=== PATIENT | female | born 1945 | race Caucasian/White ===

== ENCOUNTER 2019-11-08 13:54 | Outpatient (CLI) | payer MEDICARE, MEDICAID, SELFPAY ==
--- NOTE | ~2019-11-08 | XR_ITS ---
EXAMINATION: XR ankle LT min 3V, XR foot LT min 3V DATE: 11/08/2019 14:46 INDICATION: Nontraumatic lateral left foot pain TECHNIQUE: 1. Anteroposterior, mortise, additional oblique and lateral view of the left ankle were obtained. 2. Dorsoplantar, two oblique and lateral views of the left foot were obtained. COMPARISON: None. FINDINGS: Alignment of the foot and ankle is normal. Diffuse osteopenia. Irregular cortical contour at the neck s of the fourth and fifth proximal phalanges without evident linear lucency or discontinuous/sharply angulated cortex to suggest acute fracture and this could represent either old healed fracture deform ities or hypertrophic osteophytes related to osteoarthritis. Osteoarthritis with nonuniform joint spa ce narrowing at the tibiotalar, first metatarsophalangeal and several of the interphalangeal joints. Small heterotopic ossicle near the tip of the lateral malleolus likely sequela of chronic lateral ank le sprain. Small plantar calcaneal spur. Small enthesopathic ossicle at the distal Achilles tendon. N o ankle joint effusion. The soft tissues are unremarkable. IMPRESSION: 1. Irregular cortical contour at the necks of the fourth and fifth proximal phalanges without evident linear lucency or discontinuous/sharply angulated cortex to suggest acute fracture and this could re present either old healed fracture deformities or hypertrophic osteophytes related to osteoarthritis. Correlate with clinical history and for point tenderness. No other lesions suspicious for fracture. 2. Mild polyarticular osteoarthritis and mild enthesopathy at the posterior calcaneus. Reviewed, dictated and finalized at location A. CTOR PHONE IMPRESSION: 1. Irregular cortical contour at the necks of the fourth and fifth proximal pha langes without evident linear lucency or discontinuous/sharply angulated cortex to suggest acute fracture and this could represent either old healed fracture deformities or hypertrophic osteophytes related to osteoarthritis. Correlate wi th clinical history and for point tenderness. No other lesions suspicious for f racture. 2. Mild polyarticular osteoarthritis and mild enthesopathy at the posterior glenny caneus.
== END 2019-11-08 13:55 | disposition home or self-care (01) ==
LOC: ANHIMG 14:10
DX: M25.572 Pain in left ankle and joints of left foot (principal); M19.072 Primary osteoarthritis, left ankle and foot
CPT/HCPCS: 73610; 73630

== ENCOUNTER 2020-05-07 12:56 | Outpatient (CLI) | payer MEDICARE, MEDICAID, SELFPAY ==
--- NOTE | ~2020-05-07 | US_ITS ---
EXAMINATION: US venous doppler [facility] DATE: 05/07/2020 13:38 INDICATION: Lower limb pain and swelling. TECHNIQUE: Grayscale ultrasound images without and with compression and Doppler ultrasound images of the bilateral lower extremity veins were obtained. COMPARISON: Ultrasound 01/06/2019 FINDINGS: The visualized portions of right common femoral vein, profunda (deep) femoral vein, femoral vein, pop liteal vein, peroneal veins, posterior tibial veins, and greater saphenous vein outflow are patent. The visualized portions of left common femoral vein, profunda femoral vein, femoral vein, popliteal v ein, peroneal veins, posterior tibial veins, and greater saphenous vein outflow are patent. There is a small left-sided Beasley's cyst. IMPRESSION: 1. No deep venous thrombosis. 2. Small left-sided Beasley's cyst. Reviewed, dictated and finalized at location A.
== END 2020-05-07 12:57 | disposition home or self-care (01) ==
PROVIDERS: PCP Internal Medicine; Visit Provider Internal Medicine Cardiovascular Disease
DX: I87.2 Venous insufficiency (chronic) (peripheral) (principal); M79.89 Other specified soft tissue disorders; M71.22 Synovial cyst of popliteal space [Baker], left knee
CPT/HCPCS: 93970

== ENCOUNTER 2020-07-04 13:42 | Emergency (ER) | payer MEDICARE, MEDICAID, SELFPAY ==
[2020-07-04] VITALS (7 sets, daily range): BP systolic 113–163; BP diastolic 51–62; PULSE 52–76; RESP 16–26; O2SAT 94–98
--- NOTE | ~2020-07-04 | CT_ITS ---
EXAMINATION: CT brain wo con DATE: 07/04/2020 15:11 INDICATION: Head injury. TECHNIQUE: Computed tomography (CT) of the head was performed without intravenous contrast. The mA wa s adjusted according to patient size. Iterative reconstruction technique was employed. The dose-lengt h product was 605.33 mGy-cm. COMPARISON: Head CT 01/05/2019 FINDINGS: There is an old lacunar infarct in right involving right basal ganglia and anterior limb ri ght internal capsule. There is acute subarachnoid hemorrhage in a right parietal lobe sulcus and a le ft parietal lobe sulcus. There is no acute ischemic infarct or abnormal mass lesion. There are scatte red areas of low attenuation in the cerebral white matter. The ventricles are normal in size. There i s mild mucosal thickening in the ethmoid sinuses. There are likely changes of ocular lens replacement surgeries. The mastoid air cells are normal. There is a laceration of the right posterior scalp with soft tissue gas. IMPRESSION: 1. Small volume of acute subarachnoid hemorrhage in the parietal lobes. I called this result to Rodolfo ghotra. 2. Old lacunar infarct involving right basal ganglia and anterior limb right internal capsule. 3. Stable mild nonspecific cerebral white matter disease, which likely represents chronic small vesse l ischemic disease. Reviewed, dictated and finalized at location A. IMPRESSION: 1. Small volume of acute subarachnoid hemorrhage in the parietal lobes. I barnes d this result to Rodolfo Arredondo. 2. Old lacunar infarct involving right basal ganglia and anterior limb right in ternal capsule. 3. Stable mild nonspecific cerebral white matter disease, which likely represen ts chronic small vessel ischemic disease.
--- NOTE | ~2020-07-04 | XR_ITS ---
XR chest 1V portable 07/04/2020 15:38 Indication: Status post fall. Transient alteration of awareness. Generalized chest pain. Procedure: AP portable chest Comparison: Comparison to multiple prior studies sequentially, with oldest reviewed study dated 07/06. Findings: Status post median sternotomy for CABG. Cardiomegaly. Interval development of bilateral per ihilar interstitial infiltrates. No pleural effusion or pneumothorax. Generalized osteopenia. No acut e osseous abnormality. Impression: 1: Bilateral perihilar interstitial infiltrates, most likely edema. Pneumonia less favored. 2: Cardiomegaly. Reviewed, dictated and finalized at location A. Impression: 1: Bilateral perihilar interstitial infiltrates, most likely edema. Pneumonia l ess favored. 2: Cardiomegaly.
--- NOTE | ~2020-07-04 | CT_ITS ---
EXAMINATION: CT lumbar spine wo con DATE: 07/04/2020 15:11 INDICATION: Low back pain post fall TECHNIQUE: Computed tomography (CT) of the lumbar spine was performed without intravenous contrast. A utomated exposure control and iterative reconstruction technique were employed. The dose-length produ ct was 1154.48 mGy-cm. COMPARISON: Lumbar spine MR dated 04/15/[address] abdomen and pelvis dated 01/06/2019 FINDINGS: Alignment is normal. Chronic minimal anterior wedging at T12 and L1. Remaining lumbar vertebral body heights are normal. No acute fracture. Mild disc height loss at T11-T12, L1-L2, L2-L3 and minimal at L3-L4 and L4-L5. There is calcified atherosclerosis of the aorta and many of the other arteries. Low- attenuation adrenal adenomas measuring 12 mm in the left adrenal gland and 2.0 and 2.6 cm in the righ t adrenal gland. The following disc levels are specifically discussed: T11-T12: Disc is mildly bulging. There is mild to moderate left and moderate right facet joint osteoa rthritis. There is no neural foraminal stenosis. There is no central canal stenosis. T12-L1: Disc is mildly bulging. There is mild to moderate left and moderate right facet joint osteoar thritis. There is no neural foraminal stenosis. There is mild central canal stenosis. L1-L2: Disc is bulging. There is mild bilateral facet joint osteoarthritis. There is mild bilateral n eural foraminal stenosis. There is mild central canal stenosis. L2-L3: Disc is bulging. There is hypertrophy of the ligamentum flavum. There is moderate left and mil d to moderate right facet joint osteoarthritis. There is mild bilateral neural foraminal stenosis. Th ere is mild central canal stenosis. L3-L4: Disc is bulging. There is hypertrophy of the ligamentum flavum. There is mild left and mild to moderate right facet joint osteoarthritis. There is mild bilateral neural foraminal stenosis. There is mild to moderate central canal stenosis. L4-L5: Disc is mildly bulging. There is hypertrophy of the ligamentum flavum. There is mild right and minimal left facet joint osteoarthritis. There is mild bilateral neural foraminal stenosis. There is mild central canal stenosis. L5-S1: Disc is mildly bulging. There is mild right and mild to moderate left facet joint osteoarthrit is. There is mild bilateral neural foraminal stenosis. There is no central canal stenosis. IMPRESSION: 1. Mild lumbar spondylosis. No acute osseous abnormality. Reviewed, dictated and finalized at location B.
--- NOTE | ~2020-07-04 | CT_ITS ---
EXAMINATION: CT cervical spine wo con DATE: 07/04/2020 15:10 INDICATION: Head injury. TECHNIQUE: Computed tomography (CT) of the cervical spine was performed without intravenous contrast. Automated exposure control and iterative reconstruction technique were employed. The dose-length pro duct was 502.51 mGy-cm. COMPARISON: Cervical spine CT 07/04/2017 FINDINGS: There is 6 degrees levocurvature of cervical spine. Vertebral body heights are normal. Ther e are changes of anterior fusion procedure from C5 to C7 with healed interbody bone graft and anterio r plate and screws. There is moderately decreased disc height at C3-C4 and C4-C5. The following disc levels are specifically discussed: C2-C3: There is no uncovertebral joint osteoarthritis. There is mild bilateral facet joint osteoarthr itis. There is no neural foraminal stenosis. There is no central canal stenosis. C3-C4: There is severe bilateral uncovertebral joint osteoarthritis. There is mild bilateral facet angel int osteoarthritis. There is mild bilateral neural foraminal stenosis. There is mild central canal st enosis. C4-C5: There is mild bilateral uncovertebral joint osteoarthritis. There is no facet joint osteoarthr itis. There is mild bilateral neural foraminal stenosis. There is mild central canal stenosis. C5-C6: There is mild left uncovertebral joint hypertrophy. There is no facet joint osteoarthritis. Th ere is mild left neural foraminal stenosis. There is mild central canal stenosis. C6-C7: There is no uncovertebral joint hypertrophy. There is no facet joint osteoarthritis. There is no neural foraminal stenosis. There is no central canal stenosis. C7-T1: There is no uncovertebral joint osteoarthritis. There is severe right and moderate left facet joint osteoarthritis. There is no neural foraminal stenosis. There is no central canal stenosis. IMPRESSION: 1. No fracture. 2. Moderate cervical spondylosis. 3. Anterior fusion procedure from C5 to C7. Reviewed, dictated and finalized at location A.
--- NOTE | 2020-07-04 13:55 | ECG_ITS ---
Measurements Intervals [place] Rate: 47 P: 89 UT: 135 QRS: 73 QRSD: 109 T: 110 QT: 478 QTc: 423 Interpretive Statements SINUS BRADYCARDIA BORDERLINE R WAVE PROGRESSION, ANTERIOR LEADS BORDERLINE ST-T WAVE ABNORMALITY- ANTEROLAT/HIGH LAT LEADS BASELINE ARTIFACT- I, II, III, AVR, AVL, AVF, V1-V3, V5-V6 ABNORMAL ECG Electronically Signed On 07-05-2020 8:08:16 CDT by Stephan Talbot D.O.
--- NOTE | 2020-07-04 14:01 | ED.GENADULT ---
HPI - General Adult General Chief complaint: Fall <KARLENE Solano Last Filed: 07/04/20 15:45> Stated complaint: Fall <KARLENE Solano Last Filed: 07/04/20 15:45> Time Seen by Provider: 07/04/20 13:54 <KARLENE Solano Last Filed: 07/04/20 15:45> Source: patient, family and EMS <KARLENE Solano Last Filed: 07/04/20 15:45> Mode of arrival: EMS <KARLENE Solano Last Filed: 07/04/20 15:45> Limitations: no limitations <KARLENE Solano Last Filed: 07/04/20 15:45> History of Present Illness HPI narrative: Patient is a 74-year-old female who presents to emergency department after reportedly falling backwards on the stairs struck the posterior head patient on arrival per EMS notes posterior headache neck pain right wrist pain and low back pain all the way to the ER patient notes some chest discomfort anteriorly patient notes she had felt fine yesterday patient otherwise on arrival presents uncomfortable but in no distress does note that she is currently sleepy denies anticoagulant use <KARLENE Solano Last Filed: 07/04/20 15:45> Related Data Allergies/adverse reactions: Allergies Allergy/AdvReac Type Severity Reaction Status Date / Time levofloxacin Allergy Severe Swelling Verified 07/04/20 14:08 cefaclor Allergy Unknown Anaphylaxis Verified 07/04/20 14:08 ciprofloxacin Allergy Unknown Anaphylaxis Verified 07/04/20 14:08 codeine Allergy Unknown Other Verified 07/04/20 14:08 erythromycin base Allergy Unknown Hives Verified 07/04/20 14:08 Iodinated Contrast Media Allergy Unknown Hives Verified 07/04/20 14:08 iodine Allergy Unknown Itching Verified 07/04/20 14:08 latex Allergy Unknown Anaphylaxis Verified 07/04/20 14:08 Sulfa (Sulfonamide Allergy Unknown Anaphylaxis Verified 07/04/20 14:08 Antibiotics) sulfanilamide Allergy Unknown Anaphylaxis Verified 07/04/20 14:08 Macrolide Antibiotics AdvReac Unknown Gastrointestinal Verified 07/04/20 14:08 Upset morphine AdvReac Unknown VOMITING Verified 07/04/20 14:08 Quinolones AdvReac Unknown Other Verified 07/04/20 14:08 vancomycin AdvReac Unknown side Verified 07/04/20 14:08 effect-rising creatnine Contrast Media Allergy Unknown SWELLS,RED, Uncoded 07/04/20 14:09 SOB <Rodolfo Arredondo PA-C - Last Filed: 07/04/20 15:45> Review of Systems Review of Systems: All systems reviewed & are unremarkable except as noted in HPI and below <Rodolfo Arredondo PA-C - Last Filed: 07/04/20 15:45> [facility] Past Medical History Medical History: Medical History (Updated 07/04/20 @ 15:44 by Rodolfo Arredondo PA-C) COPD (chronic obstructive pulmonary disease) Coronary artery disease Hyperlipidemia Hypertension Tobacco abuse <Rodolfo Arredondo PA-C - Last Filed: 07/04/20 15:45> Surgical History Surgical History: Surgical History (Updated 07/04/20 @ 14:03 by Rodolfo Arredondo PA-C) Hx of CABG <Rodolfo Arredondo PA-C - Last Filed: 07/04/20 15:45> Family History Family History: Family History (Updated 11/21/17 @ 06:57 by DOCTOR UNKNOWN) Mother Family history of chronic obstructive pulmonary disease Sibling Family history of chronic obstructive pulmonary disease Family history of diabetes mellitus in first degree relative Acute myocardial infarction Diabetes mellitus Family history of coronary artery disease Father Family history of lung cancer Other Hypertension <Rodolfo Arredondo PA-C - Last Filed: 07/04/20 15:45> Social History Social History: Social History (Updated 07/04/20 @ 14:03 by Rodolfo Arredondo PA-C) Smoking status: Current every day smoker Second hand tobacco smoke exposure: Yes Smoking end date: 09/05/14 Alcohol intake: never Gender identity (if verbalized by the patient): Female <Rodolfo Arredondo PA-C - Last Filed: 07/04/20 15:45> Exam Narrative: Exam Narrative: GENERAL: Ill-appearing, obese, u
[2020-07-04 14:21] LABS: Glucose Point of Care 140 (65-105)
[2020-07-04 14:22] LABS: Alveolar/Arterial O2 Gradient 86.3 mmHg; Base Excess ABG 1.5 mEq/l (+/-2.0); Device NASAL CANNULA; Fractional Inspired Oxygen 28 %; HCO3 ABG 26.2 mEq/l (22.0-26.0); Oxygen Content ABG 15.8 %vol (16.0-22.0); Oxygen Saturation ABG 92.8 % (95.0-100.0); Oxyhemoglobin 85.7 % THb (90.0-100.0); PCO2 ABG 41.7 mmHg (35.0-45.0); PO2 ABG 64.1 mmHg (80.0-100.0); PO2 FiO2 Ratio Arterial Blood 2.29 %; Site Drawn RIGHT BRACHIAL; Total Hemoglobin 13.1 g/dL (12.0-18.0); pH ABG 7.416 (7.350-7.450)
--- NOTE | 2020-07-04 15:15 | PC.NURSE ---
correction to d/c note & time: phone report to nurse villarreal at [id number]
[2020-07-04 15:25] LABS: Basophils Absolute Auto 0.1 K/mm3 (0.0-0.1); Basophils Percent Auto 0.6 % (0.2-1.2); Eosinophils Absolute Auto 0.1 K/mm3 (0-0.3); Eosinophils Percent Auto 0.9 % (0-4.4); Hematocrit 38.7 % (37.0-47.0); Hemoglobin 12.8 g/dL (12.0-15.0); Immature Granulocyte Absolute 0.11 K/mm3 (0.00-0.031); Immature Granulocyte Percent A 0.8 % (0-0.5); Lymphocytes Absolute Auto 1.76 K/mm3 (0.9-3.2); Mean Corpuscular HGB Conc 33.1 g/dl (32-36); Mean Corpuscular Hemoglobin 33.8 pg (26-34); Mean Corpuscular Volume 102.1 fl (80-100); Mean Platelet Volume 9.7 fl (7.4-10.4); Monocytes Absolute Auto 0.8 K/mm3 (0.1-0.6); Monocytes Percent Auto 5.7 % (2.6-8.5); Neutrophils Absolute Auto 11.7 K/mm3 (1.3-6.7); Platelet Count Result 172 k/mm3 (150-375); Red Blood Count 3.79 M/mm3 (4.2-5.4); Red Cell Distribution Width 12.7 % (11.5-14.5); White Blood Count 14.6 K/mm3 (4.5-10.0)
[2020-07-04] MEDS: SODIUM CHLORIDE 0.9% IV 500 ML 999 ML IV CONT (15:26)
--- NOTE | 2020-07-04 15:33 | PC.NURSE ---
[facility] declined transfer to [facility] accepted transfer ETA 15-min Trip #[id number]
[2020-07-04 15:38] LABS: Alanine Aminotransferase 23 U/L (4-35); Albumin Level 3.9 g/dL (3.5-5.1); Alkaline Phosphatase 52 U/L (38-126); Anion Gap 5 mmol/L (8-16); Aspartate Amino Transferase 44 U/L (14-36); Bilirubin,Total 0.3 mg/dL (0.2-1.3); Blood Urea Nitrogen 15 mg/dL (7-17); Calcium 8.9 mg/dL (8.4-10.2); Carbon Dioxide 30 mmol/L (22-30); Chloride 106 mmol/L (98-107); Estimated CRCL calculation 47 ml/min; Estimated Glomerular Filt Rate > 60; Glucose 125 mg/dL (65-105); Magnesium 1.7 mg/dL (1.6-2.3); Partial Thromboplastin Time 26.8 SECONDS (22.3-36.8); Potassium 3.7 mmol/L (3.4-5.0); Sodium 141 mmol/L (137-145)
--- NOTE | 2020-07-04 15:45 | PC.NURSE ---
[facility] arrived for transfer to [facility] @ [phone]
[2020-07-04 15:50] LABS: NT Pro B Type Natriuretic Pept 1030 PG/ML (5-100); Troponin I < 0.012 ng/mL (0.000-0.034)
== END 2020-07-04 15:45 | disposition short-term general hospital (02) ==
PROVIDERS: Emergency Medicine Emergency Medical Services; Emergency Provider Emergency Medicine
DX: S06.6X0A Traumatic subarachnoid hemorrhage without loss of consciousness, initial encounter (principal); J44.9 Chronic obstructive pulmonary disease, unspecified; I25.10 Atherosclerotic heart disease of native coronary artery without angina pectoris; E78.5 Hyperlipidemia, unspecified; I10 Essential (primary) hypertension; Z95.1 Presence of aortocoronary bypass graft; Z87.891 Personal history of nicotine dependence; M47.816 Spondylosis without myelopathy or radiculopathy, lumbar region; R00.1 Bradycardia, unspecified; R94.31 Abnormal electrocardiogram [ECG] [EKG]; R90.82 White matter disease, unspecified; M47.812 Spondylosis without myelopathy or radiculopathy, cervical region; Z98.1 Arthrodesis status; I51.7 Cardiomegaly; R91.8 Other nonspecific abnormal finding of lung field; W10.9XXA Fall (on) (from) unspecified stairs and steps, initial encounter
CPT/HCPCS: 36415; 36600; 70450; 71045; 72125; 72131; 80053; 82375; 82805; 82948; 83050; 83735; 83880; 84484; 85025; 85610; 85730; 93005; 96365; 96366; 99291; J0131; J7040

== ENCOUNTER 2020-08-05 17:05 | IRF | payer MEDICARE, MEDICAID, SELFPAY ==
--- NOTE | ~2020-08-05 | CT_ITS ---
EXAMINATION: CT brain wo con DATE: 08/18/2020 13:33 INDICATION: Headache. History of subarachnoid hemorrhage. TECHNIQUE: Computed tomography (CT) of the head was performed without intravenous contrast. The dose- length product was 605.33 mGy-cm. Automated exposure control and iterative reconstruction technique w ere employed. COMPARISON: CT dated 07/04/2020 FINDINGS: Mild generalized atrophy. There are scattered moderate periventricular and subcortical whit e matter changes, most likely related to small vessel ischemic disease (microangiopathy). Chronic rig ht lacunar infarctions. No ventriculomegaly or midline shift. There is intracranial atherosclerosis. Interval resolution of small subarachnoid hemorrhages of the parietal lobes. No acute hemorrhage, mas s or mass effect. Paranasal sinuses are pneumatized. There are bilateral mastoid effusions. No depres sed skull fractures. IMPRESSION: 1. No acute intracranial abnormality. 2: Chronic right lacunar infarctions. 3: Chronic age-related findings. Reviewed, dictated and finalized at location A. NUE CYCLE MANAGER
--- NOTE | ~2020-08-05 | XR_ITS ---
EXAMINATION: XR chest 1V portable DATE: 08/08/2020 20:40 INDICATION: Midsternal chest pain and shortness of breath TECHNIQUE: frontal view of the chest was obtained. COMPARISON: Chest radiograph dated 08/08/2020 at 2:06 PM FINDINGS: Again seen are predominantly linear and bandlike opacities in the bilateral lower lung zones which fa vors discoid atelectasis over pneumonia. Small left pleural effusion. No pneumothorax or right-sided pleural effusion. The cardiomediastinal silhouette is normal. Median sternotomy wires and mediastinal surgical clips are seen, likely from prior coronary artery bypass grafting. Retained epicardial pace maker leads in the epigastric region. Again seen are a mildly displaced relatively recent-appearing p osterolateral right fourth-seventh rib fractures. Lower cervical anterior spinal fusion with plate an d screw fixation. IMPRESSION: 1. No significant change in opacities in the bilateral lower lung zones with appearance favoring atel ectasis over pneumonia. 2. Small left pleural effusion. 3. Relatively recent-appearing right fourth-seventh rib fractures. Reviewed, dictated and finalized at location A. UTER SYSTEMS AUDITOR IMPRESSION: 1. No significant change in opacities in the bilateral lower lung zones with ap pearance favoring atelectasis over pneumonia. 2. Small left pleural effusion. 3. Relatively recent-appearing right fourth-seventh rib fractures.
--- NOTE | ~2020-08-05 | XR_ITS ---
EXAMINATION: XR finger 1st RT min 2V DATE: 08/13/2020 13:17 INDICATION: Right thumb pain. TECHNIQUE: 3 views of right thumb were obtained. COMPARISON: None. FINDINGS: Bone alignment is normal. No fracture. There is diffuse osteopenia. There is mild osteoarth ritis of first metatarsophalangeal joint and severe osteoarthritis of first carpometacarpal joint. IMPRESSION: 1. Polyarticular osteoarthritis. Reviewed, dictated and finalized at location B. INE ICER
--- NOTE | ~2020-08-05 | XR_ITS ---
EXAMINATION: XR chest 1V portable EXAM DATE: 08/08/2020 14:12 INDICATION: SOB, cough, congestion . TECHNIQUE: Portable AP frontal chest x-ray was obtained. Comparison is made to prior examination from 07/04/2020. FINDINGS: Some scattered predominantly linear bibasilar opacities likely atelectasis. Infection not e ntirely excludable. There are right 4th-7th rib fractures which appear new compared to prior study. M ild cardiomegaly. Sternotomy wires was some fractures. There is aortic arteriosclerosis. There is no pneumothorax suspected. There are no pleural effusions. Cervical fusion hardware. IMPRESSION: 1. Development of scattered bibasilar opacities most likely atelectasis. Infection not excludable. 2. Right 4th-7th rib fractures posteriorly. Reviewed, dictated and finalized at location A. GER SUBWAY IMPRESSION: 1. Development of scattered bibasilar opacities most likely atelectasis. Infec tion not excludable. 2. Right 4th-7th rib fractures posteriorly.
--- NOTE | ~2020-08-05 | CT_ITS ---
EXAMINATION: CT cervical spine wo con DATE: 08/18/2020 13:33 INDICATION: Headache. TECHNIQUE: Computed tomography (CT) of the cervical spine was performed without intravenous contrast. Automated exposure control and iterative reconstruction technique were employed. The dose-length pro duct was 315.79 mGy-cm. COMPARISON: Cervical spine CT 07/04/2020 FINDINGS: There is mild emphysema. There is mild scarring at the lung apices. The thyroid is heteroge neous. There are bilateral mastoid effusions. There is 6 degrees levocurvature of cervical spine. Donal tebral body heights are normal. There are changes of anterior fusion procedure from C5 to C7 with hea led interbody bone graft and anterior plate and screws. There are healing compression fractures of th e superior endplates of T2 and T3 with less than 1/5 loss of height. There is moderately decreased di sc height at C3-C4 and C4-C5. The following disc levels are specifically discussed: C2-C3: There is no uncovertebral joint osteoarthritis. There is mild bilateral facet joint osteoarthritis. There is no neural foraminal stenosis. There is no central canal stenosis. C3-C4: There is severe bilateral uncovertebral joint osteoarthritis. There is mild bilateral facet joint osteoarthritis. There is mild bilateral neural foraminal stenosis. There is mild central canal stenosis. C4-C5: There is mild bilateral uncovertebral joint osteoarthritis. There is no facet joint osteoarthritis. There is mild bilateral neural foraminal stenosis. There is mild central canal stenosis. C5-C6: There is mild left uncovertebral joint hypertrophy. There is no facet joint osteoarthritis. There is mild left neural foraminal stenosis. There is mild central canal stenosis. C6-C7: There is no uncovertebral joint hypertrophy. There is no facet joint osteoarthritis. There is no neural foraminal stenosis. There is no central canal stenosis. C7-T1: There is no uncovertebral joint osteoarthritis. There is severe right and moderate left facet joint osteoarthritis. There is no neural foraminal stenosis. There is no central canal stenosis. IMPRESSION: 1. Healing subacute compression fractures of T2 and T3. 2. Moderate cervical spondylosis. 3. Anterior fusion procedure from C5 to C7. Reviewed, dictated and finalized at location A. S BROKER
--- NOTE | 2020-08-05 17:30 | ADMGEN ---
This patient, Alondra Bill, was admitted to [facility] Room 226-01. Patient/family oriented to hospital policies and general routines including ID bracelet, bed and alarms, visiting hours, pain management, procedures, bathroom and other care routines, personal items, smoking policy, room service/diet, and visiting hours. Information on how to activate the Rapid Response Team has been discussed. Patient/Family are encouraged to report perceived risks to care and to ask questions if they do not understand what they are told or what they should do. Patient arrived via [facility], they reported alert and oriented x 4 and V/S stable during ride. Stated also that O2 sats were in the low 90's and patient showed no related discomfort
[2020-08-05 17:57] VITALS: BP 138/58; PULSE 80; RESP 16; TEMP 36.2; O2SAT 94; BMI 29.7
[2020-08-05 19:15] VITALS: BMI 29.7
[2020-08-05] MEDS: BACLOFEN 10 MG TABLET PO (20:41)
[2020-08-05] MEDS: ALPRAZolam (*CRX) 0.5 MG TABLET PO (20:41)
[2020-08-05] MEDS: CHLORHEXIDINE GLUCONATE 0.12% ORAL RINSE 473 ML BTL (*BKC) 15 ML SWISH/SPIT (20:42)
[2020-08-05] MEDS: FERROUS SULFATE 324 MG TABLET PO (20:42)
[2020-08-05] MEDS: ENOXAPARIN 30 MG/0.3 ML SYRINGE SUB-Q (20:42)
[2020-08-05] MEDS: BACITRACIN OINTMENT 15 GM TUBE 1 APPLIC TOPICAL (20:42)
[2020-08-05] MEDS: FLUTICASONE PROPIONATE 0.05% NA SPR 16 GM BTL (*BKC) 2 SPRAY NASAL (20:43)
[2020-08-05] MEDS: NYSTATIN 100,000 UNITS/ML SUSP 5 ML ORAL.SUSP PO (20:43)
[2020-08-05] MEDS: NITROFURANTOIN MONOHYD MACROCR 100 MG CAP PO (20:44)
[2020-08-05] MEDS: ROSUVASTATIN 10 MG TABLET 20 MG PO (20:45)
[2020-08-05] MEDS: PANTOPRAZOLE 40 MG TABLET PO (20:45)
[2020-08-05 21:12] LABS: Glucose Point of Care 128 (65-105)
[2020-08-05 22:00] VITALS: BP 136/64; PULSE 77; RESP 16; TEMP 36.3; O2SAT 93
[2020-08-05] MEDS: ACETAMINOPHEN 500 MG TABLET 1000 MG PO (22:53)
[2020-08-06] VITALS (7 sets, daily range): BP systolic 122–152; BP diastolic 51–61; PULSE 70–87; RESP 18–20; TEMP 36.4–36.6; O2SAT 92–97; BMI 29.7
[2020-08-06 05:49] LABS: Basophils Absolute Auto 0.1 K/mm3 (0.0-0.1); Basophils Percent Auto 0.6 % (0.2-1.2); Eosinophils Absolute Auto 0.5 K/mm3 (0-0.3); Eosinophils Percent Auto 5.2 % (0-4.4); Hematocrit 30.9 % (37.0-47.0); Hemoglobin 10.1 g/dL (12.0-15.0); Immature Granulocyte Absolute 0.02 K/mm3 (0.00-0.031); Immature Granulocyte Percent A 0.2 % (0-0.5); Lymphocytes Absolute Auto 2.13 K/mm3 (0.9-3.2); Lymphocytes Percent Auto 24.7 % (18.3-44.2); Mean Corpuscular HGB Conc 32.7 g/dl (32-36); Mean Corpuscular Hemoglobin 33.7 pg (26-34); Mean Platelet Volume 9.5 fl (7.4-10.4); Monocytes Absolute Auto 0.6 K/mm3 (0.1-0.6); Monocytes Percent Auto 7.4 % (2.6-8.5); Neutrophils Absolute Auto 5.4 K/mm3 (1.3-6.7); Neutrophils Percent Auto 61.9 % (45.5-73.1); Platelet Count Result 210 k/mm3 (150-375); Red Cell Distribution Width 13.1 % (11.5-14.5); White Blood Count 8.6 K/mm3 (4.5-10.0)
[2020-08-06 06:04] LABS: Anion Gap 4 mmol/L (8-16); Blood Urea Nitrogen 13 mg/dL (7-17); Calcium 9.2 mg/dL (8.4-10.2); Carbon Dioxide 31 mmol/L (22-30); Chloride 101 mmol/L (98-107); Cholesterol 117 mg/dL (0-200); Estimated CRCL calculation 58 ml/min; Estimated Glomerular Filt Rate > 60; Glucose 124 mg/dL (65-105); HDL Direct 38 mg/dL; Sodium 136 mmol/L (137-145); Triglycerides 132 mg/dL (<150)
[2020-08-06 06:14] LABS: LDL Cholesterol Direct 43 mg/dL
[2020-08-06 06:45] LABS: Glucose Point of Care 129 (65-105)
[2020-08-06] MEDS: ENOXAPARIN 30 MG/0.3 ML SYRINGE SUB-Q ×2 (09:28→21:46)
[2020-08-06] MEDS: FERROUS SULFATE 324 MG TABLET PO ×2 (09:28→17:22)
[2020-08-06] MEDS: metFORMIN HCL 500 MG TABLET PO (09:28)
[2020-08-06] MEDS: METOPROLOL SUCCINATE EXT REL 12.5 MG TABCR PO (09:28)
[2020-08-06] MEDS: BACLOFEN 10 MG TABLET PO ×3 (09:29→17:22)
[2020-08-06] MEDS: amLODIPine BESYLATE 5 MG TABLET PO (09:29)
[2020-08-06] MEDS: FLUTICASONE PROPIONATE 0.05% NA SPR 16 GM BTL (*BKC) 2 SPRAY NASAL ×2 (09:29→21:37)
[2020-08-06] MEDS: CITALOPRAM HYDROBROMIDE 20 MG TABLET 40 MG PO (09:29)
[2020-08-06] MEDS: LIDOCAINE 5% PATCH 3 PATCH TOPICAL (09:30)
[2020-08-06] MEDS: NITROFURANTOIN MONOHYD MACROCR 100 MG CAP PO ×2 (09:30→21:35)
[2020-08-06] MEDS: NYSTATIN 100,000 UNITS/ML SUSP 5 ML ORAL.SUSP PO ×4 (09:31→21:35)
[2020-08-06] MEDS: PANTOPRAZOLE 40 MG TABLET PO ×2 (09:31→21:35)
[2020-08-06] MEDS: SPIRONOLACTONE 25 MG TABLET PO (09:31)
[2020-08-06] MEDS: BACITRACIN OINTMENT 15 GM TUBE 1 APPLIC TOPICAL ×2 (09:33→21:36)
[2020-08-06] MEDS: CHLORHEXIDINE GLUCONATE 0.12% ORAL RINSE 473 ML BTL (*BKC) 15 ML SWISH/SPIT ×2 (09:33→21:40)
[2020-08-06] MEDS: ALBUTEROL SULFATE (*SP) AEROSOL 1 PUFF 2 PUFF INHALATION ×2 (14:29→20:47)
--- NOTE | 2020-08-06 17:31 | WPDREHABHP ---
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 The patient was seen [id number] at 1:00 p.m. on August 06, 2020: history of present illness: 75 years old lady with past medical history of hypertension, coronary artery disease status post 4 vessel CABG in 2015, congestive heart failure, COPD, no oxygen requirement at this particular stage, anterior cervical diskectomy and fusion in 2004, chronic kidney disease, MDD, anxiety, chronic pain chronic anemia, and IDDM 2, and osteoarthritis presented to [facility] on July 04, 2020 with complaints of headache and dizziness with right chest wall pain after a fall. Per patient's report, she was walking to the [place], when she felt lightheaded and fell down 3 steps to the ground and struck her occipital area,. She experienced loss of consciousness for 1 to 2 minutes. Imaging was obtained. CT of the head, cervical spine, thoracic spine only with positive findings of subarachnoid hemorrhage. The patient was transferred to [facility] Emergency room for further evaluation of her injuries. Upon arrival, the patient continued to complain of headache and chest wall pain. Her posterior scalp laceration was sutured closed. Further trauma imaging was obtained. A CT off chest demonstrated right pneumothorax with acute non displaced right-sided fold 5 Dennis 6 rib fractures. UA was negative for infection. The Neurosurgery Service was consulted for further evaluation of her injuries. The patient was admitted to the SICU for further close neurological monitoring, pain control, pulmonary hygiene, continued management of her injuries and comorbidities. Repeat head CT demonstrated a stable subarachnoid hemorrhage. Chest imaging was stable with a tiny right-sided pneumothorax. Pain Management was consulted and epidural was placed for better pain control. On 07/05 the patient experience are respiratory decompression and was intubated and sedated to obtain optimal respiratory status. Further workup demonstrated pneumonia.S He required pressors for blood pressure management. Syncope workup included carotid duplex imaging on 07/07. Demonstrated an acute R IJ DVT. Repeated head imaging remains stable and Neurosurgery okayed on 07/14 after prolonged course the patient fails and extubation trial. She was eventually trached on 07/12 and successful least transition to uncover track with JAMISON neil He was decannulated on July 30, 2020 And is currently on room air. Further workup on 07/15 right upper extremity venous duplex was negative for RIJDVT heparin drip was finally started on 07/19 for management of her atrial fibrillation and acute DVT finding. The patient's status remained stable and she was eventually transferred [facility] on 07/26 for further care management of her injuries. She developed a urinary tract infection and is being treated with oral Macrobid Flores's catheter was discontinued on July 31, 2020 she is urinating spontaneously. She has bridgeed from Lovenox to Coumadin. sHe had head CT on August 02, 2020 shows completely resolved subarachnoid hemorrhage. Follow-up in 4 to 6 weeks with a noncontrast head CT scan, appointment scheduling at [phone] Edmond Toledo at [phone]. Hold aspirin until follow-up COVID: the patient has not traveled outside the [place] or had contact with someone who is ill that his travel outside the [place] in the past 21 days. The patient has not traveled to an area of the [place] that is experiencing known transmission of the Coronavirus and has not had close personal contact with anyone that has. The patient does not have a fever. The patient is n
--- NOTE | 2020-08-06 18:39 | PC.NURSE ---
Addendum entered by Mia Pérez RN 08/06/20 18:40: charted on wrong patient. Original Note: Patient sat at the desk for observation while eating all of his meals.
[2020-08-06] MEDS: ROSUVASTATIN 10 MG TABLET 20 MG PO (21:34)
[2020-08-06] MEDS: ALPRAZolam (*CRX) 0.5 MG TABLET PO (21:34)
[2020-08-06 22:29] LABS: Glucose Point of Care 151 (65-105)
[2020-08-07] VITALS (8 sets, daily range): BP systolic 122–162; BP diastolic 44–74; PULSE 63–76; RESP 16–20; TEMP 36.6–36.8; O2SAT 92–95
[2020-08-07] MEDS: ALBUTEROL SULFATE (*SP) AEROSOL 1 PUFF 2 PUFF INHALATION ×3 (02:32→20:39)
[2020-08-07 06:46] LABS: Glucose Point of Care 126 (65-105)
[2020-08-07] MEDS: metFORMIN HCL 500 MG TABLET PO (09:04)
[2020-08-07] MEDS: BACLOFEN 10 MG TABLET PO ×3 (09:04→17:39)
[2020-08-07] MEDS: BACITRACIN OINTMENT 15 GM TUBE 1 APPLIC TOPICAL ×2 (09:05→21:17)
[2020-08-07] MEDS: CHLORHEXIDINE GLUCONATE 0.12% ORAL RINSE 473 ML BTL (*BKC) 15 ML SWISH/SPIT ×2 (09:05→21:19)
[2020-08-07] MEDS: amLODIPine BESYLATE 5 MG TABLET PO (09:05)
[2020-08-07] MEDS: FERROUS SULFATE 324 MG TABLET PO ×2 (09:07→17:39)
[2020-08-07] MEDS: CITALOPRAM HYDROBROMIDE 20 MG TABLET 40 MG PO (09:07)
[2020-08-07] MEDS: FLUTICASONE PROPIONATE 0.05% NA SPR 16 GM BTL (*BKC) 2 SPRAY NASAL ×2 (09:08→21:18)
[2020-08-07] MEDS: LIDOCAINE 5% PATCH 3 PATCH TOPICAL (09:10)
[2020-08-07] MEDS: METOPROLOL SUCCINATE EXT REL 12.5 MG TABCR PO (09:11)
[2020-08-07] MEDS: NITROFURANTOIN MONOHYD MACROCR 100 MG CAP PO ×2 (09:11→21:18)
[2020-08-07] MEDS: NYSTATIN 100,000 UNITS/ML SUSP 5 ML ORAL.SUSP PO ×4 (09:12→21:18)
[2020-08-07] MEDS: SPIRONOLACTONE 25 MG TABLET PO (09:12)
[2020-08-07] MEDS: PANTOPRAZOLE 40 MG TABLET PO ×2 (09:12→21:28)
[2020-08-07] MEDS: ENOXAPARIN 30 MG/0.3 ML SYRINGE SUB-Q ×2 (09:15→21:12)
[2020-08-07] MEDS: ONDANSETRON HCL ODT 4 MG TABLET PO (12:18)
[2020-08-07] MEDS: ACETAMINOPHEN 500 MG TABLET 1000 MG PO ×2 (14:13→17:39)
--- NOTE | 2020-08-07 15:30 | WPDNEURORHBP ---
Subjective Date/time seen: 08/07/20 15:30 75 years old admitted to the rehab with bilateral parietal subarachnoid hemorrhage in addition to 1. Hypertension 2. Coronary artery disease 3. Congestive heart failure 4. COPD 5. Anterior cervical diskectomy and fusion 6. Chronic kidney disease 7. Major depressive disorder 8. Anxiety 9. Chronic pain 10. Insulin dependent diabetes mellitus 11. Osteoarthritis 12. Dizziness Review of Systems Review of Systems: All systems reviewed & are unremarkable except as noted in HPI and below Functional Status Ambulation Ability Ability to Ambulate 10 Feet: Moderate Assistance X 1 Ambulation Assistive Devices: Walker, Wheeled Transfers Ability Ability to Transfer In/Out of Chair: Moderate Assistance X 1 Exam Narrative: Exam Narrative: on examination today awake alert ear nose throat examination normal neck is supple heart rate lungs abdomen is soft neuro examination unchanged Objective Data Vital Signs Vital Signs: Vital Signs - 24 hr 08/06/20 20:20 08/06/20 20:48 08/06/20 22:00 Temperature 36.6 C Pulse Rate 80 80 70 Respiratory Rate 20 20 18 Blood Pressure 152/51 H Pulse Oximetry 93 97 08/07/20 02:33 08/07/20 06:00 08/07/20 09:11 Temperature 36.7 C Pulse Rate 76 75 75 Respiratory Rate 20 18 Blood Pressure 162/74 H Pulse Oximetry 94 08/07/20 09:55 08/07/20 14:00 Temperature 36.8 C Pulse Rate 69 Respiratory Rate 18 Blood Pressure 148/68 H Pulse Oximetry 93 94 Intake/Output Intake/Output: Intake & Output 08/04/20 08/05/20 08/06/20 08/07/20 23:59 23:59 23:59 23:59 Intake Total 720 480 Balance 720 480 Meds/Results Medications: Active Medications Generic Name Dose Route Start Last Admin Trade Name Freq PRN Reason Stop Dose Admin Acetaminophen 1,000 mg 08/07/20 18:00 Acetaminophen 500 Mg Tablet PO Q6HR JUSTA Albuterol 2 puff 08/06/20 14:00 08/07/20 09:54 Albuterol Sulfate (*Sp) Aerosol 1 Puff INHALATION 2 puff Q6HRT JUSTA Administration Alprazolam 0.5 mg 08/05/20 21:00 08/06/20 21:34 Alprazolam (*Crx) 0.5 Mg Tablet PO 0.5 mg HS JUSTA Administration Amlodipine Besylate 5 mg 08/06/20 09:00 08/07/20 09:05 Amlodipine Besylate 5 Mg Tablet PO 5 mg DAILY JUSTA Administration Bacitracin 1 applic 08/05/20 21:00 08/07/20 09:05 Bacitracin Ointment 15 Gm Tube TOPICAL 1 applic Q12HR JUSTA Administration Baclofen 10 mg 08/05/20 17:00 08/07/20 12:21 Baclofen 10 Mg Tablet PO 10 mg TIDWM JUSTA Administration Bisacodyl 10 mg 08/05/20 18:21 Bisacodyl 10 Mg Suppository RECTAL DAILY PRN Constipation Bumetanide 0.5 mg 08/05/20 18:21 Bumetanide 0.5 Mg Tablet PO DAILY PRN Edema Chlorhexidine Gluconate 15 ml 08/05/20 21:00 08/07/20 09:05 Chlorhexidine Gluconate 0.12% Oral Rinse 473 Ml Btl (*Bkc) SWISH/SPIT 15 ml Q12HR JUSTA Administration Citalopram Hydrobromide 40 mg 08/06/20 09:00 08/07/20 09:07 Citalopram Hydrobromide 20 Mg Tablet PO 40 mg DAILY JUSTA Administration Dextrose 12.5 gm 08/05/20 18:27 Dextrose 50% 25 Gm/50 Ml Syringe IV PUSH PRN PRN Hypoglycemia Protocol Enoxaparin Sodium 30 mg 08/05/20 21:00 08/07/20 09:15 Enoxaparin 30 Mg/0.3 Ml Syringe SUB-Q 30 mg Q12HR JUSTA Administration Ferrous Sulfate 324 mg 08/05/20 17:00 08/07/20 09:07 Ferrous Sulfate 324 Mg Tablet PO 324 mg BID JUSTA Administration Fluticasone Propionate 2 spray 08/05/20 21:00 08/07/20 09:08 Fluticasone Propionate 0.05% Na Spr 16 Gm Btl (*Bkc) NASAL 2 spray Q12HR JUSTA Administration Glucagon 1 mg 08/05/20 18:27 Glucagon For Inj 1 Mg Vial IM PRN PRN Hypoglycemia Protocol Glucose 15 gm 08/05/20 18:27 Glucose Oral Gel 15 Gm Of Glucse In 37.5 Gm Tube PO PRN PRN Hypoglycemia Protocol Dextrose 1,000 mls @ 100 mls/hr 08/05/20 18:27 Dextrose 5% 1,000 Ml IVPB PRN PRN Hypogl
--- NOTE | 2020-08-07 16:27 | RPD ---
INDIVIDUALIZED PLAN OF CARE FOR Alondra Bill Brief Synthesis of Pre-Admission Screen, Post-Admission Evaluation and Therapy Evaluations: The patient presents to rehab with bilateral parietal subarachnoid hemorrhage. Comorbidities include right rib fractures 4-6, right occipital scalp laceration, right IJ thrombus, acute respiratory failure, tracheostomy placement, decannulation, syncope, aspiration, pneumonoia, leukocytosis, thrush, acute kidney injury, urinary retention, urinary tract infection, dysphagia, hypertension, hypercholesterolemia, chronic obstructive pulmonary disease, type 2 diabetes mellitus, coronary artery disease, congestive heart failure, chronic kidney disease, anemia, anxiety, depression, osteoarthritis, and atrial fibrillation. The complexity of the patient's medical management, nursing, and therapy needs require an inpatient rehab hospital stay with a physician-led interdisciplinary team approach. The patient?s needs will be best met in an intensive program vs. at a lower level of care. The patient requires physician services for medical oversight, management of post-op complications in setting of present comorbidities, and pain management. The patient requires nursing services for anticoagulation therapy, diabetes training, DVT prophylactics, infection protection, medication management and education, pressure relief, and wound care. Deficits include:ADLs, Balance, Endurance, Family Training/Education, Mobility, Pain Management, ROM, Safety, Strength, Swallowing, Transfers Boatswain Mate/Case Management for: Discharge Planning and Patient/Family Counseling Physical Therapy: 5 days per week for 90 minutes. Treatments may include: Therapeutic Exercise, Gait Training, Neuromuscular Re-education, Transfer Training, Community Reintegration, Bed Mobility, Patient/Family Education, Wheelchair Mobility Group Therapy/Concurrent Therapy Rationales: -Improve attention span during functional activities in a distracted environment. -Enhance problem solving and/or adequate judgment skills during functional activities in a distracted environment. -Promote increased safety awareness in a distracted environment to reduce fall risk with functional tasks, transfers, and ambulation to allow a more safe, self-sufficient return to the home environment. -Improve dynamic balance skills to promote safety and independence with functional activities in a distracted environment for maximum gain. Occupational Therapy: 5 days per week for 90 minutes. Treatments may include: Therapeutic Exercise, Therapeutic Activity, Cognitive Training, Self-Care Transfer Training, Community Reintegration, Home Management, Patient/Family Education, Wheelchair Mobility Training, Energy Conservation Training Group Therapy/Concurrent Therapy Rationales: -Allow therapist to observe and teach generalization and carry-over of skills learned in individual therapy. -Enhance problem solving and sequencing skills during therapeutic activities in a distracted environment. -Promote increased safety awareness in a realistic setting to reduce fall risk with functional tasks due to visual and verbal distractions. -Increase functional level with ADLs, ADL transfers and use of adaptive equipment through therapeutic activities with others while promoting safety to allow a more safe, self-sufficient return home. Medical Prognosis: Good Anticipated Length of Stay: 10 days Rehab Goals: Eating Goal: 06-Independent Oral Hygiene Goal: 06-Independent Toileting Hygiene Goal: 04-Supervision or Touching Assistance Shower/Bathe Self Goal: 04-Supervision or Touching Assistance Upper Body Dressing Goal: 05-Setup or Clean Up Assistance Lower Body Dressing Goal: 04-Supervision or Touching Assistance Putting On/Taking Off Footwear Goal: 05-Setup or Clean Up Assistance Rolling Left and Right Goal: 06-Independent Sit to Lying Goal: 06-Independent Lying to Sitting on Side of Bed Goal: 06-Independent Sit to Stand Go
[2020-08-07 16:56] LABS: Glucose Point of Care 130 (65-105)
[2020-08-07] MEDS: polyethylene glycoL 3350 17 GM POWD.PACK PO (21:00)
[2020-08-07] MEDS: ALPRAZolam (*CRX) 0.5 MG TABLET PO (21:17)
[2020-08-07] MEDS: DOCUSATE SODIUM 100 MG CAPSULE PO (21:25)
[2020-08-07] MEDS: ROSUVASTATIN 10 MG TABLET 20 MG PO (21:27)
[2020-08-08] VITALS (10 sets, daily range): BP systolic 118–173; BP diastolic 43–66; PULSE 59–112; RESP 18–20; TEMP 35.9–36.6; O2SAT 92–100
[2020-08-08] MEDS: ALBUTEROL SULFATE (*SP) AEROSOL 1 PUFF 2 PUFF INHALATION ×2 (02:32→09:10)
[2020-08-08] MEDS: ACETAMINOPHEN 500 MG TABLET 1000 MG PO ×4 (03:15→17:12)
[2020-08-08 06:56] LABS: Glucose Point of Care 123 (65-105)
[2020-08-08] MEDS: LIDOCAINE 5% PATCH 3 PATCH TOPICAL (09:19)
[2020-08-08] MEDS: ENOXAPARIN 30 MG/0.3 ML SYRINGE SUB-Q (09:20)
[2020-08-08] MEDS: NYSTATIN 100,000 UNITS/ML SUSP 5 ML ORAL.SUSP PO ×3 (09:20→17:12)
[2020-08-08] MEDS: METOPROLOL SUCCINATE EXT REL 12.5 MG TABCR PO (09:20)
[2020-08-08] MEDS: SPIRONOLACTONE 25 MG TABLET PO (09:20)
[2020-08-08] MEDS: BACITRACIN OINTMENT 15 GM TUBE 1 APPLIC TOPICAL (09:20)
[2020-08-08] MEDS: DOCUSATE SODIUM 100 MG CAPSULE PO (09:20)
[2020-08-08] MEDS: CITALOPRAM HYDROBROMIDE 20 MG TABLET 40 MG PO (09:20)
[2020-08-08] MEDS: NITROFURANTOIN MONOHYD MACROCR 100 MG CAP PO (09:21)
[2020-08-08] MEDS: amLODIPine BESYLATE 5 MG TABLET PO (09:21)
[2020-08-08] MEDS: PANTOPRAZOLE 40 MG TABLET PO (09:21)
[2020-08-08] MEDS: FLUTICASONE PROPIONATE 0.05% NA SPR 16 GM BTL (*BKC) 2 SPRAY NASAL (09:21)
[2020-08-08] MEDS: FERROUS SULFATE 324 MG TABLET PO ×2 (09:21→17:12)
[2020-08-08] MEDS: metFORMIN HCL 500 MG TABLET PO (09:21)
[2020-08-08] MEDS: CHLORHEXIDINE GLUCONATE 0.12% ORAL RINSE 473 ML BTL (*BKC) 15 ML SWISH/SPIT (09:26)
[2020-08-08] MEDS: BACLOFEN 10 MG TABLET PO ×3 (09:38→17:12)
[2020-08-08] MEDS: ONDANSETRON HCL ODT 4 MG TABLET PO (14:02)
[2020-08-08] MEDS: LOPERAMIDE HCL 2 MG CAPSULE PO (14:02)
[2020-08-08 16:29] LABS: Glucose Point of Care 128 (65-105)
--- NOTE | 2020-08-08 20:13 | ECG_ITS ---
Measurements Intervals Noble Rate: 63 P: 69 CA: 132 QRS: 59 QRSD: 116 T: 57 QT: 476 QTc: 491 Interpretive Statements SINUS RHYTHM INTRAVENTRICULAR CONDUCTION DELAY DELAYED PRECORDIAL R/S TRANSITION MINIMAL Q WAVES- INFERIOR LEADS BORDERLINE ST-T WAVE ABNORMALITY- ANT/HIGH LAT LEADS BASELINE ARTIFACT- V3 BORDERLINE ECG Electronically Signed On 08-09-2020 7:36:30 MANAGEMENT TRAINEE by Stephan Talbot D.O.
--- NOTE | 2020-08-08 20:37 | PC.NURSE ---
Patient was experiencing chest pain and Dr. Noriega was called. Dr. Noriega wanted the Hospitalist contacted but he also ordered at STAT EKG. Page Wynn NP came and saw the patient and ordered labs and chest x-ray.
[2020-08-08 21:03] LABS: Anion Gap 5 mmol/L (8-16); Blood Urea Nitrogen 16 mg/dL (7-17); Calcium 9.3 mg/dL (8.4-10.2); Carbon Dioxide 30 mmol/L (22-30); Chloride 102 mmol/L (98-107); Estimated CRCL calculation 46 ml/min; Estimated Glomerular Filt Rate > 60; Glucose 134 mg/dL (65-105); Potassium 3.7 mmol/L (3.4-5.0); Sodium 137 mmol/L (137-145)
[2020-08-08 21:14] LABS: Troponin I < 0.012 ng/mL (0.000-0.034)
[2020-08-08 21:30] LABS: Lipase 53 U/L (23-300)
--- NOTE | 2020-08-09 00:09 | PC.NURSE ---
08/08/20202129 Patient was transferred to IMU room 204 with her belongings and oxygen. Family was updated shortly thereafter.
[2020-08-09 15:40] VITALS: BP 110/52; PULSE 68; RESP 16; TEMP 37.1; O2SAT 94
--- NOTE | 2020-08-09 16:43 | PC.NURSE ---
Arrived back from IMU at 1540 with only one new order of protonix. Alert and orientated with no immediate complaints voiced.
[2020-08-09] MEDS: NYSTATIN 100,000 UNITS/ML SUSP 5 ML ORAL.SUSP PO ×2 (18:57→23:07)
[2020-08-09] MEDS: FERROUS SULFATE 324 MG TABLET PO (18:57)
[2020-08-09 19:45] VITALS: BP 124/49; PULSE 65; RESP 20; TEMP 36.6; O2SAT 93
[2020-08-09] MEDS: ALPRAZolam (*CRX) 0.5 MG TABLET PO (21:39)
[2020-08-09] MEDS: PANTOPRAZOLE 40 MG TABLET PO (21:39)
[2020-08-09] MEDS: ROSUVASTATIN 10 MG TABLET 20 MG PO (21:40)
[2020-08-09] MEDS: FLUTICASONE PROPIONATE 0.05% NA SPR 16 GM BTL (*BKC) 2 SPRAY NASAL (21:43)
[2020-08-09] MEDS: ENOXAPARIN 30 MG/0.3 ML SYRINGE SUB-Q (21:45)
[2020-08-09] MEDS: BACITRACIN OINTMENT 15 GM TUBE 1 APPLIC TOPICAL (21:50)
[2020-08-09 22:26] LABS: Glucose Point of Care 144 (65-105)
[2020-08-10 05:03] LABS: Basophils Absolute Auto 0.1 K/mm3 (0.0-0.1); Basophils Percent Auto 0.7 % (0.2-1.2); Eosinophils Absolute Auto 0.3 K/mm3 (0-0.3); Eosinophils Percent Auto 3.7 % (0-4.4); Hematocrit 30.7 % (37.0-47.0); Immature Granulocyte Absolute 0.03 K/mm3 (0.00-0.031); Immature Granulocyte Percent A 0.4 % (0-0.5); Lymphocytes Absolute Auto 2.48 K/mm3 (0.9-3.2); Lymphocytes Percent Auto 32.6 % (18.3-44.2); Mean Corpuscular HGB Conc 32.6 g/dl (32-36); Mean Corpuscular Hemoglobin 33.2 pg (26-34); Mean Platelet Volume 8.9 fl (7.4-10.4); Monocytes Absolute Auto 0.7 K/mm3 (0.1-0.6); Monocytes Percent Auto 9.1 % (2.6-8.5); Neutrophils Absolute Auto 4.1 K/mm3 (1.3-6.7); Neutrophils Percent Auto 53.5 % (45.5-73.1); Platelet Count Result 275 k/mm3 (150-375); Red Blood Count 3.01 M/mm3 (4.2-5.4); Red Cell Distribution Width 12.8 % (11.5-14.5); White Blood Count 7.6 K/mm3 (4.5-10.0)
[2020-08-10 05:16] LABS: Anion Gap 3 mmol/L (8-16); Blood Urea Nitrogen 14 mg/dL (7-17); Calcium 9.1 mg/dL (8.4-10.2); Carbon Dioxide 33 mmol/L (22-30); Chloride 101 mmol/L (98-107); Estimated CRCL calculation 58 ml/min; Estimated Glomerular Filt Rate > 60; Glucose 115 mg/dL (65-105); Potassium 3.5 mmol/L (3.4-5.0); Sodium 137 mmol/L (137-145)
[2020-08-10 06:00] VITALS: BP 149/58; PULSE 73; RESP 20; TEMP 36.3; O2SAT 93
[2020-08-10 06:38] LABS: Glucose Point of Care 136 (65-105)
[2020-08-10] MEDS: LIDOCAINE 5% PATCH 3 PATCH TRANSDERM (09:29)
[2020-08-10] MEDS: NYSTATIN 100,000 UNITS/ML SUSP 5 ML ORAL.SUSP PO ×4 (09:33→21:29)
[2020-08-10] MEDS: metFORMIN HCL 500 MG TABLET PO (09:34)
[2020-08-10] MEDS: BACLOFEN 10 MG TABLET PO ×3 (09:34→17:36)
[2020-08-10] MEDS: FERROUS SULFATE 324 MG TABLET PO ×2 (09:34→17:36)
[2020-08-10] MEDS: ENOXAPARIN 30 MG/0.3 ML SYRINGE SUB-Q ×2 (09:35→21:28)
[2020-08-10] MEDS: amLODIPine BESYLATE 5 MG TABLET PO (09:35)
[2020-08-10] MEDS: CITALOPRAM HYDROBROMIDE 20 MG TABLET 40 MG PO (09:35)
[2020-08-10] MEDS: BACITRACIN OINTMENT 15 GM TUBE 1 APPLIC TOPICAL ×2 (09:35→21:28)
[2020-08-10] MEDS: FLUTICASONE PROPIONATE 0.05% NA SPR 16 GM BTL (*BKC) 2 SPRAY NASAL ×2 (09:35→21:28)
[2020-08-10 09:36] VITALS: PULSE 73
[2020-08-10] MEDS: SPIRONOLACTONE 25 MG TABLET PO (09:36)
[2020-08-10] MEDS: METOPROLOL SUCCINATE EXT REL 12.5 MG TABCR PO (09:36)
[2020-08-10] MEDS: PANTOPRAZOLE 40 MG TABLET PO ×2 (09:36→21:29)
[2020-08-10] MEDS: ACETAMINOPHEN 500 MG TABLET 1000 MG PO ×2 (12:31→21:26)
[2020-08-10 14:00] VITALS: BP 126/56; PULSE 73; RESP 18; TEMP 35.9; O2SAT 95
[2020-08-10 16:42] LABS: Glucose Point of Care 128 (65-105)
[2020-08-10 20:00] VITALS: PULSE 64; RESP 16; O2SAT 95
[2020-08-10] MEDS: ALPRAZolam (*CRX) 0.5 MG TABLET PO (21:27)
[2020-08-10] MEDS: ROSUVASTATIN 10 MG TABLET 20 MG PO (21:29)
[2020-08-10 22:00] VITALS: BP 125/50; PULSE 64; RESP 16; TEMP 35.9; O2SAT 95
[2020-08-10] MEDS: NITROFURANTOIN MACROCRYSTALS 50 MG CAP 100 MG PO (23:07)
[2020-08-11 05:56] VITALS: BP 128/58; PULSE 75; RESP 16; TEMP 36.7; O2SAT 93
[2020-08-11 07:06] LABS: Glucose Point of Care 146 (65-105)
[2020-08-11] MEDS: ONDANSETRON HCL ODT 4 MG TABLET PO (09:14)
[2020-08-11] MEDS: FLUTICASONE PROPIONATE 0.05% NA SPR 16 GM BTL (*BKC) 2 SPRAY NASAL ×2 (09:31→22:14)
[2020-08-11] MEDS: LIDOCAINE 5% PATCH 3 PATCH TRANSDERM (09:31)
[2020-08-11] MEDS: PANTOPRAZOLE 40 MG TABLET PO ×2 (09:32→22:18)
[2020-08-11] MEDS: NYSTATIN 100,000 UNITS/ML SUSP 5 ML ORAL.SUSP PO ×4 (09:32→22:13)
[2020-08-11] MEDS: ENOXAPARIN 30 MG/0.3 ML SYRINGE SUB-Q ×2 (09:32→22:13)
[2020-08-11] MEDS: SPIRONOLACTONE 25 MG TABLET PO (09:32)
[2020-08-11] MEDS: metFORMIN HCL 500 MG TABLET PO (09:33)
[2020-08-11] MEDS: BACLOFEN 10 MG TABLET PO ×3 (09:33→18:35)
[2020-08-11] MEDS: FERROUS SULFATE 324 MG TABLET PO ×2 (09:33→18:35)
[2020-08-11] MEDS: CITALOPRAM HYDROBROMIDE 20 MG TABLET 40 MG PO (09:33)
[2020-08-11 09:34] VITALS: PULSE 75
[2020-08-11] MEDS: amLODIPine BESYLATE 5 MG TABLET PO (09:34)
[2020-08-11] MEDS: METOPROLOL SUCCINATE EXT REL 12.5 MG TABCR PO (09:34)
[2020-08-11] MEDS: BACITRACIN OINTMENT 15 GM TUBE 1 APPLIC TOPICAL ×2 (09:34→22:17)
[2020-08-11] MEDS: NITROFURANTOIN MACROCRYSTALS 50 MG CAP 100 MG PO ×2 (09:35→18:35)
--- NOTE | 2020-08-11 10:54 | WPDNEUROPN ---
Progress Note: A&P Assessment and Plan (1) Chest pain: Code(s): R07.9 - Chest pain, unspecified Status: Acute (2) Hyperlipidemia: Code(s): E78.5 - Hyperlipidemia, unspecified Status: Chronic (3) Hypertension: Code(s): I10 - Essential (primary) hypertension Status: Chronic (4) Insulin dependent diabetes mellitus: Status: Chronic (5) Chronic kidney disease: Code(s): N18.9 - Chronic kidney disease, unspecified Status: Chronic (6) MDD (major depressive disorder): Code(s): F32.9 - Major depressive disorder, single episode, unspecified Status: Chronic (7) COPD (chronic obstructive pulmonary disease): Code(s): J44.9 - Chronic obstructive pulmonary disease, unspecified Status: Chronic (8) Congestive heart failure: Code(s): I50.9 - Heart failure, unspecified Status: Chronic (9) Hypertension: Code(s): I10 - Essential (primary) hypertension Status: Acute (10) Subarachnoid hemorrhage: Code(s): I60.9 - Nontraumatic subarachnoid hemorrhage, unspecified Status: Acute (11) Brain dysfunction: Code(s): G93.89 - Other specified disorders of brain Status: Acute Additional Plan remains stable and treatment is being continued as such Review of Systems Review of Systems: All systems reviewed & are unremarkable except as noted in HPI and below Exam Narrative: Exam Narrative: on examination she is awake alert cooperative speech nor dysphasic not dysarthric heart regular lungs clear abdomen is soft neurologically she has normal mental status normal speech ear nose throat examination normal neck supple with no cervical bruits no thyromegaly non lymphadenopathy heart regular lungs with occasional rhonchi abdomen is soft neuro examination unchanged Objective Data Vital Signs Vital Signs: Vital Signs - 24 hr 08/10/20 14:00 08/10/20 20:00 08/10/20 22:00 Temperature 35.9 C L 35.9 C L Pulse Rate 73 64 64 Respiratory Rate 18 16 16 Blood Pressure 126/56 L 125/50 L Pulse Oximetry 95 95 95 08/11/20 05:56 08/11/20 09:34 Temperature 36.7 C Pulse Rate 75 75 Respiratory Rate 16 Blood Pressure 128/58 L Pulse Oximetry 93 Intake/Output Intake/Output: Intake & Output 12/04/20 08/09/20 08/10/20 08/11/20 23:59 23:59 23:59 23:59 Intake Total 720 240 480 Balance 720 240 480 Meds/Results Medications: Active Medications Generic Name Dose Route Start Last Admin Trade Name Freq PRN Reason Stop Dose Admin Acetaminophen 1,000 mg 08/09/20 17:09 08/10/20 21:26 Acetaminophen 500 Mg Tablet PO 1,000 mg Q6H PRN Administration Mild Pain (1-3) or Fever Albuterol 2 puff 08/09/20 17:10 Albuterol Sulfate (*Sp) Aerosol 1 Puff INHALATION Q6HRT PRN Shortness Of Breath Alprazolam 0.5 mg 08/09/20 21:00 08/10/20 21:27 Alprazolam (*Crx) 0.5 Mg Tablet PO 0.5 mg HS JUSTA Administration Amlodipine Besylate 5 mg 08/10/20 09:00 08/11/20 09:34 Amlodipine Besylate 5 Mg Tablet PO 5 mg QAM JUSTA Administration Bacitracin 1 applic 08/09/20 21:00 08/11/20 09:34 Bacitracin Ointment 15 Gm Tube TOPICAL 1 applic Q12HR JUSTA Administration Baclofen 10 mg 08/10/20 08:00 08/11/20 09:33 Baclofen 10 Mg Tablet PO 10 mg TIDWM JUSTA Administration Bisacodyl 10 mg 08/09/20 17:23 Bisacodyl 10 Mg Suppository RECTAL QAM PRN Constipation Bumetanide 0.5 mg 08/09/20 17:24 Bumetanide 0.5 Mg Tablet PO DAILY PRN Edema Citalopram Hydrobromide 40 mg 08/10/20 09:00 08/11/20 09:33 Citalopram Hydrobromide 20 Mg Tablet PO 40 mg QAM JUSTA Administration Enoxaparin Sodium 30 mg 08/09/20 21:00 08/11/20 09:32 Enoxaparin 30 Mg/0.3 Ml Syringe SUB-Q 30 mg Q12HR JUSTA Administration Ferrous Sulfate 324 mg 08/09/20 17:00 08/11/20 09:33 Ferrous Sulfate 324 Mg Tablet PO 324 mg BIDWM JUSTA Administration Fluticasone Pro
[2020-08-11 14:00] VITALS: BP 132/48; PULSE 65; RESP 18; TEMP 36.3; O2SAT 95
--- NOTE | 2020-08-11 14:03 | PCDIET ---
Nutrition Follow-Up Complete: Predicted suboptimal oral intake related to multiple medical issues as evidenced by intake of 50%. Patient to consume 75% of meals or greater. Goal in progress. Patient with improved appetite and intakes have been meeting goal much of the time. Recommend continuing regular diet at this time. Glucerna discontinued due to patient refusal. Patient refusing alternate supplement at this time. Last recorded weight is 76.2 kg. Recommend obtaining new weight. Bowel Motility: Last BM on 08/08/20 per nursing flowsheet. Labs Reviewed: Hgb (10.0), Hct (30.7), Glu (115) Meds Noted: Albuterol, Norvasc, Bumex, Ferrous Sulfate, Glucophage, Toprol XL, Protonix, Crestor, Aldactone Additional Notes: Integumentary notes reviewed. No documented pressure ulcers. Will continue to monitor with same goal. Nutrition Monitoring and Evaluation: Follow up every 5 days.
[2020-08-11 17:32] LABS: Glucose Point of Care 129 (65-105)
[2020-08-11 22:00] VITALS: BP 145/50; PULSE 66; RESP 18; TEMP 36.6; O2SAT 94
[2020-08-11] MEDS: ALPRAZolam (*CRX) 0.5 MG TABLET PO (22:13)
[2020-08-11] MEDS: ROSUVASTATIN 10 MG TABLET 20 MG PO (22:15)
[2020-08-12 05:37] VITALS: BP 143/57; PULSE 70; RESP 18; TEMP 36.3; O2SAT 96
[2020-08-12 06:59] LABS: Glucose Point of Care 140 (65-105)
[2020-08-12 08:30] VITALS: PULSE 71; O2SAT 93
[2020-08-12] MEDS: FERROUS SULFATE 324 MG TABLET PO ×2 (08:31→17:23)
[2020-08-12] MEDS: BACLOFEN 10 MG TABLET PO ×3 (08:31→17:23)
[2020-08-12] MEDS: amLODIPine BESYLATE 5 MG TABLET PO (08:32)
[2020-08-12] MEDS: NITROFURANTOIN MACROCRYSTALS 50 MG CAP 100 MG PO ×2 (08:32→17:23)
[2020-08-12] MEDS: metFORMIN HCL 500 MG TABLET PO (08:32)
[2020-08-12] MEDS: CITALOPRAM HYDROBROMIDE 20 MG TABLET 40 MG PO (08:33)
[2020-08-12] MEDS: BACITRACIN OINTMENT 15 GM TUBE 1 APPLIC TOPICAL ×2 (08:33→22:38)
[2020-08-12] MEDS: METOPROLOL SUCCINATE EXT REL 12.5 MG TABCR PO (08:34)
[2020-08-12] MEDS: ENOXAPARIN 30 MG/0.3 ML SYRINGE SUB-Q ×2 (08:34→21:55)
[2020-08-12] MEDS: NYSTATIN 100,000 UNITS/ML SUSP 5 ML ORAL.SUSP PO ×4 (08:35→21:55)
[2020-08-12] MEDS: PANTOPRAZOLE 40 MG TABLET PO ×2 (08:35→21:51)
[2020-08-12] MEDS: SPIRONOLACTONE 25 MG TABLET PO (08:35)
[2020-08-12] MEDS: FLUTICASONE PROPIONATE 0.05% NA SPR 16 GM BTL (*BKC) 2 SPRAY NASAL ×2 (08:47→21:57)
[2020-08-12] MEDS: LIDOCAINE 5% PATCH 3 PATCH TRANSDERM (08:48)
[2020-08-12] MEDS: ACETAMINOPHEN 500 MG TABLET 1000 MG PO (09:29)
--- NOTE | 2020-08-12 10:06 | WPDNEURORHBP ---
Subjective Date/time seen: 08/12/20 10:06 75 years old lady admitted to the rehab with history of fall backwards on the stairs and striking her head posteriorly with documentation of contusion of the brain on CT scan, without any mass effect, additionally documentation of bilateral parietal subarachnoid hemorrhage and right-sided pneumothorax with nondisplaced right-sided rib fractures and development of pneumonia while she was on this floor she complained of chest discomfort and was transferred to ICU for 12 hours for observation and return back to the rehab floor with no change in the neurological status, her case was discussed in the family meeting she will require the help on discharge, she has also been complaining of pain in her right hand as per the family, I reviewed her hand she does have small muscles atrophy but there is no swelling of the proximal or interphalangeal joints will give her the pain medication and I will try to schedule the EMG nerve conduction study as an outpatient to rule out the possibility of the carpal tunnel syndrome Review of Systems Review of Systems: All systems reviewed & are unremarkable except as noted in HPI and below Functional Status Ambulation Ability Ability to Ambulate 10 Feet: Minimum Assistance X 1 Ability to Ambulate 50 Feet With 2 Turns: Minimum Assistance X 1 Ambulation Assistive Devices: Walker, Wheeled Transfers Ability Ability to Transfer In/Out of Chair: Minimum Assistance X 1 Exam Narrative: Exam Narrative: exam revealed her to be awake alert cooperative, his speech not dysphasic not dysarthric, heart regular with no murmur, was clear with no crepitations or rhonchi, and neuro examination unchanged with specific examination of her right hand and noticing the small muscle atrophy but no swelling of the interphalangeal or proximal metacarpophalangeal joint Objective Data Vital Signs Vital Signs: Vital Signs - 24 hr 08/11/20 14:00 08/11/20 22:00 08/12/20 05:37 Temperature 36.3 C L 36.6 C 36.3 C L Pulse Rate 65 66 70 Respiratory Rate 18 18 18 Blood Pressure 132/48 L 145/50 H 143/57 H Pulse Oximetry 95 94 96 08/12/20 08:30 Temperature Pulse Rate 71 Respiratory Rate Blood Pressure Pulse Oximetry 93 Intake/Output Intake/Output: Intake & Output 08/09/20 08/10/20 08/11/20 08/12/20 23:59 23:59 23:59 23:59 Intake Total 240 960 240 Balance 240 960 240 Meds/Results Medications: Active Medications Generic Name Dose Route Start Last Admin Trade Name Freq PRN Reason Stop Dose Admin Acetaminophen 1,000 mg 08/09/20 17:09 08/12/20 09:29 Acetaminophen 500 Mg Tablet PO 1,000 mg Q6H PRN Administration Mild Pain (1-3) or Fever Albuterol 2 puff 08/09/20 17:10 Albuterol Sulfate (*Sp) Aerosol 1 Puff INHALATION Q6HRT PRN Shortness Of Breath Alprazolam 0.5 mg 08/09/20 21:00 08/11/20 22:13 Alprazolam (*Crx) 0.5 Mg Tablet PO 0.5 mg HS JUSTA Administration Amlodipine Besylate 5 mg 08/10/20 09:00 08/12/20 08:32 Amlodipine Besylate 5 Mg Tablet PO 5 mg QAM JUSTA Administration Bacitracin 1 applic 08/09/20 21:00 08/12/20 08:33 Bacitracin Ointment 15 Gm Tube TOPICAL 1 applic Q12HR JUSTA Administration Baclofen 10 mg 08/10/20 08:00 08/12/20 08:31 Baclofen 10 Mg Tablet PO 10 mg TIDWM JUSTA Administration Bisacodyl 10 mg 08/09/20 17:23 Bisacodyl 10 Mg Suppository RECTAL QAM PRN Constipation Bumetanide 0.5 mg 08/09/20 17:24 Bumetanide 0.5 Mg Tablet PO DAILY PRN Edema Citalopram Hydrobromide 40 mg 08/10/20 09:00 08/12/20 08:33 Citalopram Hydrobromide 20 Mg Tablet PO 40 mg QAM JUSTA Administration Enoxaparin Sodium 30 mg 08/09/20 21:00 08/12/20 08:34 Enoxaparin 30 Mg/0.3 Ml Syringe SUB-Q 30 mg Q12HR JUSTA Administration Ferrous Sulfate 324 mg 08/09/20 17:00 08/12/20 08:31 Ferrous Sulfate 324 Mg Tablet PO 324 mg BIDWM JUSTA Administration Fluticason
[2020-08-12 14:00] VITALS: BP 108/42; PULSE 78; RESP 20; TEMP 36.5; O2SAT 97
[2020-08-12 14:06] VITALS: PULSE 71; O2SAT 95
[2020-08-12 16:57] LABS: Glucose Point of Care 136 (65-105)
[2020-08-12 20:05] VITALS: BP 172/69; PULSE 69; RESP 20; TEMP 36.6; O2SAT 100
[2020-08-12] MEDS: ALPRAZolam (*CRX) 0.5 MG TABLET PO (21:51)
[2020-08-12] MEDS: ROSUVASTATIN 10 MG TABLET 20 MG PO (21:51)
[2020-08-13 00:33] LABS: Glucose Point of Care 134 (65-105)
[2020-08-13 05:45] VITALS: BP 111/64; PULSE 68; RESP 20; TEMP 36.5; O2SAT 96
[2020-08-13 06:37] LABS: Glucose Point of Care 145 (65-105)
[2020-08-13] MEDS: metFORMIN HCL 500 MG TABLET PO (07:45)
[2020-08-13] MEDS: NITROFURANTOIN MACROCRYSTALS 50 MG CAP 100 MG PO (07:45)
[2020-08-13] MEDS: FERROUS SULFATE 324 MG TABLET PO ×2 (07:46→17:02)
[2020-08-13] MEDS: BACLOFEN 10 MG TABLET PO ×3 (07:46→17:02)
[2020-08-13] MEDS: BACITRACIN OINTMENT 15 GM TUBE 1 APPLIC TOPICAL ×2 (07:49→21:14)
[2020-08-13 08:32] VITALS: PULSE 71; O2SAT 98
[2020-08-13] MEDS: NYSTATIN 100,000 UNITS/ML SUSP 5 ML ORAL.SUSP PO ×4 (08:34→21:14)
[2020-08-13] MEDS: SPIRONOLACTONE 25 MG TABLET PO (08:35)
[2020-08-13] MEDS: CITALOPRAM HYDROBROMIDE 20 MG TABLET 40 MG PO (08:35)
[2020-08-13] MEDS: METOPROLOL SUCCINATE EXT REL 12.5 MG TABCR PO (08:35)
[2020-08-13] MEDS: PANTOPRAZOLE 40 MG TABLET PO ×2 (08:35→20:53)
[2020-08-13] MEDS: amLODIPine BESYLATE 5 MG TABLET PO (08:35)
[2020-08-13] MEDS: FLUTICASONE PROPIONATE 0.05% NA SPR 16 GM BTL (*BKC) 2 SPRAY NASAL ×2 (08:37→20:56)
[2020-08-13] MEDS: LIDOCAINE 5% PATCH 3 PATCH TRANSDERM (08:38)
[2020-08-13] MEDS: ENOXAPARIN 30 MG/0.3 ML SYRINGE SUB-Q ×2 (08:49→20:56)
[2020-08-13] MEDS: ACETAMINOPHEN 500 MG TABLET 1000 MG PO (09:52)
[2020-08-13 14:00] VITALS: BP 131/52; PULSE 65; PULSE 75; RESP 20; TEMP 36.9; O2SAT 92; O2SAT 94
--- NOTE | 2020-08-13 15:35 | PC.NURSE ---
urine sensitivity report called to Dr. Noriega. new orders recd and noted
[2020-08-13] MEDS: ONDANSETRON HCL ODT 4 MG TABLET PO (16:31)
[2020-08-13 16:50] LABS: Glucose Point of Care 99 (65-105)
[2020-08-13] MEDS: GENTAMICIN SULFATE INJ 310 MG in DEXTROSE 5% 100 ML 100 MG IVPB (17:30)
[2020-08-13 20:46] VITALS: BP 132/49; PULSE 69; RESP 20; TEMP 37; O2SAT 95
[2020-08-13] MEDS: ROSUVASTATIN 10 MG TABLET 20 MG PO (20:53)
[2020-08-13] MEDS: ALPRAZolam (*CRX) 0.5 MG TABLET PO (20:53)
[2020-08-14 05:17] LABS: Estimated CRCL calculation 52 ml/min; Estimated Glomerular Filt Rate > 60
[2020-08-14 06:10] LABS: Gentamicin Random 6.7 ug/mL (5.0-12.0)
[2020-08-14 06:15] VITALS: BP 153/64; PULSE 75; RESP 20; TEMP 36.9; O2SAT 95
[2020-08-14 06:27] LABS: Glucose Point of Care 127 (65-105)
[2020-08-14] MEDS: FLUTICASONE PROPIONATE 0.05% NA SPR 16 GM BTL (*BKC) 2 SPRAY NASAL ×2 (08:00→20:39)
[2020-08-14] MEDS: METOPROLOL SUCCINATE EXT REL 12.5 MG TABCR PO (08:00)
[2020-08-14] MEDS: SPIRONOLACTONE 25 MG TABLET PO (08:00)
[2020-08-14] MEDS: FERROUS SULFATE 324 MG TABLET PO ×2 (08:00→16:49)
[2020-08-14] MEDS: amLODIPine BESYLATE 5 MG TABLET PO (08:00)
[2020-08-14] MEDS: BACLOFEN 10 MG TABLET PO ×3 (08:00→16:49)
[2020-08-14] MEDS: LIDOCAINE 5% PATCH 3 PATCH TRANSDERM (08:00)
[2020-08-14] MEDS: metFORMIN HCL 500 MG TABLET PO (08:00)
[2020-08-14] MEDS: PANTOPRAZOLE 40 MG TABLET PO ×2 (08:00→20:39)
[2020-08-14] MEDS: CITALOPRAM HYDROBROMIDE 20 MG TABLET 40 MG PO (08:00)
[2020-08-14] MEDS: BACITRACIN OINTMENT 15 GM TUBE 1 APPLIC TOPICAL ×2 (08:00→20:38)
[2020-08-14] MEDS: NYSTATIN 100,000 UNITS/ML SUSP 5 ML ORAL.SUSP PO ×4 (08:01→20:38)
[2020-08-14] MEDS: ACETAMINOPHEN 500 MG TABLET 1000 MG PO ×2 (09:51→16:02)
[2020-08-14] MEDS: ENOXAPARIN 30 MG/0.3 ML SYRINGE SUB-Q ×2 (09:59→20:39)
--- NOTE | 2020-08-14 10:09 | PCCPR ---
Morning meds documented manualy. Armband and meds scanned but did not save on MAR
[2020-08-14 14:00] VITALS: BP 157/68; PULSE 81; RESP 18; TEMP 36.5; O2SAT 95
[2020-08-14] MEDS: PHENYLEPH/SHARK OIL/MO/PETROL CREAM 26 GM 1 APPLIC RECTAL (15:22)
[2020-08-14] MEDS: ROSUVASTATIN 10 MG TABLET 20 MG PO (20:39)
[2020-08-14] MEDS: ALPRAZolam (*CRX) 0.5 MG TABLET PO (20:39)
[2020-08-14] MEDS: MELATONIN 3 MG TABLET PO (20:39)
[2020-08-14 22:00] VITALS: BP 144/53; PULSE 66; RESP 18; TEMP 36.4; O2SAT 97
[2020-08-15 06:00] VITALS: BP 142/95; PULSE 67; RESP 20; TEMP 36.4; O2SAT 100
[2020-08-15 06:43] LABS: Glucose Point of Care 118 (65-105)
[2020-08-15] MEDS: BACLOFEN 10 MG TABLET PO ×3 (07:56→16:16)
[2020-08-15] MEDS: FERROUS SULFATE 324 MG TABLET PO ×2 (07:56→16:16)
[2020-08-15] MEDS: metFORMIN HCL 500 MG TABLET PO (07:56)
[2020-08-15] MEDS: FLUTICASONE PROPIONATE 0.05% NA SPR 16 GM BTL (*BKC) 2 SPRAY NASAL ×2 (08:25→20:54)
[2020-08-15] MEDS: LIDOCAINE 5% PATCH 3 PATCH TRANSDERM (08:27)
[2020-08-15] MEDS: BACITRACIN OINTMENT 15 GM TUBE 1 APPLIC TOPICAL ×2 (08:27→20:55)
[2020-08-15] MEDS: CITALOPRAM HYDROBROMIDE 20 MG TABLET 40 MG PO (08:39)
[2020-08-15] MEDS: ENOXAPARIN 30 MG/0.3 ML SYRINGE SUB-Q ×2 (08:39→20:56)
[2020-08-15] MEDS: NYSTATIN 100,000 UNITS/ML SUSP 5 ML ORAL.SUSP PO (08:39)
[2020-08-15] MEDS: amLODIPine BESYLATE 5 MG TABLET PO (08:40)
[2020-08-15] MEDS: METOPROLOL SUCCINATE EXT REL 12.5 MG TABCR PO (08:41)
[2020-08-15] MEDS: PANTOPRAZOLE 40 MG TABLET PO ×2 (08:47→20:54)
[2020-08-15] MEDS: SPIRONOLACTONE 25 MG TABLET PO (08:48)
--- NOTE | 2020-08-15 10:42 | WPDNEURORHBP ---
Subjective Date/time seen: 08/15/20 10:42 75 years old lady has been admitted to rehab with history of fall backwards and striking her head posteriorly with documentation of contusion of the brain on CT scan without any mass effect and also documentation of bilateral parietal subarachnoid hemorrhage and right-sided pneumothorax nondisplaced right-sided rib fractures with pneumonia she is looking for the early discharge mainly because she wants to surprise her son for the birthday republican Review of Systems Review of Systems: All systems reviewed & are unremarkable except as noted in HPI and below Functional Status Ambulation Ability Ability to Ambulate 10 Feet: Standby Assistance Ability to Ambulate 50 Feet With 2 Turns: Standby Assistance Ambulation Assistive Devices: Walker, Wheeled Transfers Ability Ability to Transfer In/Out of Chair: Minimum Assistance X 1 Exam Narrative: Exam Narrative: on examination today she is awake alert cooperative , his speech nor dysphasic no dysarthric nor dysphonic, heart regular with no crepitations on auscultation of the lungs, abdomen is soft with no organomegaly, normal bowel sounds, and neuro examination is unchanged Objective Data Vital Signs Vital Signs: Vital Signs - 24 hr 08/14/20 14:00 08/14/20 22:00 08/15/20 06:00 Temperature 36.5 C 36.4 C L 36.4 C Pulse Rate 81 66 67 Respiratory Rate 18 18 20 Blood Pressure 157/68 H 144/53 H 142/95 H Pulse Oximetry 95 97 100 Intake/Output Intake/Output: Intake & Output 08/12/20 08/13/20 08/14/20 08/15/20 23:59 23:59 23:59 23:59 Intake Total 720 480 720 240 Balance 720 480 720 240 Meds/Results Medications: Active Medications Generic Name Dose Route Start Last Admin Trade Name Freq PRN Reason Stop Dose Admin Acetaminophen 1,000 mg 08/09/20 17:09 08/14/20 16:02 Acetaminophen 500 Mg Tablet PO 1,000 mg Q6H PRN Administration Mild Pain (1-3) or Fever Albuterol 2 puff 08/09/20 17:10 Albuterol Sulfate (*Sp) Aerosol 1 Puff INHALATION Q6HRT PRN Shortness Of Breath Alprazolam 0.5 mg 08/09/20 21:00 08/14/20 20:39 Alprazolam (*Crx) 0.5 Mg Tablet PO 0.5 mg HS JUSTA Administration Amlodipine Besylate 5 mg 08/10/20 09:00 08/15/20 08:40 Amlodipine Besylate 5 Mg Tablet PO 5 mg QAM JUSTA Administration Bacitracin 1 applic 08/09/20 21:00 08/15/20 08:27 Bacitracin Ointment 15 Gm Tube TOPICAL 1 applic Q12HR JUSTA Administration Baclofen 10 mg 08/10/20 08:00 08/15/20 07:56 Baclofen 10 Mg Tablet PO 10 mg TIDWM JUSTA Administration Bisacodyl 10 mg 08/09/20 17:23 Bisacodyl 10 Mg Suppository RECTAL QAM PRN Constipation Bumetanide 0.5 mg 08/09/20 17:24 Bumetanide 0.5 Mg Tablet PO DAILY PRN Edema Citalopram Hydrobromide 40 mg 08/10/20 09:00 08/15/20 08:39 Citalopram Hydrobromide 20 Mg Tablet PO 40 mg QAM JUSTA Administration Enoxaparin Sodium 30 mg 08/09/20 21:00 08/15/20 08:39 Enoxaparin 30 Mg/0.3 Ml Syringe SUB-Q 30 mg Q12HR JUSTA Administration Ferrous Sulfate 324 mg 08/09/20 17:00 08/15/20 07:56 Ferrous Sulfate 324 Mg Tablet PO 324 mg BIDWM JUSTA Administration Fluticasone Propionate 2 spray 08/09/20 21:00 08/15/20 08:25 Fluticasone Propionate 0.05% Na Spr 16 Gm Btl (*Bkc) NASAL 1 spray Q12HR JUSTA Administration Gentamicin Sulfate 310 mg/ 107.75 mls @ 100 mls/hr 08/15/20 17:00 Dextrose IVPB Q48H [facility] Lidocaine 3 patch 08/10/20 09:00 08/15/20 08:27 Lidocaine 5% Patch TRANSDERM 3 patch DAILY JUSAT Administration Loperamide HCl 2 mg 08/09/20 17:30 Loperamide Hcl 2 Mg Capsule PO PRN PRN Diarrhea Melatonin 3 mg 08/09/20 17:27 08/14/20 20:39 Melatonin 3 Mg Tablet PO 3 mg HS PRN Administration Insomnia Metformin HCl 500 mg 08/10/20 08:00 08/15/20 07:56 Metformin Hcl 500 Mg Tablet PO 500 mg DAILY@0800 JUSTA Administration Metoprolol Succinate 12.
--- NOTE | 2020-08-15 12:37 | PCDIET ---
Nutrition Follow-Up Complete: Nutrition Diagnosis: Predicted suboptimal oral intake related to multiple medical issues as evidenced by intake of 50%. Nutrition Goal: Patient to consume 75% of meals or greater. Goal met. Patient consumed nearly 90% of meals since last review and reported improved appetite. Continues on regular diet. Last recorded weight is 76.2 kg. Recommend obtaining new weight. Bowel Motility: Last documented BM on 08/14/20. Labs Reviewed: Glu (118) Meds Noted: Albuterol, Norvasc, Bumex, Ferrous Sulfate, Gentamycin, Glucophage, Toprol XL, Protonix, Crestor, Aldactone Additional Notes: No pressure sores. Will continue to monitor with same goal. Nutrition Monitoring and Evaluation: Follow up every 7 days.
[2020-08-15 14:00] VITALS: BP 138/54; PULSE 77; RESP 22; TEMP 36.3; O2SAT 98
[2020-08-15 16:45] LABS: Glucose Point of Care 153 (65-105)
[2020-08-15] MEDS: GENTAMICIN SULFATE INJ 310 MG in DEXTROSE 5% 100 ML 100 MG IVPB (18:02)
[2020-08-15 20:50] VITALS: PULSE 66; RESP 18; O2SAT 96
[2020-08-15] MEDS: ACETAMINOPHEN 500 MG TABLET 1000 MG PO (20:52)
[2020-08-15] MEDS: ROSUVASTATIN 10 MG TABLET 20 MG PO (20:54)
[2020-08-15] MEDS: ALPRAZolam (*CRX) 0.5 MG TABLET PO (20:54)
[2020-08-15 21:05] VITALS: BP 148/57; PULSE 66; RESP 18; TEMP 36.6; O2SAT 96
[2020-08-16 05:30] VITALS: BP 146/62; PULSE 70; RESP 20; TEMP 36.3; O2SAT 99
[2020-08-16 06:29] LABS: Glucose Point of Care 121 (65-105)
[2020-08-16] MEDS: FERROUS SULFATE 324 MG TABLET PO ×2 (10:20→16:53)
[2020-08-16] MEDS: metFORMIN HCL 500 MG TABLET PO (10:20)
[2020-08-16] MEDS: PANTOPRAZOLE 40 MG TABLET PO ×2 (10:21→20:16)
[2020-08-16] MEDS: CITALOPRAM HYDROBROMIDE 20 MG TABLET 40 MG PO (10:21)
[2020-08-16] MEDS: BACLOFEN 10 MG TABLET PO ×3 (10:22→16:53)
[2020-08-16] MEDS: amLODIPine BESYLATE 5 MG TABLET PO (10:22)
[2020-08-16] MEDS: ENOXAPARIN 30 MG/0.3 ML SYRINGE SUB-Q ×2 (10:23→20:16)
[2020-08-16] MEDS: FLUTICASONE PROPIONATE 0.05% NA SPR 16 GM BTL (*BKC) 2 SPRAY NASAL ×2 (10:23→20:17)
[2020-08-16] MEDS: LIDOCAINE 5% PATCH 3 PATCH TRANSDERM (10:24)
[2020-08-16] MEDS: SPIRONOLACTONE 25 MG TABLET PO (10:26)
[2020-08-16 10:27] VITALS: PULSE 70
[2020-08-16] MEDS: METOPROLOL SUCCINATE EXT REL 12.5 MG TABCR PO (10:27)
[2020-08-16] MEDS: BACITRACIN OINTMENT 15 GM TUBE 1 APPLIC TOPICAL ×2 (10:28→20:17)
--- NOTE | 2020-08-16 12:17 | WPDNEURORHBP ---
Subjective Date/time seen: 08/16/20 12:17 75 years old with brain dysfunction which is traumatic in nature and bilateral parietal subarachnoid hemorrhage, in addition to comorbid conditions of 1. CABG in 2016 2. Congestive heart failure 3. COPD with no oxygen requirement at this stage 4. Anterior cervical diskectomy and fusion 5. Chronic kidney disease 6. Anxiety with major depressive disorder 7. Chronic anemia 8. Chronic 9. Insulin-dependent diabetes mellitus 10. Interrupted hospitalization on the rehab floor during this hospitalization resulting in the transfer to the ICU with the complaint of chest pain and discomfort and return back to the rehab without any surgical intervention. Has been involved in the physical therapy and occupational therapy on today's visit she was complaining of almost everyday headache though she has been responding to Tylenol I explained to her that these headaches are related to subarachnoid hemorrhage. Review of Systems Review of Systems: All systems reviewed & are unremarkable except as noted in HPI and below Functional Status Ambulation Ability Ability to Ambulate 10 Feet: Standby Assistance Ability to Ambulate 50 Feet With 2 Turns: Standby Assistance Ability to Ambulate 150 Feet: Independent Ambulation Assistive Devices: Walker, Wheeled Transfers Ability Ability to Transfer In/Out of Chair: Minimum Assistance X 1 Exam Narrative: Exam Narrative: On examination she is awake alert. His speech nor dysphasic not dysarthric not dysphonic. Neck is supple with no restriction of range of motions. Heart regular with no murmur. Lungs clear with no rhonchi or crepitations. Abdomen is soft with no organomegaly. And neurological examination unchanged even though she is complaining of headache but her status is completely unchanged Objective Data Vital Signs Vital Signs: Vital Signs - 24 hr 08/15/20 14:00 08/15/20 20:50 08/15/20 21:05 Temperature 36.3 C L 36.6 C Pulse Rate 77 66 66 Respiratory Rate 22 H 18 18 Blood Pressure 138/54 L 148/57 H Pulse Oximetry 98 96 96 08/16/20 05:30 08/16/20 10:27 Temperature 36.3 C L Pulse Rate 70 70 Respiratory Rate 20 Blood Pressure 146/62 H Pulse Oximetry 99 Intake/Output Intake/Output: Intake & Output 08/13/20 08/14/20 08/15/20 08/16/20 23:59 23:59 23:59 23:59 Intake Total 480 720 727.75 240 Balance 480 720 727.75 240 Meds/Results Medications: Active Medications Generic Name Dose Route Start Last Admin Trade Name Freq PRN Reason Stop Dose Admin Acetaminophen 1,000 mg 08/09/20 17:09 08/15/20 20:52 Acetaminophen 500 Mg Tablet PO 1,000 mg Q6H PRN Administration Mild Pain (1-3) or Fever Albuterol 2 puff 08/09/20 17:10 Albuterol Sulfate (*Sp) Aerosol 1 Puff INHALATION Q6HRT PRN Shortness Of Breath Alprazolam 0.5 mg 08/09/20 21:00 08/15/20 20:54 Alprazolam (*Crx) 0.5 Mg Tablet PO 0.5 mg HS JUSTA Administration Amlodipine Besylate 5 mg 08/10/20 09:00 08/16/20 10:22 Amlodipine Besylate 5 Mg Tablet PO 5 mg QAM JUSTA Administration Bacitracin 1 applic 08/09/20 21:00 08/16/20 10:28 Bacitracin Ointment 15 Gm Tube TOPICAL 1 applic Q12HR JUSTA Administration Baclofen 10 mg 08/10/20 08:00 08/16/20 10:22 Baclofen 10 Mg Tablet PO 10 mg TIDWM JUSTA Administration Bisacodyl 10 mg 08/09/20 17:23 Bisacodyl 10 Mg Suppository RECTAL QAM PRN Constipation Bumetanide 0.5 mg 08/09/20 17:24 Bumetanide 0.5 Mg Tablet PO DAILY PRN Edema Citalopram Hydrobromide 40 mg 08/10/20 09:00 08/16/20 10:21 Citalopram Hydrobromide 20 Mg Tablet PO 40 mg QAM JUSTA Administration Enoxaparin Sodium 30 mg 08/09/20 21:00 08/16/20 10:23 Enoxaparin 30 Mg/0.3 Ml Syringe SUB-Q 30 mg Q12HR JUSTA Administration Ferrous Sulfate 324 mg 08/09/20 17:00 08/16/20 10:20 Ferrous Sulfate 324 Mg Tablet PO 324 mg BIDWM JUSTA Administration Fluticasone Propionate
[2020-08-16 14:00] VITALS: BP 145/57; PULSE 78; RESP 20; TEMP 36.4; O2SAT 95
[2020-08-16 17:08] LABS: Glucose Point of Care 135 (65-105)
[2020-08-16] MEDS: ROSUVASTATIN 10 MG TABLET 20 MG PO (20:16)
[2020-08-16] MEDS: ALPRAZolam (*CRX) 0.5 MG TABLET PO (20:16)
[2020-08-16] MEDS: TOLNAFTATE 1% POWDER 45 GM BTL 1 APPLIC TOPICAL (21:55)
[2020-08-16 22:00] VITALS: BP 134/52; PULSE 64; RESP 18; TEMP 36.7; O2SAT 97
[2020-08-17 06:00] VITALS: BP 151/66; PULSE 74; RESP 18; TEMP 36.8; O2SAT 94
[2020-08-17 07:00] LABS: Glucose Point of Care 141 (65-105)
[2020-08-17 07:34] LABS: Basophils Absolute Auto 0.1 K/mm3 (0.0-0.1); Basophils Percent Auto 0.9 % (0.2-1.2); Eosinophils Absolute Auto 0.2 K/mm3 (0-0.3); Eosinophils Percent Auto 2.4 % (0-4.4); Hematocrit 33.6 % (37.0-47.0); Immature Granulocyte Absolute 0.02 K/mm3 (0.00-0.031); Immature Granulocyte Percent A 0.3 % (0-0.5); Lymphocytes Absolute Auto 2.29 K/mm3 (0.9-3.2); Lymphocytes Percent Auto 33.7 % (18.3-44.2); Mean Corpuscular HGB Conc 32.7 g/dl (32-36); Mean Corpuscular Hemoglobin 32.4 pg (26-34); Mean Corpuscular Volume 99.1 fl (80-100); Mean Platelet Volume 8.7 fl (7.4-10.4); Monocytes Absolute Auto 0.5 K/mm3 (0.1-0.6); Monocytes Percent Auto 7.4 % (2.6-8.5); Neutrophils Absolute Auto 3.8 K/mm3 (1.3-6.7); Neutrophils Percent Auto 55.3 % (45.5-73.1); Nucleated Red Blood Cells Perc 0.3 % (0.0-0.2); Platelet Count Result 296 k/mm3 (150-375); Red Blood Count 3.39 M/mm3 (4.2-5.4); White Blood Count 6.8 K/mm3 (4.5-10.0)
[2020-08-17 07:47] LABS: Anion Gap 5 mmol/L (8-16); Blood Urea Nitrogen 9 mg/dL (7-17); Calcium 9.4 mg/dL (8.4-10.2); Carbon Dioxide 30 mmol/L (22-30); Chloride 104 mmol/L (98-107); Estimated CRCL calculation 58 ml/min; Estimated Glomerular Filt Rate > 60; Glucose 124 mg/dL (65-105); Potassium 3.6 mmol/L (3.4-5.0); Sodium 139 mmol/L (137-145)
[2020-08-17] MEDS: ENOXAPARIN 30 MG/0.3 ML SYRINGE SUB-Q ×2 (08:30→20:55)
[2020-08-17 08:31] VITALS: PULSE 70
[2020-08-17] MEDS: METOPROLOL SUCCINATE EXT REL 12.5 MG TABCR PO (08:31)
[2020-08-17] MEDS: PANTOPRAZOLE 40 MG TABLET PO ×2 (08:31→20:55)
[2020-08-17] MEDS: CITALOPRAM HYDROBROMIDE 20 MG TABLET 40 MG PO (08:32)
[2020-08-17] MEDS: SPIRONOLACTONE 25 MG TABLET PO (08:32)
[2020-08-17] MEDS: metFORMIN HCL 500 MG TABLET PO (08:32)
[2020-08-17] MEDS: BACLOFEN 10 MG TABLET PO ×2 (08:33→15:00)
[2020-08-17] MEDS: amLODIPine BESYLATE 5 MG TABLET PO (08:33)
[2020-08-17] MEDS: FERROUS SULFATE 324 MG TABLET PO ×2 (08:33→16:19)
[2020-08-17] MEDS: LIDOCAINE 5% PATCH 3 PATCH TRANSDERM (08:39)
[2020-08-17] MEDS: BACITRACIN OINTMENT 15 GM TUBE 1 APPLIC TOPICAL ×2 (08:51→20:59)
[2020-08-17] MEDS: FLUTICASONE PROPIONATE 0.05% NA SPR 16 GM BTL (*BKC) 2 SPRAY NASAL ×2 (08:54→20:55)
[2020-08-17 08:55] LABS: Atypical Lymphocytes Present; Platelet Estimate Adequate (Adequate)
[2020-08-17] MEDS: ACETAMINOPHEN 500 MG TABLET 1000 MG PO ×2 (10:04→20:56)
[2020-08-17] MEDS: TOLNAFTATE 1% POWDER 45 GM BTL 1 APPLIC TOPICAL ×2 (10:08→20:58)
[2020-08-17 14:00] VITALS: BP 109/54; PULSE 77; RESP 20; TEMP 36.4; O2SAT 95
[2020-08-17 16:46] LABS: Glucose Point of Care 125 (65-105)
[2020-08-17] MEDS: GENTAMICIN SULFATE INJ 310 MG in DEXTROSE 5% 100 ML 100 MG IVPB (18:23)
[2020-08-17 20:00] VITALS: PULSE 65; RESP 12; O2SAT 97
[2020-08-17 20:45] VITALS: BP 125/63; PULSE 65; RESP 12; TEMP 36.5; O2SAT 97
[2020-08-17] MEDS: ALPRAZolam (*CRX) 0.5 MG TABLET PO (20:53)
[2020-08-17] MEDS: ROSUVASTATIN 10 MG TABLET 20 MG PO (20:55)
[2020-08-18] MEDS: ACETAMINOPHEN 500 MG TABLET 1000 MG PO ×2 (02:22→21:32)
[2020-08-18 05:06] LABS: Estimated CRCL calculation 52 ml/min; Estimated Glomerular Filt Rate > 60
[2020-08-18 05:30] VITALS: BP 128/60; PULSE 76; RESP 12; TEMP 36.4; O2SAT 92
[2020-08-18 05:34] LABS: Gentamicin Random 8.2 ug/mL (5.0-12.0)
[2020-08-18 06:40] LABS: Glucose Point of Care 119 (65-105)
[2020-08-18 08:00] VITALS: PULSE 60; RESP 12; O2SAT 92
[2020-08-18] MEDS: CITALOPRAM HYDROBROMIDE 20 MG TABLET 40 MG PO (08:19)
[2020-08-18] MEDS: PANTOPRAZOLE 40 MG TABLET PO ×2 (08:19→21:00)
[2020-08-18] MEDS: amLODIPine BESYLATE 5 MG TABLET PO (08:19)
[2020-08-18 08:20] VITALS: PULSE 60
[2020-08-18] MEDS: METOPROLOL SUCCINATE EXT REL 12.5 MG TABCR PO (08:20)
[2020-08-18] MEDS: metFORMIN HCL 500 MG TABLET PO (08:21)
[2020-08-18] MEDS: BACLOFEN 10 MG TABLET PO ×3 (08:21→16:37)
[2020-08-18] MEDS: FLUTICASONE PROPIONATE 0.05% NA SPR 16 GM BTL (*BKC) 2 SPRAY NASAL ×2 (08:21→21:01)
[2020-08-18] MEDS: SPIRONOLACTONE 25 MG TABLET PO (08:21)
[2020-08-18] MEDS: ENOXAPARIN 30 MG/0.3 ML SYRINGE SUB-Q ×2 (08:21→21:04)
[2020-08-18] MEDS: FERROUS SULFATE 324 MG TABLET PO ×2 (08:27→16:37)
[2020-08-18] MEDS: TOLNAFTATE 1% POWDER 45 GM BTL 1 APPLIC TOPICAL ×2 (08:28→20:59)
--- NOTE | 2020-08-18 10:04 | WPDNEURORHBP ---
Subjective Date/time seen: 08/18/20 10:04 75 years old with brain dysfunction and ongoing complain of the headache though she does have a history of subarachnoid hemorrhage I will obtain the CT scan of the brain to make sure there is no significant change additional she has complained of constipation for which proper medication have been ordered Review of Systems Review of Systems: All systems reviewed & are unremarkable except as noted in HPI and below Functional Status Ambulation Ability Ability to Ambulate 10 Feet: Contact Guard Ability to Ambulate 50 Feet With 2 Turns: Contact Guard Ability to Ambulate 150 Feet: Contact Guard Ambulation Assistive Devices: Walker, Wheeled Transfers Ability Ability to Transfer In/Out of Chair: Minimum Assistance X 1 Exam Narrative: Exam Narrative: examination reveals her to be awake alert cooperative actively involved in the physical therapy and definitely feeling better except the complaints of the headache as mentioned above for which we going to repeat the CT scan of the head high speech is not dysphasic not dysarthric nor dysphonic pupils round regular feels the vision full extraocular motions full face symmetrical tongue midline motor examination reveals her to have generally decreased strength but no focal motor deficit reflexes symmetrical plantars are downgoing Objective Data Vital Signs Vital Signs: Vital Signs - 24 hr 08/17/20 14:00 08/17/20 20:00 08/17/20 20:45 Temperature 36.4 C L 36.5 C Pulse Rate 77 65 65 Respiratory Rate 20 12 12 Blood Pressure 109/54 L 125/63 Pulse Oximetry 95 97 97 08/18/20 05:30 08/18/20 08:20 Temperature 36.4 C Pulse Rate 76 60 Respiratory Rate 12 Blood Pressure 128/60 Pulse Oximetry 92 Intake/Output Intake/Output: Intake & Output 08/15/20 08/16/20 08/17/20 08/18/20 23:59 23:59 23:59 23:59 Intake Total 827.75 480 960 347.75 Balance 827.75 480 960 347.75 Meds/Results Medications: Active Medications Generic Name Dose Route Start Last Admin Trade Name Freq PRN Reason Stop Dose Admin Acetaminophen 1,000 mg 08/09/20 17:09 08/18/20 02:22 Acetaminophen 500 Mg Tablet PO 1,000 mg Q6H PRN Administration Mild Pain (1-3) or Fever Albuterol 2 puff 08/09/20 17:10 Albuterol Sulfate (*Sp) Aerosol 1 Puff INHALATION Q6HRT PRN Shortness Of Breath Alprazolam 0.5 mg 08/09/20 21:00 08/17/20 20:53 Alprazolam (*Crx) 0.5 Mg Tablet PO 0.5 mg HS JUSTA Administration Amlodipine Besylate 5 mg 08/10/20 09:00 08/18/20 08:19 Amlodipine Besylate 5 Mg Tablet PO 5 mg QAM JUSTA Administration Baclofen 10 mg 08/10/20 08:00 08/18/20 08:21 Baclofen 10 Mg Tablet PO 10 mg TIDWM JUSTA Administration Bisacodyl 10 mg 08/09/20 17:23 Bisacodyl 10 Mg Suppository RECTAL QAM PRN Constipation Bumetanide 0.5 mg 08/09/20 17:24 Bumetanide 0.5 Mg Tablet PO DAILY PRN Edema Citalopram Hydrobromide 40 mg 08/10/20 09:00 08/18/20 08:19 Citalopram Hydrobromide 20 Mg Tablet PO 40 mg QAM JUSTA Administration Enoxaparin Sodium 30 mg 08/09/20 21:00 08/18/20 08:21 Enoxaparin 30 Mg/0.3 Ml Syringe SUB-Q 30 mg Q12HR JUSTA Administration Ferrous Sulfate 324 mg 08/09/20 17:00 08/18/20 08:27 Ferrous Sulfate 324 Mg Tablet PO 324 mg BIDWM JUSTA Administration Fluticasone Propionate 2 spray 08/09/20 21:00 08/18/20 08:21 Fluticasone Propionate 0.05% Na Spr 16 Gm Btl (*Bkc) NASAL 2 spray Q12HR JUSTA Administration Gentamicin Sulfate 310 mg/ 107.75 mls @ 100 mls/hr 08/15/20 17:00 08/18/20 06:34 Dextrose IVPB Infused Q48H JUSTA Infusion Lidocaine 3 patch 08/10/20 09:00 08/17/20 08:39 Lidocaine 5% Patch TRANSDERM 3 patch DAILY JUSTA Administration Loperamide HCl 2 mg 08/09/20 17:30 Loperamide Hcl 2 Mg Capsule PO PRN PRN Diarrhea Melatonin 3 mg 08/09/20 17:27 08/14/20 20:39 Melatonin 3 Mg Tablet PO 3 mg HS PRN
[2020-08-18] MEDS: LIDOCAINE 5% PATCH 3 PATCH TRANSDERM (11:47)
[2020-08-18] MEDS: polyethylene glycoL 3350 17 GM POWD.PACK PO (11:47)
[2020-08-18 14:14] VITALS: BP 116/48; RESP 22; TEMP 36.2; O2SAT 98
[2020-08-18 16:53] LABS: Glucose Point of Care 246 (65-105)
[2020-08-18] MEDS: ALPRAZolam (*CRX) 0.5 MG TABLET PO (20:57)
[2020-08-18] MEDS: ROSUVASTATIN 10 MG TABLET 20 MG PO (21:00)
[2020-08-18 21:38] VITALS: BP 130/53; PULSE 72; RESP 20; TEMP 36.8; O2SAT 93
[2020-08-19 06:00] VITALS: BP 149/63; PULSE 79; RESP 20; TEMP 36.2; O2SAT 94
[2020-08-19 06:27] LABS: Glucose Point of Care 138 (65-105)
[2020-08-19] MEDS: FLUTICASONE PROPIONATE 0.05% NA SPR 16 GM BTL (*BKC) 2 SPRAY NASAL ×2 (08:14→20:23)
[2020-08-19] MEDS: CITALOPRAM HYDROBROMIDE 20 MG TABLET 40 MG PO (08:14)
[2020-08-19] MEDS: amLODIPine BESYLATE 5 MG TABLET PO (08:15)
[2020-08-19] MEDS: metFORMIN HCL 500 MG TABLET PO (08:15)
[2020-08-19] MEDS: ENOXAPARIN 30 MG/0.3 ML SYRINGE SUB-Q ×2 (08:15→20:23)
[2020-08-19] MEDS: FERROUS SULFATE 324 MG TABLET PO ×2 (08:16→16:52)
[2020-08-19] MEDS: METOPROLOL SUCCINATE EXT REL 12.5 MG TABCR PO (08:16)
[2020-08-19] MEDS: SPIRONOLACTONE 25 MG TABLET PO (08:16)
[2020-08-19] MEDS: BACLOFEN 10 MG TABLET PO ×3 (08:16→16:53)
[2020-08-19] MEDS: PANTOPRAZOLE 40 MG TABLET PO ×2 (08:17→20:21)
[2020-08-19] MEDS: LIDOCAINE 5% PATCH 3 PATCH TRANSDERM (08:17)
--- NOTE | 2020-08-19 09:16 | PCPTNOTE ---
Alondra Bill was evaluated for a wheeled walker on 08/19/2020 by this physical therapist. The wheeled walker will resolve patient's mobility limitations and will be used for ADL's within the home. The patient can safely use the wheeled walker. ?The wheeled walker will resolve the patient?s mobility deficits, including impaired balance and coordination. Page Cantu, PT, DPT
--- NOTE | 2020-08-19 10:01 | WPDNEURORHBP ---
Subjective Date/time seen: 08/19/20 10:01 75 years old lady with brain dysfunction and subarachnoid hemorrhage though she has been complaining of headache intermittently but she definitely looks more comfortable and CT scan of the head was repeated as mentioned before, it revealed no evidence of intracranial pathology at this particular time. she is generally feeling better and is stable Review of Systems Review of Systems: All systems reviewed & are unremarkable except as noted in HPI and below Functional Status Ambulation Ability Ability to Ambulate 10 Feet: Contact Guard Ability to Ambulate 50 Feet With 2 Turns: Contact Guard Ability to Ambulate 150 Feet: Contact Guard Ambulation Assistive Devices: Walker, Wheeled Transfers Ability Ability to Transfer In/Out of Chair: Minimum Assistance X 1 Exam Narrative: Exam Narrative: on examination she is awake alert oriented x3, his speech nor dysphasic not dysarthric not dysphonic, heart regular with no murmur, lungs clear to auscultation with no crepitations, abdomen is soft nontender with normal bowel sounds, neurological examination remains unchanged, her speech is normal with no dysphasia, extraocular movements are full with no nystagmus, face symmetrical, and motor examination is unchanged. Objective Data Vital Signs Vital Signs: Vital Signs - 24 hr 08/18/20 14:14 08/18/20 21:38 08/19/20 06:00 Temperature 36.2 C L 36.8 C 36.2 C L Pulse Rate 72 79 Respiratory Rate 22 H 20 20 Blood Pressure 116/48 L 130/53 L 149/63 H Pulse Oximetry 98 93 94 Intake/Output Intake/Output: Intake & Output 08/16/20 08/17/20 08/18/20 08/19/20 23:59 23:59 23:59 23:59 Intake Total 480 960 587.75 480 Balance 480 960 587.75 480 Meds/Results Medications: Active Medications Generic Name Dose Route Start Last Admin Trade Name Freq PRN Reason Stop Dose Admin Acetaminophen 1,000 mg 08/09/20 17:09 08/18/20 21:32 Acetaminophen 500 Mg Tablet PO 1,000 mg Q6H PRN Administration Mild Pain (1-3) or Fever Albuterol 2 puff 08/09/20 17:10 Albuterol Sulfate (*Sp) Aerosol 1 Puff INHALATION Q6HRT PRN Shortness Of Breath Alprazolam 0.5 mg 08/09/20 21:00 08/18/20 20:57 Alprazolam (*Crx) 0.5 Mg Tablet PO 0.5 mg HS JUSTA Administration Amlodipine Besylate 5 mg 08/10/20 09:00 08/19/20 08:15 Amlodipine Besylate 5 Mg Tablet PO 5 mg QAM JUSTA Administration Baclofen 10 mg 08/10/20 08:00 08/19/20 08:16 Baclofen 10 Mg Tablet PO 10 mg TIDWM JUSTA Administration Bisacodyl 10 mg 08/09/20 17:23 Bisacodyl 10 Mg Suppository RECTAL QAM PRN Constipation Bumetanide 0.5 mg 08/09/20 17:24 Bumetanide 0.5 Mg Tablet PO DAILY PRN Edema Citalopram Hydrobromide 40 mg 08/10/20 09:00 08/19/20 08:14 Citalopram Hydrobromide 20 Mg Tablet PO 40 mg QAM JUSTA Administration Enoxaparin Sodium 30 mg 08/09/20 21:00 08/19/20 08:15 Enoxaparin 30 Mg/0.3 Ml Syringe SUB-Q 30 mg Q12HR JUSTA Administration Ferrous Sulfate 324 mg 08/09/20 17:00 08/19/20 08:16 Ferrous Sulfate 324 Mg Tablet PO 324 mg BIDWM JUSTA Administration Fluticasone Propionate 2 spray 08/09/20 21:00 08/19/20 08:14 Fluticasone Propionate 0.05% Na Spr 16 Gm Btl (*Bkc) NASAL 2 spray Q12HR JUSTA Administration Gentamicin Sulfate 310 mg/ 107.75 mls @ 100 mls/hr 08/15/20 17:00 08/18/20 06:34 Dextrose IVPB Infused Q48H JUSTA Infusion Lidocaine 3 patch 08/10/20 09:00 08/19/20 08:17 Lidocaine 5% Patch TRANSDERM 3 patch DAILY JUSTA Administration Loperamide HCl 2 mg 08/09/20 17:30 Loperamide Hcl 2 Mg Capsule PO PRN PRN Diarrhea Melatonin 3 mg 08/09/20 17:27 08/14/20 20:39 Melatonin 3 Mg Tablet PO 3 mg HS PRN Administration Insomnia Metformin HCl 500 mg 08/10/20 08:00 08/19/20 08:15 Metformin Hcl 500 Mg Tablet PO 500 mg DAILY@0800 JUSTA Administration Metoprolol Succinate 12.5 mg 12/
[2020-08-19] MEDS: ACETAMINOPHEN 500 MG TABLET 1000 MG PO (11:07)
[2020-08-19] MEDS: FLUCONAZOLE 150 MG TABLET PO (13:03)
[2020-08-19 14:00] VITALS: BP 120/49; PULSE 82; RESP 26; TEMP 37.1; O2SAT 97
[2020-08-19 16:52] LABS: Glucose Point of Care 110 (65-105)
[2020-08-19] MEDS: GENTAMICIN SULFATE INJ 310 MG in DEXTROSE 5% 100 ML 100 MG IVPB (18:34)
[2020-08-19] MEDS: ROSUVASTATIN 10 MG TABLET 20 MG PO (20:21)
[2020-08-19] MEDS: ALPRAZolam (*CRX) 0.5 MG TABLET PO (20:23)
[2020-08-19] MEDS: TOLNAFTATE 1% POWDER 45 GM BTL 1 APPLIC TOPICAL (20:24)
[2020-08-19] MEDS: MICONAZOLE NITRATE 2% VAGINAL CREAM 45 GM TUBE 1 APPFUL VAGINAL (20:28)
[2020-08-19 21:51] VITALS: BP 142/53; PULSE 75; RESP 24; TEMP 37.2; O2SAT 93
[2020-08-20 05:20] VITALS: BP 145/67; PULSE 85; RESP 14; TEMP 37.3; O2SAT 93
[2020-08-20 06:48] LABS: Glucose Point of Care 132 (65-105)
[2020-08-20 08:27] VITALS: PULSE 85
[2020-08-20] MEDS: BACLOFEN 10 MG TABLET PO ×2 (08:27→12:25)
[2020-08-20] MEDS: METOPROLOL SUCCINATE EXT REL 12.5 MG TABCR PO (08:27)
[2020-08-20] MEDS: SPIRONOLACTONE 25 MG TABLET PO (08:28)
[2020-08-20] MEDS: FERROUS SULFATE 324 MG TABLET PO (08:28)
[2020-08-20] MEDS: CITALOPRAM HYDROBROMIDE 20 MG TABLET 40 MG PO (08:28)
[2020-08-20] MEDS: metFORMIN HCL 500 MG TABLET PO (08:28)
[2020-08-20] MEDS: PANTOPRAZOLE 40 MG TABLET PO (08:28)
[2020-08-20] MEDS: amLODIPine BESYLATE 5 MG TABLET PO (08:28)
[2020-08-20] MEDS: ENOXAPARIN 30 MG/0.3 ML SYRINGE SUB-Q (08:30)
[2020-08-20] MEDS: LIDOCAINE 5% PATCH 3 PATCH TRANSDERM (08:30)
[2020-08-20] MEDS: FLUTICASONE PROPIONATE 0.05% NA SPR 16 GM BTL (*BKC) 2 SPRAY NASAL (08:30)
[2020-08-20] MEDS: TOLNAFTATE 1% POWDER 45 GM BTL 1 APPLIC TOPICAL (08:31)
[2020-08-20 13:58] VITALS: BP 120/50; PULSE 74; RESP 20; TEMP 36.9; O2SAT 92
--- NOTE | 2020-08-22 14:43 | PM.DS ---
DS: Admitting Diagnosis Admitting Diagnosis Admitting Diagnosis: ADMISSION FUNCTION:75 years old lady admitted to the rehab floor with the primary rehab impairment category of brain dysfunction which was traumatic in nature with etiological diagnosis of bilateral parietal subarachnoid hemorrhage in addition to comorbid conditions of 1. Hypertension 2. Coronary artery disease which patient has had 4 vessel CABG in 2016 3. Congestive heart failure for 4 COPD 5. Anterior cervical diskectomy with fusion in 2004 6. Chronic kidney disease 7. Major depressive disorder with anxiety and chronic pain 8. Anemia 9. Insulin-dependent diabetes mellitus . 10. Prieb of fall for which she was seen in the emergency room of [facility], she had no history of COVID infection and dizziness resulted in the fall resulting in the arachnoid hemorrhage. During the hospitalization on the rehab floor she developed the chest discomfort at that time she was transferred to the regular floor for observation for the angina and was transferred back to the rehab floor after 12 hours resulting in the interrupted stay but resulted in no change in her treatment and no surgical or medical acute intervention. Subsequently she was involved in the physical therapy and occupational therapy on a regular basis had no specific complaints. At 1 time she complained of pain in her left hand x-rays were obtained which documented osteoarthritis. during the entire hospitalization otherwise she remained comfortable made significant improvement and her condition was stable at the time of discharge she did complain of headache a CT scan of the head was obtained to rule out the possibly recurrence of the bleed but it was negative and she was appraised accordingly. Her level of functions at the time of admission were as follows Eating [Set Up Only] Oral Care substantial and maximal assistance Toileting Hygiene dependent Shower/Bathing substantial and maximal assistance Upper Body Dressing substantial and maximal assistance Lower Body Dressing dependent Donning/[place] Footwear dependent Rolling Left and Right substantial maximal assistance Sit to Lying partial assistance Lying to Sitting substantial or maximal assistance Sit to Stand substantial or maximal assistances Toilet Transfers substantial or maximal assist Car Transfers not applicable Walking 10' not applicable Walking 50' with Two Turns not applicable Walking 150' not applicable 4 Steps not applicable 12 Steps not applicable Picking Up Object not applicable [Wheelchair Mobility partial assisted [Wheelchair Mobility 150'] partial assistance GOALS: Eating [INDEPENDENT] Oral Care [INDEPENDENT] Toileting Hygiene supervision Shower/Bathing supervision Upper Body Dressing setup or clean Lower Body Dressing supervision Donning/[place] Footwear setup were clean Rolling Left and Right independent Sit to Lying [INDEPENDENT] Lying to Sitting [INDEPENDENT] Sit to Stand supervision Bed to Chair Transfers supervision Toilet Transfers supervision Car Transfers supervision Walking 10' supervise Walking 50' with Two Turns supervision Walking 150' not applicable Curb or Step supervision 4 Steps not applicable 12 Steps not applicable Picking Up Object [INDEPENDENT] [Wheelchair Mobility 50'] [INDEPENDENT] [Wheelchair Mobility 150'] [INDEPENDENT] DISCHARGE PERFORMANCE: Eating [INDEPENDENT] Oral Care [INDEPENDENT] Toileting Hygiene supervision Shower/Bathing setup or clean Upper Body Dressing set up or clean up Lower Body Dressing partial or moderate assistance Donning/[place] Footwear set up or clean up Rolling Left and Right [INDEPENDENT] Sit to Lying [INDEPENDENT] Lying to Sitting [INDEPENDENT] Sit to Stand [INDEPENDENT] Bed to Chair Transfers [INDEPENDENT] Toilet Transfers supervision Car Transfers [INDEPENDENT] Walking 10' [INDEPENDENT] Walking 50' with Two Turns [INDEPENDENT] Walking 150' [INDEPENDENT] Cu
== END 2020-08-20 15:30 | disposition home health service (06) | DRG 949 ==
PROVIDERS: Nurse Practitioner; Admitting Provider Psychiatry & Neurology Neurology; PCP Internal Medicine; Visit Provider Psychiatry & Neurology Neurology
DX: S06.6X1D Traumatic subarachnoid hemorrhage with loss of consciousness of 30 minutes or less, subsequent encounter (principal); I13.0 Hypertensive heart and chronic kidney disease with heart failure and stage 1 through stage 4 chronic kidney disease, or unspecified chronic kidney disease; R07.9 Chest pain, unspecified; S06.2X1D Diffuse traumatic brain injury with loss of consciousness of 30 minutes or less, subsequent encounter; S27.0XXD Traumatic pneumothorax, subsequent encounter; S22.41XD Multiple fractures of ribs, right side, subsequent encounter for fracture with routine healing; S01.01XD Laceration without foreign body of scalp, subsequent encounter; K59.00 Constipation, unspecified; R13.10 Dysphagia, unspecified; R33.9 Retention of urine, unspecified; D63.1 Anemia in chronic kidney disease; E11.22 Type 2 diabetes mellitus with diabetic chronic kidney disease; E78.5 Hyperlipidemia, unspecified; F41.8 Other specified anxiety disorders; G89.29 Other chronic pain; F17.210 Nicotine dependence, cigarettes, uncomplicated; I25.2 Old myocardial infarction; I25.10 Atherosclerotic heart disease of native coronary artery without angina pectoris; I48.91 Unspecified atrial fibrillation; I50.9 Heart failure, unspecified; J44.9 Chronic obstructive pulmonary disease, unspecified; M15.9 Polyosteoarthritis, unspecified; M85.841 Other specified disorders of bone density and structure, right hand; M47.812 Spondylosis without myelopathy or radiculopathy, cervical region; N18.9 Chronic kidney disease, unspecified; Z93.0 Tracheostomy status; Z95.1 Presence of aortocoronary bypass graft; Z98.1 Arthrodesis status; Z79.4 Long term (current) use of insulin; W19.XXXD Unspecified fall, subsequent encounter
CPT/HCPCS: 36415; 70450; 71045; 72125; 73140; 80048; 80061; 80170; 82565; 83690; 84484; 85025; 92523; 93005; 94640; 97110; 97116; 97162; 97166; 97530; 97535; 97542; A4248; A9270; J1580; J1650

== ENCOUNTER 2020-08-08 21:30 | Observation (INO) | payer MEDICARE, MEDICAID, SELFPAY ==
--- NOTE | ~2020-08-08 | CT_ITS ---
EXAMINATION: CT abdomen pelvis wo con DATE: 08/09/2020 08:54 INDICATION: Abdominal pain TECHNIQUE: Computed tomography (CT) of the abdomen and pelvis was performed without intravenous contr ast. The dose-length product was 774.21 mGy-cm. Automated exposure control and iterative reconstructi on technique were employed. COMPARISON: CT dated 01/06/2019 FINDINGS: Small pleural effusions. Heart size normal. There is bibasilar atelectasis. There is athero sclerosis of the aorta without aneurysm. There is residual contrast throughout the colon. There are calcified granulomas of the spleen and liver. Status post cholecystectomy. The pancreas and left adrenal gland are unremarkable. Stable right adrenal adenomas, largest measuring approximately 2.6 x 1.8 cm. Nonobstructing left renal stones. No ureteral stones or hydronephrosis. Nonobstructive bowel gas pattern. Mild bladder wall thickening. No lymphadenopathy. No acute osseous abnormality. IMPRESSION: 1. Mild bladder wall thickening. Consider cystitis in the appropriate clinical setting. 2: Small pleural effusions with underlying atelectasis. 3: Nonobstructing left nephrolithiasis. Reviewed, dictated and finalized at location [facility]
[2020-08-08 21:45] VITALS: BP 147/70; PULSE 59; RESP 18; TEMP 36.1; O2SAT 100; BMI 27.7
--- NOTE | 2020-08-08 22:15 | ADMGEN ---
This patient, Alondra Bill, was admitted to IMU Room 204-01 at 2130. Patient/family oriented to hospital policies and general routines including ID bracelet, bed and alarms, visiting hours, pain management, procedures, bathroom and other care routines, personal items, smoking policy, room service/diet, and visiting hours. Information on how to activate the Rapid Response Team has been discussed. Patient/Family are encouraged to report perceived risks to care and to ask questions if they do not understand what they are told or what they should do.
[2020-08-08 22:16] VITALS: BMI 28.0
--- NOTE | 2020-08-08 22:34 | PM.IMHP ---
H&P: HPI History of Present Illness Date/Time: 08/08/20 22:34 Chief complaint: Chest pain Narrative: Alondra Bill is a 75 year old female the patient came to the emergency room here at [facility] on 07/04/2020 where she fell backwards on the stairs and struck the posterior head. The patient was complaining of a headache and neck pain she was hurting all over. She had not been on any anticoagulants. CT scan shows contusion without brain mass affect. The patient was [facility] for evaluation. 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 It was noted that the patient had lost consciousness 1-2 minutes after she fell down the steps in June. The patient had been at [facility] for further evaluation after her fall. The patient was also found to have a right pneumothorax with acute nondisplaced right sided fold with 6 rib fractures. While there the patient developed pneumonia and developed hypotension was placed on vasopressors. The patient remained stable there and the patient failed extubation trials there the patient received a trach on 07/12/20. The patient had been on heparin drip due to the right IJ DVT. Of nausea and vomiting and diarrhea in [facility] she was complaining of some epigastric discomfort. The patient tells me that she has had a history of having CABG in the past. She still me that her chest pain radiates into her neck and down her left arm. Her pain was reproducible with palpation to the epigastric area. I was called to [facility] to evaluate the patient. I then spoke to Dr. quinones for further instructions. He is agreeable with admitting the patient to IMU for further evaluation of chest pain. She also had pain that radiated to her neck and down her left arm. Her 1st set of troponins negative. Patient has a scabbed area where she had a tracheostomy. I had a EKG performed and reviewed did with Dr. quinones as well. No concern for STEMI at this time. No significant changes in opacities in the bilateral lower lung zones compatible with atelectasis over pneumonia. Small left pleural effusions relatively recent appearing right 4th to 7th rib fractures. Patient is being admitted observation status date of service 08/08/2020. Review of Systems Review of Systems: All systems reviewed & are unremarkable except as noted in HPI and below Constitutional: Constitutional: Reports as per HPI and Reports no additional constitutional complaints Eyes: Eyes: Reports as per HPI and Reports no additional eye complaints ENT: Reports system reviewed and no additional complaints, except as documented and Reports Normal hearing present Cardiovascular: Cardiovascular: Reports no additional cardiovascular complaints Respiratory: Respiratory: Reports no additional respiratory complaints and Reports no additional respiratory complaints Gastrointestinal: Gastrointestinal: Reports as per HPI and Reports no additional gastrointestinal complaints Musculoskeletal: Musculoskeletal: Reports no additional musculoskeletal complaints Integumentary/Breasts: Skin/Breast: Reports system reviewed and no additional complaints, except as docu and Reports as per HPI Neurologic: Reports system reviewed and no additional complaints, except as documented, Reports as per HPI and Reports Normal hearing present Psychiatric: Psychiatric: Reports no additional psychiatric complaints and Reports as per HPI Endocrine: Endocrine: Reports no additional endocrine complaints Hematologic/Lymphatic: Hematologic/Lymphatic: Reports no additional hematologic/lymphatic complaints Allergic/Immunologic: Allergic/Immunologic: Reports no additional allergic/immunologic complaints [facility] Past Medical History Medical History (Updated 08/08/20 @ 23:02 by Page Wynn NP) Chest pain Chronic kidney disease Congestive heart failu
[2020-08-08 23:43] VITALS: BP 139/55; PULSE 60; RESP 20; TEMP 36.1; O2SAT 98
[2020-08-09] VITALS (11 sets, daily range): BP systolic 134–144; BP diastolic 60–71; PULSE 61–70; RESP 16–20; TEMP 36.1–36.4; O2SAT 92–100
[2020-08-09 00:38] LABS: Troponin I < 0.012 ng/mL (0.000-0.034)
[2020-08-09] MEDS: CHLORHEXIDINE GLUCONATE 0.12% ORAL RINSE 473 ML BTL (*BKC) 15 ML SWISH/SPIT ×2 (02:13→13:28)
--- NOTE | 2020-08-09 03:14 | PC.NURSE ---
Multiple attempts to start an IV site without success. Dr. Lo notified. Patient refusing further IV sticks.
[2020-08-09 03:15] LABS: Basophils Percent Auto 0.7 % (0.2-1.2); Eosinophils Absolute Auto 0.3 K/mm3 (0-0.3); Eosinophils Percent Auto 4.8 % (0-4.4); Hemoglobin 9.7 g/dL (12.0-15.0); Immature Granulocyte Absolute 0.03 K/mm3 (0.00-0.031); Immature Granulocyte Percent A 0.5 % (0-0.5); Immature Platelet Fraction Pct 2.7 % (0.9-11.2); Lymphocytes Absolute Auto 2.13 K/mm3 (0.9-3.2); Lymphocytes Percent Auto 36.4 % (18.3-44.2); Mean Corpuscular HGB Conc 33.4 g/dl (32-36); Mean Corpuscular Hemoglobin 34.2 pg (26-34); Mean Corpuscular Volume 102.1 fl (80-100); Monocytes Absolute Auto 0.5 K/mm3 (0.1-0.6); Monocytes Percent Auto 9.1 % (2.6-8.5); Neutrophils Absolute Auto 2.8 K/mm3 (1.3-6.7); Neutrophils Percent Auto 48.5 % (45.5-73.1); Platelet Count Result 254 k/mm3 (150-375); Red Blood Count 2.84 M/mm3 (4.2-5.4); Red Cell Distribution Width 12.9 % (11.5-14.5); White Blood Count 5.9 K/mm3 (4.5-10.0)
[2020-08-09 03:16] LABS: Hemoglobin A1C 5.5 % (<5.7)
[2020-08-09 03:35] LABS: Alanine Aminotransferase 23 U/L (4-35); Albumin Level 2.8 g/dL (3.5-5.1); Alkaline Phosphatase 102 U/L (38-126); Anion Gap 2 mmol/L (8-16); Aspartate Amino Transferase 24 U/L (14-36); Bilirubin,Total 0.3 mg/dL (0.2-1.3); Blood Urea Nitrogen 13 mg/dL (7-17); CRP 1.6 mg/dL (<1.0); Calcium 9.3 mg/dL (8.4-10.2); Carbon Dioxide 32 mmol/L (22-30); Chloride 104 mmol/L (98-107); Estimated CRCL calculation 50 ml/min; Estimated Glomerular Filt Rate > 60; Glucose 110 mg/dL (65-105); Lactate Dehydrogenase 352 U/L (313-618); Lipase 40 U/L (23-300); Magnesium 1.9 mg/dL (1.6-2.3); Phosphorus 3.7 mg/dL (2.5-4.5); Potassium 3.5 mmol/L (3.4-5.0); Sodium 138 mmol/L (137-145)
[2020-08-09 03:46] LABS: Troponin I 0.015 ng/mL (0.000-0.034)
[2020-08-09 04:03] LABS: Thyroid Stimulating Hormone Reflex 0.442 uIU/mL (0.465-4.68)
[2020-08-09 08:19] LABS: Glucose Point of Care 109 (65-105)
[2020-08-09] MEDS: PANTOPRAZOLE 40 MG TABLET PO (09:29)
[2020-08-09] MEDS: ENOXAPARIN 30 MG/0.3 ML SYRINGE SUB-Q (09:30)
[2020-08-09] MEDS: LIDOCAINE 5% PATCH 3 PATCH TOPICAL (09:30)
[2020-08-09] MEDS: FLUTICASONE PROPIONATE 0.05% NA SPR 16 GM BTL (*BKC) 2 SPRAY NASAL (09:30)
[2020-08-09] MEDS: BACLOFEN 10 MG TABLET PO ×2 (09:31→12:00)
[2020-08-09] MEDS: METOPROLOL SUCCINATE EXT REL 12.5 MG TABCR PO (09:31)
[2020-08-09] MEDS: NYSTATIN 100,000 UNITS/ML SUSP 5 ML ORAL.SUSP PO ×2 (09:31→13:28)
[2020-08-09] MEDS: SPIRONOLACTONE 25 MG TABLET PO (09:32)
[2020-08-09] MEDS: BACITRACIN OINTMENT 15 GM TUBE 1 APPLIC TOPICAL (09:32)
[2020-08-09] MEDS: amLODIPine BESYLATE 5 MG TABLET PO (09:32)
[2020-08-09] MEDS: CITALOPRAM HYDROBROMIDE 20 MG TABLET 40 MG PO (09:32)
[2020-08-09] MEDS: FERROUS SULFATE 324 MG TABLET PO (09:33)
[2020-08-09 10:30] LABS: Free T4 Free Thyroxine Reflex 1.77 ng/dL (0.78-2.19)
[2020-08-09 12:10] LABS: Glucose Point of Care 169 (65-105)
[2020-08-09 12:52] LABS: Total Triiodothyronine (T3) 0.88 NG/ML (0.97-1.69)
--- NOTE | 2020-08-09 13:31 | PM.DS ---
DS: Admitting Diagnosis Admitting Diagnosis Admitting Diagnosis: Chest pain DS: Discharge Diagnosis Discharge Diagnosis (1) Chest pain: Code(s): R07.9 - Chest pain, unspecified Status: Acute Assessment and Plan: Nothing acute is noted at this time. Patient does have a history of having GERD and she also has a history of having some rib fractures. Pt has history of GERD, CT scan no significant finding, apart from cystitis, UA ordered. She will need to do a incentive spirometer due to the rib fractures. (2) Subarachnoid hemorrhage: Code(s): I60.9 - Nontraumatic subarachnoid hemorrhage, unspecified Status: Acute Assessment and Plan: The patient had been in [facility]. She had only been there 2 days for rehab. Discharge back to rehab (3) Hypertension: Code(s): I10 - Essential (primary) hypertension Status: Acute Assessment and Plan: Continue with the same medication she was on in [facility]. She is on spironolactone. Metoprolol. (4) Congestive heart failure: Code(s): I50.9 - Heart failure, unspecified Status: Chronic Assessment and Plan: Continue with her room budesonide, metoprolol and spironolactone. May consider an echo she has not had 1 the last 6 months. (5) COPD (chronic obstructive pulmonary disease): Code(s): J44.9 - Chronic obstructive pulmonary disease, unspecified Status: Chronic Assessment and Plan: Continue with her inhalers. (6) MDD (major depressive disorder): Code(s): F32.9 - Major depressive disorder, single episode, unspecified Status: Chronic Assessment and Plan: Continue with Celexa and her Xanax for anxiety. (7) Chronic kidney disease: Code(s): N18.9 - Chronic kidney disease, unspecified Status: Chronic Assessment and Plan: Creatinine Is normal and GFR is normal (8) Insulin dependent diabetes mellitus: Status: Chronic Assessment and Plan: continue metformin, HBaic is 5.5 (9) Hyperlipidemia: Code(s): E78.5 - Hyperlipidemia, unspecified Status: Chronic Assessment and Plan: Continue with Crestor DS: Summary Time Spent with Patient Time attestation: Total time spent providing and/or coordinating discharge services:40 minutes on day of discharge Exam Const: General: cooperative, healthy appearing and comfortable Nutritional Appearance: well nourished Orientation/consciousness: oriented to person and oriented to place Limitations: no limitations Chest: Chest palpation & inspection: normal inspection of the chest Resp: Effort & Inspection: normal respiratory effort Auscultation: clear to auscultation bilaterally Percussion: percussion normal Cardio: Palpation: normal PMI Rate: regular rate Rhythm: regular rhythm Heart sounds: S1 normal heart sound present and S2 normal heart sound present Peripheral pulses: Peripheral pulses 2+ throughout GI: Inspection: normal to inspection Auscultation: normal bowel sounds Neuro: General: oriented to person and oriented to place Cranial nerves: Yes Equal, round and reactive pupils present and Yes Normal hearing present Cognition (Neuro): normal cognition Speech: normal speech Motor exam (neuro): 5/5 motor strength present throughout Extrem: General: normal to inspection Right upper extremity: normal to inspection Left upper extremity: normal to inspection Right lower extremity: normal to inspection Left lower extremity: normal to inspection Psych: Appearance: grossly normal Mental Status: mental status grossly normal Speech and movement: Normal speech and movement present Affect: normal affect Attitude: cooperative Thought process: Normal thought process present Insight: Fair insight present (Psych) Judgement: Fair judgement present (Psych) DS: Data Data Completed and Pending Labs on day of discharge: Labs from last 24 hours 08/09/20 08/09/20 08/09/20 11:42 08:08 02:40 WBC
[2020-08-09 15:29] LABS: Add Urine Microscopic? YES; Appearance Urine Cloudy (Clear); Bacteria Urine 2+ /hpf; Bilirubin Urine Negative (Negative); Blood Urine 1+ (Negative); Color Urine Yellow (Yellow); Glucose Urine UA Negative (Negative); Ketones Urine Negative (Negative); Leukocyte Esterase Ur 3+ LEU/UL (Negative); Mucus Urine Rare /lpf; Nitrate Urine Positive (Negative); Protein Urine Negative (Negative); Squamous Epithelial Cell Urine Many /hpf (Few); Urobilinogen Urine Negative mg/dL (<2.0); WBC Urine >75 /hpf
[2020-08-09 16:43] LABS: Glucose Point of Care 132 (65-105)
== END 2020-08-09 15:36 ==
PROVIDERS: Nurse Practitioner; Admitting Provider Family Medicine; Visit Provider Family Medicine
DX: R07.9 Chest pain, unspecified (principal); I60.9 Nontraumatic subarachnoid hemorrhage, unspecified; I13.0 Hypertensive heart and chronic kidney disease with heart failure and stage 1 through stage 4 chronic kidney disease, or unspecified chronic kidney disease; J44.9 Chronic obstructive pulmonary disease, unspecified; F32.9 Major depressive disorder, single episode, unspecified; N18.9 Chronic kidney disease, unspecified; E11.22 Type 2 diabetes mellitus with diabetic chronic kidney disease; E78.5 Hyperlipidemia, unspecified; J98.11 Atelectasis; N32.89 Other specified disorders of bladder; J90 Pleural effusion, not elsewhere classified; N20.0 Calculus of kidney; I50.9 Heart failure, unspecified; S22.41XA Multiple fractures of ribs, right side, initial encounter for closed fracture; Z86.718 Personal history of other venous thrombosis and embolism; Z91.81 History of falling; Z79.01 Long term (current) use of anticoagulants; Z95.1 Presence of aortocoronary bypass graft; Z98.1 Arthrodesis status; Z87.891 Personal history of nicotine dependence; Z79.899 Other long term (current) drug therapy; Z79.4 Long term (current) use of insulin
CPT/HCPCS: 36415; 74176; 80053; 81001; 82728; 83036; 83615; 83690; 83735; 84100; 84439; 84443; 84480; 84484; 85025; 85055; 86140; 87077; 87086; 87088; 87186; 96372; A4248; A9270; G0378; G0379; J1650

== ENCOUNTER 2021-07-27 13:41 | Outpatient (CLI) | payer OTHER, SELFPAY ==
--- NOTE | ~2021-07-27 | CT_ITS ---
EXAMINATION: CT soft tissue neck wo con DATE: 07/27/2021 14:08 INDICATION: Cough. Dysphagia. TECHNIQUE: Computed tomography (CT) of the neck was performed without intravenous contrast. Automated exposure control and iterative reconstruction technique were employed. The dose-length product was 6 50.59 mGy-cm. COMPARISON: Cervical spine CT 08/18/2020, chest CT 02/04/06 FINDINGS: There is moderate emphysema. There is mild scarring in right upper lobe. Calcified right jassi ng nodules and calcified right hilar lymph nodes are consistent with old granulomatous disease. There are likely changes of ocular lens replacement surgeries. The thyroid is enlarged with worsening from 02/04/2006. There are changes of coronary artery bypass grafting. There are changes of anterior fusion procedure from C5 to C7. There are chronic compression fractures of T3 and T4 vertebral bodies. IMPRESSION: 1. Enlarged thyroid. Consider thyroid ultrasound for risk stratification. Reviewed, dictated and finalized at location B. [employer]
== END 2021-07-27 13:42 | disposition home or self-care (01) ==
LOC: ANHIMG 13:45
PROVIDERS: PCP Internal Medicine
DX: M79.89 Other specified soft tissue disorders (principal); R05.9 Cough, unspecified; Z98.1 Arthrodesis status; Z95.1 Presence of aortocoronary bypass graft; M48.54XA Collapsed vertebra, not elsewhere classified, thoracic region, initial encounter for fracture; E04.9 Nontoxic goiter, unspecified
CPT/HCPCS: 70490

== ENCOUNTER 2022-02-24 21:57 | Observation (INO) | payer MEDICARE, MEDICAID, SELFPAY ==
--- NOTE | ~2022-02-24 | US_ITS ---
EXAMINATION: US venous doppler [facility] DATE: 02/26/2022 09:02 INDICATION: Lower limb swelling TECHNIQUE: Grayscale ultrasound images without and with compression and Doppler ultrasound images of the bilateral lower extremity veins were obtained. COMPARISON: None. FINDINGS: The visualized portions of right common femoral vein, profunda (deep) femoral vein, femoral vein, pop liteal vein, posterior tibial veins, peroneal veins, gastrocnemius vein and greater saphenous vein ou tflow are patent. The visualized portions of left common femoral vein, profunda femoral vein, femoral vein, popliteal v ein, posterior tibial veins, peroneal veins, gastrocnemius vein and greater saphenous vein outflow ar e patent. IMPRESSION: 1. No deep venous thrombosis in either lower limb. Reviewed, dictated and finalized at location D.
--- NOTE | ~2022-02-24 | CT_ITS ---
EXAMINATION: CT brain wo con DATE: 02/24/2022 22:32 INDICATION: AMS . TECHNIQUE: Computed tomography (CT) of the head was performed without intravenous contrast. The mA wa s adjusted according to patient size. Iterative reconstruction technique was employed. The dose-lengt h product was 605.33 mGy-cm. COMPARISON: 08/18/2020 FINDINGS: No acute intracranial hemorrhage or extra-axial fluid collection. No hydrocephalus, mass, or herniation. No acute ischemic infarct. Unremarkable dural venous sinus attenuation. No acute osseous abnormality. The aerated spaces are clear. Mild atrophy and moderate chronic white matter change. Old right basal ganglia lacunar infarct. Ather osclerotic intracranial calcifications. Bilateral lens replacements. IMPRESSION: No acute intracranial process. Reviewed, dictated and finalized at location K.
--- NOTE | ~2022-02-24 | US_ITS ---
EXAMINATION: US carotid duplex BI DATE: 02/25/2022 11:47 INDICATION: Transient ischemic episode. Carotid atherosclerosis . TECHNIQUE: Grayscale, color Doppler, and pulsed Doppler images of the cervical carotid arteries were obtained. The degree of vessel stenosis is placed in one of the following categories: normal, <50%, 5 0-69%, >=70% but less than near-occlusion, near-occlusion, or total occlusion. Note that percent sten osis relative to normal distal artery lumen diameter is indirectly measured from velocity measurement s as described by Esvin, et al. Radiology 2003; 229:340-346. COMPARISON: 01/11/11 FINDINGS: RIGHT: The right common carotid artery (CCA) peak systolic velocity (PSV) is 75 cm/s. The right internal car otid artery (ICA) PSV is 55 cm/s. The right ICA end-diastolic velocity (EDV) is 12 cm/s. The right IC A/CCA PSV ratio is 0.7. Grayscale and color Doppler images yield an estimate of <50% diameter reducti on from plaque in the ICA. The external carotid artery (ECA) PSV is 116 cm/s. There is antegrade flow in the right vertebral artery. LEFT: The left CCA PSV is 120 cm/s. The left ICA PSV is 105 cm/s. The left ICA EDV is 25 cm/s. The left ICA /CCA PSV ratio is 0.9. Grayscale and color Doppler images yield an estimate of <50% diameter reductio n from plaque in the ICA. The ECA PSV is 131 cm/s. There is antegrade flow in the left vertebral devaughn ry. IMPRESSION: 1. <50% stenosis in the right internal carotid artery. 2. <50% stenosis in the left internal carotid artery. Reviewed, dictated and finalized at location B.
--- NOTE | ~2022-02-24 | MR_ITS ---
EXAMINATION: MR brain/brain stem wo con DATE: 02/25/2022 11:25 INDICATION: Altered mental status. TECHNIQUE: Magnetic resonance imaging (MRI) of the brain and brainstem was performed without intraven ous contrast. COMPARISON: Brain MRI 03/29/2018, head CT 02/24/2022 FINDINGS: There are scattered areas of nonspecific increased T2-weighted signal intensity in the cere bral white matter and yadi. There are a few scattered foci of old microhemorrhage in the brain. There is a small old infarct in the right lentiform nucleus. There is a small old infarct in left thalamus . There is no acute ischemic infarct or abnormal mass lesion. The ventricles are normal in size. The paranasal sinuses are clear. There are likely changes of ocular lens replacement surgeries. The masto id air cells are normal. IMPRESSION: 1. Old infarcts in the right basal ganglia and left thalamus. 2. Mild nonspecific cerebral white matter disease and pontine disease and scattered old microhemorrha ges in the brain, likely chronic hypertensive encephalopathy. Reviewed, dictated and finalized at location A. IMPRESSION: 1. Old infarcts in the right basal ganglia and left thalamus. 2. Mild nonspecific cerebral white matter disease and pontine disease and scatt ered old microhemorrhages in the brain, likely chronic hypertensive encephalopa thy.
--- NOTE | 2022-02-24 22:09 | ED.GENADULT ---
HPI - General Adult General Chief complaint: Altered Mental Status Stated complaint: confusion History of Present Illness HPI narrative: 76-year-old female presented to the emergency department evaluation of cute onset of confusion approximately 1 hour prior to arrival. Patient states that she had had dinner with her daughter and had gone on to have a shower and after taking a shower she was talking to her daughter on the phone when the daughter noticed that the patient seemed more confused. EMS was called to the scene. They state their stroke scale was negative. They describe the patient as slightly confused but had no slurred speech but had no aphasia. Patient had no focal neurologic. Patient denies any falls or injuries. Patient states that this time she does feel tired but is alert and oriented. Patient does have a history of COVID last year and states that she has had some lingering symptoms. Patient states that she also does have a history of urinary tract infections with her most recent 1 being approximate 1 month ago. Patient denies any current associated nausea vomiting diarrhea chest pain shortness of breath Related Data Home Medications Medication Instructions Recorded Confirmed albuterol sulfate 90 mcg/actuation 1 inh inhalation QID PRN SHORTNESS 02/25/22 02/25/22 aerosol inhaler OF BREATH amlodipine 5 mg tablet (Norvasc) 2.5 mg PO BID 02/25/22 02/25/22 aspirin 81 mg tablet,delayed 81 mg PO DAILY 02/25/22 02/25/22 release baclofen 10 mg tablet 10 mg PO BID 02/25/22 02/25/22 cyclobenzaprine 5 mg tablet 1 tablet PO HS 02/25/22 02/25/22 fluticasone propionate 50 2 spray intranasal HS 02/25/22 02/25/22 mcg/actuation nasal spray,suspension metformin 500 mg tablet 500 mg PO BID 02/25/22 02/25/22 metoprolol succinate 25 mg 1 tablet PO DAILY 02/25/22 02/25/22 tablet,extended release 24 hr olmesartan 40 mg tablet 1 tablet PO HS 02/25/22 02/25/22 Allergies Allergy/AdvReac Type Severity Reaction Status Date / Time levofloxacin Allergy Severe Swelling Verified 07/04/20 14:08 cefaclor Allergy Unknown Anaphylaxis Verified 07/04/20 14:08 ciprofloxacin Allergy Unknown Anaphylaxis Verified 07/04/20 14:08 codeine Allergy Unknown Other Verified 07/04/20 14:08 erythromycin base Allergy Unknown Hives Verified 07/04/20 14:08 Iodinated Contrast Media Allergy Unknown Hives Verified 07/04/20 14:08 iodine Allergy Unknown Itching Verified 07/04/20 14:08 latex Allergy Unknown Anaphylaxis Verified 07/04/20 14:08 Sulfa (Sulfonamide Allergy Unknown Anaphylaxis Verified 07/04/20 14:08 Antibiotics) sulfanilamide Allergy Unknown Anaphylaxis Verified 07/04/20 14:08 amitriptyline [From Elavil] Allergy Nausea Verified 08/05/20 19:06 amoxicillin [From Amoxil] Allergy Nausea Verified 08/05/20 19:08 fentanyl Allergy Nausea Verified 08/05/20 19:04 hydrocodone [From Vicodin] Allergy Unknown Verified 08/05/20 19:13 lamotrigine [From Lamictal] Allergy Unknown Verified 08/05/20 19:13 oxycodone Allergy Nausea and Verified 08/05/20 19:06 Vomiting prochlorperazine Allergy Unknown Verified 08/05/20 19:13 tramadol Allergy Unknown Verified 08/05/20 19:13 trazodone Allergy Nausea and Verified 08/05/20 19:05 Vomiting Macrolide Antibiotics AdvReac Unknown Gastrointestinal Verified 07/04/20 14:08 Upset morphine AdvReac Unknown VOMITING Verified 07/04/20 14:08 Quinolones AdvReac Unknown Other Verified 07/04/20 14:08 vancomycin AdvReac Unknown side Verified 07/04/20 14:08 effect-rising creatnine Contrast Media Allergy Unknown SWELLS,RED, Uncoded 07/04/20 14:09 SOB protien c Allergy Unknown Uncoded 08/05/20 19:13 Review of Systems Review of Systems: CONSTITUTIONAL: See HPI EYES: Denies visual changes, redness, or discharge. ENT: Denies rhinorrhea, congestion, sore throat, or otalgia. CARDIOVASCULAR: Denies chest pain, palpitations, or edema. RESPIRATORY: Denies cough or dyspnea. GASTROINTESTINAL: Denies abdomina
--- NOTE | 2022-02-24 22:13 | ECG_ITS ---
Measurements Intervals [place] Rate: 64 P: 57 AL: 132 QRS: 62 QRSD: 111 T: 104 QT: 432 QTc: 449 Interpretive Statements SINUS RHYTHM SLIGHT INTRAVENTRICULAR CONDUCTION DELAY POOR R-WAVE PROGRESSION SMALL NONDIAGNOSTIC INFERIOR Q-WAVES COMPARED TO ECG 08/08/2020 20:31:36 NO SIGNIFICANT CHANGES Electronically Signed On 02-26-2022 16:07:50 CDT by Basilio Nixon M.D.
[2022-02-24 22:16] VITALS: BP 129/72; PULSE 67; RESP 18; TEMP 36.6; O2SAT 99
[2022-02-24 23:19] LABS: Appearance Urine Clear (Clear); Bilirubin Urine Negative (Negative); Blood Urine Negative (Negative); Color Urine Yellow (Yellow); Glucose Urine UA Trace mg/dL (Negative); Ketones Urine Trace mg/dL (Negative); Leukocyte Esterase Ur 1+ LEU/UL (Negative); Nitrate Urine Negative (Negative); Protein Urine 1+ mg/dL (Negative); pH Urine 5.5 (5.0-9.0)
[2022-02-24 23:26] LABS: Add Urine Microscopic? YES; Mucus Urine Rare /lpf; Squamous Epithelial Cell Urine Occasional /hpf (Few); WBC Urine 16-20 /hpf
[2022-02-24 23:32] LABS: Basophils Absolute Auto 0.1 K/mm3 (0.0-0.1); Basophils Percent Auto 0.8 % (0.2-1.2); Eosinophils Absolute Auto 0.3 K/mm3 (0-0.3); Eosinophils Percent Auto 3.2 % (0-4.4); Hematocrit 33.8 % (37.0-47.0); Hemoglobin 10.9 g/dL (12.0-15.0); Immature Granulocyte Absolute 0.03 K/mm3 (0.00-0.031); Immature Granulocyte Percent A 0.3 % (0-0.5); Lymphocytes Absolute Auto 2.34 K/mm3 (0.9-3.2); Lymphocytes Percent Auto 22.6 % (18.3-44.2); Mean Corpuscular HGB Conc 32.2 g/dl (32-36); Mean Corpuscular Hemoglobin 31.8 pg (26-34); Mean Corpuscular Volume 98.5 fl (80-100); Monocytes Absolute Auto 0.7 K/mm3 (0.1-0.6); Monocytes Percent Auto 6.3 % (2.6-8.5); Neutrophils Absolute Auto 6.9 K/mm3 (1.3-6.7); Neutrophils Percent Auto 66.8 % (45.5-73.1); Platelet Count Result 224 k/mm3 (150-375); Red Blood Count 3.43 M/mm3 (4.2-5.4); Red Cell Distribution Width 13.1 % (11.5-14.5); White Blood Count 10.4 K/mm3 (4.5-10.0)
[2022-02-24 23:50] LABS: Lactic Acid Reflex 3.1 mmol/L (0.7-2.0)
[2022-02-24 23:53] LABS: Alanine Aminotransferase 16 U/L (6-35); Albumin Level 4.2 g/dL (3.5-5.1); Alkaline Phosphatase 61 U/L (38-126); Anion Gap 8 mmol/L (8-16); Aspartate Amino Transferase 20 U/L (14-36); Bilirubin,Total 0.2 mg/dL (0.2-1.3); Blood Urea Nitrogen 23 mg/dL (7-17); Carbon Dioxide 26 mmol/L (22-30); Chloride 105 mmol/L (98-107); Estimated CRCL calculation 30 ml/min; Estimated Glomerular Filt Rate 34; Glucose 243 mg/dL (65-110); Potassium 4.5 mmol/L (3.4-5.0); Sodium 139 mmol/L (137-145)
[2022-02-25] VITALS (12 sets, daily range): BP systolic 124–150; BP diastolic 54–72; PULSE 60–71; RESP 16–18; TEMP 36.4–37.1; O2SAT 94–100; BMI 32.1
[2022-02-25] MEDS: ASPIRIN 81 MG CHEWABLE TABLET 324 MG PO (01:24)
[2022-02-25] MEDS: BACLOFEN 10 MG TABLET PO ×2 (01:24→17:35)
[2022-02-25 02:30] LABS: Reflex Lactic Acid Yes or No Add Lactic
--- NOTE | 2022-02-25 02:44 | ADMGEN ---
This patient, Alondra Bill, was admitted to 2 Medical Room 254-01. Patient/family oriented to hospital policies and general routines including ID bracelet, bed and alarms, visiting hours, pain management, procedures, bathroom and other care routines, personal items, smoking policy, room service/diet, and visiting hours. Information on how to activate the Rapid Response Team has been discussed. Patient/Family are encouraged to report perceived risks to care and to ask questions if they do not understand what they are told or what they should do.
[2022-02-25 06:31] LABS: Lactic Acid 1.3 mmol/L (0.7-2.0)
[2022-02-25 08:04] LABS: Hematocrit 31.1 % (37.0-47.0); Hemoglobin 9.9 g/dL (12.0-15.0); Mean Corpuscular HGB Conc 31.8 g/dl (32-36); Mean Corpuscular Hemoglobin 31.6 pg (26-34); Mean Corpuscular Volume 99.4 fl (80-100); Mean Platelet Volume 10.2 fl (7.4-10.4); Platelet Count Result 200 k/mm3 (150-375); Red Blood Count 3.13 M/mm3 (4.2-5.4); White Blood Count 8.6 K/mm3 (4.5-10.0)
[2022-02-25 08:12] LABS: Anion Gap 8 mmol/L (8-16); Blood Urea Nitrogen 23 mg/dL (7-17); Calcium 7.8 mg/dL (8.4-10.2); Carbon Dioxide 24 mmol/L (22-30); Chloride 105 mmol/L (98-107); Estimated CRCL calculation 34 ml/min; Estimated Glomerular Filt Rate 40; Glucose 179 mg/dL (65-110); Potassium 3.8 mmol/L (3.4-5.0); Sodium 137 mmol/L (137-145)
[2022-02-25 08:19] LABS: Hemoglobin A1C 8.6 % (<5.7)
--- NOTE | 2022-02-25 13:08 | PM.IMHP ---
H&P: HPI History of Present Illness Date/Time: 02/25/22 13:08 Chief Complaint: Confusion Narrative: Date of service: 02/25/2022 Alondra Bill is a 76-year-old female with a history of CAD s/p CABG, CHF, CKD, COPD, hypertension, hyperlipidemia,, type 2 diabetes mellitus, TBI, and subarachnoid hemorrhage who presented to the emergency department on 02/24/2022 due to confusion. She is a fairly good historian her daughter is at the bedside to help fill in the history. Patient states she was feeling in her usual state of health. She had been out with her daughter and had been behaving normally. She went home and took a shower and fedher dogs and then she states she felt a migraine coming on in which she saw squiggly lines in her vision and then had an episode of blurred vision. She went to lay down and close her eyes when her daughter called. Her daughter started to notice that she seemed confused and was not answering questions appropriately. Her daughter states she had ?expressive aphasia up and then her speech became very slurred and jumbled. Her daughter encouraged her to push her Life Alert button but the patient was not able to do this due to her confusion. Her daughter then instructed her to shout for her to help. Her called EMS and her daughter arrived promptly after this. When her daughter arrived, she stated she was not able to state her address and was getting me details confused. She states her memory was very sporadic. She states when EMS arrived they did usual testing including asking the patient to smile and raise her arms and everything seemed normal. When they arrived in the ER, the patient seems back to normal and was having normal conversation although she still could not remember the name of the president. Patient and her daughter state in total her symptoms lasted less than 1 hour. Additionally, the patient states that she has noticed over the past week and a half that her P has been ?funky? with a foul odor. Her daughter noticed last night that her urine appeared dark. The patient also endorsed weakness in her legs. She and her daughter noticed that over the past couple of weeks she has been less active and they feel that this is because of increased generalized weakness. She has been missing her therapy appointments and not wanting to leave the house. In the ED, her vital signs were stable, WBC 10.4, creatinine 1.5, UA with 1+ leuk esterase in 16-20 WBC, head CT showed no acute findings. She is being admitted to the hospitalist service for observation. Supervising physician for this history and physical is Dr. Lexi Landeros. Review of Systems Review of Systems: All systems reviewed with pertinent positives and negatives as per HPI. Patient endorses dark, foul-smelling urine. Denies fevers or chills. Denies suprapubic pain or flank pain. No nausea or vomiting. Denies shortness of breath, chest pain, or palpitations. She does complain of lower extremity edema which has been ongoing for some time. Her diuretics have recently been adjusted to help improve this. Patient states she fell about 2 weeks ago and tripped over her cane but denies any injuries. She has been increasingly weak after having COVID in October 2021. She also endorses occasional dysphagia and issues with coughing since having her trach in 2019. She endorses a 50 lb weight gain since quitting smoking in 2019. [facility] Past Medical History Medical History (Updated 02/25/22 @ 13:58 by Alva Davey PA-C) Chronic kidney disease Congestive heart failure COPD (chronic obstructive pulmonary disease) Coronary artery disease Hyperlipidemia Hypertension MDD (major depressive disorder) Subarachnoid hemorrhage Bilaterally after falling down stairs Tobacco abuse Traumatic brain injury Type 2 diabetes mellitus Surgical History Surgical History H/O: hysterectomy Histo
[2022-02-25] MEDS: ALBUTEROL SULFATE (*SP) AEROSOL 1 PUFF INHALATION ×2 (14:30→21:35)
[2022-02-25 17:17] LABS: Glucose Point of Care 335 mg/dl (65-105)
[2022-02-25] MEDS: METOPROLOL SUCCINATE EXT REL 25 MG TABCR PO (17:36)
[2022-02-25] MEDS: INSULIN ASPART (*BKC) 100 UNITS/ML SUB-Q (17:39)
[2022-02-25] MEDS: FLUTICASONE PROPIONATE 0.05% NA SPR 16 GM BTL (*BKC) 2 SPRAY NASAL (20:48)
[2022-02-25] MEDS: CITALOPRAM HYDROBROMIDE 20 MG TABLET 40 MG PO (20:49)
[2022-02-25] MEDS: PANTOPRAZOLE 40 MG TABLET PO (20:49)
[2022-02-25] MEDS: ROSUVASTATIN 10 MG TABLET 20 MG PO (20:49)
[2022-02-25] MEDS: ALPRAZolam (*CRX) 0.5 MG TABLET PO (20:49)
[2022-02-25] MEDS: OLMESARTAN MEDOXOMIL 20 MG TABLET 40 MG PO (20:49)
[2022-02-25] MEDS: CYCLOBENZAPRINE HCL 5 MG TABLET PO (20:50)
[2022-02-25] MEDS: MELATONIN 3 MG TABLET PO (20:50)
[2022-02-25] MEDS: INSULIN ASPART (*BKC) 100 UNITS/ML 6 UNITS SUB-Q (22:14)
[2022-02-25 22:25] LABS: Glucose Point of Care 312 mg/dl (65-105)
[2022-02-26] VITALS (12 sets, daily range): BP systolic 120–152; BP diastolic 43–59; PULSE 59–83; RESP 16–18; TEMP 36.6–36.7; O2SAT 92–99
[2022-02-26 05:06] LABS: Hematocrit 30.8 % (37.0-47.0); Mean Corpuscular HGB Conc 32.5 g/dl (32-36); Mean Corpuscular Hemoglobin 31.9 pg (26-34); Mean Corpuscular Volume 98.4 fl (80-100); Mean Platelet Volume 9.7 fl (7.4-10.4); Platelet Count Result 193 k/mm3 (150-375); Red Blood Count 3.13 M/mm3 (4.2-5.4); Red Cell Distribution Width 12.8 % (11.5-14.5); White Blood Count 6.7 K/mm3 (4.5-10.0)
[2022-02-26 05:18] LABS: Anion Gap 3 mmol/L (8-16); Blood Urea Nitrogen 18 mg/dL (7-17); Carbon Dioxide 27 mmol/L (22-30); Chloride 109 mmol/L (98-107); Estimated CRCL calculation 36 ml/min; Estimated Glomerular Filt Rate 44; Glucose 164 mg/dL (65-110); Potassium 3.7 mmol/L (3.4-5.0); Sodium 139 mmol/L (137-145)
[2022-02-26 06:24] LABS: Folic Acid 5.6 ng/mL (2.76->20)
[2022-02-26 07:37] LABS: Glucose Point of Care 192 mg/dl (65-105)
[2022-02-26] MEDS: ALBUTEROL SULFATE (*SP) AEROSOL 1 PUFF INHALATION ×2 (09:43→21:14)
[2022-02-26] MEDS: METOPROLOL SUCCINATE EXT REL 25 MG TABCR PO (09:45)
[2022-02-26] MEDS: PANTOPRAZOLE 40 MG TABLET PO ×2 (09:45→20:49)
[2022-02-26] MEDS: BACLOFEN 10 MG TABLET PO ×2 (09:46→17:32)
[2022-02-26] MEDS: ASPIRIN 81 MG ENTERIC TABLET PO (09:46)
[2022-02-26] MEDS: CYANOCOBALAMIN 1,000 MCG TABLET 1000 MCG PO (09:46)
[2022-02-26] MEDS: BUMETANIDE 0.5 MG TABLET PO (09:47)
--- NOTE | 2022-02-26 10:34 | PC.NURSE ---
IVABX med arrived from pharmacy
[2022-02-26 12:18] LABS: Glucose Point of Care 290 mg/dl (65-105)
[2022-02-26] MEDS: INSULIN ASPART (*BKC) 100 UNITS/ML SUB-Q ×3 (12:38→17:27)
[2022-02-26] MEDS: ACETAMINOPHEN 325 MG TABLET 650 MG PO (13:39)
--- NOTE | 2022-02-26 14:23 | P.PNIM_ITS ---
Progress Note: A&P Assessment and Plan (1) Brain TIA: Code(s): G45.9 - Transient cerebral ischemic attack, unspecified Status: Acute Assessment and Plan: Presented with confusion, difficulty with speech, and generalized weakness. Abrupt onset and resolution seems most consistent with TIA. * ABCD2 score = 4 * Head CT no acute findings * Carotid doppler <50% stenosis bilaterally * Brain MRI no acute findings with evidence of old infarct and scattered old microhemorrhage * Continue aspirin 81 mg daily. Will avoid DAPT given the patients bleed risk and history of SAH (2) Acute UTI: Code(s): N39.0 - Urinary tract infection, site not specified Status: Acute Assessment and Plan: UA abnormal and patient complains of dark, foul smelling urine * Urine culture pending * Continue IV Zosyn. Multiple antibiotic allergies noted. Discussed case with ID PharmD * Await culture results and tailor antibiotics accordingly (3) Generalized weakness: Code(s): R53.1 - Weakness Status: Acute Assessment and Plan: Patient reports increased weakness over the past couple of weeks * She has been getting outpatient PT for generalized weakness post COVID but has missed her appointments as she has had increased difficulty getting out of the house. * Most likely due to acute UTI * B12 low. Will initiate supplementation. Cyanocobalamin 1000 mcg daily. TSH within normal limits, folate within normal limits * Discharge from PT/OT as she is at her baseline functional status (4) Lower extremity edema: Code(s): R60.0 - Localized edema Status: Acute Assessment and Plan: Patient complains of increased lower extremity edema * Recently had Bumex increased without improvement * Venous Dopplers negative for DVT * Amlodipine on hold as this may be worsening edema * Elevate extremities (5) Hypertension: Code(s): I10 - Essential (primary) hypertension Status: Acute Assessment and Plan: Blood pressure reviewed and running on the lower end of normal. Last BP 120/43. * Continue metoprolol succinate and olmesartan * Holding amlodipine as above * Consider holding olmesartan if BP remains on the low end (6) Type 2 diabetes mellitus: Code(s): E11.9 - Type 2 diabetes mellitus without complications Status: Acute Assessment and Plan: A1c is 8.6%. Blood sugars elevated this admission * Initiate Accu-Cheks, sliding scale insulin, hypoglycemic protocol * Add scheduled NovoLog 5 units with meals * Resume home metformin * Monitor glucose trends Subjective Date/time seen: 02/26/22 14:23 Exam Narrative: General: Well-nourished, well-appearing 76-year-old female, sitting up in bed, comfortable, NARD Neuro: awake, alert and oriented x4, speech clear, no focal neuro deficits noted HEENMT: normocephalic, atraumatic, EOMI, sclerae anicteric, moist oral mucosa Respiratory: clear to auscultation bilaterally, nonlabored breathing Cardio: regular rate, regular rhythm with S1-S2 Abdomen: nondistended, normoactive bowel sounds, soft, nontender to palpation Extremities: 1+ edema of bilateral lower extremities, no erythema or tenderness to palpation, DP pulses 2+ bilaterally Skin: no rashes or lesions, warm and dry Psych: appropriate mood and affect, judgment and insight intact Objective Data Vital Signs Vital Signs: Vital Signs - 24 hr 02/25/22 14:26 02/25/22 15:33 02/04
--- NOTE | 2022-02-26 14:23 | PM.IMPN ---
Progress Note: A&P Assessment and Plan (1) Brain TIA: Code(s): G45.9 - Transient cerebral ischemic attack, unspecified Status: Acute Assessment and Plan: Presented with confusion, difficulty with speech, and generalized weakness. Abrupt onset and resolution seems most consistent with TIA. ABCD2 score = [address] no acute findings Carotid doppler <50% stenosis bilaterally Brain MRI no acute findings with evidence of old infarct and scattered old microhemorrhage Continue aspirin 81 mg daily. Will avoid DAPT given the patients bleed risk and history of SAH (2) Acute UTI: Code(s): N39.0 - Urinary tract infection, site not specified Status: Acute Assessment and Plan: UA abnormal and patient complains of dark, foul smelling urine Urine culture pending Continue IV Zosyn. Multiple antibiotic allergies noted. Discussed case with ID PharmD Await culture results and tailor antibiotics accordingly (3) Generalized weakness: Code(s): R53.1 - Weakness Status: Acute Assessment and Plan: Patient reports increased weakness over the past couple of weeks She has been getting outpatient PT for generalized weakness post COVID but has missed her appointments as she has had increased difficulty getting out of the house. Most likely due to acute UTI B12 low. Will initiate supplementation. Cyanocobalamin 1000 mcg daily. TSH within normal limits, folate within normal limits Discharge from PT/OT as she is at her baseline functional status (4) Lower extremity edema: Code(s): R60.0 - Localized edema Status: Acute Assessment and Plan: Patient complains of increased lower extremity edema Recently had Bumex increased without improvement Venous Dopplers negative for DVT Amlodipine on hold as this may be worsening edema Elevate extremities (5) Hypertension: Code(s): I10 - Essential (primary) hypertension Status: Acute Assessment and Plan: Blood pressure reviewed and running on the lower end of normal. Last BP 120/43. Continue metoprolol succinate and olmesartan Holding amlodipine as above Consider holding olmesartan if BP remains on the low end (6) Type 2 diabetes mellitus: Code(s): E11.9 - Type 2 diabetes mellitus without complications Status: Acute Assessment and Plan: A1c is 8.6%. Blood sugars elevated this admission Initiate Accu-Cheks, sliding scale insulin, hypoglycemic protocol Add scheduled NovoLog 5 units with meals Resume home metformin Monitor glucose trends Subjective Date/time seen: 02/26/22 14:23 Exam Narrative: General: Well-nourished, well-appearing 76-year-old female, sitting up in bed, comfortable, NARD Neuro: awake, alert and oriented x4, speech clear, no focal neuro deficits noted HEENMT: normocephalic, atraumatic, EOMI, sclerae anicteric, moist oral mucosa Respiratory: clear to auscultation bilaterally, nonlabored breathing Cardio: regular rate, regular rhythm with S1-S2 Abdomen: nondistended, normoactive bowel sounds, soft, nontender to palpation Extremities: 1+ edema of bilateral lower extremities, no erythema or tenderness to palpation, DP pulses 2+ bilaterally Skin: no rashes or lesions, warm and dry Psych: appropriate mood and affect, judgment and insight intact Objective Data Vital Signs Vital Signs: Vital Signs - 24 hr 02/25/22 14:26 02/25/22 15:33 02/25/22 17:56 Temperature Pulse Rate Respiratory Rate Blood Pressure Pulse Oximetry 96 Oxygen Delivery Room Air Room Air Room Air 02/25/22 21:46 02/25/22 21:48 02/25/22 21:48 Temperature 97.8 F Pulse Rate 64 Respiratory Rate 16 Blood Pressure 124/55 L 124/55 L 124/65 Pulse Oximetry 94 Oxygen Delivery 02/25/22 21:48 02/25/22 20:00 02/25/22 20:00 Temperature Pulse Rate 64 60 Respiratory Rate 16 Blood Pressure 137/54 L Pulse Oximetry 94 Oxygen Delivery
[2022-02-26 16:33] LABS: Glucose Point of Care 229 mg/dl (65-105)
[2022-02-26] MEDS: CITALOPRAM HYDROBROMIDE 20 MG TABLET 40 MG PO (20:49)
[2022-02-26] MEDS: FLUTICASONE PROPIONATE 0.05% NA SPR 16 GM BTL (*BKC) 2 SPRAY NASAL (20:49)
[2022-02-26] MEDS: CYCLOBENZAPRINE HCL 5 MG TABLET PO (20:49)
[2022-02-26] MEDS: ALPRAZolam (*CRX) 0.5 MG TABLET PO (20:50)
[2022-02-26] MEDS: MELATONIN 3 MG TABLET PO (20:50)
[2022-02-26] MEDS: ROSUVASTATIN 10 MG TABLET 20 MG PO (20:51)
[2022-02-26] MEDS: OLMESARTAN MEDOXOMIL 20 MG TABLET 40 MG PO (20:51)
[2022-02-26 21:23] LABS: Glucose Point of Care 214 mg/dl (65-105)
[2022-02-27] VITALS: PULSE 73
[2022-02-27 04:00] VITALS: PULSE 55
[2022-02-27 04:01] VITALS: BP 138/55; PULSE 61; RESP 17; TEMP 36.4; O2SAT 91
[2022-02-27 05:50] LABS: Anion Gap 4 mmol/L (8-16); Blood Urea Nitrogen 14 mg/dL (7-17); Carbon Dioxide 28 mmol/L (22-30); Chloride 106 mmol/L (98-107); Estimated CRCL calculation 36 ml/min; Estimated Glomerular Filt Rate 44; Glucose 202 mg/dL (65-110); Potassium 3.9 mmol/L (3.4-5.0); Sodium 138 mmol/L (137-145)
[2022-02-27 05:57] LABS: Hematocrit 31.2 % (37.0-47.0); Hemoglobin 9.8 g/dL (12.0-15.0); Mean Corpuscular HGB Conc 31.4 g/dl (32-36); Mean Corpuscular Hemoglobin 31.5 pg (26-34); Mean Corpuscular Volume 100.3 fl (80-100); Mean Platelet Volume 9.9 fl (7.4-10.4); Platelet Count Result 193 k/mm3 (150-375); Red Blood Count 3.11 M/mm3 (4.2-5.4); Red Cell Distribution Width 12.8 % (11.5-14.5); White Blood Count 7.1 K/mm3 (4.5-10.0)
[2022-02-27 07:42] LABS: Glucose Point of Care 186 mg/dl (65-105)
[2022-02-27 08:00] VITALS: PULSE 70
[2022-02-27] MEDS: ASPIRIN 81 MG ENTERIC TABLET PO (08:54)
[2022-02-27] MEDS: BACLOFEN 10 MG TABLET PO (08:54)
[2022-02-27] MEDS: BUMETANIDE 0.5 MG TABLET PO (08:54)
[2022-02-27] MEDS: METOPROLOL SUCCINATE EXT REL 25 MG TABCR PO (08:55)
[2022-02-27] MEDS: PANTOPRAZOLE 40 MG TABLET PO (08:55)
[2022-02-27] MEDS: CYANOCOBALAMIN 1,000 MCG TABLET 1000 MCG PO (08:55)
[2022-02-27] MEDS: UMECLIDINIUM BROMIDE 62.5 MCG ELLIPTA 1 PUFF INHALATION (09:03)
[2022-02-27] MEDS: ALBUTEROL SULFATE (*SP) AEROSOL 1 PUFF INHALATION (09:03)
[2022-02-27 11:39] LABS: Glucose Point of Care 265 mg/dl (65-105)
[2022-02-27 12:00] VITALS: PULSE 69
[2022-02-27] MEDS: INSULIN ASPART (*BKC) 100 UNITS/ML SUB-Q ×2 (12:03)
--- NOTE | 2022-02-27 13:23 | P.DS_ITS ---
DS: Admitting Diagnosis Discharge Date 02/27/2022 Admitting Diagnosis TIA DS: Discharge Diagnosis Discharge Diagnosis (1) Brain TIA: Code(s): G45.9 - Transient cerebral ischemic attack, unspecified Status: Acute Assessment and Plan: Presented with confusion, difficulty with speech, and generalized weakness. Abrupt onset and resolution seems most consistent with TIA. * ABCD2 score = 4 * Head CT no acute findings * Carotid doppler <50% stenosis bilaterally * Brain MRI no acute findings with evidence of old infarct and scattered old microhemorrhage * Continue aspirin 81 mg daily. DAPT not initiated given the patients bleed risk and history of SAH (2) Acute UTI: Code(s): N39.0 - Urinary tract infection, site not specified Status: Acute Assessment and Plan: UA abnormal and patient complained of dark, foul smelling urine for several weeks * Had recently completed 2 courses of Macrobid over the past month without improvement in symptoms * Started on IV Zosyn. Multiple antibiotic allergies noted. Discussed case with ID PharmD * Urine culture showed no growth however treatment was continued based on clinical picture * Continue p.o. Augmentin to complete a total of 5 days of antibiotic therapy (3) Generalized weakness: Code(s): R53.1 - Weakness Status: Acute Assessment and Plan: Patient reports increased weakness over the past couple of weeks * She has been getting outpatient PT for generalized weakness post COVID but has missed her appointments as she has had increased difficulty getting out of the house. * Most likely due to acute UTI * B12 low. Initiated on supplementation. Cyanocobalamin 1000 mcg daily. TSH within normal limits, folate within normal limits * Participated in PT/OT as she was found to be at her baseline functional status (4) Lower extremity edema: Code(s): R60.0 - Localized edema Status: Acute Assessment and Plan: Patient complained of increased lower extremity edema * Recently had Bumex increased without improvement * Venous Dopplers negative for DVT * Amlodipine was held as this may be worsening edema * Elevate extremities (5) Hypertension: Code(s): I10 - Essential (primary) hypertension Status: Acute Assessment and Plan: Blood pressure reviewed and running on the lower end of normal. Last BP 120/43. * Continue metoprolol succinate and olmesartan * Amlodipine held as above * Encouraged to monitor BP at home for PCP review in 1 week * Consider holding olmesartan if BP remains on the low end (6) Type 2 diabetes mellitus: Code(s): E11.9 - Type 2 diabetes mellitus without complications Status: Acute Assessment and Plan: A1c is 8.6%. Blood sugars elevated during admission * Managed with Accu-Cheks, sliding scale insulin, hypoglycemic protocol, scheduled Novolog * Continue home metformin * Monitor and record blood sugars at home DS: Summary Hospital Course Hospital Course: Date of admission: 02/24/2022 Date of discharge: 02/27/2022 Alondra Bill is a 76-year-old female with a history of CAD s/p CABG, CHF, CKD, COPD, hypertension, hyperlipidemia,, type 2 diabetes mellitus, TBI, and subarachnoid hemorrhage who presented to the emergency department on 02/24/2022 due to concerns for confusion. Her daughter noted aphasia and prompted EMS. On EMS arrival, her stroke evaluation was reportedly negative. When she presented to the ED, her symptoms had resolved entirely, her vital sign
--- NOTE | 2022-02-27 13:23 | PM.DS ---
DS: Admitting Diagnosis Discharge Date 02/27/2022 Admitting Diagnosis TIA DS: Discharge Diagnosis Discharge Diagnosis (1) Brain TIA: Code(s): G45.9 - Transient cerebral ischemic attack, unspecified Status: Acute Assessment and Plan: Presented with confusion, difficulty with speech, and generalized weakness. Abrupt onset and resolution seems most consistent with TIA. ABCD2 score = [address] no acute findings Carotid doppler <50% stenosis bilaterally Brain MRI no acute findings with evidence of old infarct and scattered old microhemorrhage Continue aspirin 81 mg daily. DAPT not initiated given the patients bleed risk and history of SAH (2) Acute UTI: Code(s): N39.0 - Urinary tract infection, site not specified Status: Acute Assessment and Plan: UA abnormal and patient complained of dark, foul smelling urine for several weeks Had recently completed 2 courses of Macrobid over the past month without improvement in symptoms Started on IV Zosyn. Multiple antibiotic allergies noted. Discussed case with RAVINDRA Bermudez Urine culture showed no growth however treatment was continued based on clinical picture Continue p.o. Augmentin to complete a total of 5 days of antibiotic therapy (3) Generalized weakness: Code(s): R53.1 - Weakness Status: Acute Assessment and Plan: Patient reports increased weakness over the past couple of weeks She has been getting outpatient PT for generalized weakness post COVID but has missed her appointments as she has had increased difficulty getting out of the house. Most likely due to acute UTI B12 low. Initiated on supplementation. Cyanocobalamin 1000 mcg daily. TSH within normal limits, folate within normal limits Participated in PT/OT as she was found to be at her baseline functional status (4) Lower extremity edema: Code(s): R60.0 - Localized edema Status: Acute Assessment and Plan: Patient complained of increased lower extremity edema Recently had Bumex increased without improvement Venous Dopplers negative for DVT Amlodipine was held as this may be worsening edema Elevate extremities (5) Hypertension: Code(s): I10 - Essential (primary) hypertension Status: Acute Assessment and Plan: Blood pressure reviewed and running on the lower end of normal. Last BP 120/43. Continue metoprolol succinate and olmesartan Amlodipine held as above Encouraged to monitor BP at home for PCP review in 1 week Consider holding olmesartan if BP remains on the low end (6) Type 2 diabetes mellitus: Code(s): E11.9 - Type 2 diabetes mellitus without complications Status: Acute Assessment and Plan: A1c is 8.6%. Blood sugars elevated during admission Managed with Accu-Cheks, sliding scale insulin, hypoglycemic protocol, scheduled Novolog Continue home metformin Monitor and record blood sugars at home DS: Summary Hospital Course Hospital Course: Date of admission: 02/24/2022 Date of discharge: 02/27/2022 Alondra Bill is a 76-year-old female with a history of CAD s/p CABG, CHF, CKD, COPD, hypertension, hyperlipidemia,, type 2 diabetes mellitus, TBI, and subarachnoid hemorrhage who presented to the emergency department on 02/24/2022 due to concerns for confusion. Her daughter noted aphasia and prompted EMS. On EMS arrival, her stroke evaluation was reportedly negative. When she presented to the ED, her symptoms had resolved entirely, her vital signs were stable, white blood cell count was minimally elevated, urinalysis was abnormal, and head CT showed no acute findings. She was admitted to the hospitalist service for further evaluation and management. She did endorse urinary symptoms including foul odor and dark urine. She has been having symptoms off and on for the past 1 month and had 2 courses of Macrobid without much improvement. Her urine culture was negative but decision wa
== END 2022-02-27 14:03 | disposition home or self-care (01) ==
LOC: ANHED 23:29 → ANH2MED 02-25 01:32
PROVIDERS: Physician Assistant; Admitting Provider Internal Medicine; Emergency Provider Emergency Medicine; Visit Provider Family Medicine
DX: G45.9 Transient cerebral ischemic attack, unspecified (principal); N39.0 Urinary tract infection, site not specified; R60.0 Localized edema; Z86.16 Personal history of COVID-19; Z87.440 Personal history of urinary (tract) infections; Z79.82 Long term (current) use of aspirin; N18.9 Chronic kidney disease, unspecified; I50.9 Heart failure, unspecified; I25.10 Atherosclerotic heart disease of native coronary artery without angina pectoris; J44.9 Chronic obstructive pulmonary disease, unspecified; Z86.718 Personal history of other venous thrombosis and embolism; E78.5 Hyperlipidemia, unspecified; E11.22 Type 2 diabetes mellitus with diabetic chronic kidney disease; Z79.4 Long term (current) use of insulin; I13.0 Hypertensive heart and chronic kidney disease with heart failure and stage 1 through stage 4 chronic kidney disease, or unspecified chronic kidney disease; Z95.5 Presence of coronary angioplasty implant and graft
CPT/HCPCS: 36415; 70450; 70551; 80048; 80053; 81001; 82607; 82746; 82948; 83036; 83605; 84443; 85025; 85027; 87086; 93005; 93880; 93970; 94640; 96365; 96376; 97161; 97165; 99285; A9270; G0378; J1815; J2543

== ENCOUNTER 2022-06-13 12:05 | Emergency (ER) | payer MEDICARE, MEDICAID, SELFPAY ==
[2022-06-13] VITALS (7 sets, daily range): BP systolic 146–174; BP diastolic 64–93; PULSE 69–94; RESP 18; TEMP 36.8; O2SAT 96–99
--- NOTE | ~2022-06-13 | XR_ITS ---
XR chest 1V portable 06/13/2022 12:41 Indication: Altered mental status. CHF Procedure: AP portable chest Comparison: Comparison to multiple prior studies sequentially, with oldest reviewed study dated 11/2018. Findings: Heart size normal. Status post median sternotomy for CABG. No focal air space disease, pulm onary edema, pleural effusion or suspected pneumothorax. Impression: 1: No acute cardiopulmonary disease. Reviewed, dictated and finalized at location A. Impression: 1: No acute cardiopulmonary disease.
--- NOTE | ~2022-06-13 | CT_ITS ---
EXAMINATION: CT brain wo con DATE: 06/13/2022 13:01 INDICATION: Weakness for 2 days TECHNIQUE: Computed tomography (CT) of the head was performed without intravenous contrast. The dose- length product was 605.33 mGy-cm. Automated exposure control and iterative reconstruction technique w ere employed. COMPARISON: CT dated 02/24/2022 FINDINGS: Generalized atrophy. There are scattered mild periventricular and subcortical white matter changes, most likely related to small vessel ischemic disease (microangiopathy). There is a chronic r ight lacunar infarction. No acute intracranial hemorrhage, infarction, mass or mass effect. No ventri culomegaly or midline shift. Basilar cisterns are patent. Paranasal sinuses and mastoids are pneumati zed. Midline sagittal images are unremarkable. No depressed skull fractures. IMPRESSION: 1. No acute intracranial abnormality. Reviewed, dictated and finalized at location A.
--- NOTE | 2022-06-13 12:19 | ECG_ITS ---
Measurements Intervals [place] Rate: 66 P: 52 IN: 145 QRS: 48 QRSD: 112 T: 85 QT: 444 QTc: 466 Interpretive Statements SINUS RHYTHM BASELINE ARTIFACT IS PRESENT POSSIBLE INFERIOR MYOCARDIAL INFARCTION , PROBABLY OLD [30 ms Q WAVE IN II/aVF] MODERATE T-WAVE ABNORMALITY, CONSIDER ANTEROLATERAL ISCHEMIA [-0.1+ mV T WAVE IN V3- V6] COMPARED TO ECG 02/24/2022 22:53:37 NO SIGNIFICANT CHANGES Electronically Signed On 06-14-2022 11:33:28 CDT by Kevin Anguiano M.D.
--- NOTE | 2022-06-13 12:25 | ED.GENADULT ---
HPI - General Adult General Chief complaint: Urogenital-Female Stated complaint: weakness Time Seen by Provider: 06/13/22 12:05 Source: RN notes reviewed History of Present Illness HPI narrative: Patient presents emergency room from home for weakness. Patient states has been feeling generally weak for the past 2 days states that the symptoms became worse today and called an ambulance to transport her to the emergency department for further evaluation she states she is had no fevers or chills she denies any chest pain shortness of breath abdominal pain nausea or vomiting states that she did check her urine at home today and it did appear positive for urinary tract infection states she has not take any medication today for the symptoms. Denies any unilateral numbness or weakness Related Data Home Medications Medication Instructions Recorded Confirmed acetaminophen 650 mg tablet 650 mg PO Q6H PRN pain 02/25/22 02/25/22 albuterol sulfate 90 mcg/actuation 1 inh inhalation QID PRN SHORTNESS 02/25/22 02/25/22 aerosol inhaler OF BREATH amlodipine 5 mg tablet (Norvasc) 2.5 mg PO BID 02/25/22 02/25/22 aspirin 81 mg tablet,delayed 81 mg PO DAILY 02/25/22 02/25/22 release baclofen 10 mg tablet 10 mg PO BID 02/25/22 02/25/22 bumetanide 0.5 mg tablet 0.5 mg PO DAILY 02/25/22 02/25/22 cyclobenzaprine 5 mg tablet 1 tablet PO HS 02/25/22 02/25/22 fluticasone propionate 50 2 spray intranasal HS 02/25/22 02/25/22 mcg/actuation nasal spray,suspension metformin 500 mg tablet 500 mg PO BID 02/25/22 02/25/22 metoprolol succinate 25 mg 1 tablet PO DAILY 02/25/22 02/25/22 tablet,extended release 24 hr olmesartan 40 mg tablet 1 tablet PO HS 02/25/22 02/25/22 citalopram 20 mg tablet 40 mg PO HS 02/26/22 02/26/22 Allergies Allergy/AdvReac Type Severity Reaction Status Date / Time levofloxacin Allergy Severe Swelling Verified 07/04/20 14:08 cefaclor Allergy Unknown Anaphylaxis Verified 07/04/20 14:08 ciprofloxacin Allergy Unknown Anaphylaxis Verified 07/04/20 14:08 codeine Allergy Unknown Other Verified 07/04/20 14:08 erythromycin base Allergy Unknown Hives Verified 07/04/20 14:08 Iodinated Contrast Media Allergy Unknown Hives Verified 07/04/20 14:08 iodine Allergy Unknown Itching Verified 07/04/20 14:08 latex Allergy Unknown Anaphylaxis Verified 07/04/20 14:08 Sulfa (Sulfonamide Allergy Unknown Anaphylaxis Verified 07/04/20 14:08 Antibiotics) sulfanilamide Allergy Unknown Anaphylaxis Verified 07/04/20 14:08 amitriptyline [From Elavil] Allergy Nausea Verified 08/05/20 19:06 amoxicillin [From Amoxil] Allergy Nausea Verified 08/05/20 19:08 fentanyl Allergy Nausea Verified 08/05/20 19:04 hydrocodone [From Vicodin] Allergy Unknown Verified 08/05/20 19:13 lamotrigine [From Lamictal] Allergy Unknown Verified 08/05/20 19:13 oxycodone Allergy Nausea and Verified 08/05/20 19:06 Vomiting prochlorperazine Allergy Unknown Verified 08/05/20 19:13 tramadol Allergy Unknown Verified 08/05/20 19:13 trazodone Allergy Nausea and Verified 08/05/20 19:05 Vomiting Macrolide Antibiotics AdvReac Unknown Gastrointestinal Verified 07/04/20 14:08 Upset morphine AdvReac Unknown VOMITING Verified 07/04/20 14:08 Quinolones AdvReac Unknown Other Verified 07/04/20 14:08 vancomycin AdvReac Unknown side Verified 07/04/20 14:08 effect-rising creatnine Contrast Media Allergy Unknown SWELLS,RED, Uncoded 07/04/20 14:09 SOB protien c Allergy Unknown Uncoded 08/05/20 19:13 Review of Systems Review of Systems: Gen.: Denies fevers or chills ENT: Denies congestion Respiratory: Denies shortness of breath or cough CV: Denies chest pain or palpitations GI: Denies abdominal pain nausea, emesis or diarrhea test positive for UTI Musculoskeletal: Denies back pain or muscle pain Neuro: D reports weakness Skin: Denies rash Except as documented, all other systems reviewed and negative PMFSH Past Medical History Medical History (Re
[2022-06-13 12:31] LABS: Add Urine Microscopic? YES; Appearance Urine Clear (Clear); Bacteria Urine Trace /hpf; Bilirubin Urine Negative (Negative); Blood Urine Negative (Negative); Color Urine Straw (Yellow); Glucose Urine UA 1+ mg/dL (Negative); Ketones Urine Negative (Negative); Leukocyte Esterase Ur Negative LEU/UL (Negative); Mucus Urine Rare /lpf; Nitrate Urine Negative (Negative); Protein Urine Negative (Negative); RBC Urine 0-2 /hpf (0-2); Specific Grav Ur 1.006 (1.001-1.035); Urobilinogen Urine Negative mg/dL (<2.0); WBC Urine 0-3 /hpf
--- NOTE | 2022-06-13 13:05 | PC.NURSE ---
Patient assisted to bedside commode. Patient educated on pressing call light when finished before attempting to get up. Patient a 1 assist.
--- NOTE | 2022-06-13 13:34 | PC.NURSE ---
Spoke with daughter and she states patient just stopped taking Januvia and her symptoms began Tuesday evening.
--- NOTE | 2022-06-13 13:36 | PC.NURSE ---
Having trouble getting IV access. made aware and someone called for US guided IV placement
[2022-06-13 14:19] LABS: SARS-CoV-2 RNA PCR Negative
[2022-06-13] MEDS: SODIUM CHLORIDE 0.9% IV 1,000 ML 999 ML IV CONT (14:42)
[2022-06-13 14:51] LABS: Basophils Absolute Auto 0.1 K/mm3 (0.0-0.1); Basophils Percent Auto 0.9 % (0.2-1.2); Eosinophils Absolute Auto 0.3 K/mm3 (0-0.3); Eosinophils Percent Auto 3.6 % (0-4.4); Hematocrit 35.2 % (37.0-47.0); Hemoglobin 11.3 g/dL (12.0-15.0); Immature Granulocyte Absolute 0.01 K/mm3 (0.00-0.031); Immature Granulocyte Percent A 0.1 % (0-0.5); Lymphocytes Absolute Auto 2.33 K/mm3 (0.9-3.2); Lymphocytes Percent Auto 33.5 % (18.3-44.2); Mean Corpuscular HGB Conc 32.1 g/dl (32-36); Mean Corpuscular Hemoglobin 31.6 pg (26-34); Mean Corpuscular Volume 98.3 fl (80-100); Mean Platelet Volume 10.3 fl (7.4-10.4); Monocytes Absolute Auto 0.5 K/mm3 (0.1-0.6); Monocytes Percent Auto 6.8 % (2.6-8.5); Neutrophils Absolute Auto 3.8 K/mm3 (1.3-6.7); Neutrophils Percent Auto 55.1 % (45.5-73.1); Platelet Count Result 220 k/mm3 (150-375); Red Blood Count 3.58 M/mm3 (4.2-5.4); Red Cell Distribution Width 12.9 % (11.5-14.5)
[2022-06-13 15:09] LABS: Alanine Aminotransferase 16 U/L (6-35); Albumin Level 3.8 g/dL (3.5-5.1); Alkaline Phosphatase 56 U/L (38-126); Anion Gap 7 mmol/L (8-16); Aspartate Amino Transferase 20 U/L (14-36); Bilirubin,Total 0.3 mg/dL (0.2-1.3); Blood Urea Nitrogen 12 mg/dL (7-17); Calcium 7.9 mg/dL (8.4-10.2); Carbon Dioxide 31 mmol/L (22-30); Chloride 101 mmol/L (98-107); Estimated CRCL calculation 41 ml/min; Estimated Glomerular Filt Rate 48; Glucose 217 mg/dL (65-110); Potassium 3.4 mmol/L (3.4-5.0); Sodium 139 mmol/L (137-145)
--- NOTE | 2022-06-13 15:21 | PC.NURSE ---
Road test administered per VO from Dr. Duarte. Pt ambulated from her bed in room 3 and made 1 [place] around the nurse's station with minimal c/o SOB. Pt maintained a pulse ox of 97% or higher. Pt HR remained in the 80s. Dr. Duarte made aware of the results.
== END 2022-06-13 16:05 | disposition home or self-care (01) ==
PROVIDERS: Emergency Provider Emergency Medicine
DX: R53.1 Weakness (principal); Z20.822 Contact with and (suspected) exposure to COVID-19; I13.0 Hypertensive heart and chronic kidney disease with heart failure and stage 1 through stage 4 chronic kidney disease, or unspecified chronic kidney disease; E11.22 Type 2 diabetes mellitus with diabetic chronic kidney disease; N18.9 Chronic kidney disease, unspecified; I50.9 Heart failure, unspecified; E78.5 Hyperlipidemia, unspecified; J44.9 Chronic obstructive pulmonary disease, unspecified; Z87.820 Personal history of traumatic brain injury; Z79.82 Long term (current) use of aspirin; Z79.84 Long term (current) use of oral hypoglycemic drugs; Z66 Do not resuscitate; Z87.891 Personal history of nicotine dependence; R94.31 Abnormal electrocardiogram [ECG] [EKG]
CPT/HCPCS: 36415; 70450; 71045; 80053; 81001; 85025; 93005; 96360; 99284; C9803; J7030; U0003; U0005

== ENCOUNTER 2022-07-18 13:59 | Emergency (ER) | payer MEDICARE, MEDICAID, SELFPAY ==
--- NOTE | ~2022-07-18 | XR_ITS ---
XR tibia fibula RT 2V DATE: 07/18/2022 14:36 INDICATION: Fall. Right lower leg pain. TECHNIQUE: AP and lateral views COMPARISON: 01/03/2011 right tibia and fibula FINDINGS: There is diffuse osteopenia. There are old healed fracture deformities of the distal tibial and fibular shafts, stable since 011. No recent fracture or dislocation, periosteal reaction or bone destruction is detected. Femoral, popliteal and trifurcation artery calcifications. IMPRESSION: Osteopenia Old healed distal tibial and fibular shaft fractures No recent fracture or dislocation Reviewed, dictated and finalized at location A. RACT LEAD
--- NOTE | ~2022-07-18 | XR_ITS ---
XR knee RT 3V DATE: 07/18/2022 14:35 INDICATION: Fall. Right lower leg pain. TECHNIQUE: 3 views including portable crosstable lateral COMPARISON: None FINDINGS: There is diffuse osteopenia. No fracture or dislocation or joint effusion. No periosteal reaction or bone destruction. Prominent chondrocalcinosis at the knee joint. Knee joint spaces are relatively preserved. Femoral and popliteal and trifurcation artery calcifications. IMPRESSION: Diffuse osteopenia Chondrocalcinosis Reviewed, dictated and finalized at location A. T [employer] ROOM SUPERVISOR
--- NOTE | ~2022-07-18 | XR_ITS ---
XR ankle RT min 3V DATE: 07/18/2022 14:35 INDICATION: Fall. Right lower leg pain. TECHNIQUE: 4 portable views COMPARISON: 01/03/2011 right lower leg FINDINGS: Chronic old healed distal tibial and fibular shaft fractures are again noted. There is osteopenia. No recent fracture or dislocation of the ankle or disruption of the ankle mortise. No periosteal reac tion or bone destruction. IMPRESSION: Osteopenia Old healed distal tibial and fibular shaft fractures Reviewed, dictated and finalized at location A. MIXER
--- NOTE | ~2022-07-18 | XR_ITS ---
XR foot RT min 3V DATE: 07/18/2022 15:44 INDICATION: Generalized right foot pain following fall TECHNIQUE: 4 views COMPARISON: None FINDINGS: Prominent diffuse osteopenia. Old distal tibial and fibular shaft fractures. There is a minimally displaced transverse fracture at the neck of the proximal phalanx of the fifth d igit. IMPRESSION: Recent minimally displaced transverse fracture of the neck of the proximal phalanx of fif th toe Prominent diffuse osteopenia Reviewed, dictated and finalized at location A. OOR PURSUITS INSTRUCTOR IMPRESSION: Recent minimally displaced transverse fracture of the neck of the p roximal phalanx of fifth toe Prominent diffuse osteopenia
--- NOTE | ~2022-07-18 | XR_ITS ---
EXAMINATION: XR chest 1V portable INDICATION: Pain after fall TECHNIQUE: Portable AP chest at 1428 hours COMPARISON: 06/13/2022 FINDINGS: There are minimal opacities of the mid and lower lung zones. No pleural effusion or pneumot horax. Median sternotomy wires are consistent with prior cardiac surgery. Fusion hardware is noted in the lower cervical spine. The heart size is upper limits of normal for technique. IMPRESSION: 1. Minimal airspace opacities of the mid and lower lung zones, consistent with atelectasis versus pne umonia. Reviewed, dictated and finalized at location A. CRIB SUPERVISOR IMPRESSION: 1. Minimal airspace opacities of the mid and lower lung zones, consistent with atelectasis versus pneumonia.
[2022-07-18 14:33] VITALS: BP 181/78; PULSE 65; RESP 16; TEMP 36.6; O2SAT 97
[2022-07-18 14:34] VITALS: BP 181/78; PULSE 63; RESP 18; O2SAT 97
[2022-07-18] MEDS: HYDROcodone/acetaminophen (*CRX) 5-325 MG TABLET 1 TAB PO (16:00)
[2022-07-18 16:14] VITALS: BP 189/167; PULSE 72; RESP 15; O2SAT 95
--- NOTE | 2022-07-18 16:19 | ED.FALL ---
HPI - Fall General Chief Complaint: Fall Stated Complaint: leg injury Time Seen by Provider: 07/18/22 14:00 History of Present Illness HPI Narrative: Patient is a 77-year-old female who presents ER with right leg pain. She reports yesterday she described about some steps when she turned her in call falling backwards. She was caught by a family member. She was able to bear weight back inside the home. Since then she has had increased pain and does not want to walk. She did not strike her head or lose consciousness. No numbness or tingling to lower extremity. She has not been taking pain medication due to multiple allergies Related Data Home Medications Medication Instructions Recorded Confirmed acetaminophen 650 mg tablet 650 mg PO Q6H PRN pain 02/25/22 02/25/22 albuterol sulfate 90 mcg/actuation 1 inh inhalation QID PRN SHORTNESS 02/25/22 02/25/22 aerosol inhaler OF BREATH amlodipine 5 mg tablet (Norvasc) 2.5 mg PO BID 02/25/22 02/25/22 aspirin 81 mg tablet,delayed 81 mg PO DAILY 02/25/22 02/25/22 release baclofen 10 mg tablet 10 mg PO BID 02/25/22 02/25/22 bumetanide 0.5 mg tablet 0.5 mg PO DAILY 02/25/22 02/25/22 cyclobenzaprine 5 mg tablet 1 tablet PO HS 02/25/22 02/25/22 fluticasone propionate 50 2 spray intranasal HS 02/25/22 02/25/22 mcg/actuation nasal spray,suspension metformin 500 mg tablet 500 mg PO BID 02/25/22 02/25/22 metoprolol succinate 25 mg 1 tablet PO DAILY 02/25/22 02/25/22 tablet,extended release 24 hr olmesartan 40 mg tablet 1 tablet PO HS 02/25/22 02/25/22 citalopram 20 mg tablet 40 mg PO HS 02/26/22 02/26/22 Allergies Allergy/AdvReac Type Severity Reaction Status Date / Time levofloxacin Allergy Severe Swelling Verified 07/18/22 14:36 cefaclor Allergy Unknown Anaphylaxis Verified 07/18/22 14:36 ciprofloxacin Allergy Unknown Anaphylaxis Verified 07/18/22 14:36 codeine Allergy Unknown Other Verified 07/18/22 14:36 erythromycin base Allergy Unknown Hives Verified 07/18/22 14:36 Iodinated Contrast Media Allergy Unknown Hives Verified 07/18/22 14:36 iodine Allergy Unknown Itching Verified 07/18/22 14:36 latex Allergy Unknown Anaphylaxis Verified 07/18/22 14:36 Sulfa (Sulfonamide Allergy Unknown Anaphylaxis Verified 07/18/22 14:36 Antibiotics) sulfanilamide Allergy Unknown Anaphylaxis Verified 07/18/22 14:36 amitriptyline [From Elavil] Allergy Nausea Verified 07/18/22 14:36 amoxicillin [From Amoxil] Allergy Nausea Verified 07/18/22 14:36 fentanyl Allergy Nausea Verified 07/18/22 14:36 hydrocodone [From Vicodin] Allergy Unknown Verified 07/18/22 14:36 lamotrigine [From Lamictal] Allergy Unknown Verified 07/18/22 14:36 oxycodone Allergy Nausea and Verified 07/18/22 14:36 Vomiting prochlorperazine Allergy Unknown Verified 07/18/22 14:36 tramadol Allergy Unknown Verified 07/18/22 14:36 trazodone Allergy Nausea and Verified 07/18/22 14:36 Vomiting Macrolide Antibiotics AdvReac Unknown Gastrointestinal Verified 07/18/22 14:36 Upset morphine AdvReac Unknown VOMITING Verified 07/18/22 14:36 Quinolones AdvReac Unknown Other Verified 07/18/22 14:36 vancomycin AdvReac Unknown side Verified 07/18/22 14:36 effect-rising creatnine Contrast Media Allergy Unknown SWELLS,RED, Uncoded 07/18/22 14:36 SOB protien c Allergy Unknown Uncoded 07/18/22 14:36 Review of Systems Review of Systems: All systems reviewed & are unremarkable except as noted in HPI and below Constitutional: Constitutional: Denies chills and Denies fever(s) ENT: Denies nasal congestion and Denies sore throat Cardiovascular: Cardiovascular: Denies chest pain, Denies rapid heart rate and Denies radiating jaw, neck or arm pain Respiratory: Respiratory: Denies cough and Denies dyspnea Musculoskeletal: Musculoskeletal: Denies back pain, Reports arthralgias and Reports joint swelling Neurologic: Denies headache(s), Denies focal weakness and Denies numbness PMFSH Past Medical History Medical His
--- NOTE | 2022-07-18 16:49 | PC.NURSE ---
Pt ambulated with walker per request by SURJIT Van. Pt. ambulated with steady gait and balance, but did report great amount of pain while walking. SURJIT Van notified.
== END 2022-07-18 18:23 | disposition home or self-care (01) ==
PROVIDERS: Emergency Provider Emergency Medicine
DX: S93.401A Sprain of unspecified ligament of right ankle, initial encounter (principal); S92.511A Displaced fracture of proximal phalanx of right lesser toe(s), initial encounter for closed fracture; I13.0 Hypertensive heart and chronic kidney disease with heart failure and stage 1 through stage 4 chronic kidney disease, or unspecified chronic kidney disease; E11.22 Type 2 diabetes mellitus with diabetic chronic kidney disease; N18.9 Chronic kidney disease, unspecified; I50.9 Heart failure, unspecified; E78.5 Hyperlipidemia, unspecified; Z90.710 Acquired absence of both cervix and uterus; Z95.1 Presence of aortocoronary bypass graft; Z98.1 Arthrodesis status; Z87.820 Personal history of traumatic brain injury; Z87.891 Personal history of nicotine dependence; Z79.84 Long term (current) use of oral hypoglycemic drugs; Z79.82 Long term (current) use of aspirin; M11.261 Other chondrocalcinosis, right knee; M85.88 Other specified disorders of bone density and structure, other site; R91.8 Other nonspecific abnormal finding of lung field
CPT/HCPCS: 71045; 73562; 73590; 73610; 73630; 99284; A9270

== ENCOUNTER 2023-02-26 09:08 | Inpatient (IN) | payer MEDICARE, MEDICAID, SELFPAY ==
[2023-02-26] VITALS (22 sets, daily range): BP systolic 151–206; BP diastolic 60–85; PULSE 60–73; RESP 12–24; TEMP 36–36.4; O2SAT 91–98; BMI 31.7
--- NOTE | ~2023-02-26 | CT_ITS ---
EXAMINATION: CT cervical spine wo con DATE: 02/26/2023 10:23 INDICATION: Fall. TECHNIQUE: Computed tomography (CT) of the cervical spine was performed without intravenous contrast. Automated exposure control and iterative reconstruction technique were employed. Exam dose: 479.05 mGy-cm total exam DLP. COMPARISON: 08/18/2020 CT cervical spine FINDINGS: Again noted is anterior surgical fusion at C5 C7. Normal atlantooccipital alignment. C1 and C2 are normally aligned and the odontoid process is intact. There is mild degenerative disease at C2-3, moderately severe degenerative disc disease at C3-4 and C 4-5. No fracture or dislocation or locked facet or prevertebral soft tissue swelling is noted. Emphysematous changes are noted.. IMPRESSION: No cervical spine fracture or dislocation or significant change since 07/27/2021 Again noted is anterior surgical fusion at C5-C7 Cervical spondylosis Emphysema Reviewed, dictated and finalized at Location [facility]. Reviewed, dictated and finalized at location A. IMPRESSION: No cervical spine fracture or dislocation or significant change si nce 07/27/2021 Again noted is anterior surgical fusion at C5-C7 Cervical spondylosis Emphysema
--- NOTE | ~2023-02-26 | CT_ITS ---
EXAMINATION: CT brain wo con DATE: 02/26/2023 10:23 INDICATION: Head injury. Struck left side of head yesterday. Multiple falls. Neck pain. TECHNIQUE: Computed tomography (CT) of the head was performed without intravenous contrast. The mA wa s adjusted according to patient size. Iterative reconstruction technique was employed. Exam dose: 52 9.67 mGy-cm total exam DLP. COMPARISON: 06/13/2022 CT brain FINDINGS: Prominent atherosclerotic calcification of the dominant right vertebral artery. Bilateral c arotid siphon internal carotid artery calcification. There is nonspecific patchy diminished attenuation of cerebral white matter, likely due to chronic sm all vessel ischemic changes. Chronic lacunar infarct of right basal ganglia. No recent cerebrovascular accident is evident. No mid line shift or mass effect. No intracranial mass lesion or hemorrhage is noted. There is moderate cerebral and cerebellar volume loss. No subdural or epidural hematoma is detected. No fracture or bone destruction of the cranial vault. Included paranasal sinuses and mastoid air cells are unremarkable. IMPRESSION: Cerebral atherosclerosis and chronic small vessel ischemic changes of the cerebral white matter. Small chronic right basal ganglia lacunar infarct Reviewed, dictated and finalized at Location [facility]. Reviewed, dictated and finalized at location A. IMPRESSION: Cerebral atherosclerosis and chronic small vessel ischemic changes of the cerebral white matter. Small chronic right basal ganglia lacunar infarc t
--- NOTE | 2023-02-26 09:25 | ECG_ITS ---
Measurements Intervals Jeffrey Rate: 64 P: 56 [place]: 131 QRS: 11 QRSD: 107 T: 76 QT: 401 QTc: 417 Interpretive Statements SINUS RHYTHM PREVIOUS iNFERIOR MYOCARDIAL INFARCTION , NONSPECIFIC T-WAVE ABNORMALITY ABNORMAL ECG COMPARED TO ECG 06/13/2022 14:21:07 NO SIGNIFICANT CHANGES Electronically Signed On 02-27-2023 8:17:43 CDT by Basilio Nixon M.D.
--- NOTE | 2023-02-26 09:28 | ED.WEAKNESS ---
HPI - Weakness General Chief complaint: Weakness Stated complaint: WEAKNESS Time Seen by Provider: 02/26/23 09:09 History of Present Illness HPI Narrative: This is a 77-year-old female with past medical history of CAD status post CABG, diabetes, subarachnoid hemorrhage after fall, who is brought in by EMS for generalized weakness for the past 2 days and 2 falls. The patient states yesterday she was at her daughter's house, when she became weak and fell. She struck her head but did not lose consciousness. Today, while attempting to get out of bed, she states she did not have the strength and slid to the floor. She denies loss of consciousness. She denies chest pain, shortness of breath or palpitations with either episode. She denies bleeding from any source or recent illness. Related Data Home Medications Medication Instructions Recorded Confirmed albuterol sulfate 90 mcg/actuation 1 inh inhalation QID PRN SHORTNESS 02/25/22 02/26/23 aerosol inhaler OF BREATH aspirin 81 mg tablet,delayed 81 mg PO DAILY 02/25/22 02/26/23 release baclofen 10 mg tablet 10 mg PO BID 02/25/22 02/26/23 bumetanide 0.5 mg tablet 0.5 mg PO DAILY 02/25/22 02/26/23 cyclobenzaprine 5 mg tablet 1 tablet PO HS 02/25/22 02/26/23 metformin 500 mg tablet 500 mg PO BID 02/25/22 02/26/23 metoprolol succinate 25 mg 1 tablet PO DAILY 02/25/22 02/26/23 tablet,extended release 24 hr olmesartan 40 mg tablet 1 tablet PO HS 02/25/22 02/26/23 citalopram 20 mg tablet 40 mg PO HS 02/26/22 02/26/23 rosuvastatin 20 mg tablet (Crestor) 5 mg PO QMWF 02/26/23 02/26/23 Allergies Allergy/AdvReac Type Severity Reaction Status Date / Time levofloxacin Allergy Severe Swelling Verified 02/26/23 09:17 cefaclor Allergy Unknown Anaphylaxis Verified 02/26/23 09:17 ciprofloxacin Allergy Unknown Anaphylaxis Verified 02/26/23 09:17 codeine Allergy Unknown Other Verified 02/26/23 09:17 erythromycin base Allergy Unknown Hives Verified 02/26/23 09:17 Iodinated Contrast Media Allergy Unknown Hives Verified 02/26/23 09:17 iodine Allergy Unknown Itching Verified 02/26/23 09:17 latex Allergy Unknown Anaphylaxis Verified 02/26/23 09:17 Sulfa (Sulfonamide Allergy Unknown Anaphylaxis Verified 02/26/23 09:17 Antibiotics) sulfanilamide Allergy Unknown Anaphylaxis Verified 02/26/23 09:17 amitriptyline [From Elavil] Allergy Nausea Verified 02/26/23 09:17 amoxicillin [From Amoxil] Allergy Nausea Verified 02/26/23 09:17 fentanyl Allergy Nausea Verified 02/26/23 09:17 hydrocodone [From Vicodin] Allergy Unknown Verified 02/26/23 09:17 lamotrigine [From Lamictal] Allergy Unknown Verified 02/26/23 09:17 oxycodone Allergy Nausea and Verified 02/26/23 09:17 Vomiting prochlorperazine Allergy Unknown Verified 02/26/23 09:17 tramadol Allergy Unknown Verified 02/26/23 09:17 trazodone Allergy Nausea and Verified 02/26/23 09:17 Vomiting Macrolide Antibiotics AdvReac Unknown Gastrointestinal Verified 02/26/23 09:17 Upset morphine AdvReac Unknown VOMITING Verified 02/26/23 09:17 Quinolones AdvReac Unknown Other Verified 02/26/23 09:17 vancomycin AdvReac Unknown side Verified 02/26/23 09:17 effect-rising creatnine Contrast Media Allergy Unknown SWELLS,RED, Uncoded 02/26/23 09:17 SOB protien c Allergy Unknown Uncoded 02/26/23 09:17 Review of Systems Review of Systems: CONSTITUTIONAL: Denies fever, chills, or sweats. CARDIOVASCULAR: Denies chest pain, palpitations, or edema. RESPIRATORY: Denies cough or dyspnea. GASTROINTESTINAL: Denies abdominal pain, nausea, vomiting, or diarrhea. GENITOURINARY: Dysuria denies hematuria. SKIN: Denies rash or itching. MUSCULOSKELETAL: Denies back pain, joint pain, or myalgia. NEUROLOGIC: Headache, generalized weakness denies numbness, dizziness. PSYCHIATRIC: Denies anxiety or depression. [facility] Past Medical History Medical History (Updated 02/26/23 @ 17:26 by Page Wynn NP) Chronic kidney disease Congestive heart failur
[2023-02-26 10:35] LABS: Appearance Urine Clear (Clear); Bacteria Urine 4+ /hpf; Bilirubin Urine Negative (Negative); Blood Urine 2+ (Negative); Color Urine Yellow (Yellow); Glucose Urine UA Negative (Negative); Ketones Urine Negative (Negative); Leukocyte Esterase Ur 3+ LEU/UL (Negative); Need Manual Microscopic Reviewed; Nitrate Urine Negative (Negative); Protein Urine Negative (Negative); Specific Grav Ur 1.007 (1.001-1.035); Squamous Epithelial Cell Urine None seen /hpf (Few); Urobilinogen Urine 0.2 mg/dL (<2.0); WBC Urine 21-50 /hpf; pH Urine 5.5 (5.0-9.0)
[2023-02-26 10:40] LABS: Add Urine Microscopic? YES
[2023-02-26] MEDS: TETANUS,DIPHTHERIA,AC PERTUSSIS ADULT (0.5 ML) BOOSTRIX IM (10:55)
[2023-02-26] MEDS: SODIUM CHLORIDE 0.9% IV 1,000 ML 999 ML IV CONT (11:25)
[2023-02-26 11:38] LABS: Alanine Aminotransferase 21 U/L (6-35); Albumin Level 3.5 g/dL (3.5-5.1); Alkaline Phosphatase 37 U/L (38-126); Anion Gap 6 mmol/L (8-16); Aspartate Amino Transferase 30 U/L (14-36); Bilirubin,Total 0.7 mg/dL (0.2-1.3); Blood Urea Nitrogen 17 mg/dL (7-17); Calcium 7.9 mg/dL (8.4-10.2); Carbon Dioxide 31 mmol/L (22-30); Chloride 103 mmol/L (98-107); Estimated CRCL calculation 42 ml/min; Estimated Glomerular Filt Rate 54; Glucose 145 mg/dL (65-110); Potassium 4.6 mmol/L (3.4-5.0); Sodium 140 mmol/L (137-145)
[2023-02-26 11:48] LABS: Troponin I < 0.012 ng/mL (0.000-0.034)
[2023-02-26] MEDS: PIPERACILLN/TAZ 3.375GM/NS50ML 3.375 GM/50 ML BAG IVPB ×2 (12:00→18:27)
[2023-02-26 12:13] LABS: Basophils Absolute Auto 0.1 K/mm3 (0.0-0.1); Eosinophils Absolute Auto 0.2 K/mm3 (0-0.3); Eosinophils Percent Auto 2.9 % (0-4.4); Hematocrit 41.2 % (37.0-47.0); Hemoglobin 12.9 g/dL (12.0-15.0); Immature Granulocyte Absolute 0.04 K/mm3 (0.00-0.031); Immature Granulocyte Percent A 0.5 % (0-0.5); Lymphocytes Absolute Auto 2.38 K/mm3 (0.9-3.2); Lymphocytes Percent Auto 28.8 % (18.3-44.2); Mean Corpuscular HGB Conc 31.3 g/dl (32-36); Mean Corpuscular Hemoglobin 31.7 pg (26-34); Mean Corpuscular Volume 101.2 fl (80-100); Mean Platelet Volume 9.7 fl (7.4-10.4); Monocytes Absolute Auto 0.6 K/mm3 (0.1-0.6); Monocytes Percent Auto 6.8 % (2.6-8.5); Platelet Count Result 222 k/mm3 (150-375); Red Blood Count 4.07 M/mm3 (4.2-5.4); Red Cell Distribution Width 13.2 % (11.5-14.5); White Blood Count 8.3 K/mm3 (4.5-10.0)
[2023-02-26 12:30] LABS: INR 0.9; Prothrombin Time 12.9 Seconds (11.1-14.7)
[2023-02-26] MEDS: CALCIUM GLUCONATE 1,000 MG/10 ML VIAL 1000 MG IV PUSH (13:03)
--- NOTE | 2023-02-26 13:36 | PM.IMHP ---
H&P: HPI History of Present Illness Date/Time: 02/26/23 13:36 Chief Complaint: Weakness Narrative: This is a 77-year-old female patient who has a history of coronary artery disease status post four-vessel CABG, diabetes, and subarachnoid hemorrhage after a fall. The patient was brought to the emergency room via EMS for generalized weakness for the past 2 days. According to the daughter the patient has had 2 falls over the last couple days. The patient fell yesterday and struck her head but did not lose consciousness. Today the patient fell out of bed while attempting to get up out of bed. Apparently she had slid to the floor. She did not lose consciousness. She denies any chest pain shortness breast her palpitations. She denies bleeding from any source or recent injuries. Her creatinine is 1.0 with a LETY for of 54 today. Blood glucose is 145. Patient's calcium is 7.9. And she is chronically low. She was found to be positive for UTI. She was given IV Tylenol, normal saline, Zosyn, calcium gluconate, and labetalol 20 for an elevated blood pressure. Head CT was read as following?Cerebral atherosclerosis and chronic small vessel ischemic changes of the cerebral white matter. Small chronic right basal ganglia lacunar infarct. Cervical spine was read as the followingo cervical spine fracture or dislocation or significant change since 07/27/2021 Again noted is anterior surgical fusion at C5-C7 Cervical spondylosis Emphysema The patient is being admitted to observation status on the date of service of 02/26/2023 Review of Systems Review of Systems: All systems reviewed & are unremarkable except as noted in HPI and below Constitutional: Constitutional: Reports as per HPI and Reports no additional constitutional complaints Eyes: Eyes: Reports as per HPI and Reports no additional eye complaints ENT: Reports system reviewed and no additional complaints, except as documented and Reports Normal hearing present Cardiovascular: Cardiovascular: Reports no additional cardiovascular complaints Respiratory: Respiratory: Reports no additional respiratory complaints and Reports no additional respiratory complaints Gastrointestinal: Gastrointestinal: Reports as per HPI and Reports no additional gastrointestinal complaints Musculoskeletal: Musculoskeletal: Reports no additional musculoskeletal complaints Integumentary/Breasts: Skin/Breast: Reports system reviewed and no additional complaints, except as docu and Reports as per HPI Neurologic: Reports system reviewed and no additional complaints, except as documented, Reports as per HPI and Reports Normal hearing present Psychiatric: Psychiatric: Reports no additional psychiatric complaints and Reports as per HPI Endocrine: Endocrine: Reports no additional endocrine complaints Hematologic/Lymphatic: Hematologic/Lymphatic: Reports no additional hematologic/lymphatic complaints Allergic/Immunologic: Allergic/Immunologic: Reports no additional allergic/immunologic complaints [facility] Past Medical History Medical History (Updated 02/26/23 @ 17:26 by Page Wynn NP) Chronic kidney disease Congestive heart failure COPD (chronic obstructive pulmonary disease) Coronary artery disease Depression with anxiety Hyperlipidemia Hypertension Hypertension MDD (major depressive disorder) Peripheral vascular disease Subarachnoid hemorrhage Bilaterally after falling down stairs Tobacco abuse Traumatic brain injury Type 2 diabetes mellitus Surgical History Surgical History (Updated 02/26/23 @ 17:26 by Page Wynn NP) H/O carpal tunnel repair H/O cataract extraction H/O colonoscopy with polypectomy H/O: hysterectomy History of appendectomy History of cardiac cath History of cholecystectomy History of four vessel coronary artery bypass graft 2016 History of tracheostomy Hx of CABG Myringotomy tube(s) status S/P cervical spinal fusion Family History Family History (Reviewed
[2023-02-26] MEDS: LABETALOL HCL INJ 100 MG/20 ML VIAL 20 MG IV PUSH (14:22)
--- NOTE | 2023-02-26 14:25 | ADMGEN ---
This patient, Alondra Bill, was admitted to [facility] Surg Room 323-01 @ 1400. Patient/family oriented to hospital policies and general routines including ID bracelet, bed and alarms, visiting hours, pain management, procedures, bathroom and other care routines, personal items, smoking policy, room service/diet, and visiting hours. Information on how to activate the Rapid Response Team has been discussed. Patient/Family are encouraged to report perceived risks to care and to ask questions if they do not understand what they are told or what they should do.
[2023-02-26 16:48] LABS: Glucose Point of Care 233 mg/dl (65-105)
[2023-02-26] MEDS: SODIUM CHLORIDE 0.9% IV 1,000 ML 75 ML IV CONT (18:27)
[2023-02-26 20:08] LABS: Glucose Point of Care 221 mg/dl (65-105)
[2023-02-26] MEDS: CYCLOBENZAPRINE HCL 5 MG TABLET PO (20:45)
[2023-02-26] MEDS: ALPRAZolam (*CRX) 0.5 MG TABLET PO (20:46)
[2023-02-26] MEDS: CITALOPRAM HYDROBROMIDE 20 MG TABLET 40 MG PO (20:46)
[2023-02-26] MEDS: OLMESARTAN MEDOXOMIL 20 MG TABLET 40 MG PO (20:47)
[2023-02-26] MEDS: INSULIN GLARGINE (*BKC) 100 UNITS/ML 12 UNITS SUB-Q (20:54)
[2023-02-26] MEDS: INSULIN ASPART (*BKC) 100 UNITS/ML SUB-Q (20:56)
[2023-02-27] VITALS: BP 132/64; PULSE 65; RESP 16; TEMP 36; O2SAT 97
[2023-02-27] MEDS: PIPERACILLN/TAZ 3.375GM/NS50ML 3.375 GM/50 ML BAG IVPB ×3 (01:27→17:38)
[2023-02-27 06:00] VITALS: BP 156/83; PULSE 77; RESP 20; TEMP 36.9; O2SAT 97
[2023-02-27 08:32] LABS: Glucose Point of Care 109 mg/dl (65-105)
[2023-02-27] MEDS: PANTOPRAZOLE 40 MG TABLET PO ×2 (09:13→21:17)
[2023-02-27] MEDS: ASPIRIN 81 MG ENTERIC TABLET PO (09:13)
[2023-02-27] MEDS: CALCIUM/VITAMIN D 250 MG TABLET 1 TABLET PO (09:13)
[2023-02-27 09:14] VITALS: PULSE 70
[2023-02-27] MEDS: BACLOFEN 10 MG TABLET PO ×2 (09:14→17:33)
[2023-02-27] MEDS: BUMETANIDE 0.5 MG TABLET PO (09:14)
[2023-02-27] MEDS: METOPROLOL SUCCINATE EXT REL 25 MG TABCR PO (09:14)
[2023-02-27] MEDS: SODIUM CHLORIDE 0.9% IV 1,000 ML 75 ML IV CONT (09:15)
[2023-02-27 09:25] VITALS: O2SAT 91
--- NOTE | 2023-02-27 11:48 | PM.IMPN ---
Progress Note: A&P Assessment and Plan (1) Acute UTI: Code(s): N39.0 - Urinary tract infection, site not specified Status: Acute Assessment and Plan: Urinalysis abnormal on presentation with 2+ leuk esterase, 21-50 WBC. Patient noted malodorous urine prior to admission Urine cultures pending, await results and tailor antibiotics accordingly Started on Zosyn on admission, tolerating well. Continue at this time while awaiting cultures, multiple antibiotic allergies noted No leukocytosis. Patient remains afebrile Will discontinue IV fluids at this time as patient is tolerating oral intake (2) Generalized weakness: Code(s): R53.1 - Weakness Status: Acute Assessment and Plan: Likely secondary to UTI Appreciate PT OT eval Implement fall precautions (3) Type 2 diabetes mellitus: Code(s): E11.9 - Type 2 diabetes mellitus without complications Status: Acute Assessment and Plan: A1c is 8.6 Blood sugars are stable at this time Continue Accu-Cheks, sliding scale insulin, and hypoglycemic protocol Home metformin on hold at this time (4) Hypocalcemia: Code(s): E83.51 - Hypocalcemia Status: Acute Assessment and Plan: Calcium 7.9 on admission Waiting for repeat BMP today Monitor (5) Hypertension: Code(s): I10 - Essential (primary) hypertension Status: Chronic Assessment and Plan: Blood pressures are stable Continue with olmesartan, metoprolol and Bumex Monitor BP trends (6) COPD (chronic obstructive pulmonary disease): Code(s): J44.9 - Chronic obstructive pulmonary disease, unspecified Status: Chronic Assessment and Plan: Not in acute exacerbation Continue albuterol as needed (7) Congestive heart failure: Code(s): I50.9 - Heart failure, unspecified Status: Chronic Assessment and Plan: Not in acute exacerbation Continue Bumex Monitor volume status Subjective Date/time seen: 02/27/23 11:48 Interval history: Date of service: 02/27/2023 Alondra Bill is a 77-year-old female with a history of COPD, CHF, CKD, CAD hypertension, subarachnoid hemorrhage, type 2 diabetes mellitus who is seen in follow-up for UTI. The patient states that she is feeling better today. She has noticed malodorous urine, but she thinks that this is improved your even resolved. She denies dysuria, frequency, urgency. No hematuria. Denies abdominal pain, flank pain. She endorses chronic mid low back pain. She denies any dizziness or lightheadedness. She does feel unsteady on her feet and weak. States that she typically uses a cane at home. Review of Systems Review of Systems: All systems reviewed & are unremarkable except as noted in HPI and below Exam Narrative: General: A well-nourished, well-appearing 77-year-old female, sitting up in bed, comfortable, NARD Neuro: awake, alert and oriented x4, speech clear, no focal neuro deficits noted HEENMT: normocephalic, atraumatic, EOMI, sclerae anicteric Respiratory: clear to auscultation bilaterally, nonlabored breathing Cardio: regular rate, regular rhythm with S1-S2 Abdomen: nondistended, normoactive bowel sounds, soft, nontender to palpation Skin: no rashes or lesions, warm and dry Psych: appropriate mood and affect, judgment and insight intact Objective Data Vital Signs Vital Signs: Vital Signs - 24 hr 02/26/23 13:52 02/26/23 14:22 02/26/23 14:00 Temperature 96.8 F L Pulse Rate 67 64 64 Respiratory Rate 20 12 Blood Pressure 202/85 H 206/77 H Pulse Oximetry 94 97 Oxygen Delivery 02/26/23 21:38 02/26/23 20:10 02/27/23 00:00 Temperature 96.8 F L 96.8 F L Pulse Rate 60 60 65 Respiratory Rate 16 16 16 Blood Pressure 175/76 H 132/64 Pulse Oximetry 97 97 97 Oxygen Delivery Room Air 02/27/23 06:00 02/27/23 09:14 02/27/23 09:25 Temperature 98.4 F Pulse Rate 77 70 Respiratory Rate 20 Blood Pr
[2023-02-27 12:09] LABS: Glucose Point of Care 156 mg/dl (65-105)
[2023-02-27] MEDS: ALBUTEROL SULFATE (*SP) AEROSOL 1 PUFF INHALATION ×2 (13:31→20:57)
--- NOTE | 2023-02-27 13:45 | PC.NURSE ---
Pt's IV infiltrated and pt is refusing new IV access. TIFFANIE Calle aware.
[2023-02-27 14:00] VITALS: BP 160/64; PULSE 72; RESP 20; TEMP 36.8; O2SAT 97
[2023-02-27 14:50] LABS: Basophils Percent Auto 0.5 % (0.2-1.2); Eosinophils Absolute Auto 0.3 K/mm3 (0-0.3); Eosinophils Percent Auto 3.5 % (0-4.4); Hematocrit 37.4 % (37.0-47.0); Hemoglobin 11.8 g/dL (12.0-15.0); Immature Granulocyte Absolute 0.02 K/mm3 (0.00-0.031); Immature Granulocyte Percent A 0.3 % (0-0.5); Lymphocytes Absolute Auto 1.91 K/mm3 (0.9-3.2); Lymphocytes Percent Auto 25.1 % (18.3-44.2); Mean Corpuscular HGB Conc 31.6 g/dl (32-36); Mean Corpuscular Hemoglobin 31.1 pg (26-34); Mean Corpuscular Volume 98.7 fl (80-100); Mean Platelet Volume 9.8 fl (7.4-10.4); Monocytes Absolute Auto 0.4 K/mm3 (0.1-0.6); Monocytes Percent Auto 5.6 % (2.6-8.5); Platelet Count Result 222 k/mm3 (150-375); Red Blood Count 3.79 M/mm3 (4.2-5.4); Red Cell Distribution Width 13.1 % (11.5-14.5); White Blood Count 7.6 K/mm3 (4.5-10.0)
[2023-02-27 14:58] LABS: Lactic Acid Reflex 2.7 mmol/L (0.7-2.0)
[2023-02-27 15:24] LABS: Anion Gap 8 mmol/L (8-16); Blood Urea Nitrogen 12 mg/dL (7-17); Calcium 8.5 mg/dL (8.4-10.2); Carbon Dioxide 29 mmol/L (22-30); Chloride 101 mmol/L (98-107); Estimated CRCL calculation 38 ml/min; Estimated Glomerular Filt Rate 48; Glucose 201 mg/dL (65-110); Magnesium 1.3 mg/dL (1.6-2.3); Potassium 3.1 mmol/L (3.4-5.0); Sodium 138 mmol/L (137-145)
[2023-02-27 15:48] LABS: Thyroid Stimulating Hormone Reflex 0.696 uIU/mL (0.465-4.68)
[2023-02-27 16:46] LABS: Glucose Point of Care 169 mg/dl (65-105)
[2023-02-27 17:44] LABS: Reflex Lactic Acid Yes or No Add Lactic
[2023-02-27] MEDS: hydrALAZINE 10 MG TABLET PO (18:32)
[2023-02-27 18:51] LABS: Lactic Acid 1.9 mmol/L (0.7-2.0)
[2023-02-27 19:46] LABS: Hemoglobin A1C 7.5 % (<5.7)
[2023-02-27 20:58] VITALS: BP 149/88; PULSE 72; RESP 18; TEMP 35.8; O2SAT 94
[2023-02-27 21:10] LABS: Glucose Point of Care 174 mg/dl (65-105)
[2023-02-27] MEDS: CYCLOBENZAPRINE HCL 5 MG TABLET PO (21:15)
[2023-02-27] MEDS: OLMESARTAN MEDOXOMIL 20 MG TABLET 40 MG PO (21:15)
[2023-02-27] MEDS: ALPRAZolam (*CRX) 0.5 MG TABLET PO (21:16)
[2023-02-27] MEDS: INSULIN GLARGINE (*BKC) 100 UNITS/ML 12 UNITS SUB-Q (21:16)
[2023-02-27] MEDS: CITALOPRAM HYDROBROMIDE 20 MG TABLET 40 MG PO (21:16)
[2023-02-28] MEDS: PIPERACILLN/TAZ 3.375GM/NS50ML 3.375 GM/50 ML BAG IVPB ×4 (00:10→17:33)
[2023-02-28 06:00] VITALS: BP 168/59; PULSE 69; RESP 14; TEMP 35.5; O2SAT 93
[2023-02-28 06:33] LABS: Basophils Absolute Auto 0.1 K/mm3 (0.0-0.1); Basophils Percent Auto 0.8 % (0.2-1.2); Eosinophils Absolute Auto 0.4 K/mm3 (0-0.3); Eosinophils Percent Auto 4.3 % (0-4.4); Hematocrit 38.1 % (37.0-47.0); Immature Granulocyte Absolute 0.03 K/mm3 (0.00-0.031); Immature Granulocyte Percent A 0.4 % (0-0.5); Lymphocytes Absolute Auto 2.51 K/mm3 (0.9-3.2); Lymphocytes Percent Auto 29.8 % (18.3-44.2); Mean Corpuscular HGB Conc 31.5 g/dl (32-36); Mean Corpuscular Hemoglobin 32.4 pg (26-34); Mean Platelet Volume 9.5 fl (7.4-10.4); Monocytes Absolute Auto 0.6 K/mm3 (0.1-0.6); Monocytes Percent Auto 6.9 % (2.6-8.5); Neutrophils Absolute Auto 4.9 K/mm3 (1.3-6.7); Neutrophils Percent Auto 57.8 % (45.5-73.1); Platelet Count Result 210 k/mm3 (150-375); Red Cell Distribution Width 13.2 % (11.5-14.5); White Blood Count 8.4 K/mm3 (4.5-10.0)
[2023-02-28 06:39] LABS: Anion Gap 2 mmol/L (8-16); Blood Urea Nitrogen 10 mg/dL (7-17); Calcium 8.1 mg/dL (8.4-10.2); Carbon Dioxide 32 mmol/L (22-30); Chloride 104 mmol/L (98-107); Estimated CRCL calculation 42 ml/min; Estimated Glomerular Filt Rate 54; Glucose 155 mg/dL (65-110); Potassium 3.2 mmol/L (3.4-5.0); Sodium 138 mmol/L (137-145)
[2023-02-28 07:40] LABS: Glucose Point of Care 149 mg/dl (65-105)
[2023-02-28 08:28] VITALS: PULSE 69
[2023-02-28] MEDS: PANTOPRAZOLE 40 MG TABLET PO ×2 (08:28→21:12)
[2023-02-28] MEDS: BACLOFEN 10 MG TABLET PO ×2 (08:28→17:37)
[2023-02-28] MEDS: CALCIUM/VITAMIN D 250 MG TABLET 1 TABLET PO (08:28)
[2023-02-28] MEDS: METOPROLOL SUCCINATE EXT REL 25 MG TABCR PO (08:28)
[2023-02-28] MEDS: ASPIRIN 81 MG ENTERIC TABLET PO (08:30)
[2023-02-28] MEDS: BUMETANIDE 0.5 MG TABLET PO (08:31)
[2023-02-28] MEDS: ROSUVASTATIN 5 MG TABLET PO (08:31)
[2023-02-28] MEDS: ALBUTEROL SULFATE (*SP) AEROSOL 1 PUFF INHALATION ×2 (08:53→15:15)
[2023-02-28 08:54] VITALS: O2SAT 93
[2023-02-28] MEDS: ACETAMINOPHEN 325 MG TABLET 650 MG PO ×2 (10:03→16:05)
--- NOTE | 2023-02-28 11:20 | PCCCNOTE ---
On 02/28/23, the student, [Vida Collins], provided care and completed [facility] documentation on this patient. I have reviewed the student's documentation and agree with the findings.
[2023-02-28 11:40] LABS: Glucose Point of Care 163 mg/dl (65-105)
--- NOTE | 2023-02-28 13:18 | PM.IMPN ---
Progress Note: A&P Assessment and Plan (1) Acute UTI: Code(s): N39.0 - Urinary tract infection, site not specified Status: Acute Assessment and Plan: Urinalysis abnormal on presentation with 2+ leuk esterase, 21-50 WBC. Patient noted malodorous urine prior to admission Urine cultures pending, await results and tailor antibiotics accordingly Started on Zosyn on admission, tolerating well. Continue at this time while awaiting cultures, multiple antibiotic allergies noted. Appreciate ID PharmD assistance No leukocytosis. Patient remains afebrile (2) Generalized weakness: Code(s): R53.1 - Weakness Status: Acute Assessment and Plan: Likely secondary to UTI Appreciate PT OT eval Implement fall precautions Patient ambulating with walker independently at this time. Plans to return home independently on discharge (3) Type 2 diabetes mellitus: Code(s): E11.9 - Type 2 diabetes mellitus without complications Status: Acute Assessment and Plan: A1c is 8.6 Blood sugars are stable at this time Continue Accu-Cheks, sliding scale insulin, and hypoglycemic protocol Home metformin on hold during admission (4) Hypocalcemia: Code(s): E83.51 - Hypocalcemia Status: Acute Assessment and Plan: Calcium 8.1 today Started on Oscal Monitor levels (5) Hypertension: Code(s): I10 - Essential (primary) hypertension Status: Chronic Assessment and Plan: Blood pressures are stable Continue with olmesartan, metoprolol and Bumex Monitor BP trends (6) COPD (chronic obstructive pulmonary disease): Code(s): J44.9 - Chronic obstructive pulmonary disease, unspecified Status: Chronic Assessment and Plan: Not in acute exacerbation Continue albuterol as needed (7) Congestive heart failure: Code(s): I50.9 - Heart failure, unspecified Status: Chronic Assessment and Plan: Not in acute exacerbation Continue Bumex Monitor volume status Subjective Date/time seen: 02/28/23 13:18 Interval history: Date of service: 02/27/2023 Alondra Bill is a 77-year-old female with a history of COPD, CHF, CKD, CAD hypertension, subarachnoid hemorrhage, type 2 diabetes mellitus who is seen in follow-up for UTI. She is starting to feel improved. States that her weakness is much improved. She was able to ambulate independently today using her walker. Denies any dizziness or lightheadedness. She had a headache this morning which has resolved. Her appetite is good. No shortness breath, cough, chest pain. No urinary symptoms. Review of Systems Review of Systems: All systems reviewed & are unremarkable except as noted in HPI and below Exam Narrative: General: well-nourished, well-appearing 77-year-old female, sitting up in bed, comfortable, NARD Neuro: awake, alert and oriented x4, speech clear, no focal neuro deficits noted HEENMT: normocephalic, atraumatic, EOMI, sclerae anicteric Respiratory: clear to auscultation bilaterally, nonlabored breathing Cardio: regular rate, regular rhythm with S1-S2 Abdomen: nondistended, normoactive bowel sounds, soft, nontender to palpation Skin: no rashes or lesions, warm and dry Psych: appropriate mood and affect, judgment and insight intact Objective Data Vital Signs Vital Signs: Vital Signs - 24 hr 02/27/23 13:37 02/27/23 14:00 02/27/23 20:58 Temperature 98.3 F 96.4 F L Pulse Rate 72 72 Respiratory Rate 20 18 Blood Pressure 160/64 H 149/88 H Pulse Oximetry 97 94 Oxygen Delivery Room Air 02/28/23 06:00 02/28/23 08:28 02/28/23 08:54 Temperature 96 F L Pulse Rate 69 69 Respiratory Rate 14 Blood Pressure 168/59 H Pulse Oximetry 93 93 Oxygen Delivery Room Air Intake/Output Intake/Output: Intake & Output 02/25/23 02/26/23 02/27/23 02/28/23 23:59 23:59 23:59 23:59 Intake Total 1439 2049 180 Balance 1442049 180 M
[2023-02-28 14:00] VITALS: BP 157/68; PULSE 68; RESP 20; TEMP 36.2; O2SAT 94
[2023-02-28] MEDS: POTASSIUM CHLORIDE 20 MEQ ER TABLET PO (15:21)
--- NOTE | 2023-02-28 15:30 | PCPTNOTE ---
On 02/28/23, the student, ERNESTINA Freeman, provided care and completed [facility] documentation on this patient. I have reviewed the student's documentation and agree with the findings.
[2023-02-28 17:00] LABS: Glucose Point of Care 149 mg/dl (65-105)
[2023-02-28] MEDS: INSULIN GLARGINE (*BKC) 100 UNITS/ML 12 UNITS SUB-Q (21:09)
[2023-02-28] MEDS: INSULIN ASPART (*BKC) 100 UNITS/ML SUB-Q (21:09)
[2023-02-28 21:12] LABS: Glucose Point of Care 224 mg/dl (65-105)
[2023-02-28] MEDS: CYCLOBENZAPRINE HCL 5 MG TABLET PO (21:12)
[2023-02-28] MEDS: CITALOPRAM HYDROBROMIDE 20 MG TABLET 40 MG PO (21:12)
[2023-02-28] MEDS: OLMESARTAN MEDOXOMIL 20 MG TABLET 40 MG PO (21:12)
[2023-02-28] MEDS: ALPRAZolam (*CRX) 0.5 MG TABLET PO (21:12)
[2023-02-28 21:48] VITALS: BP 160/74; PULSE 71; RESP 16; TEMP 36.2; O2SAT 96
--- NOTE | 2023-02-28 21:59 | PC.NURSE ---
Patient's peripheral IV infiltrated during day shift on 02/28/2023. Day charge nurse, night charge nurse, hothouse worker, and this RN attempted to insert a new peripheral IV. We were unsuccessful in getting an IV. The patient has already missed the 1800 dose of Zosyn. We will continue to attempt to insert an IV, but the patient has requested that we take a break from trying at the current moment. Dr. Hancock, the night hospitalist, was informed of no IV access, she asked that we continue to attempt to get a new IV and at this time she is unable to change the antibiotic to PO or IM due to blood cultures and the UA are still pending for final results.
[2023-03-01 06:00] VITALS: BP 177/75; PULSE 70; RESP 16; TEMP 36.1; O2SAT 96
[2023-03-01 06:13] LABS: Hematocrit 37.4 % (37.0-47.0); Hemoglobin 11.9 g/dL (12.0-15.0); Mean Corpuscular HGB Conc 31.8 g/dl (32-36); Mean Corpuscular Hemoglobin 31.2 pg (26-34); Mean Corpuscular Volume 97.9 fl (80-100); Mean Platelet Volume 9.2 fl (7.4-10.4); Platelet Count Result 221 k/mm3 (150-375); Red Blood Count 3.82 M/mm3 (4.2-5.4); Red Cell Distribution Width 13.1 % (11.5-14.5); White Blood Count 7.3 K/mm3 (4.5-10.0)
[2023-03-01 06:26] LABS: Anion Gap 5 mmol/L (8-16); Blood Urea Nitrogen 10 mg/dL (7-17); Calcium 8.3 mg/dL (8.4-10.2); Carbon Dioxide 34 mmol/L (22-30); Chloride 103 mmol/L (98-107); Estimated CRCL calculation 42 ml/min; Estimated Glomerular Filt Rate 54; Glucose 135 mg/dL (65-110); Potassium 3.3 mmol/L (3.4-5.0); Sodium 142 mmol/L (137-145)
[2023-03-01 07:44] LABS: Glucose Point of Care 146 mg/dl (65-105)
[2023-03-01 08:17] VITALS: PULSE 68
[2023-03-01] MEDS: METOPROLOL SUCCINATE EXT REL 25 MG TABCR PO (08:17)
[2023-03-01] MEDS: ASPIRIN 81 MG ENTERIC TABLET PO (08:17)
[2023-03-01] MEDS: BUMETANIDE 0.5 MG TABLET PO (08:17)
[2023-03-01] MEDS: CALCIUM/VITAMIN D 250 MG TABLET 1 TABLET PO (08:17)
[2023-03-01] MEDS: BACLOFEN 10 MG TABLET PO ×2 (08:18→17:01)
[2023-03-01] MEDS: PANTOPRAZOLE 40 MG TABLET PO ×2 (08:18→20:29)
[2023-03-01 09:44] LABS: Magnesium 1.4 mg/dL (1.6-2.3)
--- NOTE | 2023-03-01 10:21 | P.CDI_ITS ---
CDI Query Clarification Request Documented history of CHF. CHF noted in the assessment and plan. Bumex listed as a home medication. Patient receiving Bumex. Please specify type and acuity of heart failure if known. * Acute * Chronic * Acute on Chronic * Unknown * Systolic * Diastolic * Combined Systolic and Diastolic * Unknown <Marily Harris RN - Last Filed: 03/01/23 10:23> Clarified Diagnosis Clarified Diagnosis: Chronic CHF, type unknown <Alva Davey PA-C - Last Filed: 03/01/23 10:47>
--- NOTE | 2023-03-01 10:21 | WPDCDIQUERY2 ---
CDI Query Clarification Request Documented history of CHF. CHF noted in the assessment and plan. Bumex listed as a home medication. Patient receiving Bumex. Please specify type and acuity of heart failure if known. Acute Chronic Acute on Chronic Unknown Systolic Diastolic Combined Systolic and Diastolic Unknown <Marily Harris RN - Last Filed: 03/01/23 10:23> Clarified Diagnosis Clarified Diagnosis: Chronic CHF, type unknown <Alva Davey PA-C - Last Filed: 03/01/23 10:47>
--- NOTE | 2023-03-01 10:47 | PM.IMPN ---
Progress Note: A&P Assessment and Plan (1) Acute UTI: Code(s): N39.0 - Urinary tract infection, site not specified Status: Acute Assessment and Plan: Urinalysis abnormal on presentation with 2+ leuk esterase, 21-50 WBC. Patient noted malodorous urine prior to admission Urine culture with growth of >100k E coli, susceptibility report pending Started on Zosyn on admission, tolerating well. Continue at this time while awaiting cultures, multiple antibiotic allergies noted. Spoke with [employer] via phone today. Two strains of E coli isolated. Sensitivity report will not be available until tomorrow Will need to keep patient overnight while awaiting sensitivity report. Appreciate ID PharmD assistance with selection of appropriate antibiotic based on sensitivities given her multiple antibiotic allergies. No leukocytosis. Patient remains afebrile (2) Generalized weakness: Code(s): R53.1 - Weakness Status: Acute Assessment and Plan: Likely secondary to UTI Appreciate PT OT eval Implement fall precautions Patient ambulating with walker independently at this time. Plans to return home independently on discharge (3) Electrolyte abnormality: Code(s): E87.8 - Other disorders of electrolyte and fluid balance, not elsewhere classified Status: Acute Assessment and Plan: Hypocalcemia: improving with Oscal. 8.3 today. Continue to monitor levels Hypomagnesemia: Mag 1.4. 3 g IV Mag sulfate. Hypokalemia: Potassium 3.3. 20 mEq p.o. KCl (4) Type 2 diabetes mellitus: Code(s): E11.9 - Type 2 diabetes mellitus without complications Status: Acute Assessment and Plan: A1c is 8.6 Blood sugars are stable Continue Accu-Cheks, sliding scale insulin, and hypoglycemic protocol Home metformin on hold during admission (5) Hypertension: Code(s): I10 - Essential (primary) hypertension Status: Chronic Assessment and Plan: Blood pressures are stable Continue with olmesartan, metoprolol and Bumex Monitor BP trends (6) COPD (chronic obstructive pulmonary disease): Code(s): J44.9 - Chronic obstructive pulmonary disease, unspecified Status: Chronic Assessment and Plan: Not in acute exacerbation Continue albuterol as needed (7) Congestive heart failure: Qualifiers: Heart failure type: unspecified Heart failure chronicity: chronic Qualified Code(s): I50.9 - Heart failure, unspecified Code(s): I50.9 - Heart failure, unspecified Status: Chronic Assessment and Plan: Not in acute exacerbation Continue Bumex Monitor volume status Subjective Date/time seen: 03/01/23 10:47 Interval history: Date of service: 02/27/2023 Alondra Bill is a 77-year-old female with a history of COPD, CHF, CKD, CAD hypertension, subarachnoid hemorrhage, type 2 diabetes mellitus who is seen in follow-up for UTI. She feels sleepy today. She had trouble sleeping last night due to bed alarm going off when she was trying to reposition. She has been able to ambulate today with a walker. Denies dizziness or lightheadedness. No urinary symptoms. Denies fevers or chills. Review of Systems Review of Systems: All systems reviewed & are unremarkable except as noted in HPI and below Exam Narrative: General: well-nourished, well-appearing 77-year-old female, sitting up in bed, comfortable, NARD Neuro: awake, alert and oriented x4, speech clear, no focal neuro deficits noted HEENMT: normocephalic, atraumatic, EOMI, sclerae anicteric Respiratory: clear to auscultation bilaterally, nonlabored breathing Cardio: regular rate, regular rhythm with S1-S2 Abdomen: nondistended, normoactive bowel sounds, soft, nontender to palpation Skin: no rashes or lesions, warm and dry Psych: appropriate mood and affect, judgment and insight intact Objective Data Vital Signs Vital Signs: Vital Signs - 24 hr 02/28/23 14:0
[2023-03-01 11:30] LABS: Glucose Point of Care 190 mg/dl (65-105)
[2023-03-01] MEDS: PIPERACILLN/TAZ 3.375GM/NS50ML 3.375 GM/50 ML BAG IVPB ×3 (11:38→23:24)
[2023-03-01] MEDS: POTASSIUM CHLORIDE 20 MEQ ER TABLET PO (11:38)
[2023-03-01] MEDS: MAGNESIUM SULFATE 3GM/D5W100ML 3 GM/100 ML BAG IVPB (11:38)
[2023-03-01] MEDS: ALBUTEROL SULFATE (*SP) AEROSOL 1 PUFF INHALATION (13:25)
[2023-03-01 13:28] VITALS: O2SAT 95
--- NOTE | 2023-03-01 13:50 | PCOTNOTE ---
Patient refused to participate in therapy services this date due to Patient stated she did not sleep well last night, is going to sleep for a while and not up for services this date.
[2023-03-01 13:52] VITALS: BP 105/94; PULSE 66; RESP 20; TEMP 36.1; O2SAT 96
--- NOTE | 2023-03-01 15:21 | PCPTNOTE ---
Attempted to see patient 2x today for PT. In A.M. patient requested PT return later today stating she did not sleep well and felt fatigued. Patient declined second attempt this afternoon stating she just feel asleep for ~ 15 minutes and continues to feel very tired. Patient declined PT.
[2023-03-01 16:35] LABS: Glucose Point of Care 144 mg/dl (65-105)
[2023-03-01 20:25] VITALS: BP 145/65
[2023-03-01] MEDS: CITALOPRAM HYDROBROMIDE 20 MG TABLET 40 MG PO (20:29)
[2023-03-01] MEDS: OLMESARTAN MEDOXOMIL 20 MG TABLET 40 MG PO (20:29)
[2023-03-01] MEDS: CYCLOBENZAPRINE HCL 5 MG TABLET PO (20:29)
[2023-03-01] MEDS: ALPRAZolam (*CRX) 0.5 MG TABLET PO (20:29)
[2023-03-01] MEDS: INSULIN GLARGINE (*BKC) 100 UNITS/ML 12 UNITS SUB-Q (20:30)
[2023-03-01] MEDS: INSULIN ASPART (*BKC) 100 UNITS/ML SUB-Q (20:31)
[2023-03-01 21:08] LABS: Glucose Point of Care 220 mg/dl (65-105)
[2023-03-01 21:14] VITALS: BP 160/73; PULSE 66; RESP 18; TEMP 36.2; O2SAT 97
[2023-03-01] MEDS: ACETAMINOPHEN 325 MG TABLET 650 MG PO (23:24)
[2023-03-02] MEDS: PIPERACILLN/TAZ 3.375GM/NS50ML 3.375 GM/50 ML BAG IVPB ×3 (05:26→17:06)
[2023-03-02 06:00] VITALS: BP 167/73; PULSE 59; RESP 90; TEMP 35.8; O2SAT 14
[2023-03-02 06:28] LABS: Hemoglobin 11.2 g/dL (12.0-15.0); Mean Corpuscular Hemoglobin 31.5 pg (26-34); Mean Corpuscular Volume 98.6 fl (80-100); Mean Platelet Volume 9.4 fl (7.4-10.4); Platelet Count Result 222 k/mm3 (150-375); Red Blood Count 3.55 M/mm3 (4.2-5.4); White Blood Count 8.6 K/mm3 (4.5-10.0)
[2023-03-02 06:36] LABS: Anion Gap 2 mmol/L (8-16); Blood Urea Nitrogen 11 mg/dL (7-17); Calcium 8.1 mg/dL (8.4-10.2); Carbon Dioxide 34 mmol/L (22-30); Chloride 102 mmol/L (98-107); Estimated CRCL calculation 38 ml/min; Estimated Glomerular Filt Rate 48; Glucose 114 mg/dL (65-110); Magnesium 2.1 mg/dL (1.6-2.3); Sodium 138 mmol/L (137-145)
[2023-03-02 07:45] LABS: Glucose Point of Care 112 mg/dl (65-105)
[2023-03-02] MEDS: BACLOFEN 10 MG TABLET PO ×2 (08:21→17:06)
[2023-03-02] MEDS: CALCIUM/VITAMIN D 250 MG TABLET 1 TABLET PO (08:21)
[2023-03-02] MEDS: ASPIRIN 81 MG ENTERIC TABLET PO (08:21)
[2023-03-02] MEDS: ROSUVASTATIN 5 MG TABLET PO (08:21)
[2023-03-02] MEDS: BUMETANIDE 0.5 MG TABLET PO (08:21)
[2023-03-02] MEDS: PANTOPRAZOLE 40 MG TABLET PO ×2 (08:21→20:50)
[2023-03-02 08:22] VITALS: PULSE 68
[2023-03-02] MEDS: METOPROLOL SUCCINATE EXT REL 25 MG TABCR PO (08:22)
[2023-03-02] MEDS: ACETAMINOPHEN 325 MG TABLET 650 MG PO ×2 (08:26→20:50)
[2023-03-02] MEDS: POTASSIUM CHLORIDE 20 MEQ ER TABLET 40 MEQ PO ×2 (09:34→17:05)
[2023-03-02] MEDS: ALBUTEROL SULFATE (*SP) AEROSOL 1 PUFF INHALATION ×2 (09:50→18:24)
[2023-03-02 11:40] LABS: Glucose Point of Care 176 mg/dl (65-105)
[2023-03-02 14:00] VITALS: BP 142/57; PULSE 64; RESP 14; TEMP 35.7; O2SAT 94
--- NOTE | 2023-03-02 14:03 | PM.IMPN ---
Progress Note: A&P Assessment and Plan (1) Acute UTI: Code(s): N39.0 - Urinary tract infection, site not specified Status: Acute Assessment and Plan: Patient with e. coli UTI currently on zosyn, will need to ensure appropriate coverage on sensitivities d/t possibility of ESBL organism and possible limited deescalation options. There are two separate e. coli on culture apparently. The patient has multiple allergies and this may prove quite difficult to treat orally. (2) Generalized weakness: Code(s): R53.1 - Weakness Status: Acute Assessment and Plan: Stable with PT/OT to continue. Presume secondary to acute illness. (3) Type 2 diabetes mellitus: Code(s): E11.9 - Type 2 diabetes mellitus without complications Status: Acute Assessment and Plan: Generally in range on current therapy which will continue. (4) Electrolyte abnormality: Code(s): E87.8 - Other disorders of electrolyte and fluid balance, not elsewhere classified Status: Acute Assessment and Plan: Potassium 3.0 today, plan for replete today, recheck in the am. (5) Hypertension: Code(s): I10 - Essential (primary) hypertension Status: Chronic Assessment and Plan: Generally stable and not at acute actionable levels. (6) COPD (chronic obstructive pulmonary disease): Code(s): J44.9 - Chronic obstructive pulmonary disease, unspecified Status: Chronic Assessment and Plan: Stable pulmonary exam, somewhat diminished. (7) Congestive heart failure: Qualifiers: Heart failure type: unspecified Heart failure chronicity: chronic Qualified Code(s): I50.9 - Heart failure, unspecified Code(s): I50.9 - Heart failure, unspecified Status: Chronic Assessment and Plan: Stable volume status on examination. Cont. home regimen of bumex. Time Spent With Patient Time: >30 minutes. Subjective Date/time seen: 03/02/23 14:03 Interval history: Alondra Bill is a 77 yo female who presented on 02/26/23 with weakness and falls with findings abnormal urinalysis. Urine has grown out e. coli, without sensitivities as of yet. Today Alondra denies new complaints or concerns. She is tolerating diet. She does not complain of pain. Review of Systems Review of Systems: All systems review ed & are unremarka ble except as note d in HPI and below Exam Narrative: GENERAL APPEARANCE: Appears to be in no acute distress. HEAD: normocephalic atraumatic EYES: PERRL, EOMI. Vision grossly intact. ENT: Hearing grossly intact, no nasal discharge NECK: Neck supple, trachea midline. CARDIAC: Normal S1/S2. Rhythm is regular. No murmurs, rubs, or gallops. No cyanosis or pallor. Extremities are warm and well perfused. LUNGS: Clear to auscultation without rales, rhonchi, wheezing or diminished breath sounds. Respirations even and unlabored. ABDOMEN: BS positive x 4 quadrants. Soft, nondistended, nontender. No guarding or rebound. MSK: No joint tenderness/swelling, fair strength in all extremities. PERIPHERAL VASCULAR: Peripheral pulses palpable. Normal perfusion, cap refill <2 seconds. No edema. NEURO: Follows commands. No focal deficits. SKIN: [place] without lesions or eruptions. PSYCH: Stable, no paranoia or delusional thinking. Objective Data Vital Signs Vital Signs: Vital Signs - 24 hr 03/01/23 20:25 03/01/23 21:14 03/02/23 06:00 Temperature 97.1 F L 96.4 F L Pulse Rate 66 59 L Respiratory Rate 18 90 H Blood Pressure 145/65 H 160/73 H 167/73 H Pulse Oximetry 97 14 L Oxygen Delivery 03/02/23 08:22 03/02/23 08:00 Temperature Pulse Rate 68 Respiratory Rate Blood Pressure Pulse Oximetry Oxygen Delivery Room Air Intake/Output Intake/Output: Intake & Output 02/27/23 02/28/23 03/01/23 03/02/23 23:59 23:59 23:59 23:59 Intake Total 2049 1030 2386 590 Output Total 550 1200 Balance 2049 480 1186 590 Va
--- NOTE | 2023-03-02 14:24 | PCPTNOTE ---
On 03/02/23, the student, ERNESTINA Freeman, provided care and completed [facility] documentation on this patient. I have reviewed the student's documentation and agree with the findings.
--- NOTE | 2023-03-02 16:04 | PCCCNOTE ---
On 03/02/23, the student, [Vida Collins], provided care and completed [facility] documentation on this patient. I have reviewed the student's documentation and agree with the findings.
[2023-03-02 16:29] LABS: Glucose Point of Care 177 mg/dl (65-105)
[2023-03-02 18:26] VITALS: RESP 18
[2023-03-02 20:00] VITALS: PULSE 64; RESP 18; O2SAT 94
[2023-03-02] MEDS: MELATONIN 3 MG TABLET PO (20:49)
[2023-03-02] MEDS: OLMESARTAN MEDOXOMIL 20 MG TABLET 40 MG PO (20:50)
[2023-03-02] MEDS: CYCLOBENZAPRINE HCL 5 MG TABLET PO (20:51)
[2023-03-02] MEDS: ALPRAZolam (*CRX) 0.5 MG TABLET PO (20:51)
[2023-03-02] MEDS: CITALOPRAM HYDROBROMIDE 20 MG TABLET 40 MG PO (20:51)
[2023-03-02] MEDS: INSULIN GLARGINE (*BKC) 100 UNITS/ML 12 UNITS SUB-Q (20:53)
[2023-03-02] MEDS: INSULIN ASPART (*BKC) 100 UNITS/ML SUB-Q (20:55)
[2023-03-02 21:29] LABS: Glucose Point of Care 207 mg/dl (65-105)
[2023-03-02 21:45] VITALS: BP 177/64; PULSE 61; RESP 18; TEMP 36.3; O2SAT 97
[2023-03-03] MEDS: PIPERACILLN/TAZ 3.375GM/NS50ML 3.375 GM/50 ML BAG IVPB ×2 (00:53→05:47)
--- NOTE | 2023-03-03 05:22 | PC.NURSE ---
Spoke with Dr. Capellan at this time r/t patient's elevated BP without PRN coverage. New order received for Hydralazine 10mg IVP now.
[2023-03-03] MEDS: hydrALAZINE HCL 20 MG/ML VIAL 10 MG IV PUSH (05:47)
[2023-03-03 06:00] VITALS: BP 177/72; PULSE 64; RESP 18; TEMP 36.7; O2SAT 93
[2023-03-03 06:25] VITALS: BP 154/63
[2023-03-03 06:34] LABS: Hematocrit 34.3 % (37.0-47.0); Hemoglobin 10.9 g/dL (12.0-15.0); Mean Corpuscular HGB Conc 31.8 g/dl (32-36); Mean Corpuscular Hemoglobin 31.1 pg (26-34); Mean Platelet Volume 9.2 fl (7.4-10.4); Platelet Count Result 209 k/mm3 (150-375); Red Cell Distribution Width 13.2 % (11.5-14.5); White Blood Count 6.5 K/mm3 (4.5-10.0)
[2023-03-03 06:40] LABS: Anion Gap 3 mmol/L (8-16); Blood Urea Nitrogen 11 mg/dL (7-17); Calcium 8.2 mg/dL (8.4-10.2); Carbon Dioxide 30 mmol/L (22-30); Chloride 107 mmol/L (98-107); Estimated CRCL calculation 42 ml/min; Estimated Glomerular Filt Rate 54; Glucose 111 mg/dL (65-110); Magnesium 1.8 mg/dL (1.6-2.3); Potassium 3.5 mmol/L (3.4-5.0); Sodium 140 mmol/L (137-145)
[2023-03-03 07:49] LABS: Glucose Point of Care 114 mg/dl (65-105)
[2023-03-03 09:30] VITALS: PULSE 67; O2SAT 67
[2023-03-03 09:53] VITALS: PULSE 67
[2023-03-03] MEDS: METOPROLOL SUCCINATE EXT REL 25 MG TABCR PO (09:53)
[2023-03-03] MEDS: CALCIUM/VITAMIN D 250 MG TABLET 1 TABLET PO (09:54)
[2023-03-03] MEDS: PANTOPRAZOLE 40 MG TABLET PO (09:54)
[2023-03-03] MEDS: BUMETANIDE 0.5 MG TABLET PO (09:54)
[2023-03-03] MEDS: BACLOFEN 10 MG TABLET PO (09:55)
[2023-03-03] MEDS: ASPIRIN 81 MG ENTERIC TABLET PO (09:55)
[2023-03-03 11:37] LABS: Glucose Point of Care 140 mg/dl (65-105)
--- NOTE | 2023-03-03 11:37 | PM.DS ---
DS: Admitting Diagnosis Discharge Date 03/03/23 Admitting Diagnosis UTI, T2DM, Hypocalcemia, Weakness, Depression, PVD, HLD, HTN, COPD, CHF DS: Discharge Diagnosis Discharge Diagnosis (1) Acute UTI: Code(s): N39.0 - Urinary tract infection, site not specified Status: Acute Assessment and Plan: UTI with e. coli, sensitivities resulted and zosyn with GENEVIEVE 64. She is doing much better in this regard without acute symptoms at this time. With the GENEVIEVE noted we will complete out an additional 5 days of macrobid. (2) Generalized weakness: Code(s): R53.1 - Weakness Status: Acute Assessment and Plan: Improving. (3) Electrolyte abnormality: Code(s): E87.8 - Other disorders of electrolyte and fluid balance, not elsewhere classified Status: Acute Assessment and Plan: Resolved. (4) Hypomagnesemia: Code(s): E83.42 - Hypomagnesemia Status: Acute Assessment and Plan: Resolved. (5) Depression with anxiety: Code(s): F41.8 - Other specified anxiety disorders Status: Acute Assessment and Plan: Stable. (6) Peripheral vascular disease: Code(s): I73.9 - Peripheral vascular disease, unspecified Status: Acute Assessment and Plan: Stable. (7) Hypocalcemia: Code(s): E83.51 - Hypocalcemia Status: Acute Assessment and Plan: Resolved. (8) Type 2 diabetes mellitus: Code(s): E11.9 - Type 2 diabetes mellitus without complications Status: Acute Assessment and Plan: Stable. Cont. home regimen. (9) Hypertension: Code(s): I10 - Essential (primary) hypertension Status: Chronic Assessment and Plan: Stable, cont. home regimen upon discharge. DS: Summary Hospital Course Reason for hospitalization: Weakness with UTI. Hospital Course: Alondra Bill is a 77 year old female who presented with 2 falls and weakness from home. She was found to have a UTI and was empirically treated with zosyn, d/t her extensive allergy list. Cultures took several days to results, and it was noted that the zosyn was intermediate with GENEVIEVE of 64. She did have clinical improvement. There was a second isolate that was pending from the initial urine but has now been noted to be the same organism and sensitivity pattern. The patient worked with physical therapy and has been doing well. She is tolerating diet and activity. We will complete a 5 day course of macrobid d/t the intermediate GENEVIEVE on zosyn - I have concern that she may have recurrence of infection. Status at Discharge Cognitive/behavioral status at discharge: Baseline. Time Spent with Patient Time attestation: Total time spent providing and/or coordinating discharge services: Time spent: Greater than 30 minutes Exam Narrative: GENERAL APPEARANCE: Appears to be in no acute distress. HEAD: normocephalic atraumatic EYES: PERRL, EOMI. Vision grossly intact. ENT: Hearing grossly intact, no nasal discharge NECK: Neck supple, trachea midline. CARDIAC: Normal S1/S2. Rhythm is regular. No murmurs, rubs, or gallops. No cyanosis or pallor. Extremities are warm and well perfused. LUNGS: Clear to auscultation without rales, rhonchi, wheezing or diminished breath sounds. Respirations even and unlabored. ABDOMEN: BS positive x 4 quadrants. Soft, nondistended, nontender. No guarding or rebound. MSK: No joint tenderness/swelling, fair strength in all extremities. PERIPHERAL VASCULAR: Peripheral pulses palpable. Normal perfusion, cap refill <2 seconds. No edema. NEURO: Follows commands. No focal deficits. SKIN: [place] without lesions or eruptions. PSYCH: Stable, no paranoia or delusional thinking. DS: Data Data Completed and Pending Labs on day of discharge: Labs from last 24 hours 03/03/23 03/03/23 03/02/23 07:35 06:20 20:29 WBC 6.5 RBC 3.50 L Hgb 10.9 L Hct 34.3 L MCV 98.0 MCH 31.1 MCHC 31.8 L RDW 13.2 Plt Count
[2023-03-03] MEDS: NITROFURANTOIN MONOHYD MACROCR 100 MG CAP PO (12:23)
== END 2023-03-03 13:33 | disposition home health service (06) | DRG 690 ==
LOC: ANHED 12:00 → ANH3MEDSUR 12:52
PROVIDERS: Nurse Practitioner; Physician Assistant; Admitting Provider Internal Medicine; Emergency Provider Preventive Medicine Aerospace Medicine; Visit Provider Nurse Practitioner Family
DX: N39.0 Urinary tract infection, site not specified (principal); I13.0 Hypertensive heart and chronic kidney disease with heart failure and stage 1 through stage 4 chronic kidney disease, or unspecified chronic kidney disease; B96.20 Unspecified Escherichia coli [E. coli] as the cause of diseases classified elsewhere; E11.22 Type 2 diabetes mellitus with diabetic chronic kidney disease; N18.9 Chronic kidney disease, unspecified; I50.9 Heart failure, unspecified; E83.42 Hypomagnesemia; F41.8 Other specified anxiety disorders; I73.9 Peripheral vascular disease, unspecified; E87.6 Hypokalemia; E83.51 Hypocalcemia; I25.10 Atherosclerotic heart disease of native coronary artery without angina pectoris; E78.5 Hyperlipidemia, unspecified; J44.9 Chronic obstructive pulmonary disease, unspecified; Z79.82 Long term (current) use of aspirin; Z79.84 Long term (current) use of oral hypoglycemic drugs; Z95.1 Presence of aortocoronary bypass graft; Z87.820 Personal history of traumatic brain injury; Z90.49 Acquired absence of other specified parts of digestive tract; Z98.1 Arthrodesis status; Z90.710 Acquired absence of both cervix and uterus; Z87.891 Personal history of nicotine dependence; W06.XXXA Fall from bed, initial encounter
CPT/HCPCS: 36415; 70450; 72125; 80048; 80053; 81001; 82948; 83036; 83605; 83735; 84443; 84484; 85025; 85027; 85610; 87040; 87077; 87086; 87186; 90471; 90715; 93005; 94640; 96361; 96365; 96367; 96375; 97110; 97116; 97161; 97165; 97530; 97535; 99285; A9270; G0378; J0131; J0360; J0612; J1815; J2543; J3475; J7030

== ENCOUNTER 2023-06-06 13:45 | Outpatient (RCR) | payer MEDICARE, MEDICAID, SELFPAY ==
--- NOTE | 2023-04-29 15:51 | OPREHPOC ---
Outpatient Therapy Plan of Care This is a Multidisciplinary Plan of Care that may contain components documented by all disciplines (PT, OT, and ST.) PT Problem 1 PT Problem #1 Knowledge Deficit PT Goal 1 Goal 1* indep with HEP 2* good safety awareness with mobility PT Problem 2 PT Problem #2 Pain PT Goal 1 Goal 1* monitor leg pain during sessions PT Problem 3 PT Problem #3 Impaired Strength PT Goal 1 Goal increase strength of trunk, R and L LE: 1* pt able to perform 20 reps of mat strengthening exercises 2* sit to stand without use of UE x 5 reps PT Problem 4 PT Problem #4 Impaired Functional Mobility PT Goal 1 Goal 1* 5 reps sit/stand 21 seconds 2* 2 minute walking distance with cane 300' 3* TUG with cane 15 seconds 4* Tinetti balance score of 26/28 5* transfer supine to sit without assist 6* Pt report NO falls
--- NOTE | 2023-04-29 15:53 | PTOPEVAL1 ---
Assessment and note entered by Yamilex Sher, PT Evaluation Information Assessment Status Evaluation Diagnosis generalized weakness/ falls Onset January 2023 Subjective Information gradual increase in weakness; very ill with COVID and not regained strength; in the past 6 months have fallen 2x- slid out of bed, walking in home and tripped; use cane or wheeled walker in home; get out and go to her daughter's home where there is 1 entry step; her home does not have any steps is doing some exercises for her legs, lying on her back; had [facility] PT, finished up about 1 month ago; with standing too long, get weak, sweaty, dizzy, like going to pass out and have to sit down; ACTIVITY: have caregiver assist for cleaning, cooking, home tasks, transportation; indep with bathing, dressing; has dementia--pt does not have to assist him; local daughter is RN and helps pt PRN; Reported Pain Level Pain Score 0: Self Report Additional Pain Score Comments pain in legs, 0-6/10; neuropathy and R knee pain Assessment PT Clinical Summary Alondra has the diagnosis of generalized weakness. Her medical history includes cardiac and respiratory issues, with 3 month hospitalization with intubation due to COVID. She has a caregiver for home tasks, shopping and transportation. She has completed [facility] therapy and wants to get stronger and be able to move around better. Reports 2 falls in the past 6 months. With the evaluation, she has weakness and decreased mobility skills: 5 reps sit/stand time of 26 seconds; 2 minute walking distance with cane of 225'; TUG with cane 20 seconds; Tinetti balance score of 20/28= at risk for falls; required assist with her trunk for supine to sit transfer. Skilled PT services are indicated for therapeutic exercises to increase LE strength, gait and balance retraining, to improve mobility and safety to decrease further risk for falls. Plan of Care Interventions Gait Training,Neuro Re-education,Patient Education,The
--- NOTE | 2023-05-11 11:45 | PCPTNOTE ---
Pt. canceled her scheduled appointment due to illness.
--- NOTE | 2023-05-13 14:34 | PCPTNOTE ---
Pt no showed visit today, attempted to call but message stated she did not set up her voice mail yet.
--- NOTE | 2023-05-16 16:07 | PCPTNOTE ---
Pt. canceled 05/16/23 appointment as she was sick.
--- NOTE | 2023-06-06 14:17 | PTOPDC ---
Assessment and note entered by Yamilex Sher, PT Evaluation Information Assessment Status Discharge Diagnosis generalized weakness/ falls Onset January 2023 Subjective Information feels like she still has problems with her balance most time in the kitchen and turning; no falls since been coming for therapy; daughter got her a bicycle and she is riding 15 minutes; doing the exercises at home; use the cane all the time, except when getting a shower, use the walker; ready to be finished up with therapy; Reported Pain Level Pain Score 5: Self Report in legs Assessment PT Clinical Summary Alondra has completed 7 PT sessions. She called/ canceled 2 and did not show for 1 appointment. Compared to the initial evaluation she has improved with: LE and trunk strength--able to perform 15-20 reps of mat exercises; 2 minute walking test distance from 225' to 320'; 5 reps sit to stand from 26 to 21 seconds; TUG from 20 to 18 seconds; uses the cane with her mobility, walker only when showering; has not had any falls Tinetti balance score improved by 2 points; able to transfer supine to sit on the therapy mat without assistance; Education has been completed for HEP and safety with mobility. The goals were partially met. Discharge PT services. Plan of Care PT Services Indicated No
--- NOTE | 2023-06-06 14:17 | PCPTNOTE ---
at today's reeval appointment, pt requested she leave early due to having another appt she needed to get to.
--- NOTE | 2023-06-06 14:21 | PTOPDC ---
Assessment and note entered by Yamilex Sher, PT Evaluation Information Assessment Status Discharge Diagnosis generalized weakness/ falls Onset January 2023 Subjective Information feels like she still has problems with her balance most time in the kitchen and turning; no falls since been coming for therapy; daughter got her a bicycle and she is riding 15 minutes; doing the exercises at home; use the cane all the time, except when getting a shower, use the walker; ready to be finished up with therapy; Reported Pain Level Pain Score 5: Self Report of legs Assessment PT Clinical Summary Alondra has completed 7 PT sessions. She called/ canceled 2 and did not show for 1 appointment. Compared to the initial evaluation she has improved with: LE and trunk strength--able to perform 15-20 reps of mat exercises; 2 minute walking test distance from 225' to 320'; 5 reps sit to stand from 26 to 21 seconds; TUG from 20 to 18 seconds; uses the cane with her mobility, walker only when showering; has not had any falls ; Tinetti balance score improved by 2 points; able to transfer supine to sit on the therapy mat without assistance; Education has been completed for HEP and safety with mobility. The goals were partially met. Discharge PT services. Plan of Care PT Services Indicated No
== END 2023-06-07 13:05 | disposition home or self-care (01) ==
LOC: ANHPT 13:45
DX: R53.1 Weakness (principal); Z91.81 History of falling
CPT/HCPCS: 97110; 97112; 97161; 97530; 99199

== ENCOUNTER 2023-07-07 15:07 | Inpatient (IN) | payer MEDICARE, MEDICAID, SELFPAY ==
[2023-07-07] VITALS (11 sets, daily range): BP systolic 132–173; BP diastolic 63–93; PULSE 67–78; RESP 16–29; TEMP 36.6–36.7; O2SAT 95–100; BMI 31.1
--- NOTE | ~2023-07-07 | XR_ITS ---
XR chest 1V portable 07/07/2023 17:10 Indication: Altered mental status. CHF. Procedure: AP portable chest Comparison: Comparison to multiple prior studies sequentially, with oldest reviewed study dated 12/2019. Findings: Status post median sternotomy for CABG. Inferior sternal wires are fractured. Cardiomegaly. Mild interstitial edema. There are healed right upper rib fractures. Generalized osteopenia. Impression: 1: Cardiomegaly with mild interstitial edema. Reviewed, dictated and finalized at location A. Impression: 1: Cardiomegaly with mild interstitial edema.
--- NOTE | 2023-07-07 15:13 | ECG_ITS ---
Measurements Intervals [place] Rate: 70 P: 72 NM: 135 QRS: 38 QRSD: 105 T: 89 QT: 386 QTc: 417 Interpretive Statements SINUS RHYTHM CONSIDER ANTERIOR INFARCT, AGE INDETERMINATE INFERIOR INFARCT, AGE INDETERMINATE BORDERLINE ST-T WAVE ABNORMALITY- ANTEROLAT/HIGH LAT LEADS BASELINE ARTIFACT- I, III, AVL ABNORMAL ECG COMPARED TO ECG 02/26/2023 09:14:52 NO SIGNIFICANT CHANGES Electronically Signed On 07-07-2023 15:15:32 CDT by Stephan Talbot D.O.
[2023-07-07 16:02] LABS: Basophils Absolute Auto 0.1 K/mm3 (0.0-0.1); Basophils Percent Auto 0.7 % (0.2-1.2); Eosinophils Absolute Auto 0.4 K/mm3 (0-0.3); Eosinophils Percent Auto 4.5 % (0-4.4); Hematocrit 36.8 % (37.0-47.0); Hemoglobin 12.1 g/dL (12.0-15.0); Immature Granulocyte Absolute 0.03 K/mm3 (0.00-0.031); Immature Granulocyte Percent A 0.3 % (0-0.5); Lymphocytes Absolute Auto 3.54 K/mm3 (0.9-3.2); Lymphocytes Percent Auto 36.7 % (18.3-44.2); Mean Corpuscular HGB Conc 32.9 g/dl (32-36); Mean Corpuscular Hemoglobin 31.8 pg (26-34); Mean Corpuscular Volume 96.6 fl (80-100); Mean Platelet Volume 9.7 fl (7.4-10.4); Monocytes Absolute Auto 0.7 K/mm3 (0.1-0.6); Monocytes Percent Auto 6.8 % (2.6-8.5); Neutrophils Absolute Auto 4.9 K/mm3 (1.3-6.7); Platelet Count Result 269 k/mm3 (150-375); Red Blood Count 3.81 M/mm3 (4.2-5.4); Red Cell Distribution Width 12.8 % (11.5-14.5); White Blood Count 9.7 K/mm3 (4.5-10.0)
[2023-07-07 16:13] LABS: Alanine Aminotransferase 18 U/L (6-35); Alkaline Phosphatase 58 U/L (38-126); Anion Gap 12 mmol/L (8-16); Aspartate Amino Transferase 22 U/L (14-36); Bilirubin,Total 0.4 mg/dL (0.2-1.3); Blood Urea Nitrogen 19 mg/dL (7-17); Calcium 8.5 mg/dL (8.4-10.2); Carbon Dioxide 23 mmol/L (22-30); Chloride 103 mmol/L (98-107); Estimated CRCL calculation 27 ml/min; Estimated Glomerular Filt Rate 34; Glucose 146 mg/dL (65-110); INR 0.9; Partial Thromboplastin Time 26.8 SECONDS (22.3-36.8); Potassium 3.6 mmol/L (3.4-5.0); Prothrombin Time 12.7 Seconds (11.1-14.7); Sodium 138 mmol/L (137-145)
[2023-07-07 16:39] LABS: Appearance Urine Slightly Cloudy (Clear); Bilirubin Urine Negative (Negative); Blood Urine Trace-intact (Negative); Color Urine Yellow (Yellow); Glucose Urine UA Trace mg/dL (Negative); Ketones Urine Negative (Negative); Leukocyte Esterase Ur 2+ LEU/UL (Negative); Nitrate Urine Positive (Negative); Protein Urine Negative (Negative); Specific Grav Ur 1.015 (1.001-1.035); Urobilinogen Urine 0.2 mg/dL (<2.0); pH Urine 5.5 (5.0-9.0)
[2023-07-07 16:50] LABS: Add Urine Microscopic? YES
[2023-07-07 16:51] LABS: RBC Urine 0-2 /hpf (0-2); WBC Clumps Urine Present /hpf; WBC Urine 21-50 /hpf (0-3)
[2023-07-07 16:52] LABS: Squamous Epithelial Cell Urine Few /hpf (Few)
[2023-07-07 16:53] LABS: Bacteria Urine 2+ /hpf
--- NOTE | 2023-07-07 17:08 | ED.AMS ---
HPI - Altered Mental Status General Chief Complaint: Altered Mental Status Stated Complaint: confusion Time Seen by Provider: 07/07/23 16:51 History of Present Illness HPI narrative: Patient is a 78-year-old female who presents to the emergency department to this afternoon accompanied by her daughter due to confusion. Daughter states that the patient does have a history of recurrent multidrug-resistant urinary tract infections and whenever she has a UTI she presents similarly. Daughter states that she noticed that her mother this morning was slightly confused, and admits that this confusion is intermittent. Currently during my assessment, patient is alert and oriented to person, place, time and situation and does not appear to be altered. Daughter states that she was recently discharged on June 23 after a 7-day hospital stay due to MDR UTI and at that time she was treated with cefepime and then discharged on a 7-day course of oral antibiotics. Daughter states that if she does not bring her to the emergency department when these symptoms of confusion to start, she deteriorates very rapidly and become extremely confused. Patient is currently denying any chest pain, shortness of breath, nausea, vomiting, abdominal pain, admits to mild dysuria, denies any hematuria, constipation, diarrhea, melena, hematochezia, fevers or chills. She also denies any headaches, dizziness, lightheadedness, blurry visions, dizziness, focal weakness, numbness and or tingling. There are no other modifying, alleviating, or precipitating factors at this time. Related Data Home Medications Medication Instructions Recorded Confirmed albuterol sulfate 90 mcg/actuation 1 inh inhalation QID PRN SHORTNESS 02/25/22 02/26/23 aerosol inhaler OF BREATH aspirin 81 mg tablet,delayed 81 mg PO DAILY 02/25/22 02/26/23 release baclofen 10 mg tablet 10 mg PO BID 02/25/22 02/26/23 bumetanide 0.5 mg tablet 0.5 mg PO DAILY 02/25/22 02/26/23 cyclobenzaprine 5 mg tablet 1 tablet PO HS 02/25/22 02/26/23 metformin 500 mg tablet 500 mg PO BID 02/25/22 02/26/23 metoprolol succinate 25 mg 1 tablet PO DAILY 02/25/22 02/26/23 tablet,extended release 24 hr olmesartan 40 mg tablet 1 tablet PO HS 02/25/22 02/26/23 citalopram 20 mg tablet 40 mg PO HS 02/26/22 02/26/23 rosuvastatin 20 mg tablet (Crestor) 5 mg PO QMWF 02/26/23 02/26/23 estradiol-progesterone 07/07/23 07/07/23 exenatide microspheres 2 mg/0.85 mg subcut 07/07/23 mL subcutaneous auto-injector ([employer]) Allergies Allergy/AdvReac Type Severity Reaction Status Date / Time levofloxacin Allergy Severe Swelling Verified 07/07/23 16:30 cefaclor Allergy Unknown Anaphylaxis Verified 07/07/23 16:30 ciprofloxacin Allergy Unknown Anaphylaxis Verified 07/07/23 16:30 codeine Allergy Unknown Other Verified 07/07/23 16:30 erythromycin base Allergy Unknown Hives Verified 07/07/23 16:30 Iodinated Contrast Media Allergy Unknown Hives Verified 07/07/23 16:30 iodine Allergy Unknown Itching Verified 07/07/23 16:30 latex Allergy Unknown Anaphylaxis Verified 07/07/23 16:30 Sulfa (Sulfonamide Allergy Unknown Anaphylaxis Verified 07/07/23 16:30 Antibiotics) sulfanilamide Allergy Unknown Anaphylaxis Verified 07/07/23 16:30 amitriptyline [From Elavil] Allergy Nausea Verified 07/07/23 16:30 amoxicillin [From Amoxil] Allergy Nausea Verified 07/07/23 16:30 doxepin Allergy Weakness Verified 07/07/23 16:30 fentanyl Allergy Nausea Verified 07/07/23 16:30 hydrocodone [From Vicodin] Allergy Unknown Verified 07/07/23 16:30 lamotrigine [From Lamictal] Allergy Unknown Verified 07/07/23 16:30 mirtazapine [From Remeron] Allergy Weakness Verified 07/07/23 16:30 oxycodone Allergy Nausea and Verified 07/07/23 16:30 Vomiting prochlorperazine Allergy Unknown Verified 07/07/23 16:30 tramadol Allergy Unknown Verified 07/07/23 16:30 trazodone Allergy Nausea and Verified 07/07/23 16:30 Vomiting Macrolide Antibiotics AdvReac Unknown Gastroin
[2023-07-07] MEDS: CEFEPIME 2 GM/NS 50 ML 2 GM/50 ML BAG IVPB (18:22)
[2023-07-07] MEDS: SODIUM CHLORIDE 0.9% IV 500 ML 50 ML IV CONT (18:22)
--- NOTE | 2023-07-07 19:45 | ADMGEN ---
This patient, Alondra Bill, was admitted to Medical Room 246-01. Patient/family oriented to hospital policies and general routines including ID bracelet, bed and alarms, visiting hours, pain management, procedures, bathroom and other care routines, personal items, smoking policy, room service/diet, and visiting hours. Information on how to activate the Rapid Response Team has been discussed. Patient/Family are encouraged to report perceived risks to care and to ask questions if they do not understand what they are told or what they should do.
[2023-07-07 20:55] LABS: Glucose Point of Care 199 mg/dl (65-105)
--- NOTE | 2023-07-07 22:35 | PM.IMHP ---
H&P: HPI History of Present Illness Date/Time: 07/07/23 22:35 Chief Complaint: patient brought to the ER for evaluation by her daughter due to confusion Narrative: 78 years old white female with history of recurrent multidrug resistant UTIs was brought to the ER for evaluation by her daughter with altered mental status. According to daughter, patient got weak tired and confused which is how she presents normally with her UTI episodes. Workup was done in the ER which confirmed UTI. Patient is started on IV antibiotics, IV hydration and is being admitted for monitoring and medical management. Review of Systems Review of Systems: he denies any chest pain, palpitations, fever rigor chills, nausea vomiting or falls All systems reviewed & are unremarkable except as noted in HPI and below PMFSH Past Medical History Medical History Chronic kidney disease Congestive heart failure COPD (chronic obstructive pulmonary disease) Coronary artery disease Depression with anxiety Hyperlipidemia Hypertension Hypertension MDD (major depressive disorder) Peripheral vascular disease Subarachnoid hemorrhage Bilaterally after falling down stairs Tobacco abuse Traumatic brain injury Type 2 diabetes mellitus Surgical History Surgical History H/O carpal tunnel repair H/O cataract extraction H/O colonoscopy with polypectomy H/O: hysterectomy History of appendectomy History of cardiac cath History of cholecystectomy History of four vessel coronary artery bypass graft 2016 History of tracheostomy Hx of CABG Myringotomy tube(s) status S/P cervical spinal fusion Family History Family History Mother Heart failure Family history of chronic obstructive pulmonary disease Sibling Diabetes mellitus Acute myocardial infarction Family history of diabetes mellitus in first degree relative Family history of coronary artery disease Family history of chronic obstructive pulmonary disease Heart failure Father Family history of lung cancer COPD (chronic obstructive pulmonary disease) Son Heart failure Hypertension Social History Social History Social History: Ms. Bill lives at home with her . She is mostly independent with her activities however she does have a private duty caregiver who comes out 5 days a week to assist as needed. She no longer drives. Her primary care provider is Dr. Hermes Au. She designates her daughter, Rylee, as her surrogate decision maker. Her daughter Rylee states that she is a full code Smoking packs per day: 2 Smoking cigarettes per day: 40.0 Years smoked: 40 Smoking pack-years: 80.00 Smoking status: Former smoker Second hand tobacco smoke exposure: Yes Alcohol intake: never Substance use: never Substance use type: does not use Lack of Transportation: No Lack of Food: Never True Current Housing: I Have Housing Concerned About Future Housing: No Difficulty Paying Gas/Electric Bills: YES Difficulty Paying for Meds: No Currently Unemployed: No Education: Grade School Difficulty w/ Childcare or Family Care: No Living arrangements: with family Gender identity (if verbalized by the patient): Female Spiritual care concerns: No Meds Home Medications and Allergies Home Medications Medication Instructions Recorded Confirmed Type melatonin 3 mg tablet 3 mg PO HS PRN Insomnia #20 tabs 08/19/20 07/07/23 Rx omeprazole 40 mg capsule,delayed 40 mg PO BID #60 caps 08/19/20 07/07/23 Rx release albuterol sulfate 90 mcg/actuation 1 inh inhalation QID PRN SHORTNESS 02/25/22 07/07/23 History aerosol inhaler OF BREATH aspirin 81 mg tablet,delayed 81 mg PO DAILY 02/25/22 07/07/23 History release baclofen 10 mg tablet 10 mg PO BID 02/25/22
[2023-07-07] MEDS: CYCLOBENZAPRINE HCL 10 MG TABLET PO (23:54)
[2023-07-07] MEDS: MELATONIN 3 MG TABLET PO (23:54)
[2023-07-07] MEDS: OLMESARTAN MEDOXOMIL 20 MG TABLET 40 MG PO (23:54)
[2023-07-07] MEDS: PANTOPRAZOLE 40 MG TABLET PO (23:54)
[2023-07-07] MEDS: CITALOPRAM HYDROBROMIDE 20 MG TABLET PO (23:54)
[2023-07-07] MEDS: LORazepam (*CRX) 0.5 MG TABLET PO (23:54)
[2023-07-08] VITALS (9 sets, daily range): BP systolic 112–151; BP diastolic 43–68; PULSE 69–79; RESP 14–19; TEMP 36.4–37.2; O2SAT 94–98
[2023-07-08 07:02] LABS: Basophils Absolute Auto 0.1 K/mm3 (0.0-0.1); Basophils Percent Auto 0.9 % (0.2-1.2); Eosinophils Absolute Auto 0.4 K/mm3 (0-0.3); Eosinophils Percent Auto 4.9 % (0-4.4); Hematocrit 34.5 % (37.0-47.0); Hemoglobin 11.2 g/dL (12.0-15.0); Immature Granulocyte Absolute 0.03 K/mm3 (0.00-0.031); Immature Granulocyte Percent A 0.4 % (0-0.5); Lymphocytes Absolute Auto 3.17 K/mm3 (0.9-3.2); Lymphocytes Percent Auto 38.8 % (18.3-44.2); Mean Corpuscular HGB Conc 32.5 g/dl (32-36); Mean Corpuscular Hemoglobin 31.6 pg (26-34); Mean Corpuscular Volume 97.5 fl (80-100); Monocytes Absolute Auto 0.6 K/mm3 (0.1-0.6); Monocytes Percent Auto 7.3 % (2.6-8.5); Neutrophils Absolute Auto 3.9 K/mm3 (1.3-6.7); Neutrophils Percent Auto 47.7 % (45.5-73.1); Platelet Count Result 243 k/mm3 (150-375); Red Blood Count 3.54 M/mm3 (4.2-5.4); Red Cell Distribution Width 12.6 % (11.5-14.5); White Blood Count 8.2 K/mm3 (4.5-10.0)
[2023-07-08 07:14] LABS: Anion Gap 9 mmol/L (8-16); Blood Urea Nitrogen 16 mg/dL (7-17); Calcium 7.9 mg/dL (8.4-10.2); Carbon Dioxide 23 mmol/L (22-30); Chloride 106 mmol/L (98-107); Estimated CRCL calculation 35 ml/min; Estimated Glomerular Filt Rate 43; Glucose 112 mg/dL (65-110); Potassium 3.2 mmol/L (3.4-5.0); Sodium 138 mmol/L (137-145)
--- NOTE | 2023-07-08 07:37 | PM.IMPN ---
Progress Note: A&P Assessment and Plan (1) Acute UTI: Code(s): N39.0 - Urinary tract infection, site not specified Status: Acute Assessment and Plan: 07/08/23: UA revealed trace glucose, positive nitrates, 2+ leukocytes, 2+ bacteria, and many urine white blood cells were present. Urine culture pending White blood cell count 8.2, BUN 16, creatinine 1.2 Continue with cefepime IV (2) Generalized weakness: Code(s): R53.1 - Weakness Status: Acute Assessment and Plan: 07/08/23: PT and OT ordered (3) Electrolyte abnormality: Code(s): E87.8 - Other disorders of electrolyte and fluid balance, not elsewhere classified Status: Acute Assessment and Plan: 07/08/23: Potassium is 3.2 this morning, will give 40 mEq of potassium today for replacement (4) Depression with anxiety: Code(s): F41.8 - Other specified anxiety disorders Status: Acute Assessment and Plan: 07/08/23: Ativan 0.5 mg p.o. HS continued Celexa 20 mg p.o. at HS continued (5) Peripheral vascular disease: Code(s): I73.9 - Peripheral vascular disease, unspecified Status: Acute Assessment and Plan: 07/08/23: Noted (6) Type 2 diabetes mellitus: Code(s): E11.9 - Type 2 diabetes mellitus without complications Status: Acute Assessment and Plan: 07/08/23: Blood sugars ranging 112-199 Metformin restarted (7) Osteoarthritis: Code(s): M19.90 - Unspecified osteoarthritis, unspecified site Status: Acute Assessment and Plan: 07/08/23: Noted Tylenol 650 mg q.4 hour p.r.n. ordered (8) Hyperlipidemia: Code(s): E78.5 - Hyperlipidemia, unspecified Status: Chronic Assessment and Plan: 07/08/23: Continue Crestor 5 mg p.o. Tuesday (9) Hypertension: Code(s): I10 - Essential (primary) hypertension Status: Chronic Assessment and Plan: 07/08/23: Blood pressures ranging 112/51 to 151/65 Continue home medication: metoprolol ER 25 mg daily, Bumex 0.5 mg p.o. daily, and Benicar 40 mg p.o. HS (10) COPD (chronic obstructive pulmonary disease): Code(s): J44.9 - Chronic obstructive pulmonary disease, unspecified Status: Chronic Assessment and Plan: 07/08/23: Oxygen saturation ranging 94-96% on room air Patient does not use a BiPAP or CPAP and is not on any oxygen at home Time Spent With Patient Time with patient: Greater than 35 minutes Subjective Date/time seen: 07/08/23 07:37 Interval history: Interval history: This is a 78 year old female who presented to the ER with AMS. Daughter was with patient at the time of admission and stated that the patient was weak, tired, and confused. Patient has history of multidrug resistant UTI's. UA was performed which revealed trace glucose, + Nitrates, 2+ leukocytes, 2+ bacteria, and many urine WBC's. Urine culture was obtained and patient was started on Cefepime. Past urine cultures shown E. coli and enterobacter cloacae complex. On examination today patient is alert and oriented x 3, lying in the bed. Vital signs are stable, she is afebrile, she is on room air. She denies any fever, chills, nausea, vomiting, diarrhea, dysuria, hematuria. On exam she noted some tenderness over the bladder to palpation and reports the headache today. Labs today revealed white blood cell count 8.2, hemoglobin 11.2, hematocrit 34.5, sodium 138, potassium 3.2, chloride 106, BUN 16, creatinine 1.2, calcium 7.9, blood glucose ranging 112-199. Urine cultures are pending. We will remain on cefepime IV for now. Review of Systems Review of Systems: All systems reviewed & are unremarkable except as noted in HPI and below Constitutional: Constitutional: Reports as per HPI, Reports no additional constitutional complaints, Denies body ache(s) and Denies chills Eyes: Eyes: Reports as per HPI and Reports no additional eye complaints ENT: Reports system reviewed
[2023-07-08] MEDS: metFORMIN HCL 500 MG TABLET PO ×2 (10:28→18:37)
[2023-07-08] MEDS: ASPIRIN 81 MG ENTERIC TABLET PO (10:29)
[2023-07-08] MEDS: BUMETANIDE 0.5 MG TABLET PO (10:29)
[2023-07-08] MEDS: BACLOFEN 10 MG TABLET PO ×2 (10:29→18:35)
[2023-07-08] MEDS: METOPROLOL SUCCINATE EXT REL 25 MG TABCR PO (10:30)
[2023-07-08] MEDS: ENOXAPARIN 40 MG/0.4 ML SYRINGE SUB-Q (10:30)
[2023-07-08] MEDS: ROSUVASTATIN 5 MG TABLET PO (10:31)
[2023-07-08] MEDS: POTASSIUM CHLORIDE 20 MEQ ER TABLET 40 MEQ PO (10:31)
[2023-07-08] MEDS: PANTOPRAZOLE 40 MG TABLET PO ×2 (10:31→18:37)
[2023-07-08] MEDS: CEFEPIME 1 GM/NS 50 ML 1 GM/50 ML BAG IVPB (18:36)
[2023-07-08] MEDS: ALBUTEROL SULFATE (*SP) AEROSOL 1 PUFF 2 PUFF INHALATION (20:27)
[2023-07-08] MEDS: OLMESARTAN MEDOXOMIL 20 MG TABLET 40 MG PO (21:41)
[2023-07-08] MEDS: CYCLOBENZAPRINE HCL 10 MG TABLET PO (21:41)
[2023-07-08] MEDS: CITALOPRAM HYDROBROMIDE 20 MG TABLET PO (21:41)
[2023-07-08] MEDS: LORazepam (*CRX) 0.5 MG TABLET PO (21:41)
[2023-07-08] MEDS: ACETAMINOPHEN 325 MG TABLET 650 MG PO (21:43)
[2023-07-08] MEDS: MELATONIN 3 MG TABLET PO (21:44)
[2023-07-09] VITALS (9 sets, daily range): BP systolic 123–165; BP diastolic 42–69; PULSE 63–83; RESP 14–20; TEMP 36.5–36.8; O2SAT 96–98
[2023-07-09 05:01] LABS: Basophils Absolute Auto 0.1 K/mm3 (0.0-0.1); Basophils Percent Auto 0.9 % (0.2-1.2); Eosinophils Absolute Auto 0.4 K/mm3 (0-0.3); Eosinophils Percent Auto 6.7 % (0-4.4); Hematocrit 34.6 % (37.0-47.0); Immature Granulocyte Absolute 0.02 K/mm3 (0.00-0.031); Immature Granulocyte Percent A 0.3 % (0-0.5); Lymphocytes Absolute Auto 2.46 K/mm3 (0.9-3.2); Lymphocytes Percent Auto 37.5 % (18.3-44.2); Mean Corpuscular HGB Conc 31.8 g/dl (32-36); Mean Corpuscular Hemoglobin 31.3 pg (26-34); Mean Corpuscular Volume 98.6 fl (80-100); Mean Platelet Volume 10.1 fl (7.4-10.4); Monocytes Absolute Auto 0.5 K/mm3 (0.1-0.6); Monocytes Percent Auto 7.2 % (2.6-8.5); Neutrophils Absolute Auto 3.1 K/mm3 (1.3-6.7); Neutrophils Percent Auto 47.4 % (45.5-73.1); Platelet Count Result 239 k/mm3 (150-375); Red Blood Count 3.51 M/mm3 (4.2-5.4); Red Cell Distribution Width 12.8 % (11.5-14.5); White Blood Count 6.6 K/mm3 (4.5-10.0)
[2023-07-09 05:07] LABS: Anion Gap 8 mmol/L (8-16); Blood Urea Nitrogen 14 mg/dL (7-17); Calcium 7.9 mg/dL (8.4-10.2); Carbon Dioxide 24 mmol/L (22-30); Chloride 107 mmol/L (98-107); Estimated CRCL calculation 37 ml/min; Estimated Glomerular Filt Rate 48; Glucose 138 mg/dL (65-110); Magnesium 1.1 mg/dL (1.6-2.3); Phosphorus 3.4 mg/dL (2.5-4.5); Potassium 3.5 mmol/L (3.4-5.0); Sodium 139 mmol/L (137-145)
--- NOTE | 2023-07-09 07:07 | P.PNIM_ITS ---
Progress Note: A&P Assessment and Plan (1) Acute UTI: Code(s): N39.0 - Urinary tract infection, site not specified Status: Acute Assessment and Plan: 07/08/23: * UA revealed trace glucose, positive nitrates, 2+ leukocytes, 2+ bacteria, and many urine white blood cells were present. * Urine culture pending * White blood cell count 8.2, BUN 16, creatinine 1.2 * Continue with cefepime IV 07/09/23: * urine culture pending * continue with cefepime IV * white blood cell count 6.6, BUN 14, creatinine 1.1 (2) Generalized weakness: Code(s): R53.1 - Weakness Status: Acute Assessment and Plan: 07/08/23: * PT and OT ordered 07/09/23: * no change to current treatment plan (3) Electrolyte abnormality: Code(s): E87.8 - Other disorders of electrolyte and fluid balance, not elsewhere classif ied Status: Acute Assessment and Plan: 07/08/23: * Potassium is 3.2 this morning, will give 40 mEq of potassium today for replacement 07/09/23: * Potassium 3.5, Magnesium 1.1, Ca+ 7.9 * Magnesium 6g ordered for replacement (4) Depression with anxiety: Code(s): F41.8 - Other specified anxiety disorders Status: Acute Assessment and Plan: 07/08/23: * Ativan 0.5 mg p.o. HS continued * Celexa 20 mg p.o. at HS continued 07/09/23: * no change to current treatment plan (5) Peripheral vascular disease: Code(s): I73.9 - Peripheral vascular disease, unspecified Status: Acute Assessment and Plan: 07/08/23: * Noted (6) Type 2 diabetes mellitus: Code(s): E11.9 - Type 2 diabetes mellitus without complications Status: Acute Assessment and Plan: 07/08/23: * Blood sugars ranging 112-199 * Metformin restarted 07/09/23: * Blood sugars ranging 112-138 * No change to current treatment plan (7) Osteoarthritis: Code(s): M19.90 - Unspecified osteoarthritis, unspecified site Status: Acute Assessment and Plan: 07/08/23: * Noted * Tylenol 650 mg q.4 hour p.r.n. ordered 07/09/23: * No change to current treatment plan (8) Hyperlipidemia: Code(s): E78.5 - Hyperlipidemia, unspecified Status: Chronic Assessment and Plan: 07/08/23: * Continue Crestor 5 mg p.o. Tuesday07/09/23: * no change to current treatment plan (9) Hypertension: Code(s): I10 - Essential (primary) hypertension Status: Chronic Assessment and Plan: 07/08/23: * Blood pressures ranging 112/51 to 151/65 * Continue home medication: metoprolol ER 25 mg daily, Bumex 0.5 mg p.o. daily, and Benicar 40 mg p.o. HS 07/09/23: * Blood pressures ranging 124/45-138/63 * No change to current treatment plan (10) COPD (chronic obstructive pulmonary disease): Code(s): J44.9 - Chronic obstructive pulmonary disease, unspecified Status: Chronic Assessment and Plan: 07/08/23: * Oxygen saturation ranging 94-96% on room air * Patient does not use a BiPAP or CPAP and is not on any oxygen at home 07/09/23: * no change to current treatment plan Time Spent With Patient Time with patient: 15 - 25 minutes Subjective Date/time seen: 07/09/23 07:07 Interval history: Interval history: 07/08/23: This is a 78 year old female who presented to the ER with AMS. Daughter was with patient at the time of admission and stated that the patient was weak, tired, and confused. Patient has history of multidrug resistant UTI's.
--- NOTE | 2023-07-09 07:07 | PM.IMPN ---
Progress Note: A&P Assessment and Plan (1) Acute UTI: Code(s): N39.0 - Urinary tract infection, site not specified Status: Acute Assessment and Plan: 07/08/23: UA revealed trace glucose, positive nitrates, 2+ leukocytes, 2+ bacteria, and many urine white blood cells were present. Urine culture pending White blood cell count 8.2, BUN 16, creatinine 1.2 Continue with cefepime IV 07/09/23: urine culture pending continue with cefepime IV white blood cell count 6.6, BUN 14, creatinine 1.1 (2) Generalized weakness: Code(s): R53.1 - Weakness Status: Acute Assessment and Plan: 07/08/23: PT and OT ordered 07/09/23: no change to current treatment plan (3) Electrolyte abnormality: Code(s): E87.8 - Other disorders of electrolyte and fluid balance, not elsewhere classified Status: Acute Assessment and Plan: 07/08/23: Potassium is 3.2 this morning, will give 40 mEq of potassium today for replacement 07/09/23: Potassium 3.5, Magnesium 1.1, Ca+ 7.9 Magnesium 6g ordered for replacement (4) Depression with anxiety: Code(s): F41.8 - Other specified anxiety disorders Status: Acute Assessment and Plan: 07/08/23: Ativan 0.5 mg p.o. HS continued Celexa 20 mg p.o. at HS continued 07/09/23: no change to current treatment plan (5) Peripheral vascular disease: Code(s): I73.9 - Peripheral vascular disease, unspecified Status: Acute Assessment and Plan: 07/08/23: Noted (6) Type 2 diabetes mellitus: Code(s): E11.9 - Type 2 diabetes mellitus without complications Status: Acute Assessment and Plan: 07/08/23: Blood sugars ranging 112-199 Metformin restarted 07/09/23: Blood sugars ranging 112-138 No change to current treatment plan (7) Osteoarthritis: Code(s): M19.90 - Unspecified osteoarthritis, unspecified site Status: Acute Assessment and Plan: 07/08/23: Noted Tylenol 650 mg q.4 hour p.r.n. ordered 07/09/23: No change to current treatment plan (8) Hyperlipidemia: Code(s): E78.5 - Hyperlipidemia, unspecified Status: Chronic Assessment and Plan: 07/08/23: Continue Crestor 5 mg p.o. Tuesday07/09/23: no change to current treatment plan (9) Hypertension: Code(s): I10 - Essential (primary) hypertension Status: Chronic Assessment and Plan: 07/08/23: Blood pressures ranging 112/51 to 151/65 Continue home medication: metoprolol ER 25 mg daily, Bumex 0.5 mg p.o. daily, and Benicar 40 mg p.o. HS 07/09/23: Blood pressures ranging 124/45-138/63 No change to current treatment plan (10) COPD (chronic obstructive pulmonary disease): Code(s): J44.9 - Chronic obstructive pulmonary disease, unspecified Status: Chronic Assessment and Plan: 07/08/23: Oxygen saturation ranging 94-96% on room air Patient does not use a BiPAP or CPAP and is not on any oxygen at home 07/09/23: no change to current treatment plan Time Spent With Patient Time with patient: 15 - 25 minutes Subjective Date/time seen: 07/09/23 07:07 Interval history: Interval history: 07/08/23: This is a 78 year old female who presented to the ER with AMS. Daughter was with patient at the time of admission and stated that the patient was weak, tired, and confused. Patient has history of multidrug resistant UTI's. UA was performed which revealed trace glucose, + Nitrates, 2+ leukocytes, 2+ bacteria, and many urine WBC's. Urine culture was obtained and patient was started on Cefepime. Past urine cultures shown E. coli and enterobacter cloacae complex. On examination today patient is alert and oriented x 3, lying in the bed. Vital signs are stable, she is afebrile, she is on room air. She denies any fever, chills, nausea, vomiting, diarrhea, dysuria, hematuria. On exam she noted some tenderness over the bladder to palpation and reports the headach
[2023-07-09] MEDS: MAGNESIUM SULFATE 3GM/D5W100ML 3 GM/100 ML BAG IVPB ×2 (08:17→08:58)
[2023-07-09] MEDS: ASPIRIN 81 MG ENTERIC TABLET PO (09:01)
[2023-07-09] MEDS: metFORMIN HCL 500 MG TABLET PO ×2 (09:02→18:31)
[2023-07-09] MEDS: METOPROLOL SUCCINATE EXT REL 25 MG TABCR PO (09:02)
[2023-07-09] MEDS: ENOXAPARIN 40 MG/0.4 ML SYRINGE SUB-Q (09:06)
[2023-07-09] MEDS: BUMETANIDE 0.5 MG TABLET PO (09:07)
[2023-07-09] MEDS: PANTOPRAZOLE 40 MG TABLET PO ×2 (09:07→18:31)
[2023-07-09] MEDS: BACLOFEN 10 MG TABLET PO ×2 (09:07→18:31)
--- NOTE | 2023-07-09 09:54 | PCPTNOTE ---
Pt declined therapy 07/09/23 at 0954 secondary to having a headache. Educated would likely not be able to see her until the next day, pt continued to decline politely and stated therapy the next day would be ok. Will reattempt therapy evaluation as able.
[2023-07-09] MEDS: ACETAMINOPHEN 325 MG TABLET 650 MG PO (10:03)
[2023-07-09] MEDS: CEFEPIME 1 GM/NS 50 ML 1 GM/50 ML BAG IVPB (18:33)
[2023-07-09] MEDS: ALBUTEROL SULFATE (*SP) AEROSOL 1 PUFF 2 PUFF INHALATION (20:42)
[2023-07-09] MEDS: OLMESARTAN MEDOXOMIL 20 MG TABLET 40 MG PO (21:58)
[2023-07-09] MEDS: CYCLOBENZAPRINE HCL 10 MG TABLET PO (21:58)
[2023-07-09] MEDS: LORazepam (*CRX) 0.5 MG TABLET PO (21:59)
[2023-07-09] MEDS: MELATONIN 3 MG TABLET PO (21:59)
[2023-07-09] MEDS: CITALOPRAM HYDROBROMIDE 20 MG TABLET PO (21:59)
[2023-07-10] MEDS: ACETAMINOPHEN 325 MG TABLET 650 MG PO (01:04)
[2023-07-10 04:00] VITALS: BP 111/49; PULSE 61; RESP 16; TEMP 36.6; O2SAT 96
[2023-07-10 05:36] LABS: Basophils Absolute Auto 0.1 K/mm3 (0.0-0.1); Basophils Percent Auto 0.9 % (0.2-1.2); Eosinophils Absolute Auto 0.5 K/mm3 (0-0.3); Hematocrit 33.5 % (37.0-47.0); Hemoglobin 10.9 g/dL (12.0-15.0); Immature Granulocyte Absolute 0.02 K/mm3 (0.00-0.031); Immature Granulocyte Percent A 0.3 % (0-0.5); Lymphocytes Absolute Auto 2.37 K/mm3 (0.9-3.2); Lymphocytes Percent Auto 34.4 % (18.3-44.2); Mean Corpuscular HGB Conc 32.5 g/dl (32-36); Mean Corpuscular Hemoglobin 31.3 pg (26-34); Mean Corpuscular Volume 96.3 fl (80-100); Mean Platelet Volume 9.6 fl (7.4-10.4); Monocytes Absolute Auto 0.5 K/mm3 (0.1-0.6); Monocytes Percent Auto 6.8 % (2.6-8.5); Neutrophils Absolute Auto 3.5 K/mm3 (1.3-6.7); Neutrophils Percent Auto 50.6 % (45.5-73.1); Platelet Count Result 224 k/mm3 (150-375); Red Blood Count 3.48 M/mm3 (4.2-5.4); Red Cell Distribution Width 12.6 % (11.5-14.5); White Blood Count 6.9 K/mm3 (4.5-10.0)
[2023-07-10 05:52] LABS: Anion Gap 6 mmol/L (8-16); Blood Urea Nitrogen 12 mg/dL (7-17); Calcium 8.2 mg/dL (8.4-10.2); Carbon Dioxide 25 mmol/L (22-30); Chloride 105 mmol/L (98-107); Estimated CRCL calculation 37 ml/min; Estimated Glomerular Filt Rate 48; Glucose 125 mg/dL (65-110); Potassium 3.5 mmol/L (3.4-5.0); Sodium 136 mmol/L (137-145)
--- NOTE | 2023-07-10 06:37 | PM.DS ---
DS: Admitting Diagnosis Discharge Date 07/10/23 Admitting Diagnosis Acute UTI Generalized weakness Electrolyte abnormality depression with anxiety Peripheral vascular disease Type II DM Osteoarthritis Hyperlipidemia Hypertension COPD DS: Discharge Diagnosis Discharge Diagnosis (1) Acute UTI: Code(s): N39.0 - Urinary tract infection, site not specified Status: Acute (2) Generalized weakness: Code(s): R53.1 - Weakness Status: Acute (3) Electrolyte abnormality: Code(s): E87.8 - Other disorders of electrolyte and fluid balance, not elsewhere classified Status: Acute (4) Depression with anxiety: Code(s): F41.8 - Other specified anxiety disorders Status: Acute (5) Peripheral vascular disease: Code(s): I73.9 - Peripheral vascular disease, unspecified Status: Acute (6) Type 2 diabetes mellitus: Code(s): E11.9 - Type 2 diabetes mellitus without complications Status: Acute (7) Osteoarthritis: Code(s): M19.90 - Unspecified osteoarthritis, unspecified site Status: Acute (8) Hyperlipidemia: Code(s): E78.5 - Hyperlipidemia, unspecified Status: Chronic (9) Hypertension: Code(s): I10 - Essential (primary) hypertension Status: Chronic (10) COPD (chronic obstructive pulmonary disease): Code(s): J44.9 - Chronic obstructive pulmonary disease, unspecified Status: Chronic DS: Summary Hospital Course Reason for hospitalization: AMS Acute UTI Hospital Course: This is a 78 year old female who presented to the ER with AMS. Daughter was with patient at the time of admission and stated that the patient was weak, tired, and confused. Patient has history of multidrug resistant UTI's. UA was performed which revealed trace glucose, + nitrates, 2+ leukocytes, 2+ bacteria, and many urine WBC's. Urine culture was obtained. Patient was covered with Cefepime due to her past urine cultures grown E. coli and enterobacter cloacae complex. Today culture came back with a final read of no growth. Cefepime was discontinued. VSS, she is afebrile, and on room air. She denies any pain at this time. Labs today reveal WBC 6.9, Hgb 10.9, Hct 33.5,Na+ 136, K+ 3.5, Chloride 105, BUN 12, Creatinine 1.10, BG ranging 112-138, Calcium 8.2, Magnesium 2.2. Discussed cultures with patient and that she does not have an active infection. She is alert and oriented x4, VSS, she afebrile and on room air. She does report she has had kidney stones in the past and will make a urology appointment within the week as she is still having a little bit of CVA tenderness on the right side. Patient is agreeable to this plan of care and is stable for discharge. She will also need to follow up with her PCP in 1 week. Status at Discharge Cognitive/behavioral status at discharge: Alert and oriented x3 Functional status at discharge: independent ambulation Overall status at discharge: patient is back to baseline Time Spent with Patient Time attestation: Total time spent providing and/or coordinating discharge services: Time spent: Greater than 30 minutes Exam Narrative: General: no acute distress Head: atraumatic, normocephalic Eyes: EOMI, PERRLA ENT: [facility] and moist mucous membranes Neck: Supple, no JVD, no lymphadenopathy, trachea midline Cardiovascular: normal S1 + S2, regular rate and rhythm, no murmurs, gallops or friction rubs heard Respiratory: Lungs clear to auscultation, diminished in the bases, no adventitious lung sounds heard Abdomen: Soft, non-tender, nondistended, bowel sounds normal active, CVA tenderness on the right side. Extremities: No clubbing, no edema Musculoskeletal: Moves all extremities well, good range of motion Skin: Warm, dry, intact Neurological: Alert and oriented x3, cranial nerves intact, no neurological deficits Psychiatric: Normal mood, normal affect, interactive DS: Data Data Completed and Pending Completed studies andi
[2023-07-10 07:09] LABS: Magnesium 2.2 mg/dL (1.6-2.3)
[2023-07-10 09:39] VITALS: BP 140/67; PULSE 72; RESP 21; O2SAT 98
[2023-07-10 09:41] VITALS: PULSE 72
[2023-07-10] MEDS: ASPIRIN 81 MG ENTERIC TABLET PO (09:41)
[2023-07-10] MEDS: metFORMIN HCL 500 MG TABLET PO (09:41)
[2023-07-10] MEDS: BUMETANIDE 0.5 MG TABLET PO (09:41)
[2023-07-10] MEDS: ENOXAPARIN 40 MG/0.4 ML SYRINGE SUB-Q (09:41)
[2023-07-10] MEDS: BACLOFEN 10 MG TABLET PO (09:41)
[2023-07-10] MEDS: METOPROLOL SUCCINATE EXT REL 25 MG TABCR PO (09:41)
[2023-07-10] MEDS: PANTOPRAZOLE 40 MG TABLET PO (09:42)
--- NOTE | 2023-07-10 10:27 | PCPTNOTE ---
Attempted PT evaluation. Pt states she is going home, already did OT evaluation today and doesn't need PT.
== END 2023-07-10 14:21 | disposition home or self-care (01) | DRG 690 ==
LOC: ANHED 18:25 → ANH2MED 19:10
PROVIDERS: Family Medicine; Admitting Provider Family Medicine; Emergency Provider Emergency Medicine; Visit Provider Nurse Practitioner Acute Care
DX: N39.0 Urinary tract infection, site not specified (principal); N17.9 Acute kidney failure, unspecified; I13.0 Hypertensive heart and chronic kidney disease with heart failure and stage 1 through stage 4 chronic kidney disease, or unspecified chronic kidney disease; E86.0 Dehydration; E11.22 Type 2 diabetes mellitus with diabetic chronic kidney disease; E11.51 Type 2 diabetes mellitus with diabetic peripheral angiopathy without gangrene; E78.5 Hyperlipidemia, unspecified; F32.9 Major depressive disorder, single episode, unspecified; F41.8 Other specified anxiety disorders; I50.9 Heart failure, unspecified; I25.10 Atherosclerotic heart disease of native coronary artery without angina pectoris; J44.9 Chronic obstructive pulmonary disease, unspecified; M19.90 Unspecified osteoarthritis, unspecified site; N18.9 Chronic kidney disease, unspecified; R41.0 Disorientation, unspecified; Z87.820 Personal history of traumatic brain injury; Z98.49 Cataract extraction status, unspecified eye; Z90.710 Acquired absence of both cervix and uterus; Z90.49 Acquired absence of other specified parts of digestive tract; Z95.1 Presence of aortocoronary bypass graft; Z79.84 Long term (current) use of oral hypoglycemic drugs; Z79.82 Long term (current) use of aspirin; Z87.891 Personal history of nicotine dependence
CPT/HCPCS: 36415; 71045; 80048; 80053; 81001; 82948; 83735; 84100; 85025; 85610; 85730; 87086; 93005; 94640; 96365; 97165; 99285; A9270; J0692; J1650; J3475; J7040

== ENCOUNTER 2024-01-02 14:02 | Emergency (ER) | payer MEDICARE, MEDICAID, SELFPAY ==
--- NOTE | ~2024-01-02 | XR_ITS ---
EXAMINATION: XR chest 2V DATE: 01/02/2024 14:50 INDICATION: Cough and congestion. Weakness. TECHNIQUE: Frontal and lateral views of the chest were obtained. COMPARISON: Chest single view 07/07/2023 FINDINGS: There is mild atelectasis in right middle lobe. No pleural effusion or pneumothorax. The he art size is normal. Median sternotomy wires and mediastinal surgical clips are seen, likely from prio r coronary artery bypass grafting. There are old healed right rib fractures. There are changes of ant erior fusion procedure in cervical spine. Surgical clips in the right upper quadrant are likely from cholecystectomy. IMPRESSION: 1. Mild atelectasis in right middle lobe. Reviewed, dictated and finalized at location A.
[2024-01-02 14:18] VITALS: BP 136/41; PULSE 66; RESP 16; TEMP 36; O2SAT 97
--- NOTE | 2024-01-02 14:24 | ED.GENADULT ---
HPI - General Adult General Chief complaint: Weakness Stated complaint: feeling weak,tired Time Seen by Provider: 01/02/24 14:24 Source: patient Mode of arrival: ambulatory Limitations: no limitations History of Present Illness HPI narrative: 78 yo F presents with c/o cough, nasal congestion, fatigue for 3 days. Concerned she has covid. Denies SOB/CP. Afebrile. Not taking any OTC meds to treat symptoms. Ambulatory with steady gait. All systems reviewed and negative except as noted above. Related Data Home Medications Medication Instructions Recorded Confirmed albuterol sulfate 90 mcg/actuation 1 inh inhalation QID PRN SHORTNESS 02/25/22 01/02/24 aerosol inhaler OF BREATH aspirin 81 mg tablet,delayed 81 mg PO DAILY 02/25/22 01/02/24 release baclofen 10 mg tablet 10 mg PO BID 02/25/22 01/02/24 bumetanide 0.5 mg tablet 0.5 mg PO DAILY 02/25/22 01/02/24 cyclobenzaprine 5 mg tablet 2 tablet PO HS 02/25/22 01/02/24 metformin 500 mg tablet 500 mg PO BID 02/25/22 01/02/24 metoprolol succinate 25 mg 1 tablet PO DAILY 02/25/22 01/02/24 tablet,extended release 24 hr olmesartan 40 mg tablet 1 tablet PO HS 02/25/22 01/02/24 citalopram 20 mg tablet 20 mg PO HS 02/26/22 01/02/24 rosuvastatin 20 mg tablet (Crestor) 5 mg PO QMWF 02/26/23 01/02/24 acetaminophen 500 mg capsule 500 mg PO Q8H PRN Pain (Scale 07/07/23 01/02/24 Score 1-3) estradiol-progesterone 1 applic vaginal HS 07/07/23 01/02/24 exenatide microspheres 2 mg/0.85 2 mg subcut WEEKLY 07/07/23 01/02/24 mL subcutaneous auto-injector (BySlic[employer]pie) lorazepam 0.5 mg tablet 0.5 mg PO HS 07/07/23 01/02/24 estradiol 0.01% (0.1 mg/gram) 2 g vaginal DIRECTED 01/02/24 01/02/24 vaginal cream Allergies Allergy/AdvReac Type Severity Reaction Status Date / Time levofloxacin Allergy Severe Swelling Verified 01/02/24 14:04 cefaclor Allergy Unknown Anaphylaxis Verified 01/02/24 14:04 ciprofloxacin Allergy Unknown Anaphylaxis Verified 01/02/24 14:04 codeine Allergy Unknown Other Verified 01/02/24 14:04 erythromycin base Allergy Unknown Hives Verified 01/02/24 14:04 Iodinated Contrast Media Allergy Unknown Hives Verified 01/02/24 14:04 iodine Allergy Unknown Itching Verified 01/02/24 14:04 latex Allergy Unknown Anaphylaxis Verified 01/02/24 14:04 sulfanilamide Allergy Unknown Anaphylaxis Verified 01/02/24 14:04 hydrocodone [From Vicodin] Allergy Unknown Verified 01/02/24 14:04 lamotrigine [From Lamictal] Allergy Unknown Verified 01/02/24 14:04 prochlorperazine Allergy Unknown Verified 01/02/24 14:04 tramadol Allergy Unknown Verified 01/02/24 14:04 morphine AdvReac Unknown VOMITING Verified 01/02/24 14:04 Quinolones AdvReac Unknown Other Verified 01/02/24 14:04 vancomycin AdvReac Unknown side Verified 01/02/24 14:04 effect-rising creatnine amitriptyline [From Elavil] AdvReac Nausea Verified 01/02/24 14:04 doxepin AdvReac Weakness Verified 01/02/24 14:04 fentanyl AdvReac Nausea Verified 01/02/24 14:04 mirtazapine [From Remeron] AdvReac Weakness Verified 01/02/24 14:04 oxycodone AdvReac Nausea and Verified 01/02/24 14:04 Vomiting trazodone AdvReac Nausea and Verified 01/02/24 14:04 Vomiting Contrast Media Allergy Unknown SWELLS,RED, Uncoded 01/02/24 14:04 SOB protien c Allergy Unknown Uncoded 01/02/24 14:04 Review of Systems Review of Systems: CONSTITUTIONAL: Denies fever, chills, or sweats. reports fatigue. EYES: Denies visual changes, redness, or discharge. ENT: reports rhinorrhea, congestion. Denies sore throat, or otalgia. CARDIOVASCULAR: Denies chest pain, palpitations, or edema. RESPIRATORY: Reports cough. Denies dyspnea. GASTROINTESTINAL: Denies abdominal pain, nausea, vomiting, or diarrhea. GENITOURINARY: Denies dysuria or hematuria. SKIN: Denies rash or itching. MUSCULOSKELETAL: Denies back pain, joint pain, or myalgia. NEUROLOGIC: Denies headache, numbness, or weakness. PSYCHIATRIC: Denies anxiety or depression. All other
[2024-01-02 14:25] VITALS: RESP 20
== END 2024-01-02 15:10 | disposition home or self-care (01) ==
PROVIDERS: Emergency Provider Nurse Practitioner Family
DX: J06.9 Acute upper respiratory infection, unspecified (principal); Z20.822 Contact with and (suspected) exposure to COVID-19; Z87.891 Personal history of nicotine dependence; J44.9 Chronic obstructive pulmonary disease, unspecified; I13.0 Hypertensive heart and chronic kidney disease with heart failure and stage 1 through stage 4 chronic kidney disease, or unspecified chronic kidney disease; E11.22 Type 2 diabetes mellitus with diabetic chronic kidney disease; N18.9 Chronic kidney disease, unspecified; I50.9 Heart failure, unspecified; Z79.84 Long term (current) use of oral hypoglycemic drugs; E78.5 Hyperlipidemia, unspecified; E11.51 Type 2 diabetes mellitus with diabetic peripheral angiopathy without gangrene; Z95.5 Presence of coronary angioplasty implant and graft; Z79.82 Long term (current) use of aspirin
CPT/HCPCS: 71046; 87426; 87804; 99213; G0463

== ENCOUNTER 2024-01-18 14:45 | Outpatient (RCR) | payer MEDICARE, MEDICAID, SELFPAY ==
--- NOTE | 2023-11-23 15:02 | OPREHPOC ---
Outpatient Therapy Plan of Care This is a Multidisciplinary Plan of Care that may contain components documented by all disciplines (PT, OT, and ST.) PT Problem 1 PT Problem #1 Knowledge Deficit PT Goal 1 Goal *indep with HEP PT Problem 2 PT Problem #2 Impaired Strength PT Goal 1 Goal increase strength of R and L LE, to improve transfer and gait skills: 1* supine R & L LE exercises x 20 reps 2* sit/stand with use of 1 UE x 5 reps PT Problem 3 PT Problem #3 Impaired Functional Mobility PT Goal 1 Goal 1* supine to sit indep 2* TUG 18 seconds 3* Tinetti balance/gait score of 24/28 4* 2 minute walking test distance of 225' with assistive device 5* pt report NO falls
--- NOTE | 2023-11-23 15:02 | PTOPEVAL1 ---
Assessment and note entered by Yamilex Sher, PT Evaluation Information Assessment Status Evaluation Diagnosis weakness/falls Onset Jun 2023 Subjective Information hospitalized in Jun due to UTI, weakness since then; use cane in the house/ walker use when take a shower; 3 falls in the past 6 months, walking in home, slipped and fell; is not doing any leg exercises at home anymore; Home--with who has dementia, no stairs indep with showering and dressing; caregiver 5 days/week- assist with home tasks, transportation, cleaning and caring for who has dementia. Reported Pain Level Pain Score Self Report Additional Pain Score Comments overall, general pain in body: range of 5-8/10; Assessment PT Clinical Summary Alondra has the diagnosis of weakness and falls. She reports increasing weakness since hospitalization in June from UTI. She uses a cane or wheeled walker for ambulation and has caregiver assist for home tasks. With the evaluation: decrease LE strength; TUG with cane 21 seconds; Tinetti balance/gait score of 17/28= high risk for falls; 5 reps sit/stand time of 23 seconds with use of both UE for sit/ stand transfer; use of cane for ambulation; Skilled PT services are indicated for therapeutic exercises and activities to increase LE strength, gait and balance, to decrease risk for falls and improve mobility, with education for HEP and safety with mobility. Plan of Care Interventions Electrical Stimulation,Neuro Re-education,Patient Education,Therapeutic Activities, Therapeutic Exercise PT Services Indicated Yes These treatments will address the objective and functional deficits as defined above. The patient will be advanced safely and appropriately in order for the patient to progress towards his/her prior level of function. Additional exercises will be introduced and as well as a comprehensive home exercise program upon discharge, if needed, ?to ensure carryover of functional gains achieved in the clinic. This treatment plan has been reviewed and agreement upon by the patient.
--- NOTE | 2023-12-21 15:22 | PCPTNOTE ---
Pt canceled appt. because she had a dentist appt.
--- NOTE | 2023-12-28 11:44 | PCPTNOTE ---
Pt canceled appt today due to road construction in her parking lot of apartments.
--- NOTE | 2024-01-02 15:10 | PCPTNOTE ---
pt did not show for today's appt; called and left message for reminder of her next appt.
--- NOTE | 2024-01-09 16:03 | PCPTNOTE ---
Pt called in to re-schedule.
--- NOTE | 2024-01-16 14:44 | PCPTNOTE ---
Pt called on 01/12/24 to cancel appointment on 01/16/24 due to transition of care specialist being on vacation.
--- NOTE | 2024-01-18 15:35 | PTOPDC ---
Assessment and note entered by [facility] Evaluation Information Assessment Status Discharge Diagnosis weakness, falls Onset June 2023 Subjective Information Pt. reports she has been unable to be consistent with therapy due to illness and other doctors appointments. She reports that she is awaiting other follow ups with her doctor Reported Pain Level Pain Score 9: Self Report Assessment PT Clinical Summary Mrs. Blil has attended a total of 5 treatment sessions since her initial evaluation over 2 months ago. She has demonstrated poor compliance with her rehab program due to reported illness and other appointments. Discussed with the pt. the importance of being consistent with a rehab plan of care in order to demonstrate progress. Pt. does not feel she can be compliant at this time and states that she will attempt to continue with exercise on her own. Plan of Care PT Services Indicated No
== END 2024-01-20 11:22 | disposition home or self-care (01) ==
LOC: ANHPT 14:45
DX: R53.1 Weakness (principal); R29.6 Repeated falls
CPT/HCPCS: 97014; 97110; 97116; 97161; 97530; 97750; 99199; G0283

== ENCOUNTER 2024-03-15 20:55 | Inpatient (IN) | payer MEDICARE, MEDICAID, SELFPAY ==
--- NOTE | ~2024-03-15 | CT_ITS ---
EXAMINATION: CT abdomen pelvis wo con DATE: 03/15/2024 23:30 INDICATION: Abdominal pain. TECHNIQUE: Computed tomography (CT) of the abdomen and pelvis was performed without intravenous contr ast. Automated exposure control and iterative reconstruction technique were employed. The dose-length product was 1122.92 mGy-cm. COMPARISON: CT abdomen and pelvis 08/09/2020 FINDINGS: The visualized portions of lung bases demonstrate emphysema and mild atelectasis. Calcified right hilar lymph nodes are consistent with old granulomatous disease. No pleural effusion. The hear t size is normal. There are coronary artery calcifications. No pericardial effusion. Calcifications i n the liver and spleen are consistent with old granulomatous disease. There are changes of cholecyste ctomy. The pancreas is normal. There are chronic masses in the adrenal glands measuring up to 2.1 cm on the right measuring soft tissue attenuation, consistent with adenomas. There is calcified atherosc lerosis of the aorta and many of the other arteries. Right kidney is normal. There are 3 stones in le ft kidney measuring up to 3 mm. There is diverticulosis of the colon without evidence of diverticulit is. There are no dilated loops of bowel. The appendix is not visualized. There are no pathologically enlarged lymph nodes. There is no free intraperitoneal fluid. There is mild thoracic and lumbar spond ylosis. IMPRESSION: 1. No etiology for the patient's symptoms. Reviewed, dictated and finalized at location E.
--- NOTE | ~2024-03-15 | CT_ITS ---
EXAMINATION: CT brain wo con DATE: 03/15/2024 22:39 INDICATION: Altered mental status. TECHNIQUE: Computed tomography (CT) of the head was performed without intravenous contrast. The mA wa s adjusted according to patient size. Iterative reconstruction technique was employed. The dose-lengt h product was 681.00 mGy-cm. COMPARISON: Head CT 02/26/2023 FINDINGS: There are scattered areas of low attenuation in the cerebral white matter. There is no intr acranial hemorrhage, acute infarction, or abnormal intracranial mass lesion. There are old infarcts i n the right basal ganglia, left thalamus, and yadi. The ventricles are normal in size. There is mild mucosal thickening in the ethmoid sinuses. There are likely changes of ocular lens replacement surger ies. The mastoid air cells are normal. IMPRESSION: 1. 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 2. Stable moderate nonspecific cerebral white matter disease, which likely represents chronic small v essel ischemic disease. Reviewed, dictated and finalized at location E. IMPRESSION: 1. 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 2. Stable moderate nonspecific cerebral white matter disease, which likely repr esents chronic small vessel ischemic disease.
--- NOTE | ~2024-03-15 | XR_ITS ---
EXAMINATION: XR chest 1V portable DATE: 03/15/2024 22:33 INDICATION: Altered mental status. TECHNIQUE: A single frontal view of the chest was obtained. COMPARISON: Chest 2 views 01/02/2024 FINDINGS: There is no pneumonia, pleural effusion, or pneumothorax. The heart size is normal. Median sternotomy wires and mediastinal surgical clips are seen, likely from prior coronary artery bypass gr afting. There are changes of anterior fusion procedure in cervical spine. IMPRESSION: 1. No acute cardiopulmonary disease. Reviewed, dictated and finalized at location E.
[2024-03-15 20:58] VITALS: BP 176/70; PULSE 68; RESP 20; TEMP 37; O2SAT 98
--- NOTE | 2024-03-15 21:02 | ECG_ITS ---
Test Date: 2024-03-15 21:06:58 Measurements Intervals [place] Rate: 67 P: 54 WV: 153 QRS: 40 QRSD: 117 T: 79 QT: 410 QTc: 433 Interpretive Statements SINUS RHYTHM CONSIDER ANTERIOR INFARCT, AGE INDETERMINATE ST-T WAVE ABNORMALITY IN HIGH LATERAL LEADS- CONSIDER ISCHEMIA BASELINE ARTIFACT- I, III, AVR, AVL ABNORMAL ECG No previous ECG available for comparison Electronically Signed On 03-16-2024 06:43:01 CDT by Stephan Talbot D.O.
[2024-03-15 22:04] LABS: Basophils Absolute Auto 0.1 K/mm3 (0.0-0.1); Basophils Percent Auto 0.8 % (0.2-1.2); Eosinophils Absolute Auto 0.4 K/mm3 (0-0.3); Eosinophils Percent Auto 4.1 % (0-4.4); Hematocrit 35.6 % (37.0-47.0); Hemoglobin 11.6 g/dL (12.0-15.0); Immature Granulocyte Absolute 0.03 K/mm3 (0.00-0.031); Immature Granulocyte Percent A 0.3 % (0-0.5); Lymphocytes Absolute Auto 3.23 K/mm3 (0.9-3.2); Lymphocytes Percent Auto 33.2 % (18.3-44.2); Mean Corpuscular HGB Conc 32.6 g/dl (32-36); Mean Corpuscular Volume 98.3 fl (80-100); Mean Platelet Volume 9.4 fl (7.4-10.4); Monocytes Absolute Auto 0.6 K/mm3 (0.1-0.6); Monocytes Percent Auto 6.1 % (2.6-8.5); Neutrophils Absolute Auto 5.4 K/mm3 (1.3-6.7); Neutrophils Percent Auto 55.5 % (45.5-73.1); Platelet Count Result 236 k/mm3 (150-375); Red Blood Count 3.62 M/mm3 (4.2-5.4); Red Cell Distribution Width 12.6 % (11.5-14.5); White Blood Count 9.7 K/mm3 (4.5-10.0)
[2024-03-15 22:15] LABS: Alanine Aminotransferase 21 U/L (6-35); Albumin Level 3.9 g/dL (3.5-5.1); Alkaline Phosphatase 62 U/L (38-126); Anion Gap 10 mmol/L (4-12); Aspartate Amino Transferase 18 U/L (14-36); Bilirubin,Total 0.3 mg/dL (0.2-1.3); Blood Urea Nitrogen 18 mg/dL (7-17); Carbon Dioxide 25 mmol/L (22-30); Chloride 105 mmol/L (98-107); Estimated CRCL calculation 28 ml/min; Estimated Glomerular Filt Rate 34; Glucose 204 mg/dL (65-110); Potassium 3.8 mmol/L (3.4-5.0); Sodium 140 mmol/L (137-145)
[2024-03-15 22:18] LABS: Partial Thromboplastin Time 26.4 Seconds (22.3-36.8); Prothrombin Time 13.4 Seconds (11.1-14.7)
[2024-03-15 22:30] LABS: Appearance Urine Clear (Clear); Bacteria Urine 4+ /hpf; Bilirubin Urine Negative (Negative); Blood Urine Negative (Negative); Color Urine Yellow (Yellow); Glucose Urine UA Negative (Negative); Ketones Urine Negative (Negative); Leukocyte Esterase Ur 1+ LEU/UL (Negative); Nitrate Urine Positive (Negative); Non Pathogenic Casts 0-2; Protein Urine Trace mg/dL (Negative); RBC Urine 0-2 /hpf (0-2); Specific Grav Ur 1.015 (1.001-1.035); Squamous Epithelial Cell Urine Occasional /hpf (Few); Urobilinogen Urine 0.2 mg/dL (<2.0); WBC Urine 51-100 /hpf (0-3)
[2024-03-15 22:36] LABS: Add Urine Microscopic? YES
[2024-03-15 22:48] VITALS: BP 171/72; PULSE 72; RESP 19; O2SAT 98
--- NOTE | 2024-03-15 23:23 | ED.AMS ---
HPI - Altered Mental Status General Chief Complaint: Altered Mental Status <Kaitlynn Zimmer PA-C - Last Filed: 03/16/24 02:22> Stated Complaint: confusion <Kaitlynn Zimmer PA-C - Last Filed: 03/16/24 02:22> Time Seen by Provider: 03/15/24 21:16 <Kaitlynn Zimmer PA-C - Last Filed: 03/16/24 02:22> Source: patient and family <Kaitlynn Zimmer PA-C - Last Filed: 03/16/24 02:22> Mode of arrival: EMS <KARLENE Maldonado Last Filed: 03/16/24 02:22> Limitations: no limitations <KARLENE Maldonado Last Filed: 03/16/24 02:22> History of Present Illness HPI narrative: This is a 78 year old female that presents to the ER for confusion today. Patient reports having trouble with word finding. She has also had some dysuria. Her daughter reports she has been getting weaker and seems tired today. She also reports she has had intermittent diarrhea over the last months. Denies fever, vomiting, focal numbness or weakness. <KARLENE Maldonado Last Filed: 03/16/24 02:22> Related Data Home Medications: Home Medications Medication Instructions Recorded Confirmed albuterol sulfate 90 mcg/actuation 2 inh inhalation Q6H PRN SHORTNESS 02/25/22 03/16/24 aerosol inhaler OF BREATH aspirin 81 mg tablet,delayed 81 mg PO DAILY 02/25/22 03/16/24 release baclofen 10 mg tablet 10 mg PO BID 02/25/22 03/16/24 bumetanide 0.5 mg tablet 0.5 mg PO DAILY 02/25/22 03/16/24 metformin 500 mg tablet 500 mg PO BID 02/25/22 03/16/24 metoprolol succinate 25 mg 1 tablet PO DAILY 02/25/22 03/16/24 tablet,extended release 24 hr olmesartan 40 mg tablet 1 tablet PO HS 02/25/22 03/16/24 citalopram 20 mg tablet 20 mg PO HS 02/26/22 03/16/24 rosuvastatin 20 mg tablet (Crestor) 5 mg PO QMWF 02/26/23 03/16/24 acetaminophen 500 mg capsule 500 mg PO Q8H PRN Pain (Scale 07/07/23 03/16/24 Score 1-3) exenatide microspheres 2 mg/0.85 2 mg subcut WEEKLY 07/07/23 03/16/24 mL subcutaneous auto-injector (BySilentsoftse) lorazepam 0.5 mg tablet 0.5 mg PO HS 07/07/23 03/16/24 estradiol 0.01% (0.1 mg/gram) 2 g vaginal DIRECTED 01/02/24 03/16/24 vaginal cream methenamine hippurate 1 gram tablet 1 g PO BID 03/16/24 03/16/24 <Kaitlynn Zimmer PA-C - Last Filed: 03/16/24 02:22> Allergies/Adverse Reactions: Allergies Allergy/AdvReac Type Severity Reaction Status Date / Time levofloxacin Allergy Severe Swelling Verified 03/15/24 21:04 cefaclor Allergy Unknown Anaphylaxis Verified 03/15/24 21:04 ciprofloxacin Allergy Unknown Anaphylaxis Verified 03/15/24 21:04 codeine Allergy Unknown Other Verified 03/15/24 21:04 erythromycin base Allergy Unknown Hives Verified 03/15/24 21:04 Iodinated Contrast Media Allergy Unknown Hives Verified 03/15/24 21:04 iodine Allergy Unknown Itching Verified 03/15/24 21:04 latex Allergy Unknown Anaphylaxis Verified 03/15/24 21:04 sulfanilamide Allergy Unknown Anaphylaxis Verified 03/15/24 21:04 hydrocodone [From Vicodin] Allergy Unknown Verified 03/15/24 21:04 lamotrigine [From Lamictal] Allergy Unknown Verified 03/15/24 21:04 prochlorperazine Allergy Unknown Verified 03/15/24 21:04 tramadol Allergy Unknown Verified 03/15/24 21:04 morphine AdvReac Unknown VOMITING Verified 03/15/24 21:04 Quinolones AdvReac Unknown Other Verified 03/15/24 21:04 vancomycin AdvReac Unknown side Verified 03/15/24 21:04 effect-rising creatnine amitriptyline [From Elavil] AdvReac Nausea Verified 03/15/24 21:04 doxepin AdvReac Weakness Verified 03/15/24 21:04 fentanyl AdvReac Nausea Verified 03/15/24 21:04 mirtazapine [From Remeron] AdvReac Weakness Verified 03/15/24 21:04 oxycodone AdvReac Nausea and Verified 03/15/24 21:04 Vomiting trazodone AdvReac Nausea and Verified 03/15/24 21:04 Vomiting Contrast Media Allergy Unknown SWELLS,RED, Uncoded 03/15/24 21:04 SOB protien c Allergy Unknown Uncoded 03/15/24 21:04 <Kaitlynn Zimmer PA-C - Last Filed: 03/16/24 02:22> Review
[2024-03-15] MEDS: MEROPENEM 1 GM/NS 100 ML 1 GM/100 ML BAG IVPB (23:56)
[2024-03-16] VITALS (12 sets, daily range): BP systolic 153–188; BP diastolic 55–77; PULSE 65–79; RESP 15–20; TEMP 36.1–36.6; O2SAT 96–98; BMI 33.6
[2024-03-16] MEDS: SODIUM CHLORIDE 0.9% IV 500 ML 999 ML IV CONT (01:28)
[2024-03-16] MEDS: LORazepam (*CRX) 0.5 MG TABLET PO ×2 (07:01→20:53)
[2024-03-16] MEDS: METOPROLOL SUCCINATE EXT REL 25 MG TABCR PO (08:25)
[2024-03-16] MEDS: BUMETANIDE 0.5 MG TABLET PO (08:25)
[2024-03-16] MEDS: BACLOFEN 10 MG TABLET PO (08:25)
[2024-03-16] MEDS: PANTOPRAZOLE 40 MG TABLET PO ×2 (08:25→16:30)
[2024-03-16] MEDS: ASPIRIN 81 MG ENTERIC TABLET PO (08:25)
[2024-03-16] MEDS: ROSUVASTATIN 5 MG TABLET PO (08:29)
--- NOTE | 2024-03-16 09:41 | PM.IMHP ---
H&P: HPI History of Present Illness Date/Time: 03/16/24 09:41 Chief Complaint: Confusion Narrative: Patient is a 78-year-old female with a past medical history of CKD, CHF, COPD, CAD, hyperlipidemia, CABG, hypertension, COVID with intubation and trach placement who presented to the ED with complaints of acute metabolic encephalopathy and confusion. Patient stated all of this started the day before yesterday which was 03/14/2024. She stated that she would try to do stuff however she could do a right she started forget important things. She stated that she knew some is wrong when she tried to get her bank balance and was unable to get her balance because she could remember the numbers that were needed to get her balance. She did state that she did get with a friend who did help her however it continued to get worse. She does live with her . She also stated that she was having some issues urinating and she would go very often and just have drips and was unable to fully empty. She denies any pain or burning. She also stated that she has been having some watery diarrhea that has been going on for couple months. She is convinced that this is not related to the UTI as she has been taking Ativan and Celexa which are her home meds however they were working efficiently enough so she started taking ZzzQuil. She stated that she feels that this equals why she is confused. However she reports taking this concoction over the last month with no issues until 03/14/2024. He she also does have a cough she states her cough is productive however she is unable to clear her secretions due to not having her albuterol. She denies any chest pain, shortness a breath, sweats, fevers, chills, vomiting, constipation, lightheadedness, dizziness. She did state that she has been having diarrhea and she has also been having some nausea. She is tolerating p.o. intake. She is also concerned that this is not resolving however she did seem pretty sure about what happened to her why she is here. In the ED chest x-ray was performed showed no acute cardiopulmonary disease, head CT showed old infarcts of the right basal ganglia, left thalamus and yadi, CT abdomen and pelvis showed no acute findings. Creatinine is noted to be slightly elevated 1.50. Glucose was 204. UA was positive for nitrates, leukocyte esterase wbc's and bacteria. Urine culture is pending. Patient is being admitted to the hospitalist service under observation. Patient will require less than 2 midnights for workup, treatment, and recovery. Review of Systems Review of Systems: All systems reviewed & are unremarkable except as noted in HPI and below PMFSH Past Medical History Medical History Chronic kidney disease Congestive heart failure COPD (chronic obstructive pulmonary disease) Coronary artery disease Depression with anxiety Hyperlipidemia Hypertension Hypertension MDD (major depressive disorder) Peripheral vascular disease Subarachnoid hemorrhage Bilaterally after falling down stairs Tobacco abuse Traumatic brain injury Type 2 diabetes mellitus Surgical History Surgical History H/O carpal tunnel repair H/O cataract extraction H/O colonoscopy with polypectomy H/O: hysterectomy History of appendectomy History of cardiac cath History of cholecystectomy History of four vessel coronary artery bypass graft 2016 History of tracheostomy Hx of CABG Myringotomy tube(s) status S/P cervical spinal fusion Family History Family History Mother Heart failure Family history of chronic obstructive pulmonary disease Sibling Diabetes mellitus Acute myocardial infarction Family history of diabetes mellitus in first degree relative Family history of coronary artery disease Family history of chronic obstructive pulmonary disease
[2024-03-16 10:36] LABS: Hemoglobin A1C 8.7 % (<5.7)
[2024-03-16] MEDS: cefTRIAXone 2 GM/NS 100 ML 2 GM/100 ML BAG IVPB (10:59)
[2024-03-16] MEDS: LACTATED RINGERS 1,000 ML 75 ML IV CONT (10:59)
[2024-03-16] MEDS: ALBUTEROL SULFATE (*SP) AEROSOL 1 PUFF 2 PUFF INHALATION (16:28)
[2024-03-16] MEDS: CITALOPRAM HYDROBROMIDE 20 MG TABLET PO (20:53)
[2024-03-16] MEDS: OLMESARTAN MEDOXOMIL 20 MG TABLET 40 MG PO (20:53)
[2024-03-16] MEDS: HEPARIN SODIUM 5,000 UNITS/ML VIAL 5000 UNITS SUB-Q (20:54)
[2024-03-17] VITALS (12 sets, daily range): BP systolic 139–211; BP diastolic 58–84; PULSE 69–84; RESP 16–20; TEMP 36.3–36.9; O2SAT 90–97
[2024-03-17] MEDS: ALBUTEROL SULFATE (*SP) AEROSOL 1 PUFF 2 PUFF INHALATION ×2 (00:02→08:33)
[2024-03-17] MEDS: LACTATED RINGERS 1,000 ML 75 ML IV CONT (00:18)
[2024-03-17 06:27] LABS: Basophils Absolute Auto 0.1 K/mm3 (0.0-0.1); Basophils Percent Auto 0.9 % (0.2-1.2); Eosinophils Absolute Auto 0.4 K/mm3 (0-0.3); Eosinophils Percent Auto 4.3 % (0-4.4); Hematocrit 35.9 % (37.0-47.0); Hemoglobin 11.6 g/dL (12.0-15.0); Immature Granulocyte Absolute 0.03 K/mm3 (0.00-0.031); Immature Granulocyte Percent A 0.3 % (0-0.5); Lymphocytes Absolute Auto 2.36 K/mm3 (0.9-3.2); Lymphocytes Percent Auto 27.4 % (18.3-44.2); Mean Corpuscular HGB Conc 32.3 g/dl (32-36); Mean Corpuscular Hemoglobin 31.1 pg (26-34); Mean Corpuscular Volume 96.2 fl (80-100); Monocytes Absolute Auto 0.6 K/mm3 (0.1-0.6); Monocytes Percent Auto 7.1 % (2.6-8.5); Neutrophils Absolute Auto 5.2 K/mm3 (1.3-6.7); Platelet Count Result 249 k/mm3 (150-375); Red Blood Count 3.73 M/mm3 (4.2-5.4); Red Cell Distribution Width 12.4 % (11.5-14.5); White Blood Count 8.6 K/mm3 (4.5-10.0)
[2024-03-17 06:33] LABS: Alanine Aminotransferase 17 U/L (6-35); Albumin Level 3.5 g/dL (3.5-5.1); Alkaline Phosphatase 56 U/L (38-126); Anion Gap 9 mmol/L (4-12); Aspartate Amino Transferase 17 U/L (14-36); Bilirubin,Total 0.5 mg/dL (0.2-1.3); Blood Urea Nitrogen 13 mg/dL (7-17); Calcium 8.9 mg/dL (8.4-10.2); Carbon Dioxide 27 mmol/L (22-30); Chloride 105 mmol/L (98-107); Estimated CRCL calculation 43 ml/min; Estimated Glomerular Filt Rate 54; Glucose 159 mg/dL (65-110); Magnesium 1.5 mg/dL (1.6-2.3); Sodium 141 mmol/L (137-145)
[2024-03-17] MEDS: BUMETANIDE 0.5 MG TABLET PO (08:24)
[2024-03-17] MEDS: METOPROLOL SUCCINATE EXT REL 25 MG TABCR PO (08:24)
[2024-03-17] MEDS: ASPIRIN 81 MG ENTERIC TABLET PO (08:24)
[2024-03-17] MEDS: PANTOPRAZOLE 40 MG TABLET PO ×2 (08:24→16:29)
[2024-03-17] MEDS: HEPARIN SODIUM 5,000 UNITS/ML VIAL 5000 UNITS SUB-Q ×2 (08:25→20:32)
[2024-03-17] MEDS: ACETAMINOPHEN 500 MG TABLET PO ×2 (08:27→14:51)
[2024-03-17] MEDS: ONDANSETRON HCL ODT 4 MG TABLET PO ×2 (09:28→14:51)
--- NOTE | 2024-03-17 09:44 | P.PNIM_ITS ---
Progress Note: A&P Assessment and Plan (1) Acute metabolic encephalopathy: Code(s): G93.41 - Metabolic encephalopathy Status: Acute Assessment and Plan: * Presented to the ED with complaints of confusion * Head CT with no acute findings, old infarcts noted * UA appears infectious * Continue IV ceftriaxone * Neurochecks q 4hrs * Mental status is improving per /pt (2) Acute UTI: Code(s): N39.0 - Urinary tract infection, site not specified Status: Acute Assessment and Plan: * UA positive for nitrates, 1+ leukocyte esterase, bacteria and elevated white blood cell count * Urine culture pending/ has hx of Escherichia coli * Continue IV 2g ceftriaxone q. 24 hrs * Adjust therapy to susceptibility * Trend urine output (3) Acute on chronic kidney failure: Code(s): N17.9 - Acute kidney failure, unspecified; N18.9 - Chronic kidney disease, unspecified Status: Acute Assessment and Plan: * Resolved * Current creatinine 1.00 * Baseline creatinine appears to be about 1-1.10 * Chronic kidney disease stage 3B * Continue daily BMP * Monitor urine output * Renally adjust medications as indicated * Avoid nephrotoxic medications * Encourage p.o. hydration (4) COPD (chronic obstructive pulmonary disease): Code(s): J44.9 - Chronic obstructive pulmonary disease, unspecified Status: Chronic Assessment and Plan: * Patient history of COPD, not in exacerbation * albuterol treatments p.r.n. for wheezing coughing or SOB * Exam reveals No wheezing * Monitor respiratory status (5) Hyperlipidemia: Code(s): E78.5 - Hyperlipidemia, unspecified Status: Chronic Assessment and Plan: * Continue home medication rosuvastatin (6) Hypertension: Code(s): I10 - Essential (primary) hypertension Status: Chronic Assessment and Plan: * Blood pressure this morning 163/65 * Continue home metoprolol, olmesartan * Monitor vital signs q.4 hours * Adjust therapy as indicated Plan Chronic conditions * Continue to hold bumex, may restart in the a.m. * Insomnia: Continue home medications Time Spent With Patient Time with patient: 25 - 35 minutes Subjective Date/time seen: 03/17/24 09:44 Interval history: Patient is a 78-year-old female with a past medical history of CKD, CHF, COPD, CAD, hyperlipidemia, CABG, hypertension, COVID with intubation and trach placement who presented to the ED with complaints of acute metabolic encephalopathy and confusion. 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 She denies any chest pain, n/v, sob, fever or chills. Pt states her acute confusions is getting much better, Ms. Bill reports that she is feeling much better since her admission. Review of Systems Review of Systems: All systems reviewed & are unremarkable except as noted in HPI and below Exam Narrative: General: well-nourished, chronically ill-appearing 78-year-old female, sitting up in bed, comfortable, NARD Neuro: awake, alert and oriented x4, speech clear, no focal neuro deficits noted HEENMT: normocephalic, atraumatic, EOMI, sclerae anicteric, moist oral mucosa Respiratory: Clear to auscultation bilaterally without crackles, rhonchi or wheezes, nonlabored breathing, productive cough no
--- NOTE | 2024-03-17 09:44 | PM.IMPN ---
Progress Note: A&P Assessment and Plan (1) Acute metabolic encephalopathy: Code(s): G93.41 - Metabolic encephalopathy Status: Acute Assessment and Plan: Presented to the ED with complaints of confusion Head CT with no acute findings, old infarcts noted UA appears infectious Continue IV ceftriaxone Neurochecks q 4hrs Mental status is improving per /pt (2) Acute UTI: Code(s): N39.0 - Urinary tract infection, site not specified Status: Acute Assessment and Plan: UA positive for nitrates, 1+ leukocyte esterase, bacteria and elevated white blood cell count Urine culture pending/ has hx of Escherichia coli Continue IV 2g ceftriaxone q. 24 hrs Adjust therapy to susceptibility Trend urine output (3) Acute on chronic kidney failure: Code(s): N17.9 - Acute kidney failure, unspecified; N18.9 - Chronic kidney disease, unspecified Status: Acute Assessment and Plan: Resolved Current creatinine 1.00 Baseline creatinine appears to be about 1-1.10 Chronic kidney disease stage 3B Continue daily BMP Monitor urine output Renally adjust medications as indicated Avoid nephrotoxic medications Encourage p.o. hydration (4) COPD (chronic obstructive pulmonary disease): Code(s): J44.9 - Chronic obstructive pulmonary disease, unspecified Status: Chronic Assessment and Plan: Patient history of COPD, not in exacerbation albuterol treatments p.r.n. for wheezing coughing or SOB Exam reveals No wheezing Monitor respiratory status (5) Hyperlipidemia: Code(s): E78.5 - Hyperlipidemia, unspecified Status: Chronic Assessment and Plan: Continue home medication rosuvastatin (6) Hypertension: Code(s): I10 - Essential (primary) hypertension Status: Chronic Assessment and Plan: Blood pressure this morning 163/65 Continue home metoprolol, olmesartan Monitor vital signs q.4 hours Adjust therapy as indicated Plan Chronic conditions Continue to hold bumex, may restart in the a.m. Insomnia: Continue home medications Time Spent With Patient Time with patient: 25 - 35 minutes Subjective Date/time seen: 03/17/24 09:44 Interval history: Patient is a 78-year-old female with a past medical history of CKD, CHF, COPD, CAD, hyperlipidemia, CABG, hypertension, COVID with intubation and trach placement who presented to the ED with complaints of acute metabolic encephalopathy and confusion. 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 She denies any chest pain, n/v, sob, fever or chills. Pt states her acute confusions is getting much better, Ms. Bill reports that she is feeling much better since her admission. Review of Systems Review of Systems: All systems reviewed & are unremarkable except as noted in HPI and below Exam Narrative: General: well-nourished, chronically ill-appearing 78-year-old female, sitting up in bed, comfortable, NARD Neuro: awake, alert and oriented x4, speech clear, no focal neuro deficits noted HEENMT: normocephalic, atraumatic, EOMI, sclerae anicteric, moist oral mucosa Respiratory: Clear to auscultation bilaterally without crackles, rhonchi or wheezes, nonlabored breathing, productive cough noted Cardio: regular rate, regular rhythm with S1-S2 Abdomen: nondistended, normoactive bowel sounds, soft, nontender to palpation Extremities: no edema, erythema, or tenderness to palpation, DP pulses 2+ bilaterally Skin: no rashes or lesions, warm and dry Psych: appropriate mood and affect, judgment and insight intact Objective Data Vital Signs Vital Signs: Vital Signs - 24 hr 03/16/24 12:11 03/16/24 12:00 03/16/24 16:28 Temperature 96.9 F L Pulse Rate 65 67 72 Respiratory Rate 18 20 Blood Pressure 153/55 H Pulse Oximetry 96 03/16/24 16:00
[2024-03-17] MEDS: cefTRIAXone 2 GM/NS 100 ML 2 GM/100 ML BAG IVPB (10:23)
[2024-03-17] MEDS: MAGNESIUM SULFATE 3GM/D5W100ML 3 GM/100 ML BAG IVPB (14:45)
--- NOTE | 2024-03-17 17:21 | PC.NURSE ---
tech reports pt BP as . Dr. Chandan Ruffin notified.
[2024-03-17] MEDS: POTASSIUM CHLORIDE 20 MEQ PACKET (FOR LIQUID) 40 MEQ PO (18:46)
[2024-03-17] MEDS: LORazepam (*CRX) 0.5 MG TABLET PO ×2 (18:46→20:32)
[2024-03-17] MEDS: OLMESARTAN MEDOXOMIL 20 MG TABLET 40 MG PO (20:32)
[2024-03-17] MEDS: CITALOPRAM HYDROBROMIDE 20 MG TABLET PO (20:32)
[2024-03-18] VITALS (7 sets, daily range): BP systolic 116–172; BP diastolic 52–64; PULSE 66–78; RESP 16–18; TEMP 36.4–36.7; O2SAT 90–97
[2024-03-18] MEDS: ACETAMINOPHEN 500 MG TABLET PO (04:45)
[2024-03-18] MEDS: PANTOPRAZOLE 40 MG TABLET PO (07:49)
[2024-03-18] MEDS: BUMETANIDE 0.5 MG TABLET PO (07:49)
[2024-03-18] MEDS: ASPIRIN 81 MG ENTERIC TABLET PO (07:49)
[2024-03-18] MEDS: METOPROLOL SUCCINATE EXT REL 25 MG TABCR PO (07:49)
[2024-03-18] MEDS: LORazepam (*CRX) 0.5 MG TABLET PO (07:49)
[2024-03-18] MEDS: HEPARIN SODIUM 5,000 UNITS/ML VIAL 5000 UNITS SUB-Q (07:51)
--- NOTE | 2024-03-18 09:05 | P.PNIM_ITS ---
Progress Note: A&P Assessment and Plan (1) Acute metabolic encephalopathy: Code(s): G93.41 - Metabolic encephalopathy Status: Acute Assessment and Plan: Presented to the ED with complaints of confusion. Head CT with no acute findings, old infarcts noted. Blood pressure in the 150-170's in the ED. Has been intermittently over 200. 160's this morning, and asymptomatic. Does have the adrenal adenoma on prior noncontrast CT. UA positive, grew Klebsiella pansensitive. On ceftriaxone, plan to discharge today with p.o. antibiotics * Continue IV ceftriaxone * Mental status is improving per /pt * Outpatient workup for adrenal adenoma, consider pheochromocytoma (2) Acute UTI: Code(s): N39.0 - Urinary tract infection, site not specified Status: Acute Assessment and Plan: UA positive for nitrates, 1+ leukocyte esterase, bacteria and elevated white blo od cell count. Final urine culture grew Klebsiella pansensitive. * Continue IV 2g ceftriaxone q. 24 hrs while inpatient * Trend urine output * Creatinine was elevated, improving (3) Acute on chronic kidney failure: Code(s): N17.9 - Acute kidney failure, unspecified; N18.9 - Chronic kidney disease, unspecified Status: Acute Assessment and Plan: Creatinine 1.5 on admission. HENRRY Resolved. Current creatinine 1.00. Baseline creatinine appears to be about 1-1.10. Chronic kidney disease stage 3B * Continue daily BMP * Monitor urine output * Renally adjust medications as indicated * Avoid nephrotoxic medications * Encourage p.o. hydration (4) COPD (chronic obstructive pulmonary disease): Code(s): J44.9 - Chronic obstructive pulmonary disease, unspecified Status: Chronic Assessment and Plan: * Patient history of COPD, not in exacerbation * albuterol treatments p.r.n. for wheezing coughing or SOB * Exam reveals No wheezing * Monitor respiratory status (5) Hyperlipidemia: Code(s): E78.5 - Hyperlipidemia, unspecified Status: Chronic Assessment and Plan: * Continue home medication rosuvastatin (6) Hypertension: Code(s): I10 - Essential (primary) hypertension Status: Chronic Assessment and Plan: Blood pressure this morning 164/59. Patient reports more elevated blood pressures in the hospital. Also anxious Home meds: metoprolol, olmesartan, bumex * Monitor vital signs q.4 hours * Adjust therapy as indicated Plan Chronic conditions * All home meds resumed, continue * Insomnia: Continue home medications * Outpatient evaluation for adrenal adenoma * Add clonidine 0.1 q12 prn For SBP over 180 Time Spent With Patient Time with patient: 15 - 25 minutes Subjective Date/time seen: 03/18/24 09:05 Interval history: Headache this morning but now resolved. Feeling ok, sitting up on the side of the bed eating breakfast. Blood pressures elevated to 160's improved from 200's. Urine culture grew Review of Systems Review of Systems: All systems reviewed & are unremarkable except as noted in HPI and below Exam Narrative: General: well-nourished, chronically ill-appearing 78-year-old female, sitting up in bed, comfortable, NARD Neuro: awake, alert and oriented x4, speech clear, no focal neuro deficits noted HEENMT: normocephalic, atraumatic, EOMI, sclerae anicteric, moist oral mucosa Respiratory
--- NOTE | 2024-03-18 09:05 | PM.IMPN ---
Progress Note: A&P Assessment and Plan (1) Acute metabolic encephalopathy: Code(s): G93.41 - Metabolic encephalopathy Status: Acute Assessment and Plan: Presented to the ED with complaints of confusion. Head CT with no acute findings, old infarcts noted. Blood pressure in the 150-170's in the ED. Has been intermittently over 200. 160's this morning, and asymptomatic. Does have the adrenal adenoma on prior noncontrast CT. UA positive, grew Klebsiella pansensitive. On ceftriaxone, plan to discharge today with p.o. antibiotics Continue IV ceftriaxone Mental status is improving per /pt Outpatient workup for adrenal adenoma, consider pheochromocytoma (2) Acute UTI: Code(s): N39.0 - Urinary tract infection, site not specified Status: Acute Assessment and Plan: UA positive for nitrates, 1+ leukocyte esterase, bacteria and elevated white blood cell count. Final urine culture grew Klebsiella pansensitive. Continue IV 2g ceftriaxone q. 24 hrs while inpatient Trend urine output Creatinine was elevated, improving (3) Acute on chronic kidney failure: Code(s): N17.9 - Acute kidney failure, unspecified; N18.9 - Chronic kidney disease, unspecified Status: Acute Assessment and Plan: Creatinine 1.5 on admission. HENRRY Resolved. Current creatinine 1.00. Baseline creatinine appears to be about 1-1.10. Chronic kidney disease stage 3B Continue daily BMP Monitor urine output Renally adjust medications as indicated Avoid nephrotoxic medications Encourage p.o. hydration (4) COPD (chronic obstructive pulmonary disease): Code(s): J44.9 - Chronic obstructive pulmonary disease, unspecified Status: Chronic Assessment and Plan: Patient history of COPD, not in exacerbation albuterol treatments p.r.n. for wheezing coughing or SOB Exam reveals No wheezing Monitor respiratory status (5) Hyperlipidemia: Code(s): E78.5 - Hyperlipidemia, unspecified Status: Chronic Assessment and Plan: Continue home medication rosuvastatin (6) Hypertension: Code(s): I10 - Essential (primary) hypertension Status: Chronic Assessment and Plan: Blood pressure this morning 164/59. Patient reports more elevated blood pressures in the hospital. Also anxious Home meds: metoprolol, olmesartan, bumex Monitor vital signs q.4 hours Adjust therapy as indicated Plan Chronic conditions All home meds resumed, continue Insomnia: Continue home medications Outpatient evaluation for adrenal adenoma Add clonidine 0.1 q12 prn For SBP over 180 Time Spent With Patient Time with patient: 15 - 25 minutes Subjective Date/time seen: 03/18/24 09:05 Interval history: Headache this morning but now resolved. Feeling ok, sitting up on the side of the bed eating breakfast. Blood pressures elevated to 160's improved from 200's. Urine culture grew Review of Systems Review of Systems: All systems reviewed & are unremarkable except as noted in HPI and below Exam Narrative: General: well-nourished, chronically ill-appearing 78-year-old female, sitting up in bed, comfortable, NARD Neuro: awake, alert and oriented x4, speech clear, no focal neuro deficits noted HEENMT: normocephalic, atraumatic, EOMI, sclerae anicteric, moist oral mucosa Respiratory: Clear to auscultation bilaterally without crackles, rhonchi or wheezes, nonlabored breathing, productive cough noted Cardio: regular rate, regular rhythm with S1-S2 Abdomen: nondistended, normoactive bowel sounds, soft, nontender to palpation Extremities: no edema, erythema, or tenderness to palpation, DP pulses 2+ bilaterally Skin: no rashes or lesions, warm and dry Psych: appropriate mood and affect, judgment and insight intact Objective Data Vital Signs Vital Signs: Vital Signs - 24 hr 03/17/24 09:51 03/17/24 11:58 03/17/24 12:
[2024-03-18] MEDS: cefTRIAXone 2 GM/NS 100 ML 2 GM/100 ML BAG IVPB (10:01)
[2024-03-18 11:55] LABS: Glucose Point of Care 289 mg/dl (65-105)
[2024-03-18] MEDS: INSULIN ASPART (*BKC) 100 UNITS/ML SUB-Q (12:11)
--- NOTE | 2024-03-18 13:03 | PM.DS ---
DS: Admitting Diagnosis Discharge Date 03/18/24 Admitting Diagnosis Acute confusion DS: Summary Hospital Course Reason for hospitalization: Acute confusion, HENRRY, UTI, Hypokalemia, Hypomagnesemia Hospital Course: Alondra Bill was admitted with complaints of confusion. Head CT with no acute findings, old infarcts noted. Blood pressure in the 150-170's in the ED. Has been intermittently over 200. She notes occasional sweating at home, associated with a headache. Daughter reports prior workup for pheochromocytoma, records not available. 160's day of discharge, and asymptomatic. Has an adrenal adenoma on CT, was also noticed on a prior noncontrast CT, but possibly larger, discussed requesting CT images from admission for comparison at [facility]. UA positive, grew Klebsiella--pansensitive. On ceftriaxone, completed 3 days of antibiotics since not complicated. Mental status returned to baseline. Baclofen held during admission, continued to hold on discharge until follow up with PCP. HENRRY resolved 1.5>1 with fluids. Potassium and magnesium were low during admission, continue potassium daily for 7 days and repeat BMP & magnesium in 1 week here or with PCP Patient and daughter report about 4 months of diarrhea, held methenamine and changed metformin IR to ER. Had a formed stool 03/17 and 2 loose stool 03/18. Stool cultures pending. C-diff was autocancelled since stool was formed. Consider repeating if persistent. CT no evidence of colitis. No abdominal pain and was feeling well at discharge, no dysuria. other medical conditions stable during admission: COPD, HLD Status at Discharge Cognitive/behavioral status at discharge: General - Awake and alert. No acute distress Eyes - PERRLA, EOM intact ENT - No thrush, No erythema Neck - No noticeable or palpable swelling Lymph Nodes - No lymphadenopathy Cardiovascular - RRR no m/r/g, no JVD Lungs: Clear to auscultation, No wheezing, use of accessory muscles, no crackles or wheezes. Skin - Skin warm and dry, no wounds or rashes Abdomen - Normal bowel sounds, abdomen soft and nontender Extremities - No edema, cyanosis or clubbing Musculoskeletal - 5/5 strength, normal range of motion, no swollen or erythematous joints. Neurological ? Alert and oriented x 3, CN 2-12 grossly intact. Psych: Normal mood and affect Time Spent with Patient Time attestation: Total time spent providing and/or coordinating discharge services: DS: Data Data Completed and Pending Labs on day of discharge: Labs from last 24 hours 03/18/24 11:52 POC Capillary Glucose 289 H Preliminary micro results at discharge 03/15/24 23:58 Blood Culture - Preliminary Blood 03/15/24 23:58 Blood Culture - Preliminary Blood Imaging My impression: Personally reviewed CT and in addition to other findings, stool in GI trac appears normal Discharge Plan Discharge Attending physician on discharge: Levi García Discharging Clinician: Jayne Bone Anticipated Discharge Date/Time: 03/18/24 11:57 Patient Disposition: Home, Self-Care Activity: may shower Diet: diabetic Discharge Instructions: Follow up with your PCP in 1-2 weeks for the UTI. You completed antibiotics while in the hospital (3 doses of ceftriaxone). You also have a soft tissue growth on your adrenal gland and should have other imaging to follow that in the future. Can discuss follow up with endocrinology with your PCP Patient Instructions: Antibiotic Form, Heart Failure (DC) Stand Alone Forms: General Discharge Information Follow-up/Referrals: PHYSICIAN NOT ON STAFF,NONSTAFF [Primary Care Provider] - Follow Up with Primary Dr (Follow up in 1-2 weeks. Call for an appointment) Discharge Medications: New clonidine HCl 0.1 mg Tablet 0.1 mg PO DAILY Qty: 30 0RF Rx Instructions: For blood pressure >180. Also notify PCP of elevated blood pressure metformin 500 mg tablet extended release 24 hr 500 mg PO BEATA
== END 2024-03-18 13:34 | disposition home or self-care (01) | DRG 689 ==
LOC: ANHED 21:57 → ANH2MED 03-16 01:27
PROVIDERS: Emergency Medicine; Nurse Practitioner; Admitting Provider Internal Medicine; Emergency Provider Physician Assistant; Visit Provider Nurse Practitioner Acute Care
DX: N39.0 Urinary tract infection, site not specified (principal); G93.41 Metabolic encephalopathy; N17.9 Acute kidney failure, unspecified; I13.0 Hypertensive heart and chronic kidney disease with heart failure and stage 1 through stage 4 chronic kidney disease, or unspecified chronic kidney disease; B96.1 Klebsiella pneumoniae [K. pneumoniae] as the cause of diseases classified elsewhere; E87.6 Hypokalemia; E83.42 Hypomagnesemia; I50.9 Heart failure, unspecified; N18.32 Chronic kidney disease, stage 3b; J44.9 Chronic obstructive pulmonary disease, unspecified; I25.10 Atherosclerotic heart disease of native coronary artery without angina pectoris; F41.8 Other specified anxiety disorders; E78.5 Hyperlipidemia, unspecified; I73.9 Peripheral vascular disease, unspecified; E86.0 Dehydration; G47.00 Insomnia, unspecified; D64.9 Anemia, unspecified; D35.01 Benign neoplasm of right adrenal gland; Z79.82 Long term (current) use of aspirin; Z87.820 Personal history of traumatic brain injury; Z95.1 Presence of aortocoronary bypass graft; Z90.49 Acquired absence of other specified parts of digestive tract; Z90.710 Acquired absence of both cervix and uterus; Z98.1 Arthrodesis status; Z98.49 Cataract extraction status, unspecified eye; Z87.891 Personal history of nicotine dependence; Z86.16 Personal history of COVID-19
CPT/HCPCS: 36415; 70450; 71045; 74176; 80053; 81001; 82948; 83036; 83735; 85025; 85610; 85730; 87040; 87045; 87086; 87186; 87427; 87449; 87493; 93005; 94640; 96365; 96375; 97161; 97530; 99285; A9270; G0378; J0696; J1644; J1815; J2185; J3475; J7040; J7120

== ENCOUNTER 2024-11-22 09:15 | Inpatient (IN) | payer MEDICARE, MEDICAID, SELFPAY ==
[2024-11-22] VITALS (47 sets, daily range): BP systolic 136–171; BP diastolic 49–85; PULSE 61–91; RESP 13–28; TEMP 36.4–37.6; O2SAT 94–100; BMI 33.5
--- NOTE | ~2024-11-22 | XR_ITS ---
Clinical Indication: Weakness PA and lateral views of the chest: Comparison: 03/15/2024 Findings: The lungs are clear, without evidence of focal consolidation or pleural effusion. Cardiome diastinal silhouette is stable, status post CABG. Chronic right rib fracture deformities are present. Impression: Clear lungs. Status post CABG. Reviewed, dictated and finalized at location . Impression: Clear lungs. Status post CABG.
--- NOTE | ~2024-11-22 | CT_ITS ---
CT brain wo con Ordering provider: Emilie Gutierrez PA-C History: 79 years Female with . weakness, fall . Comparison: March 15, 2024 Technique: CT of the head without contrast. Radiation reduction technique utilized. The dose-length p roduct was 605.33 mGy-cm. FINDINGS: BRAIN PARENCHYMA AND CSF SPACES: Mild leukoaraiosis and diffuse cortical atrophy. Mild atheromatous d isease. Lacunar infarct in the right basal ganglia and centrum semiovale.. No midline shift, mass eff ect or hemorrhage. The brain parenchyma and CSF spaces are otherwise normal. VISUALIZED PARANASAL SINUSES: Well aerated. MASTOIDS: Well aerated. BONES: The bones appear intact. SOFT TISSUES: Visualized nasopharynx is normal. Superficial soft tissues are normal. IMPRESSION: No acute intracranial findings. Reviewed, dictated and finalized at location A.
--- NOTE | 2024-11-22 09:22 | ECG_ITS ---
Test Date: 2024-11-22 09:23:49 Measurements Intervals [place] Rate: 76 P: 78 [place]: 137 QRS: 86 QRSD: 101 T: 10 QT: 378 QTc: 426 Interpretive Statements SINUS RHYTHM Compared to ECG 03/15/2024 21:06:58 Myocardial infarct finding no longer present T-wave abnormality no longer present Possible ischemia no longer present Electronically Signed On 11-22-2024 12:09:03 CDT by Rahul Tay M.D.
--- NOTE | 2024-11-22 10:06 | PC.NURSE ---
pt daughter called at this time. daughter is concerned for a UTI. 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
--- NOTE | 2024-11-22 10:13 | ED.GENADULT ---
HPI - General Adult General Chief complaint: Weakness Stated complaint: weak Time Seen by Provider: 11/22/24 09:39 Source: patient and old records reviewed Mode of arrival: EMS Limitations: no limitations History of Present Illness HPI narrative: Patient is a 79-year-old female who presents the ED via EMS with report of weakness. Patient reports she began physical therapy 2 days ago for weakness. Has felt increasingly weak since then. States she fell out of her bed last night due to the weakness. Denied any injury from the fall. Denied head injury or LOC. Denies syncope. Denies feeling dizzy, lightheaded, chest pain, shortness breath, palpitations, nausea, vomiting, focal weakness or numbness. Denies headache. Related Data Home Medications ?Medication ?Instructions ?Recorded ?Confirmed ?Last Taken ?Type albuterol sulfate 90 mcg/actuation 2 inh inhalation Q6H PRN SHORTNESS 02/25/22 03/16/24 Unknown History aerosol inhaler OF BREATH aspirin 81 mg tablet,delayed 81 mg PO DAILY 02/25/22 03/16/24 02/25/23 09:00 History release bumetanide 0.5 mg tablet 0.5 mg PO DAILY 02/25/22 03/16/24 02/25/23 09:00 History metoprolol succinate 25 mg 1 tablet PO DAILY 02/25/22 03/16/24 02/25/23 09:00 History tablet,extended release 24 hr olmesartan 40 mg tablet 1 tablet PO HS 02/25/22 03/16/24 02/25/23 21:00 History citalopram 20 mg tablet 20 mg PO HS 02/26/22 03/16/24 02/25/23 21:00 History rosuvastatin 20 mg tablet (Crestor) 5 mg PO QMWF 02/26/23 03/16/24 02/25/23 09:00 History acetaminophen 500 mg capsule 500 mg PO Q8H PRN Pain (Scale 07/07/23 03/16/24 Unknown History Score 1-3) exenatide microspheres 2 mg/0.85 2 mg subcut WEEKLY 07/07/23 03/16/24 Unknown History mL subcutaneous auto-injector ([employer]) lorazepam 0.5 mg tablet 0.5 mg PO HS 07/07/23 03/16/24 Unknown History estradiol 0.01% (0.1 mg/gram) 2 g vaginal DIRECTED 01/02/24 03/16/24 Unknown History vaginal cream Allergies Allergy/AdvReac Type Severity Reaction Status Date / Time levofloxacin Allergy Severe Swelling Verified 11/22/24 18:04 cefaclor Allergy Unknown Anaphylaxis Verified 11/22/24 18:04 ciprofloxacin Allergy Unknown Anaphylaxis Verified 11/22/24 18:04 codeine Allergy Unknown Other Verified 11/22/24 18:04 erythromycin base Allergy Unknown Hives Verified 11/22/24 18:04 Iodinated Contrast Media Allergy Unknown Hives Verified 11/22/24 18:04 iodine Allergy Unknown Itching Verified 11/22/24 18:04 latex Allergy Unknown Anaphylaxis Verified 11/22/24 18:04 sulfanilamide Allergy Unknown Anaphylaxis Verified 11/22/24 18:04 hydrocodone (From Vicodin) Allergy Unknown Verified 11/22/24 18:04 lamotrigine (From Lamictal) Allergy Unknown Verified 11/22/24 18:04 prochlorperazine Allergy Unknown Verified 11/22/24 18:04 tramadol Allergy Unknown Verified 11/22/24 18:04 nitrofurantoin (From AdvReac Intermediate Vomiting Verified 11/22/24 18:04 Macrobid) morphine AdvReac Unknown VOMITING Verified 11/22/24 18:04 Quinolones AdvReac Unknown Other Verified 11/22/24 18:04 vancomycin AdvReac Unknown side Verified 11/22/24 18:04 effect-rising creatnine amitriptyline (From Elavil) AdvReac Nausea Verified 11/22/24 18:04 doxepin AdvReac Weakness Verified 11/22/24 18:04 fentanyl AdvReac Nausea Verified 11/22/24 18:04 mirtazapine (From Remeron) AdvReac Weakness Verified 11/22/24 18:04 oxycodone AdvReac Nausea and Verified 11/22/24 18:04 Vomiting trazodone AdvReac Nausea and Verified 11/22/24 18:04 Vomiting Contrast Media Allergy Unknown SWELLS,RED, Uncoded 11/22/24 18:04 SOB protien c Allergy Unknown Uncoded 03/15/24 21:04 Review of Systems Review of Systems: All systems reviewed & are unremarkable except as noted in HPI. All systems reviewed & are unremarkable except as noted in HPI and below PMFSH Past Medical History Medical History Iron deficiency anemia Atrial fibrillation Pulmonary hypertension Ischemic cardiomyopathy COPD (chronic obstructive pulmonary disease) Subarachnoid hemorrhage Bilaterally after falling down stairs Osteoarthritis Depression with anxiety MDD (major depressive disorder) Congestive heart failure Peripheral vascular disease Hyperlipidemia Type 2 diabetes mellitus Traumatic brain injury Chronic kidney disease Hypertension Tobacco abuse Coronary artery disease Surgical History Surgical History S/P CABG (coronary artery bypass graft) H/O carpal tunnel repair History of appendectomy H/O colonoscopy with polypectomy History of cardiac cath H/O cataract extraction History of cholecystectomy H/O: hysterectomy History of four vessel coronary artery bypass graft 2015 S/P cervical spinal fusion History of tracheostomy Myringotomy tube(s) status Family History Family History Mother Heart failure Family history of chronic obstructive pulmonary disease Sibling Diabetes mellitus Acute myocardial infarction Family history of diabetes mellitus in first degree relative Family history of coronary artery disease Family history of chronic obstructive pulmonary disease Heart failure Father Family history of lung cancer COPD (chronic obstructive pulmonary disease) Son Heart failure Hypertension Social History Social History Social History: Ms. Bill lives at home with her . She is mostly independent with her activities however she does have a private duty caregiver who comes out 5 days a week to assist as needed. She no longer drives. She designates her daughter, Rylee, as her surrogate decision maker. Her daughter Rylee states that she is a full code Smoking packs per day: 2 Smoking cigarettes per day: 40.0 Years smoked: 40 Smoking pack-years: 80.00 Smoking status: Former smoker Second hand tobacco smoke exposure: Yes Alcohol intake: never Substance use: never Substance use type: does not use Do You Feel Safe in your Home?: Yes Lack of Transportation: No Lack of Food: Never True Current Housing: I Have Housing Concerned About Future Housing: No Difficulty Paying Gas/Electric Bills: No Difficulty Paying for Meds: No Currently Unemployed: No Education: Grade School Difficulty w/ Childcare or Family Care: No Living arrangements: with family Additional living arrangements comments: Lives with her Occupation/Education: retired 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 HEAD: Normocephalic, atraumatic. RESPIRATORY: Airway patent, respirations nonlabored. Clear to auscultation bilaterally, no rales, rhonchi, wheezing. CARDIOVASCULAR: Regular rate and rhythm without murmurs, rubs, or gallops. ABDOMINAL: Soft, no tenderness throughout abdomen, nondistended. Normoactive BS. MUSCULOSKELETAL: Moves all extremities. No gross deformities. No calf tenderness or peripheral edema. SKIN: Warm, dry, normal color. NEURO: A&O X3. Speech clear. Cranial nerves II-XII grossly intact. Steady gait. No ataxic movements. No focal deficits. Moves all extremities. Slight intermittent tremor of LUE. PSYCHIATRIC: Appropriate mood and affect. Normal interaction. Course Vital Signs Vital signs: Vital Signs Temperature 99.7 F H 11/22/24 09:22 Pulse Rate 77 11/22/24 09:22 Respiratory Rate 20 11/22/24 09:22 Blood Pressure 160/67 H 11/22/24 09:22 Pulse Oximetry 96 11/22/24 09:22 Oxygen Delivery Room Air 11/22/24 09:22 Temperature 98.8 F 11/22/24 11:08 Pulse Rate 66 11/22/24 17:30 Respiratory Rate 26 H 11/22/24 17:30 Blood Pressure 148/54 H 11/22/24 15:31 Pulse Oximetry 98 11/22/24 17:30 Oxygen Delivery Room Air 11/22/24 09:22 Medical Decision Making MDM Narrative Medical decision making narrative: Patient presented to ED with generalized weakness, fall, recently began physical therapy for weakness. Vital signs are stable upon arrival. Patient in no acute distress. Neurologically intact upon my evaluation. Initial EKG showed normal sinus rhythm. No concerning ST changes. Patient was noted on the senior sales manager to be going into an abnormal rhythm. She was noted to have runs of V-tach. Telemetry reviewed by myself. Patient did have approximately 60 beat run of VTACH. She does have history of a tremor of LUE, but telemetry did show a several other shorter episodes of V-tach that appeared true. Amiodarone bolus and drip started. CBC with normal cell count of 13.0. Stable H& H. CMP was stable potassium and electrolytes. Creatinine today 1.38. Fairly consistent with previous records. Given fluids. Magnesium low at 1.5. IV replacement given. Lactic acid within normal range at 1.5. UA with 1+ leuk esterase, 6-10 WBC. No urine bacteria seen. Patient denies urinary complaints. Sent for culture. Viral swabs are negative. Chest x-ray is clear. CT brain negative. Patient will be admitted for further evaluation of new paroxysmal V-tach, weakness. Amiodarone ongoing. Discussed case with Jennifer Mancera NP Cardiology, will consult. Dr. Tay, cardiology, in the ED to see patient, advised vtach findings consistent with artifact, tremor. Advised close follow-up as outpatient. Given ongoing weakness, difficulty ambulating/caring for self at home, will discuss with care coordination for possible placement/rehab. Daughter now at bedside, reporting she is very concerned about mother's behavior. States mother is not acting appropriately. States she was acutely confused for EMS today after her fall and thought it was 1970. Daughter very concerned about UTI, TIA, acute change in mental status. Patient is A&OX4 for me. Discussed case with Sharifa Fischer NP hospitalist, accepted patient for admission. Will start macrobid for UTI. Patient with numerous allergies. Previous urine cx's have been sensitive to macrobid. Patient/family in agreement with plan and admission. Medical Records Medical records reviewed: Yes I reviewed the external patient's medical records. Vital Signs Vital Signs: Vital Signs Temperature 99.7 F H 11/22/24 09:22 Pulse Rate 77 11/22/24 09:22 Respiratory Rate 20 11/22/24 09:22 Blood Pressure 160/67 H 11/22/24 09:22 Pulse Oximetry 96 11/22/24 09:22 Oxygen Delivery Room Air 11/22/24 09:22 Temperature 98.8 F 11/22/24 11:08 Pulse Rate 66 11/22/24 17:30 Respiratory Rate 26 H 11/22/24 17:30 Blood Pressure 148/54 H 11/22/24 15:31 Pulse Oximetry 98 11/22/24 17:30 Oxygen Delivery Room Air 11/22/24 09:22 Lab Data Lab results reviewed: Yes I reviewed the patient's lab results. 11/22/24 10:50 11/22/24 10:50 Labs: Lab Results 11/22/24 11/22/24 11/22/24 Range/Units 10:35 10:50 10:52 WBC 13.0 H (4.5-10.0) K/mm3 RBC 3.89 L (4.2-5.4) M/mm3 Hgb 12.5 (12.0-15.0) g/dL Hct 38.1 (37.0-47.0) % MCV 97.9 (80-100) fl MCH 32.1 (26-34) pg MCHC 32.8 (32-36) g/dl RDW 12.3 (11.5-14.5) % Plt Count 181 (150-375) k/mm3 MPV 9.8 (7.4-10.4) fl Immature Gran % (Auto) 0.3 (0-0.5) % Neut % (Auto) 78.8 H (45.5-73.1) % Lymph % (Auto) 12.8 L (18.3-44.2) % [place] % (Auto) 6.4 (2.6-8.5) % Eos % (Auto) 1.2 (0-4.4) % Baso % (Auto) 0.5 (0.2-1.2) % Lymph # (Auto) 1.67 (0.9-3.2) K/mm3 [place] # (Auto) 0.8 H (0.1-0.6) K/mm3 Eos # (Auto) 0.2 (0-0.3) K/mm3 Baso # (Auto) 0.1 (0.0-0.1) K/mm3 Abs Immat Gran (auto) 0.04 H (0.00-0.031) K/mm3 Absolute Neuts (auto) 10.3 H (1.3-6.7) K/mm3 Absolute Nucleated RBC 0.000 (0.0-0.012) K/mm3 Nucleated RBC % 0.0 (0.0-0.2) % PT 13.1 (11.1-14.7) Seconds INR 1.0 APTT 26.9 (22.3-36.8) Seconds Sodium 140 (137-145) mmol/L Potassium 4.0 (3.4-5.0) mmol/L Chloride 105 (98-107) mmol/L Carbon Dioxide 28 (22-30) mmol/L Anion Gap 7 (4-12) mmol/L BUN 16 (7-17) mg/dL Creatinine 1.38 H (0.7-1.0) mg/dL Estim Creat Clear Calc 30 ml/min Estimated GFR 37 L (59 - ) Glucose 145 H (65-110) mg/dL Lactic Acid 1.5 (0.7-2.0) mmol/L Calcium 9.5 (8.4-10.2) mg/dL Magnesium 1.5 L (1.6-2.3) mg/dL Total Bilirubin 0.6 (0.2-1.3) mg/dL AST 17 (14-36) U/L ALT 13 (6-35) U/L Alkaline Phosphatase 55 (38-126) U/L Troponin I < 0.012 (0.000-0.034) ng/mL NT-Pro-B Natriuret Pep 469 H (19.9-100) pg/mL Total Protein 7.0 (6.3-8.2) g/dL Albumin 3.9 (3.5-5.1) g/dL Urine Color (Yellow) Urine Appearance (Clear) Urine pH (5.0-9.0) Ur Specific [place] (1.001-1.035) Urine Protein (Negative) mg/dL Urine Glucose (UA) (Negative) mg/dL Urine Ketones (Negative) mg/dL Ur Blood (Man) (Negative) Urine Nitrate (Negative) Urine Bilirubin (Negative) Urine Urobilinogen (<2.0) mg/dL Leukocyte Esterase Rfl (Negative) YOUSIF/UL Urine RBC (0-2) /hpf Urine WBC (0-3) /hpf Ur Squamous Epith Cells (Few) /hpf Urine Bacteria /hpf Urine Casts Influenza A (RT-PCR) Negative (Negative) Influenza B (RT-PCR) Negative (Negative) RSV (RT-PCR) Negative (Negative) SARS-CoV-2 RNA (RT-PCR) Negative (Negative) 11/22/24 Range/Units 11:13 WBC (4.5-10.0) K/mm3 RBC (4.2-5.4) M/mm3 Hgb (12.0-15.0) g/dL Hct (37.0-47.0) % MCV (80-100) fl MCH (26-34) pg MCHC (32-36) g/dl RDW (11.5-14.5) % Plt Count (150-375) k/mm3 MPV (7.4-10.4) fl Immature Gran % (Auto) (0-0.5) % Neut % (Auto) (45.5-73.1) % Lymph % (Auto) (18.3-44.2) % [place] % (Auto) (2.6-8.5) % Eos % (Auto) (0-4.4) % Baso % (Auto) (0.2-1.2) % Lymph # (Auto) (0.9-3.2) K/mm3 [place] # (Auto) (0.1-0.6) K/mm3 Eos # (Auto) (0-0.3) K/mm3 Baso # (Auto) (0.0-0.1) K/mm3 Abs Immat Gran (auto) (0.00-0.031) K/mm3 Absolute Neuts (auto) (1.3-6.7) K/mm3 Absolute Nucleated RBC (0.0-0.012) K/mm3 Nucleated RBC % (0.0-0.2) % PT (11.1-14.7) Seconds INR APTT (22.3-36.8) Seconds Sodium (137-145) mmol/L Potassium (3.4-5.0) mmol/L Chloride (98-107) mmol/L Carbon Dioxide (22-30) mmol/L Anion Gap (4-12) mmol/L BUN (7-17) mg/dL Creatinine (0.7-1.0) mg/dL Estim Creat Clear Calc ml/min Estimated GFR (59 - ) Glucose (65-110) mg/dL Lactic Acid (0.7-2.0) mmol/L Calcium (8.4-10.2) mg/dL Magnesium (1.6-2.3) mg/dL Total Bilirubin (0.2-1.3) mg/dL AST (14-36) U/L ALT (6-35) U/L Alkaline Phosphatase (38-126) U/L Troponin I (0.000-0.034) ng/mL NT-Pro-B Natriuret Pep (19.9-100) pg/mL Total Protein (6.3-8.2) g/dL Albumin (3.5-5.1) g/dL Urine Color Yellow (Yellow) Urine Appearance Clear (Clear) Urine pH 6.0 (5.0-9.0) Ur Specific [place] 1.010 (1.001-1.035) Urine Protein Trace (Negative) mg/dL Urine Glucose (UA) Negative (Negative) mg/dL Urine Ketones Negative (Negative) mg/dL Ur Blood (Man) Negative (Negative) Urine Nitrate Negative (Negative) Urine Bilirubin Negative (Negative) Urine Urobilinogen 0.2 (<2.0) mg/dL Leukocyte Esterase Rfl 1+ H (Negative) YOUSIF/UL Urine RBC 0-2 (0-2) /hpf Urine WBC 6-10 H (0-3) /hpf Ur Squamous Epith Cells None seen (Few) /hpf Urine Bacteria None seen /hpf Urine Casts 0-2 Influenza A (RT-PCR) (Negative) Influenza B (RT-PCR) (Negative) RSV (RT-PCR) (Negative) SARS-CoV-2 RNA (RT-PCR) (Negative) Imaging Data Attestation: I personally reviewed and interpreted this imaging study as follows: Radiologist's impression: ITS Impressions Chest X-Ray 11/22/24 10:19 Impression: Clear lungs. Status post CABG. Head CT 11/22/24 11:44 IMPRESSION: No acute intracranial findings. ECG Data EKG #1: Attestation: I personally reviewed and interpreted this ECG as follows: ECG completion date: 11/22/24 ECG completion time: 09:23 EKG Interpretation: normal rate (76), sinus rhythm and no ST changes Discharge Plan Discharge Clinical Impression: Generalized weakness, Hypomagnesemia, Abnormal finding on urinalysis, Acute alteration in mental status Patient Disposition: Still a Patient Condition: Stable
[2024-11-22] MEDS: AMIODARONE 150 MG/D5W 100 ML 150 MG/100 ML BAG 600 MG IV CONT (10:53)
--- OUTSIDE RECORDS SUMMARY | 2024-11-22 10:55 | XMS_ITS ---
Author Organization [facility] Address [address] [place], [place] [id number] Care Team Providers Care Rehabilitation Team Lead Name Role Phone RAMOS CARABALLO Unavailable [phone] Hermes Au Unavailable Unavailable Allergies Allergen (clinical drug ingredient) Drug/Non Drug Allergy documented on EMR Reaction Allergy Type Onset Date Status cefaclor Ceclor (uncoded) Unknown Allergy 08/01/2019 ac tive ciprofloxacin Cipro Unknown Drug Allergy 08/01/2019 ac tive codeine Codeine Unknown Drug Allergy 08/01/2019 active REASON FOR VISIT *General care Vital Signs Height 63.00 in 11/15/2024 Weight 161 lbs 11/15/2024 BMI 28.52 kg/m2 11/15/2024 Height-cm 160.02 cm 11/15/2024 Weight-kg 73.03 kg 11/15/2024 Encounters Encounter Location Date Provider Diagnosis [facility] [address] [place], [place] [id number] 11/15/2024 RAMOS CARABALLO Tinea unguium B35.1 ; Pain in right toe(s) M79.674 ; Pain in left toe(s) M79.675 ; Atherosclerosis of [place] arteries of extremities with intermittent claudication, bilateral legs I70.213 and Type 2 diabetes mellitus with other circulatory complications E11.59 Assessments Encounter Date Diagnosis (ICD Code) Assessment Notes Treatment Notes Treatment Clinical Notes Section Notes 11/15/2024 Tinea unguium (ICD-10 - B35.1) NAIL DEBRIDEMENT: Nails 1-5 Bilateral were debrided extensively with nail nippers and emery board, reducing length and girth to pink healthy tissue with any subungual debris and necrotic tissue removed 11/15/2024 Pain in right toe(s) (ICD-10 - M79.674) 11/15/2024 Pain in left toe(s) (ICD-10 - M79.675) 11/15/2024 Atherosclerosis of [place] arteries of extremities with intermittent claudication, bilateral legs (ICD-10 - I70.213) 11/15/2024 Type 2 diabetes mellitus with other circulatory complications (ICD-10 - E11.59) Diabetic Foot Care: The patient was educated on diabetes and the lower extremity. The patient was instructed to check his feet daily to report any problems or signs of infection immediately. The patient was provided written information on Diabetic Foot Care as well as the Amputation Prevention Guide. Plan Of Treatment Treatment Notes Assessment Notes Tinea unguium NAIL DEBRIDEMENT: Na ils 1-5 Bilateral were debrided extensively with nail nippers and emery board, reducing length and girth to pink healthy tissue with any subungual debris and necrotic tissue removed Type 2 diabetes mellitus wit h other circulatory complications Diabetic Foot Care: The patient was educated on diabetes and the lower extremity. The patient was instructed to check his feet daily to report any problems or signs of infection immediately. The patient was provided written information on Diabetic Foot Care as well as the Amputation Prevention Guide. Next Appt Details Follow Up: 10 - 12 weeks, Re ason: At-Risk Foot care, sooner if problems develop. Provider Name:RAMOS GOSS, 01/17/2025 12:50:00 PM, [address], [address], [phone], Progress Notes * YAHAIRA DELEON MDOB:1945 (79 yo F)Acc No.[id number]:11/15/2024 Patient: YAHAIRA FELIPE Provider: Rose Marie Caraballo DPM :1945 A ge:79 Y S ex:Female Date:11/15/2024 Address:[address] [place] [address] Subjective: * Chief Complaints: * 1 . *General care. * HPI: H PI: General care P atient presents to the office for diabetic foot care. Patient states that their nails are thickened, elongated and painful. Patient states that it is aggravated by shoe gear. Onset is gradual., Patient denies taking blood thinners., Date last seen by Dr. Au was October 2024., Initials IG. * Medical History: N o Reported Medical History.Medical History Verified. * Surgical History: D enies Past Surgical History. * Hospitalization/Major Diagno stic Procedure: D enies Past Hospitalization. * Family History: N on-Contributory. * Social History: M igrated Social History: M igrated Social History: Smoking Status : Former smoker , History of tobacco use :. * Medications: N one * Allergies: C eclor: Allergy - Onset Date 08/01/2019, Cipro: Allergy - Onset Date 08/01/2019, Codeine: Allergy - Onset Date 08/01/2019. Objective: * Vitals: W t: 161 lbs, Wt-k.03 kg, Ht: 63.00 in, Ht-cm: 160.02 cm, BMI: 28.52 Index, Body Surface Area: 1.8. * Examination: P hysical Examination: General appearance: A lert, pleasant, well-nourished and in no acute distress. D ermatologic: Skin findings: S kin is thin, atrophic and lacking pedal hair. Nail pathology: N ails 1, 2, 3, 4, and 5 bilateral are elongated, thick, discolored, and dystrophic with subungual debris. They are painful to palpation. ? V ascular: Dorsalis pedis pulse: 1 /4 b ilateral. Posterior tibial pulse: 0 /4 bilateral. Capillary refill: g reater than 3 seconds. Edema: N o edema bilateral. N eurologic: Gross sensation G rossly intact to light touch. There is negative Tinel's sign. M usculoskeletal: Muscle Strength M uscle strength is 5/5 in regards to dorsiflexion, plantarflexion, inversion, and eversion in bilateral lower extremities. ? Assessment: * Assessment: 1. T inea unguium - B35.1 (Primary) 2 . P ain in right toe(s) - M79.674? 3. P ain in left toe(s) - M79.675 4 . A therosclerosis of [place] arteries of extremities with intermittent claudication, bilateral legs - I70.213 5 . T ype 2 diabetes mellitus with other circulatory complications - E11.59 Plan: * Treatment: 2. T ype 2 diabetes mellitus with other circulatory complications Notes: Diabetic Foot Care: The patient was educated on diabetes and the lower extremity. The patient was instructed to check his feet daily to report any problems or signs of infection immediately. The patient was provided written information on Diabetic Foot Care as well as the Amputation Prevention Guide. * Immunizations: Immunization record has been reviewed and updated. * Follow Up: 1 0 - 12 weeks (Reason: At-Risk Foot care, sooner if problems develop.) * Billing Information: * Visit Code: * Procedure Codes: * Electronic signature of RAMOS CARABALLO DPM on 11/22/2024 at 10:55 AM CDT Sign off status: Pending * Provider: Rose Marie Caraballo DPM Date: 0 11/15/2024 Generated for Alejandra feliciano/Mery/Gabino on: 0 11/22/2024 10:55 AM CDT History and Physical Notes * HPI (History of Present Illness) Category Sub-Category Detail Notes Category Not es HPI General care Patient presents to the office for diabetic foot care. Patient states that their nails are thickened, elongated and painful. Patient states that it is aggravated by shoe gear. Onset is gradual., Patient denies taking blood thinners., Date last seen by Dr. Au was October 2024., Initials IG Examination Category Sub-Category Detail Notes Category Not es Dermatologic Skin findings: Skin is thin, at rophic and lacking pedal hair Nail pathology: Nails 1, 2, 3, 4, an d 5 bilateral are elongated, thick, discolored, and dystrophic with subungual debris. They are painful to palpation Neurologic Gross sensation Grossly intact t o light touch. There is negative Tinel's sign Vascular Dorsalis pedis pulse: 1/4 bilateral Edema: No edema bilateral Capillary refill: greater than 3 secon ds Posterior tibial pulse: 0/4 bilateral Physical Examination General appearance: Alert, pleasant, well-nourished and in no acute distress Musculoskeletal Muscle Strength Muscle strength is 5/5 in regards to dorsiflexion, plantarflexion, inversion, and eversion in bilateral lower extremities
--- OUTSIDE RECORDS SUMMARY | 2024-11-22 10:55 | XMS_ITS | Continuity of Care Document ---
Author Name Auto Generated, Auto Generated Organization [facility] Support Name Relationship Address Phone Rylee Beasley Emergency Contact 1 Unknown [phone] Alondra Bill Self [address] [place] [address] Alondra Bill Financial Responsible [employer] Party [address] [place] [address] Salvatore Quach Emergency Contact 2 Unknown [phone] Summary Purpose Consult/Referral Allergies, Adverse Reactions, Alerts No Known Allergies Medications No Known Medications Conditions/Problems Problem/Diagnosis Awareness of Diagnosis Code (ICD-10) Onset Date (Start Date) Resolution Date (End Date) Status Source Comments ENCOUNTER FOR SURGICAL AFTERCARE FOLLOWING SURGERY ON THE CIRCULATORY SYSTEM Z48.812 10/16/19 16 Active MD Juanjo Bradley PRESENCE OF CORONARY ANGIOPLASTY IMPLANT AND GRAFT Z95.5 10/16/19 16 Active MD Juanjo Bradley HEART FAILURE, UNSPECIFIED I50.9 10/16/19 16 Active MD Juanjo Bradley ATHEROSCLEROTIC HEART DISEASE OF [place] CORONARY ARTERY WITHOUT ANGINA PECTORIS I25.10 10/16/19 16 Active MD Juanjo Bradley UNSPECIFIED ATRIAL FIBRILLATION I48.91 10/16/19 16 Active MD Juanjo Bradley ESSENTIAL (PRIMARY) HYPERTENSION I10 10/16/19 16 Active MD Juanjo Bradley PLEURAL EFFUSION, NOT ELSEWHERE CLASSIFIED J90 10/16/19 16 Active MD Juanjo Bradley CHRONIC OBSTRUCTIVE PULMONARY DISEASE, UNSPECIFIED J44.9 10/16/19 16 Active MD Juanjo Bradley OTHER SPECIFIED DIABETES MELLITUS WITH DIABETIC NEUROPATHY, UNSPECIFIED E13.40 10/16/19 16 Active MD Juanjo Bradley CHRONIC KIDNEY DISEASE, UNSPECIFIED N18.9 10/16/19 16 Active MD Juanjo Bradley ACUTE KIDNEY FAILURE, UNSPECIFIED N17.9 10/16/19 16 Active MD Juanjo Bradley UNSPECIFIED ABNORMALITIES OF GAIT AND MOBILITY R26.9 10/16/19 16 Active MD Juanjo Bradley MUSCLE WEAKNESS (GENERALIZED) M62.81 10/16/19 16 Active MD Juanjo Bradley HYPERLIPIDEMIA, UNSPECIFIED E78.5 10/16/19 16 Active MD Juanjo Bradley GASTRO-ESOPHAGEAL REFLUX DISEASE WITHOUT ESOPHAGITIS K21.9 10/16/19 16 Active MD Juanjo Bradley MAJOR DEPRESSIVE DISORDER, SINGLE EPISODE, UNSPECIFIED F32.9 10/16/19 16 Active MD Juanjo Bradley ANXIETY DISORDER, UNSPECIFIED F41.9 10/16/19 16 Active MD Juanjo Bradley ACQUIRED ABSENCE OF BOTH CERVIX AND UTERUS Z90.710 10/16/19 16 Active MD Juanjo Bradley ACQUIRED ABSENCE OF OTHER SPECIFIED PARTS OF DIGESTIVE TRACT Z90.49 10/16/19 16 Active MD Juanjo Bradley PERSONAL HISTORY OF (HEALED) TRAUMATIC FRACTURE Z87.81 10/16/19 16 Active MD Juanjo Bradley OLD MYOCARDIAL INFARCTION I25.2 10/16/19 16 Active MD Juanjo Bradley Procedures No Known Procedures
--- OUTSIDE RECORDS SUMMARY | 2024-11-22 10:55 | XMS_ITS | Clinical Summary ---
Author Organization [facility] [address] Address [address] [place] [address] Care Team Providers Care Shirt Maker Name Role Phone Ariel Ramos MD Unavailable [phone] Giovana Begum MD Unavailable [phone] Hermes Au MD Primary Care Provider Allergies Active Allergy Reactions Criticality Noted Date Comments Amitriptyline Hallucinations Medium 03/24/2016 Cefaclor Hives,Unknown Medium 07/25/2012 Tolerated 7 days of ceftriaxone 07/2020 Ciprofloxacin Hives,Itching,Vomiti n g Low 09/26/2015 Reaction: HIVES, , Codeine Nausea & Vomiting,Anaphylaxis High 08/05/2017 EES Codeine - nausea and vomiting Pt states foaming at the mouth and swelling Codeine Sulfate Swelling Medium 05/14/2013 Erythromycin Anaphylaxis High 08/05/2017 Pt states foaming at the mouth and swelling Fentanyl Hypotension High 05/18/2013 Iodinated Contrast Media Anaphylaxis High 05/15/2013 Iodine Swelling,Anaphylaxis High 07/25/2012 Pt states foaming at the mouth and swelling Sitagliptin Other (See comments) Low 08/05/2022 Leg swelliing Lamotrigine Hallucinations Medium 06/08/2013 Latex Anaphylaxis High 08/05/2017 Pt states foaming at the mouth and swelling Levofloxacin Other (See comments) Low 12/28/2017 tendonitis Morphine Shortness of breath,Other (See comments) Low Reaction: Other Reaction: DIFF BREATHING, Morphine (Bulk) Hypotension High 05/18/2013 Oxycodone Hypotension High 05/18/2013 Prochlorperazine Hives Medium Reaction: HIVES Protein C Concentrate, Human Unknown 07/25/2012 Quinolones Anaphylaxis,Unknown, N ausea And Vomiting,Swelling High 08/05/2017 Per daughter, pt becomes swollen confused, and bp changes Pt states foaming at the mouth and swelling Sulfa (Sulfonamide Antibiotics) Unknown,Swelling,Naus ea & Vomiting,Anaphylaxis High 07/25/2012 Pt states foaming at the mouth and swelling Sulfasalazine Nausea And Vomiting 07/25/2012 Tramadol Vomiting Low 05/15/2013 Trazodone Hallucinations Medium 07/29/2020 Vancomycin Other (See comments) Low 04/07/2016 Reaction: henrry Acute kindney injury, pt daughter said that hospital did not check trough and she had toxicity Hydrocodone-Acetaminoph en Nausea & Vomiting Low 05/18/2013 Medications aspirin 81 mg enteric coated tabletIndicatio ns:prevention of thrombosis Take 1 tablet (81 mg total) by mouth daily Active melatonin 5 mg capsule Take by mouth as needed Active loperamide (IMODIUM) 2 mg capsuleIndicati ons:diarrhea as needed 08/20/20 Active diphenoxylate-a tropine (LOMOTIL) 2.5-0.025 mg per tabletIndicatio ns:diarrhea Take 1 tablet by mouth 4 (four) times a day as needed for diarrhea 30 tablet 10/05/19 23 Active Additional Information Patient not taking.Reported on 10/01/2024 blood-glucose meter misc One touch verio meter diag code E 11.9 1 each 01/05/20 23 Active lancets 33 gauge misc Check bg 2 times per day Diag code E 11.9 200 each 3 01/05/20 23 Active lidocaine viscous (lidocaine) 2 % solution Apply 10 cc's topically once per day. 100 mL 3 02/18/20 23 Active clotrimazole-be tamethasone (LOTRISONE) cream Apply topically 2 (two) times a day 30 g 06/28/20 23 Active Additional Information Patient not taking.Reported on 10/01/2024 estradioL (ESTRACE) 0.01 % (0.1 mg/gram) vaginal creamIndication s:Atrophic Vaginitis associated with Menopause Apply nightly for 3 weeks, then 3 times per week. 127.5 g 3 07/25/20 23 Active OneTouch Verio test strips strip Use to test blood sugar 2 times per day. Diag code E 11.9 200 strip 3 02/21/20 24 Active Additional Information Patient not taking.Reported on 10/01/2024 citalopram (CeleXA) 20 mg tabletIndicatio ns:Generalized Anxiety Disorder Take 1 tablet (20 mg total) by mouth daily 90 tablet 2 03/16/20 24 Active metoprolol XL (TOPROL-XL) 25 mg extended release tabletIndicatio ns:hypertension Take 1 tablet (25 mg total) by mouth daily 90 tablet 2 03/16/20 24 Active cloNIDine (CATAPRES) 0.1 mg tabletIndicatio ns:hypertension TAKE 1 TABLET BY MOUTH ONCE DAILY FOR BLOOD PRESSURE OVER 180. ALSO NOTIFY PCP OF ELEVATED BLOOD PRESSURE 03/18/20 24 Active magnesium oxide (MAG-OX) 400 mg (241.3 mg elemental magnesium) tabletIndicatio ns:hypomagnesem ia Take 1 tablet (400 mg total) by mouth daily 03/25/20 24 Active miconazole 100 mg vaginal suppositoryIndi cations:Vulvova ginal Candidiasis Insert 1 suppository (100 mg total) into the vagina nightly 7 suppository 03/27/20 24 Active bumetanide (BUMEX) 0.5 mg tabletIndicatio ns:Peripheral Edema due to Chronic Heart Failure,Pulmona ry Edema due to Chronic Heart Failure Take 1 tablet (0.5 mg total) by mouth daily as needed (weight gain, shortness of breath, swelling) 05/14/20 24 Active fluconazole (DIFLUCAN) 150 mg tablet Take one tab now. Repeat in 7 days if symptoms persist. 2 tablet 05/18/20 24 Active Pain Reliever, acetaminophen, 500 mg tabletIndicatio ns:Pain TAKE 2 TABLETS BY MOUTH THREE TIMES DAILY NEEDED FOR PAIN 180 tablet 05/21/20 24 Active rosuvastatin (CRESTOR) 10 mg tabletIndicatio ns:hyperlipidem ia Take 1 tablet (10 mg total) by mouth 3 (three) times a week Please take one tablet by mouth three times a week on Tuesday and Tuesday. 36 tablet 3 06/08/20 24 Active baclofen (LIORESAL) 10 mg tablet Take 1 tablet (10 mg total) by mouth 3 (three) times a day 270 tablet 1 07/12/20 24 025 Active metFORMIN XR (GLUCOPHAGE XR) 500 mg 24 hr tabletIndicatio ns:type 2 diabetes mellitus Take 1 tablet (500 mg total) by mouth daily with breakfast 90 tablet 3 07/18/20 24 025 Active omeprazole (PriLOSEC) 40 mg capsuleIndicati ons:Stress Ulcer Prophylaxis Take 1 capsule by mouth twice daily 180 capsule 3 07/19/20 24 Active vitamin C 1,000 mg tablet Take 1 tablet by mouth once daily 90 tablet 08/14/20 24 Active olmesartan (BENICAR) 40 mg tablet Take 1 tablet by mouth once daily 90 tablet 1 08/14/20 24 Active methenamine (HIPREX) 1 gram tabletIndicatio ns:Recurrent UTI Take 1 tablet by mouth twice daily 180 tablet 08/14/20 24 Active Ventolin HFA 90 mcg/actuation inhaler INHALE 2 PUFFS BY MOUTH EVERY 6 HOURS NEEDED FOR WHEEZING 18 g 1 09/20/19 25 Active fluticasone propionate (FLONASE) 50 mcg/actuation nasal sprayIndication s:Allergic Rhinitis Use 2 spray(s) in each nostril once daily 16 g 1 09/20/19 25 Active cyanocobalamin (Vitamin B-12) 100 mcg tabletIndicatio ns:Prevention of Vitamin B12 Deficiency Take 1 tablet (100 mcg total) by mouth once a week 90 tablet 1 09/20/19 25 Active ALPRAZolam (XANAX) 0.5 mg tablet 1.5 tabs (0.75 mg nightly PRN). 45 tablet 10/01/19 25 Active Bydureon BCise 2 mg/0.85 mL auto-injectorIn dications:type 2 diabetes mellitus INJECT 2 MG SUBCUTANEOUSLY ONCE EVERY 7 DAYS 4 mL 3 10/15/19 25 Active Active Problems Problem Noted Date Diagnosed Date Numbness and tingling 10/01/2024 Assessment & Plan (10/01/2024 4:14 PM BOARD LAYER): Possible side effect from intraocular injections given time course. I recommended that she contact her general worker regarding this. Diarrhea 03/22/2024 Assessment & Plan (03/23/2024 3:04 PM CDT): Resolved, possibly due to methenamine that was stopped per her urologist last week Reports history of diarrhea over the past 5 weeks, mainly happening after meals. Positive c diff result from 03/20, obtained prior to admission by PCP. Unlikely she has true C diff infection given she has no diarrhea currently. Discussed case with ID, likely false-positive representing colonization given negative toxin positive PCR Vulvovaginitis 03/22/2024 Assessment & Plan (03/23/2024 3:05 PM CDT): Patient states she took 1 dose of fluconazole day prior to arrival without relief of her vaginal symptoms Trial of miconazole vaginal suppositories (03/22-03/24) Flank pain 03/21/2024 Assessment & Plan (03/23/2024 3:05 PM CDT): resolved No signs of infection on imaging or UA Per OSH records, she appeared appropriately treated for pansensitive Klebsiella with 3 days of ceftriaxone S/p CTX here (03/22-03/23) No antibiotics on discharge since no signs of UTI Nephrolithiasis 06/28/2023 Assessment & Plan (11/01/2023 8:47 PM BOARD LAYER): Seeing urology. Doing well with methenamine. Assessment & Plan (06/28/2023 4:15 PM CDT): Likely nidus of recurrent UTI's. Has appt with urology. Urinary tract infection due to Proteus COVID-19 03/30/2023 Cervical radiculopathy 02/17/2023 Assessment & Plan (02/17/2023 4:00 PM CDT): Did not tolerate gabapentinoids or Cymbalta in the past. Trial viscous lidocaine. Could also consider topical Voltaren gel. Seborrheic keratoses 11/04/2022 Assessment & Plan (10/01/2024 4:15 PM BOARD LAYER): Offered reassurance. Long COVID 08/05/2022 Assessment & Plan (08/05/2022 4:14 PM BOARD LAYER): She has been referred to the [facility]. Muscle cramping 04/01/2022 Assessment & Plan (04/01/2022 2:50 PM CDT): Increase Flexeril to 10 mg nightly. Leg swelling 11/26/2021 Assessment & Plan (11/26/2021 3:14 PM CDT): R/o DVT. Nocturnal hypoxemia 03/17/2021 Insomnia 03/17/2021 Assessment & Plan (10/01/2024 4:14 PM BOARD LAYER): Can increase Xanax to 0.75 mg nightly. Assessment & Plan (11/01/2023 8:48 PM BOARD LAYER): Encouraged good sleep hygiene and opening blinds during the day. Increase lorazepam to 1 mg nightly. Assessment & Plan (06/28/2023 4:15 PM CDT): Increase lorazepam to 0.5 mg nightly. Pyelonephritis 03/05/2021 Assessment & Plan (03/06/2021 10:53 AM CDT): UA consistent with likely UTI, however she did have epithelial cells on sample which could suggest contaminated specimen. Patient also noted CVA tenderness on admission exam. Note that prior urine cultures reveal she most recently grew enterococcus (vanc sensitive), and no prior urine samples recently with any organisms. She is improving on CTX since admit so right now no indication to change coverage to include enterococcus. - Blood cult NGTD - Urine culture from 03/04 pending - Continue empirici ceftriaxone 1g 24 for now pending urine culture results - anticipate ability to transition to oral antibiotic later today Assessment & Plan (03/05/2021 2:34 PM CDT): UA consistent with likely UTI, however she did have epithelial cells on sample. Patient also CVA tenderness. Note that prior urine cultures reveal she most recently grew enterococcus (vanc sensitive) on last urinalysis, and no prior urine samples recently with any organisms. She is improving on CTX since admit so right now no indication to change coverage to include enterococcus. - Blood cult NGTD at one day - Urine culture pending - Continue ceftriaxone 1g 24 for now Assessment & Plan (03/05/2021 4:07 AM CDT): UA consistent with UTI. Patient also CVA tenderness. Continue ceftriaxone 1g 24 for now Follow up culture data Sepsis 03/05/2021 Assessment & Plan (03/06/2021 10:54 AM CDT): SEPSIS (fever, elevated respiratory rate) - RESOLVED. Likely 2/2 UTI/pyelo. See further details in pyelo plan. Assessment & Plan (03/05/2021 2:34 PM CDT): SEPSIS (fever, elevated respiratory rate) - RESOLVED. Likely 2/2 UTI/pyelo as above. LFTs ok. Blood cult neg. Covid neg, and she recovered from this in Sep and has since been vaccinated. - antibiotics as above Assessment & Plan (03/05/2021 4:06 AM CDT): Presents with fever to 39.4, RR 28, and symptoms concerning for UTI/pyelonephritis. CXR without acute pathology. UA >50 WBCs, +nitrites and +bacteria. Pt also with dysuria and CVA tenderness Continue on ceftriaxone for now pending culture data. If clinical status changes or still having persistent fevers would consider broadening until culture data returns Monitor volume status closely Acute hypoxemic respiratory failure 03/05/2021 Assessment & Plan (03/06/2021 10:55 AM CDT): New O2 requirement to 3L on admission. Sats now near 100% on 2L. Possible acute on chronic diastolic CHF component - she had mildly elevated BNP as compared to some prior values however she doesn't appear edematous on exam and her CXR did now show pulmonary edema. I think she is euvolemic at this time based on exam. Suspect her O2 requirement related to sepsis. Now weaned to room air sat is 90%. - resumed home Bumex Assessment & Plan (03/05/2021 2:36 PM CDT): New O2 requirement to 3L on admission. Sats now near 100% on 2L. Possible acute on chronic diastolic CHF component - she had mildly elevated BNP as compared to some prior values however she doesn't appear edematous on exam and her CXR did now show pulmonary edema. I think she is euvolemic at this time based on exam. Suspect her O2 requirement related to sepsis. - Wean O2 as tolerated - d/c standing IV Bumex - resume home PO Bumex Assessment & Plan (03/05/2021 4:14 AM CDT): Pt with new O2 requirement to 3L Patient is COVID-19 recovered from 09/2020 CXR without acute pathology and COVID-19 negative on admission Possibly component of HF exacerbation. Pt endorses progressively worsening dyspnea at rest and on exertion NT pro BNP elevated to 1900, it has been higher in the past, but it has been as low as 538. She reports taking bumex at home 0.5, will start bumex 1mg IVP and monitor for response Will monitor on telemetry with continuous pulse ox History of 2019 novel coronavirus disease (COVID -19) 03/05/2021 Assessment & Plan (03/05/2021 2:41 PM CDT): Patient recovered from COVID19 Sep 2020. Since then, she's been experiencing aches, cough, and fatigue per PCP concerning for long COVID . She has since received J/J COVID vaccine as well. COVID testing neg on admission Hyperlipidemia 10/30/2020 Assessment & Plan (10/01/2024 4:12 PM BOARD LAYER): At goal on current therapy. Assessment & Plan (11/01/2023 8:47 PM BOARD LAYER): At goal on current therapy. Assessment & Plan (06/28/2023 4:14 PM CDT): At goal on current therapy. Assessment & Plan (11/04/2022 7:22 PM BOARD LAYER): At goal on current therapy. Assessment & Plan (08/05/2022 4:12 PM BOARD LAYER): At goal on current therapy. Assessment & Plan (04/01/2022 2:49 PM CDT): At goal on current therapy. Assessment & Plan (11/26/2021 3:13 PM CDT): At goal on current therapy. Assessment & Plan (08/24/2021 1:40 PM BOARD LAYER): At goal on current therapy. Gastroesophageal reflux disease 10/30/2020 Myalgia 10/30/2020 UTI (urinary tract infection) 09/10/2020 Assessment & Plan (06/28/2023 4:16 PM CDT): Resolved. She is able to tolerate PO Augmentin and Bactrim (does not actually have sulfa allergy). Assessment & Plan (09/14/2020 7:04 PM BOARD LAYER): - UA (16) with enterococcus faecalis - Change CTX to Unasyn - 1/8- monurol Assessment & Plan (09/13/2020 5:55 PM BOARD LAYER): - UA (1/6) with enterococcus faecalis - Change CTX to Unasyn - 1/8- monurol Assessment & Plan (09/12/2020 8:24 PM BOARD LAYER): - UA (1/6) with enterococcus faecalis - Change CTX to Unasyn - 1/8- monurol Assessment & Plan (09/11/2020 5:48 PM BOARD LAYER): - UA (1/6) with enterococcus faecalis - Change CTX to Unasyn (until penicillin resistant stain is r/o) Severe malnutrition 09/04/2020 Assessment & Plan (09/14/2020 7:05 PM BOARD LAYER): -Per security representative, continue nutritional supplements. Assessment & Plan (09/13/2020 5:55 PM BOARD LAYER): -Per security representative, continue nutritional supplements. Assessment & Plan (09/09/2020 6:29 PM BOARD LAYER): -Per security representative, continue nutritional supplements. Assessment & Plan (09/08/2020 7:28 PM BOARD LAYER): -Per security representative, continue nutritional supplements. Assessment & Plan (09/07/2020 10:22 AM BOARD LAYER): -Per security representative, continue nutritional supplements. Assessment & Plan (09/06/2020 10:09 AM BOARD LAYER): -Per security representative, continue nutritional supplements. Assessment & Plan (09/05/2020 11:04 AM BOARD LAYER): -Per security representative, continue nutritional supplements. Assessment & Plan (09/04/2020 2:28 PM BOARD LAYER): -Per security representative, continue nutritional supplements. Acute hypoxemic respiratory failure due to COVID -19 08/28/2020 Assessment & Plan (09/15/2020 2:24 PM BOARD LAYER): - Symptoms started around 08/19/2020. Tested positive for COVID-19 on 08/28/2020. - Initially complicated by hypoxemic respiratory failure now resolved. - S/p course of dexamethasone and remdesivir. - Given > 20 days since symptom onset and recovery of symptoms, patient is now COVID-19 recovered. Assessment & Plan (09/14/2020 7:04 PM BOARD LAYER): -Symptoms started around 08/19/2020. She tested positive for COVID-19 on 08/28/2020. She is at high risk of decompensation given her age and coexisting medical conditions especially CAD and type 2 diabetes. She was hypoxic on admission requiring 3 L via nasal cannula to maintain normal saturations. This is new oxygen requirement & she was hypoxic in 80s on room air per EMS documentation. Chest x-ray showed bilateral lower lobe opacities consistent with viral pneumonia versus asymmetric pulmonary edema. -Started dexamethasone on 08/28-09/07/20. -S/p remdesivir on 08/29-09/02. - 1/4- Sp02 decrease to the 80s on 6L. ABG 7.48/33/67 on 3L O2. CXR with PNM but no changes to prior. - VQ scan negative for PE () - Now on RA Assessment & Plan (09/13/2020 5:53 PM BOARD LAYER): -Symptoms started around 08/19/2020. She tested positive for COVID-19 on 08/28/2020. She is at high risk of decompensation given her age and coexisting medical conditions especially CAD and type 2 diabetes. She was hypoxic on admission requiring 3 L via nasal cannula to maintain normal saturations. This is new oxygen requirement & she was hypoxic in 80s on room air per EMS documentation. Chest x-ray showed bilateral lower lobe opacities consistent with viral pneumonia versus asymmetric pulmonary edema. -Started dexamethasone on 08/28-09/07/20. -S/p remdesivir on 08/29-09/02. - 14- Sp02 decrease to the 80s on 6L. ABG 7.48/33/67 on 3L O2. CXR with PNM but no changes to prior. - VQ scan negative for PE () - Now on RA Assessment & Plan (09/12/2020 8:22 PM BOARD LAYER): -Symptoms started around 08/19/2020. She tested positive for COVID-19 on 08/28/2020. She is at high risk of decompensation given her age and coexisting medical conditions especially CAD and type 2 diabetes. She was hypoxic on admission requiring 3 L via nasal cannula to maintain normal saturations. This is new oxygen requirement & she was hypoxic in 80s on room air per EMS documentation. Chest x-ray showed bilateral lower lobe opacities consistent with viral pneumonia versus asymmetric pulmonary edema. -Started dexamethasone on 08/28-09/07/20. -S/p remdesivir on 08/29-09/02. - 14- Sp02 decrease to the 80s on 6L. ABG 7.48/33/67 on 3L O2. CXR with PNM but no changes to prior. - VQ scan negative for PE () - Now on RA Assessment & Plan (09/11/2020 5:50 PM BOARD LAYER): -Symptoms started around 08/19/2020. She tested positive for COVID-19 on 08/28/2020. She is at high risk of decompensation given her age and coexisting medical conditions especially CAD and type 2 diabetes. She was hypoxic on admission requiring 3 L via nasal cannula to maintain normal saturations. This is new oxygen requirement & she was hypoxic in 80s on room air per EMS documentation. Chest x-ray showed bilateral lower lobe opacities consistent with viral pneumonia versus asymmetric pulmonary edema. -Started dexamethasone on 08/28-09/07/20. -S/p remdesivir on 08/29-09/02. - 09/08- Sp02 decrease to the 80s on 6L. ABG 7.48//67 on 3L O2. CXR with PNM but no changes to prior. - VQ scan negative for PE () - Now on RA Assessment & Plan (09/10/2020 4:38 PM BOARD LAYER): -Symptoms started around 08/19/2020. She tested positive for COVID-19 on 08/28/2020. She is at high risk of decompensation given her age and coexisting medical conditions especially CAD and type 2 diabetes. She was hypoxic on admission requiring 3 L via nasal cannula to maintain normal saturations. This is new oxygen requirement & she was hypoxic in 80s on room air per EMS documentation. Chest x-ray showed bilateral lower lobe opacities consistent with viral pneumonia versus asymmetric pulmonary edema. -Started dexamethasone on 08/28-09/07/20. -S/p remdesivir on 08/29-09/02. - 09/08- Sp02 decrease to the 80s on 6L. ABG 7.48/33/67 on 3L O2. CXR with PNM but no changes to prior. - Now SpO2 93% on 4L - VQ scan negative for PE () Assessment & Plan (09/09/2020 6:29 PM BOARD LAYER): -Symptoms started around 08/19/2020. She tested positive for COVID-19 on 08/28/2020. She is at high risk of decompensation given her age and coexisting medical conditions especially CAD and type 2 diabetes. She was hypoxic on admission requiring 3 L via nasal cannula to maintain normal saturations. This is new oxygen requirement & she was hypoxic in 80s on room air per EMS documentation. Chest x-ray showed bilateral lower lobe opacities consistent with viral pneumonia versus asymmetric pulmonary edema. -Started dexamethasone on 08/28-09/07/20. -S/p remdesivir on 08/29-09/02. - 09/08- Sp02 decrease to the 80s on 6L. ABG 7.48/ on 3L O2. CXR with PNM but no changes to prior. - Now SpO2 95% on 4L - VQ scan negative for PE Assessment & Plan (09/08/2020 7:29 PM BOARD LAYER): -Symptoms started around 08/19/2020. She tested positive for COVID-19 on 08/28/2020. She is at high risk of decompensation given her age and coexisting medical conditions especially CAD and type 2 diabetes. She was hypoxic on admission requiring 3 L via nasal cannula to maintain normal saturations. This is new oxygen requirement & she was hypoxic in 80s on room air per EMS documentation. Chest x-ray showed bilateral lower lobe opacities consistent with viral pneumonia versus asymmetric pulmonary edema. -Started dexamethasone on 08/28-09/07/20. -S/p remdesivir on 08/29-09/02. -Continue supportive care with albuterxol & atrovent inhalers. Patient will be recovered on 09/17/19. Assessment & Plan (09/07/2020 10:22 AM BOARD LAYER): -Symptoms started around 08/19/2020. She tested positive for COVID-19 on 08/28/2020. She is at high risk of decompensation given her age and coexisting medical conditions especially CAD and type 2 diabetes. She was hypoxic on admission requiring 3 L via nasal cannula to maintain normal saturations. This is new oxygen requirement & she was hypoxic in 80s on room air per EMS documentation. Chest x-ray showed bilateral lower lobe opacities consistent with viral pneumonia versus asymmetric pulmonary edema. -Started dexamethasone on 08/28-09/07/20. -S/p remdesivir on 08/29-09/02. -Continue supportive care with albuterxol & atrovent inhalers. Patient will be recovered on 09/17/19. Assessment & Plan (09/06/2020 10:09 AM BOARD LAYER): -Symptoms started around 08/19/2020. She tested positive for COVID-19 on 08/28/2020. She is at high risk of decompensation given her age and coexisting medical conditions especially CAD and type 2 diabetes. She was hypoxic on admission requiring 3 L via nasal cannula to maintain normal saturations. This is new oxygen requirement & she was hypoxic in 80s on room air per EMS documentation. Chest x-ray showed bilateral lower lobe opacities consistent with viral pneumonia versus asymmetric pulmonary edema. -Started dexamethasone on 08/28-09/07/20. -S/p remdesivir on 08/29-09/02. -Continue supportive care with albuterxol & atrovent inhalers. Patient will be recovered on 09/17/19. Assessment & Plan (09/05/2020 11:04 AM BOARD LAYER): -Symptoms started around 08/19/2020. She tested positive for COVID-19 on 08/28/2020. She is at high risk of decompensation given her age and coexisting medical conditions especially CAD and type 2 diabetes. She was hypoxic on admission requiring 3 L via nasal cannula to maintain normal saturations. This is new oxygen requirement & she was hypoxic in 80s on room air per EMS documentation. Chest x-ray showed bilateral lower lobe opacities consistent with viral pneumonia versus asymmetric pulmonary edema. -Started dexamethasone on 08/28 - -S/p remdesivir on 08/29-09/02. -Continue supportive care with albuterxol & atrovent inhalers. Patient will be recovered on 09/17/19. Assessment & Plan (09/04/2020 2:28 PM BOARD LAYER): -Symptoms started around 08/19/2020. She tested positive for COVID-19 on 08/28/2020. She is at high risk of decompensation given her age and coexisting medical conditions especially CAD and type 2 diabetes. She was hypoxic on admission requiring 3 L via nasal cannula to maintain normal saturations. This is new oxygen requirement & she was hypoxic in 80s on room air per EMS documentation. Chest x-ray showed bilateral lower lobe opacities consistent with viral pneumonia versus asymmetric pulmonary edema. -Started dexamethasone on 08/28 - -S/p remdesivir on 08/29-09/02. -Continue supportive care with albuterxol & atrovent inhalers. Patient will be recovered on 09/17/19. Assessment & Plan (09/03/2020 12:12 PM BOARD LAYER): -Symptoms started around 08/19/2020. She tested positive for COVID-19 on 08/28/2020. She is at high risk of decompensation given her age and coexisting medical conditions especially CAD and type 2 diabetes. She was hypoxic on admission requiring 3 L via nasal cannula to maintain normal saturations. This is new oxygen requirement & she was hypoxic in 80s on room air per EMS documentation. Chest x-ray showed bilateral lower lobe opacities consistent with viral pneumonia versus asymmetric pulmonary edema. -Started dexamethasone on 08/28 - -S/p remdesivir on 08/29-09/02. -Continue supportive care with albuterxol & atrovent inhalers. Patient will be recovered on 09/17/19. Assessment & Plan (09/02/2020 10:40 AM BOARD LAYER): -Symptoms started around 08/19/2020. She tested positive for COVID-19 on 08/28/2020. She is at high risk of decompensation given her age and coexisting medical conditions especially CAD and type 2 diabetes. She was hypoxic on admission requiring 3 L via nasal cannula to maintain normal saturations. This is new oxygen requirement & she was hypoxic in 80s on room air per EMS documentation. Chest x-ray showed bilateral lower lobe opacities consistent with viral pneumonia versus asymmetric pulmonary edema. -Started dexamethasone on 08/28 - -Started remdesivir on 08/29 - . Renal function & liver functions will allow use. -Continue supportive care with albuterxol & atrovent inhalers. Assessment & Plan (09/01/2020 2:25 PM BOARD LAYER): Symptoms started around 08/19/2020. She tested positive for COVID-19 on 08/28/2020. She is at high risk of decompensation given her age and coexisting medical conditions especially CAD and type 2 diabetes. She was hypoxic on admission requiring 3 L via nasal cannula to maintain normal saturations. This is new oxygen requirement & she was hypoxic in 80s on room air per EMS documentation. Chest x-ray showed bilateral lower lobe opacities consistent with viral pneumonia versus asymmetric pulmonary edema. - started dexamethasone on 08/28 - - started remdesivir on 08/29 - . Renal function & liver functions will allow use. - D-dimer level - 450. - Continue supportive care with albuterxol & atrovent inhalers. Assessment & Plan (08/31/2020 2:10 PM BOARD LAYER): Symptoms started around 08/19/2020. She tested positive for COVID-19 on 08/28/2020. She is at high risk of decompensation given her age and coexisting medical conditions especially CAD and type 2 diabetes. She was hypoxic on admission requiring 3 L via nasal cannula to maintain normal saturations. This is new oxygen requirement & she was hypoxic in 80s on room air per EMS documentation. Chest x-ray showed bilateral lower lobe opacities consistent with viral pneumonia versus asymmetric pulmonary edema. - started dexamethasone on 08/28 - . - started remdesivir on 08/29 - . Renal function & liver functions will allow use. - D-dimer level - 450. - Continue supportive care with albuterxol & atrovent inhalers. Assessment & Plan (08/30/2020 12:49 PM BOARD LAYER): Symptoms started around 8-9 days prior to the admission. She tested positive for COVID-19 on 08/28/2020. She is at high risk of decompensation given her age and coexisting medical conditions especially CAD and type 2 diabetes. She was hypoxic on admission requiring 3 L via nasal cannula to maintain normal saturations. This is new oxygen requirement for her. Chest x-ray showed bilateral lower lobe opacities consistent with viral pneumonia versus asymmetric pulmonary edema. - started dexamethasone on 08/28 - . - started remdesivir on 08/29 - . Renal function & liver functions will allow use. - D-dimer level - 450. - Continue supportive care with albuterxol & atrovent inhalers. Assessment & Plan (08/29/2020 3:46 PM BOARD LAYER): Symptoms started around 8-9 days prior to the admission. She tested positive for COVID-19 on 08/28/2020. She is at high risk of decompensation given her age and coexisting medical conditions especially CAD and type 2 diabetes. She was hypoxic on admission requiring 3 L via nasal cannula to maintain normal saturations. This is new oxygen requirement for her. Chest x-ray showed bilateral lower lobe opacities consistent with viral pneumonia versus asymmetric pulmonary edema. - started dexamethasone on 08/28 - . - started remdesivir on 08/29 - . Renal function & liver functions will allow use. - D-dimer level - 450. - Continue supportive care with albuterxol & atrovent inhalers. Acute pain due to trauma 07/26/2020 HENRRY (acute kidney injury) 07/26/2020 Assessment & Plan (03/23/2024 3:03 PM CDT): - Improving, 1.3 -> 1.2 - maintenance IV fluid stopped - oral intake appropriate Assessment & Plan (09/15/2020 2:28 PM BOARD LAYER): - Cr improve w/ IVF Assessment & Plan (09/14/2020 7:04 PM BOARD LAYER): - Cr improve w/ IVF Assessment & Plan (09/13/2020 5:54 PM BOARD LAYER): - Cr improve w/ IVF Assessment & Plan (09/12/2020 8:23 PM BOARD LAYER): -Creatinine on admission 1.33. Baseline creatinine seems to be around 0.7. Now worsening again to 1.3->1.47->1.26 - IVF - CTM Assessment & Plan (09/11/2020 5:50 PM BOARD LAYER): -Creatinine on admission 1.33. Baseline creatinine seems to be around 0.7. Now worsening again to 1.3->1.47->1.26 - IVF - CTM Assessment & Plan (09/10/2020 9:33 AM BOARD LAYER): -Creatinine on admission 1.33. Baseline creatinine seems to be around 0.7. Now worsening again to 1.3->1.47 - IVF - CTM Assessment & Plan (09/09/2020 6:30 PM BOARD LAYER): -Creatinine on admission 1.33. Baseline creatinine seems to be around 0.7. Now worsening again to 1.3 - IVF - CTM Assessment & Plan (09/08/2020 7:29 PM BOARD LAYER): -Creatinine on admission 1.33. Baseline creatinine seems to be around 0.7. Improving with IVF. -Etiology likely prerenal from decreased appetite the setting of diuretic use at home and diarrhea vs COVID -19 related. Assessment & Plan (09/07/2020 10:22 AM BOARD LAYER): -Creatinine on admission 1.33. Baseline creatinine seems to be around 0.7. Improving with IVF. -Etiology likely prerenal from decreased appetite the setting of diuretic use at home and diarrhea vs COVID -19 related. Assessment & Plan (09/06/2020 10:09 AM BOARD LAYER): -Creatinine on admission 1.33. Baseline creatinine seems to be around 0.7. Improving with IVF. -Etiology likely prerenal from decreased appetite the setting of diuretic use at home and diarrhea vs COVID -19 related. Assessment & Plan (09/05/2020 11:04 AM BOARD LAYER): -Creatinine on admission 1.33. Baseline creatinine seems to be around 0.7. Improving with IVF. -Etiology likely prerenal from decreased appetite the setting of diuretic use at home and diarrhea vs COVID -19 related. -Hold home spironolactone and Bumex until appropriate. Assessment & Plan (09/04/2020 2:28 PM BOARD LAYER): -Creatinine on admission 1.33. Baseline creatinine seems to be around 0.7. Improving with IVF. -Etiology likely prerenal from decreased appetite the setting of diuretic use at home and diarrhea vs COVID -19 related. -Hold home spironolactone and Bumex until appropriate. Assessment & Plan (09/03/2020 12:11 PM BOARD LAYER): -Creatinine on admission 1.33. Baseline creatinine seems to be around 0.7. Improving with IVF. -Etiology likely prerenal from decreased appetite the setting of diuretic use at home and diarrhea vs COVID -19 related. -Hold home spironolactone and Bumex until appropriate. Assessment & Plan (09/02/2020 10:40 AM BOARD LAYER): -Creatinine on admission 1.33. Baseline creatinine seems to be around 0.7. Improving with IVF. -Etiology likely prerenal from decreased appetite the setting of diuretic use at home and diarrhea vs COVID -19 related. -Hold home spironolactone and Bumex until appropriate. Assessment & Plan (09/01/2020 2:25 PM BOARD LAYER): Creatinine on admission 1.33. Baseline creatinine seems to be around 0.7. Improving with IVF. - etiology likely prerenal from decreased appetite the setting of diuretic use at home and diarrhea vs COVID -19 related. - hold home spironolactone and Bumex until appropriate. Assessment & Plan (08/31/2020 2:11 PM BOARD LAYER): Creatinine on admission 1.33. Baseline creatinine seems to be around 0.7. Improving with IVF. - etiology likely prerenal from decreased appetite the setting of diuretic use at home and diarrhea vs COVID -19 related. - will follow-up with urine electrolytes and strict urine output. - will start IV fluid resuscitation and if creatinine does not trend down, will obtain a renal ultrasound. - hold home spironolactone and Bumex until appropriate. Assessment & Plan (08/30/2020 12:50 PM BOARD LAYER): Creatinine on admission 1.33. Baseline creatinine seems to be around 0.7. Improving with IVF. - etiology likely prerenal from decreased appetite the setting of diuretic use at home and diarrhea vs COVID -19 related. - will follow-up with urine electrolytes and strict urine output. - will start IV fluid resuscitation and if creatinine does not trend down, will obtain a renal ultrasound. - hold home spironolactone and Bumex until appropriate. Assessment & Plan (08/29/2020 3:48 PM BOARD LAYER): Creatinine on admission 1.33. Baseline creatinine seems to be around 0.7. Improving with IVF. - etiology likely prerenal from decreased appetite the setting of diuretic use at home and diarrhea vs COVID -19 related. - will follow-up with urine electrolytes and strict urine output. - will start IV fluid resuscitation and if creatinine does not trend down, will obtain a renal ultrasound. - hold home spironolactone and Bumex until appropriate. Hypernatremia 07/26/2020 Diarrhea 07/26/2020 Thrush 07/26/2020 Leukocytosis 07/26/2020 Aspiration pneumonia 07/26/2020 Acute deep vein thrombosis (DVT) 07/26/2020 Syncope and collapse 07/26/2020 Paroxysmal atrial fibrillation 07/14/2020 Type 2 diabetes mellitus wit hout complication, with long-term current use of insulin 07/12/2020 Assessment & Plan (10/01/2024 4:13 PM BOARD LAYER): A1c is stable. She reports drinking Dr. Wheat every day. I have recommended that she stop consuming soda. We will keep her diabetes regimen the same as she has been unable to tolerate other diabetes medications. Assessment & Plan (11/01/2023 8:48 PM BOARD LAYER): A1c above goal, which for her is 8% or less. Increase metformin to 500 mg BID. Assessment & Plan (06/28/2023 4:14 PM CDT): A1c in reasonable range. Continue metformin and BCise. Assessment & Plan (02/17/2023 3:59 PM CDT): I would consider her goal A1c to be 8% or less, so she is at goal. Continue metformin and BCise. Assessment & Plan (11/04/2022 7:22 PM BOARD LAYER): A1c still above goal, but just started BCise. Will continue this and metformin. Will check about CGM coverage. Assessment & Plan (08/05/2022 4:13 PM BOARD LAYER): A1c not at goal. We are limited by medication intolerances and renal function. Check Cr today; if renal function allows, will increase metformin to 1000 mg BID. If not, we will instead add BCise 2 mg weekly as this has a lower risk of GI side effects compared to Trulicity. Assessment & Plan (04/01/2022 2:49 PM CDT): A1c above goal. Did not tolerate Trulicity. She is hesitant to start a THOMAS or insulin due to hypoglycemia. Will restart Januvia. Work on diet. Assessment & Plan (11/26/2021 3:13 PM CDT): A1c still above goal. Stop Januvia. Start Trulicity 0.75 mg weekly for cardiac and glycemic benefit. Counseled about possible side effects. Assessment & Plan (08/24/2021 5:22 PM BOARD LAYER): A1c not at goal. Start Januvia 100 mg daily. Continue metformin. Check labs. Recommend yearly eye exams. Assessment & Plan (03/05/2021 2:31 PM CDT): Diabetes currently adequately controlled. Last A1C 6.4% in January 2021 - Continue home metformin - Continue on SSI and DM2 diet Assessment & Plan (03/05/2021 4:12 AM CDT): Continue home metformin Continue on SSI and DM2 diet Assessment & Plan (09/15/2020 2:25 PM BOARD LAYER): - Home regimen includes metformin 500 mg daily. Hba1c 2 months ago was 6.5. - Discontinue insulin and restart metformin in preparation for discharge. Assessment & Plan (09/14/2020 7:03 PM BOARD LAYER): -Home regimen includes metformin 500 mg daily. Hba1c 2 months ago was 6.5. -Hold metformin while inpatient and started NPH with dex. -Continue NPH 5u bid, continue SSI. Assessment & Plan (09/13/2020 5:55 PM BOARD LAYER): -Home regimen includes metformin 500 mg daily. Hba1c 2 months ago was 6.5. -Hold metformin while inpatient and started NPH with dex. -Continue NPH 5u bid, continue SSI. Assessment & Plan (09/12/2020 8:22 PM BOARD LAYER): -Home regimen includes metformin 500 mg daily. Hba1c 2 months ago was 6.5. -Hold metformin while inpatient and started NPH with dex. -Continue NPH 5u bid, continue SSI. Assessment & Plan (09/11/2020 5:50 PM BOARD LAYER): -Home regimen includes metformin 500 mg daily. Hba1c 2 months ago was 6.5. -Hold metformin while inpatient and started NPH with dex. -Continue NPH 5u bid, continue SSI. Assessment & Plan (09/10/2020 4:36 PM BOARD LAYER): -Home regimen includes metformin 500 mg daily. Hba1c 2 months ago was 6.5. -Hold metformin while inpatient and started NPH with dex. -Continue NPH 5u bid, continue SSI. Assessment & Plan (09/09/2020 6:24 PM BOARD LAYER): -Home regimen includes metformin 500 mg daily. Hba1c 2 months ago was 6.5. -Hold metformin while inpatient and started NPH with dex. -Continue NPH 5u bid, continue SSI. Assessment & Plan (09/08/2020 7:28 PM BOARD LAYER): -Home regimen includes metformin 500 mg daily. Hba1c 2 months ago was 6.5. -Hold metformin while inpatient and started NPH with dex. -Continue NPH 5u bid, continue SSI. Assessment & Plan (09/07/2020 10:22 AM BOARD LAYER): -Home regimen includes metformin 500 mg daily. Hba1c 2 months ago was 6.5. -Hold metformin while inpatient and started NPH with dex. -Continue NPH 5u bid, continue SSI. Assessment & Plan (09/06/2020 10:08 AM BOARD LAYER): -Home regimen includes metformin 500 mg daily. Hba1c 2 months ago was 6.5. -Hold metformin while inpatient and started NPH with dex. -Continue NPH 5u bid, continue SSI. Assessment & Plan (09/05/2020 11:04 AM BOARD LAYER): -Home regimen includes metformin 500 mg daily. Hba1c 2 months ago was 6.5. -Hold metformin while inpatient and started NPH with dex. -Continue NPH 5u bid, continue SSI. Assessment & Plan (09/04/2020 2:28 PM BOARD LAYER): -Home regimen includes metformin 500 mg daily. Hba1c 2 months ago was 6.5. -Hold metformin while inpatient and started NPH with dex. -Continue NPH 5u bid, continue SSI. Assessment & Plan (09/03/2020 12:09 PM BOARD LAYER): -Home regimen includes metformin 500 mg daily. Hba1c 2 months ago was 6.5. -Hold metformin while inpatient and started NPH with dex. -Continue NPH 5u bid, continue SSI. Assessment & Plan (09/02/2020 10:38 AM BOARD LAYER): -Home regimen includes metformin 500 mg daily. Hba1c 2 months ago was 6.5. -Hold metformin while inpatient and started NPH with dex. -Hold NPH due to poor appetite, continue SSI. Assessment & Plan (09/01/2020 2:23 PM BOARD LAYER): Home regimen includes metformin 500 mg daily. Hba1c 2 months ago was 6.5. - hold metformin while inpatient and started NPH with dex. - Decrease NPH to BID due to hypoglycemia, continue SSI. Assessment & Plan (08/31/2020 2:11 PM BOARD LAYER): Home regimen includes metformin 500 mg daily. Hba1c 2 months ago was 6.5. - hold metformin while inpatient and started NPH with dex. - On 10 units NPH TID with SSI. Assessment & Plan (08/30/2020 12:50 PM BOARD LAYER): Home regimen includes metformin 500 mg daily. Hba1c 2 months ago was 6.5. - hold metformin while inpatient and started NPH with dex. - On 12 units NPH with SSI. Assessment & Plan (08/29/2020 3:47 PM BOARD LAYER): Home regimen includes metformin 500 mg daily. Hba1c 2 months ago was 6.5. - hold metformin while inpatient and started NPH with dex. - On 8 units NPH with SSI. Subarachnoid hemorrhage foll owing injury, with loss of consciousness 07/12/2020 Closed fracture of three ribs of right side 03/2020 Fall from ground level 07/12/2020 Status post tracheostomy 07/12/2020 Subarachnoid hematoma 07/04/2020 Overview (07/20/2020): Added automatically from request for surgery [id number] Infiltrate of lung present on imaging of chest 1 10/19/2016 Inflammatory arthritis 08/18/2017 Overview (07/12/2020): Last Assessment & Plan: Chronic. Bilateral knee effusions during last admission with elevated ESR and CRP; arthrocentesis c/w inflammatory arthritis. Discharged with meloxicam but has not been taking. - Toradol q6hrs prn - Tylenol prn CAD (coronary artery disease) 08/05/2017 Overview (07/12/2020): Last Assessment & Plan: Chronic. S/p 4V CABG - Continue home coreg, lisinopril - Continue home ASA - Continue statin Assessment & Plan (03/05/2021 2:31 PM CDT): Status post CABG in 2016 Continue home metop, statin, and aspirin Assessment & Plan (03/05/2021 4:13 AM CDT): Status post CABG in 2016 Continue home metop, statin, and aspirin Assessment & Plan (09/15/2020 2:26 PM BOARD LAYER): -Appears to be stable. Status post CABG in 2015. -Continue metoprolol, Crestor, aspirin. Assessment & Plan (09/14/2020 7:04 PM BOARD LAYER): -Appears to be stable. Status post CABG in 2016. -Continue metoprolol and Crestor. Assessment & Plan (09/13/2020 5:54 PM BOARD LAYER): -Appears to be stable. Status post CABG in 2015. -Continue metoprolol and Crestor. Assessment & Plan (09/12/2020 8:22 PM BOARD LAYER): -Appears to be stable. Status post CABG in 2016. -Continue metoprolol and Crestor. Assessment & Plan (09/11/2020 5:50 PM BOARD LAYER): -Appears to be stable. Status post CABG in 2015. -Continue metoprolol and Crestor. Assessment & Plan (09/10/2020 4:37 PM BOARD LAYER): -Appears to be stable. Status post CABG in 2015. -Continue metoprolol and Crestor. Assessment & Plan (09/09/2020 6:24 PM BOARD LAYER): -Appears to be stable. Status post CABG in 2015. -Continue metoprolol and Crestor. Assessment & Plan (09/08/2020 7:29 PM BOARD LAYER): -Appears to be stable. Status post CABG in 2016. -Continue metoprolol and Crestor. Assessment & Plan (09/07/2020 10:22 AM BOARD LAYER): -Appears to be stable. Status post CABG in 2016. -Continue metoprolol and Crestor. Assessment & Plan (09/06/2020 10:08 AM BOARD LAYER): -Appears to be stable. Status post CABG in 2016. -Continue metoprolol and Crestor. Assessment & Plan (09/05/2020 11:04 AM BOARD LAYER): -Appears to be stable. Status post CABG in 2016. -Continue metoprolol and Crestor. Assessment & Plan (09/04/2020 2:28 PM BOARD LAYER): -Appears to be stable. Status post CABG in 2015. -Continue metoprolol and Crestor. Assessment & Plan (09/03/2020 12:09 PM BOARD LAYER): -Appears to be stable. Status post CABG in 2015. -Continue metoprolol and Crestor. Assessment & Plan (09/02/2020 10:39 AM BOARD LAYER): -Appears to be stable. Status post CABG in 2015. -Continue metoprolol and Crestor. Assessment & Plan (09/01/2020 2:23 PM BOARD LAYER): Appears to be stable. Status post CABG in 2015. - continue metoprolol and Crestor. Assessment & Plan (08/31/2020 2:10 PM BOARD LAYER): Appears to be stable. Status post CABG in 2015. - continue metoprolol and Crestor. Assessment & Plan (08/30/2020 12:49 PM BOARD LAYER): Appears to be stable. Status post CABG in 2015. - continue metoprolol and Crestor. Assessment & Plan (08/28/2020 6:36 PM BOARD LAYER): Appears to be stable. Status post CABG in 2015. - continue metoprolol and Crestor. COPD (chronic obstructive pulmonary disease) 09/2016 Overview (07/12/2020): Last Assessment & Plan: Chronic, stable SpO2 WNL on RA - DuoNeb q 6hrs PRN -PRN oxygen - Continue home medications albuterol and spiriva -incentive spirometer Assessment & Plan (03/05/2021 2:32 PM CDT): No signs/symptoms of exacerbation. No wheezing on exam Continue home albuterol PRN Assessment & Plan (03/05/2021 4:13 AM CDT): No signs/symptoms of exacerbation. Continue home albuterol PRN Assessment & Plan (09/15/2020 2:26 PM BOARD LAYER): No decompensated. -Continue albuterol and Atrovent inhalers prn. Assessment & Plan (09/14/2020 7:04 PM BOARD LAYER): -Appears stable. No wheezing noted at the time of my exam. -Continue albuterol and Atrovent inhalers prn. Assessment & Plan (09/13/2020 5:54 PM BOARD LAYER): -Appears stable. No wheezing noted at the time of my exam. -Continue albuterol and Atrovent inhalers prn. Assessment & Plan (09/12/2020 8:22 PM BOARD LAYER): -Appears stable. No wheezing noted at the time of my exam. -Continue albuterol and Atrovent inhalers prn. Assessment & Plan (09/11/2020 5:51 PM BOARD LAYER): -Appears stable. No wheezing noted at the time of my exam. -Continue albuterol and Atrovent inhalers prn. Assessment & Plan (09/10/2020 4:37 PM BOARD LAYER): -Appears stable. No wheezing noted at the time of my exam. -Continue albuterol and Atrovent inhalers prn. Assessment & Plan (09/09/2020 6:24 PM BOARD LAYER): -Appears stable. No wheezing noted at the time of my exam. -Continue albuterol and Atrovent inhalers prn. Assessment & Plan (09/08/2020 7:29 PM BOARD LAYER): -Appears stable. No wheezing noted at the time of my exam. -Continue albuterol and Atrovent inhalers prn. Assessment & Plan (09/07/2020 10:22 AM BOARD LAYER): -Appears stable. No wheezing noted at the time of my exam. -Continue albuterol and Atrovent inhalers prn. Assessment & Plan (09/06/2020 10:08 AM BOARD LAYER): -Appears stable. No wheezing noted at the time of my exam. -Continue albuterol and Atrovent inhalers prn. Assessment & Plan (09/05/2020 11:04 AM BOARD LAYER): -Appears stable. No wheezing noted at the time of my exam. -Continue albuterol and Atrovent inhalers prn. Assessment & Plan (09/04/2020 2:28 PM BOARD LAYER): -Appears stable. No wheezing noted at the time of my exam. -Continue albuterol and Atrovent inhalers prn. Assessment & Plan (09/03/2020 12:11 PM BOARD LAYER): -Appears stable. No wheezing noted at the time of my exam. -Continue albuterol and Atrovent inhalers prn. Assessment & Plan (09/02/2020 10:39 AM BOARD LAYER): -Appears stable. No wheezing noted at the time of my exam. -Continue albuterol and Atrovent inhalers. Assessment & Plan (09/01/2020 2:23 PM BOARD LAYER): Appears stable. No wheezing noted at the time of my exam. - continue albuterol and Atrovent inhalers. Assessment & Plan (08/31/2020 2:11 PM BOARD LAYER): Appears stable. No wheezing noted at the time of my exam. - continue albuterol and Atrovent inhalers. Assessment & Plan (08/30/2020 12:50 PM BOARD LAYER): Appears stable. No wheezing noted at the time of my exam. - continue albuterol and Atrovent inhalers. Assessment & Plan (08/28/2020 6:38 PM BOARD LAYER): Appears stable. No wheezing noted at the time of my exam. - continue albuterol and Atrovent inhalers. 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 Refer to PT. Hearing loss 01/22/2016 Iron deficiency anemia 12/16/2015 History of myocardial infarction 12/16/2015 Atherosclerotic heart diseas e of samish coronary artery without angina pectoris 10/16/2015 Assessment & Plan (08/24/2021 1:39 PM BOARD LAYER): Per cardiology. Unspecified abnormalities of gait and mobility 0 10/16/2015 Assessment & Plan (11/01/2023 8:48 PM BOARD LAYER): Referred to PT. Assessment & Plan (11/26/2021 3:14 PM CDT): Would benefit from PT referral. Presence of coronary angioplasty implant and gra ft 10/16/2015 Pleural effusion, not elsewhere classified 10/16 Personal history of healed traumatic fracture Old myocardial infarction 10/16/2015 Muscle weakness (generalized) 10/16/2015 Diastolic heart failure 10/16/2015 Gastro-esophageal reflux disease without esophag itis 10/16/2015 Assessment & Plan (09/15/2020 2:28 PM BOARD LAYER): -Continue PPI Assessment & Plan (09/14/2020 7:04 PM BOARD LAYER): -Continue PPI Assessment & Plan (09/13/2020 5:54 PM BOARD LAYER): -Continue PPI Assessment & Plan (09/11/2020 5:53 PM BOARD LAYER): -Continue PPI Assessment & Plan (09/10/2020 4:37 PM BOARD LAYER): -Continue PPI Assessment & Plan (09/09/2020 6:24 PM BOARD LAYER): -Continue PPI Assessment & Plan (09/08/2020 7:29 PM BOARD LAYER): -Continue PPI Assessment & Plan (09/07/2020 10:22 AM BOARD LAYER): -Continue PPI Assessment & Plan (09/06/2020 10:08 AM BOARD LAYER): -Continue PPI Assessment & Plan (09/05/2020 11:04 AM BOARD LAYER): -Continue PPI Assessment & Plan (09/04/2020 2:28 PM BOARD LAYER): -Continue PPI Assessment & Plan (09/03/2020 12:11 PM BOARD LAYER): -Continue PPI Assessment & Plan (09/02/2020 10:39 AM BOARD LAYER): -Continue PPI Assessment & Plan (09/01/2020 2:24 PM BOARD LAYER): -Continue PPI Assessment & Plan (08/31/2020 2:11 PM BOARD LAYER): Continue PPI Assessment & Plan (08/30/2020 12:50 PM BOARD LAYER): Continue PPI Assessment & Plan (08/28/2020 6:39 PM BOARD LAYER): Continue PPI Chronic kidney disease, unspecified 10/16/2015 Anxiety associated with depression 10/16/2015 Assessment & Plan (09/15/2020 2:28 PM BOARD LAYER): -Continue Celexa (reduced dose 2/2 prolonged Qtc) and Xanax. Assessment & Plan (09/14/2020 7:04 PM BOARD LAYER): -Appears to be a little low, appeared the same way since she was discharged from rehab her daughter. -Continue Celexa (reduced dose 2/2 prolonged Qtc) and scheduled Xanax. On Qtc monitoring. Assessment & Plan (09/08/2020 7:29 PM BOARD LAYER): -Appears to be a little low, appeared the same way since she was discharged from rehab her daughter. -Continue Celexa (reduced dose 2/2 prolonged Qtc) and scheduled Xanax. On Qtc monitoring. Assessment & Plan (09/07/2020 10:22 AM BOARD LAYER): -Appears to be a little low, appeared the same way since she was discharged from rehab her daughter. -Continue Celexa (reduced dose 2/2 prolonged Qtc) and scheduled Xanax. On Qtc monitoring. Assessment & Plan (09/06/2020 10:08 AM BOARD LAYER): -Appears to be a little low, appeared the same way since she was discharged from rehab her daughter. -Continue Celexa (reduced dose 2/2 prolonged Qtc) and scheduled Xanax. On Qtc monitoring. Assessment & Plan (09/05/2020 11:04 AM BOARD LAYER): -Appears to be a little low, appeared the same way since she was discharged from rehab her daughter. -Continue Celexa (reduced dose 2/2 prolonged Qtc) and scheduled Xanax. On Qtc monitoring. Assessment & Plan (09/04/2020 2:28 PM BOARD LAYER): -Appears to be a little low, appeared the same way since she was discharged from rehab her daughter. -Continue Celexa (reduced dose 2/2 prolonged Qtc) and scheduled Xanax. On Qtc monitoring. Assessment & Plan (09/03/2020 12:11 PM BOARD LAYER): -Appears to be a little low, appeared the same way since she was discharged from rehab her daughter. -Continue Celexa (reduced dose 2/2 prolonged Qtc) and scheduled Xanax. On Qtc monitoring. Assessment & Plan (09/02/2020 10:40 AM BOARD LAYER): -Appears to be a little low, appeared the same way since she was discharged from rehab her daughter. -Continue Celexa (reduced dose 2/2 prolonged Qtc) and scheduled Xanax. On Qtc monitoring. Assessment & Plan (09/01/2020 2:24 PM BOARD LAYER): Appears to be a little low, appeared the same way since she was discharged from rehab her daughter. - continue Celexa (reduced dose 2/2 prolonged Qtc) and scheduled Xanax. On Qtc monitoring. Assessment & Plan (08/31/2020 2:11 PM BOARD LAYER): Appears to be a little low, appeared the same way since she was discharged from rehab her daughter. - continue Celexa (reduced dose 2/2 prolonged Qtc) and scheduled Xanax. On Qtc monitoring. Assessment & Plan (08/30/2020 12:50 PM BOARD LAYER): Appears to be a little low, appeared the same way since she was discharged from rehab her daughter. - continue Celexa (reduced dose 2/2 prolonged Qtc) and scheduled Xanax. On Qtc monitoring. Assessment & Plan (08/29/2020 3:48 PM BOARD LAYER): Appears to be a little low, appeared the same way since she was discharged from rehab her daughter. - continue Celexa (reduced dose 2/2 prolonged Qtc) and scheduled Xanax. On Qtc monitoring. Acquired absence of both cervix and uterus 10/16 Osteoarthritis of lumbar spine 12/26/2013 Shoulder enthesopathy 12/18/2013 Lower urinary tract infectious disease 4 DM2 (diabetes mellitus, type 2) 05/15/2013 Assessment & Plan (03/22/2024 12:04 AM CDT): History of type 2 diabetes: On metformin, sliding scale while inpatient, carb consistent diet. HTN (hypertension) 05/15/2013 Overview (07/12/2020): Last Assessment & Plan: Chronic. Stable. Has been on amlodipine in the past but not on most recent medication list. - Continue home coreg - Continue to monitor, add amlodipine as needed Assessment & Plan (10/01/2024 4:12 PM BOARD LAYER): Daughter reports normal BP's at home. Continue current regimen. Assessment & Plan (03/22/2024 12:04 AM CDT): History hypertension: Continue home antihypertensive regimen of metoprolol, aspirin Assessment & Plan (11/01/2023 8:47 PM BOARD LAYER): At goal on current therapy. Assessment & Plan (06/28/2023 4:14 PM CDT): At goal on current therapy. Assessment & Plan (02/17/2023 3:59 PM CDT): BP in reasonable range. Assessment & Plan (11/04/2022 7:22 PM BOARD LAYER): At goal on current therapy. Assessment & Plan (08/05/2022 4:12 PM BOARD LAYER): BP mildly elevated; will not change medication dosages at this time (permissive HTN). Assessment & Plan (04/01/2022 2:49 PM CDT): At goal on current therapy. Assessment & Plan (11/26/2021 3:13 PM CDT): At goal on current therapy. Assessment & Plan (08/24/2021 1:40 PM BOARD LAYER): At goal on current therapy. Assessment & Plan (09/15/2020 2:27 PM BOARD LAYER): - Restart home medications. Assessment & Plan (09/14/2020 7:04 PM BOARD LAYER): -Home medications include amlodipine 5 mg, metoprolol extended release 12.5, spironolactone 25 daily. - Now only metop Assessment & Plan (09/13/2020 5:54 PM BOARD LAYER): -Home medications include amlodipine 5 mg, metoprolol extended release 12.5, spironolactone 25 daily. - Now only metop Assessment & Plan (09/12/2020 8:22 PM BOARD LAYER): -Home medications include amlodipine 5 mg, metoprolol extended release 12.5, spironolactone 25 daily. - Now only metop Assessment & Plan (09/11/2020 5:52 PM BOARD LAYER): -Home medications include amlodipine 5 mg, metoprolol extended release 12.5, spironolactone 25 daily. - Now only metop Assessment & Plan (09/10/2020 4:37 PM BOARD LAYER): -Home medications include amlodipine 5 mg, metoprolol extended release 12.5, spironolactone 25 daily. Assessment & Plan (09/09/2020 6:24 PM BOARD LAYER): -Home medications include amlodipine 5 mg, metoprolol extended release 12.5, spironolactone 25 daily. Assessment & Plan (09/08/2020 7:29 PM BOARD LAYER): -Home medications include amlodipine 5 mg, metoprolol extended release 12.5, spironolactone 25 daily. Assessment & Plan (09/07/2020 10:22 AM BOARD LAYER): -Home medications include amlodipine 5 mg, metoprolol extended release 12.5, spironolactone 25 daily. Assessment & Plan (09/06/2020 10:08 AM BOARD LAYER): -Home medications include amlodipine 5 mg, metoprolol extended release 12.5, spironolactone 25 daily. Assessment & Plan (09/05/2020 11:04 AM BOARD LAYER): -Home medications include amlodipine 5 mg, metoprolol extended release 12.5, spironolactone 25 daily. -Holding spironolactone due to poor intake and HENRRY. Assessment & Plan (09/04/2020 2:28 PM BOARD LAYER): -Home medications include amlodipine 5 mg, metoprolol extended release 12.5, spironolactone 25 daily. -Holding spironolactone due to poor intake and HENRRY. Assessment & Plan (09/03/2020 12:11 PM BOARD LAYER): -Home medications include amlodipine 5 mg, metoprolol extended release 12.5, spironolactone 25 daily. -Holding spironolactone due to poor intake and HENRRY. Assessment & Plan (09/02/2020 10:39 AM BOARD LAYER): -Home medications include amlodipine 5 mg, metoprolol extended release 12.5, spironolactone 25 daily. -Holding spironolactone due to poor intake and HENRRY. Assessment & Plan (09/01/2020 2:24 PM BOARD LAYER): Home medications include amlodipine 5 mg, metoprolol extended release 12.5, spironolactone 25 daily. - holding only spironolactone. Assessment & Plan (08/31/2020 2:11 PM BOARD LAYER): Home medications include amlodipine 5 mg, metoprolol extended release 12.5, spironolactone 25 daily. - holding only spironolactone. Assessment & Plan (08/30/2020 12:49 PM BOARD LAYER): Home medications include amlodipine 5 mg, metoprolol extended release 12.5, spironolactone 25 daily. - holding only spironolactone. Assessment & Plan (08/29/2020 3:47 PM BOARD LAYER): Home medications include amlodipine 5 mg, metoprolol extended release 12.5, spironolactone 25 daily. - holding only spironolactone. Chronic pain 05/15/2013 Assessment & Plan (11/04/2022 7:22 PM BOARD LAYER): Trial topical Voltaren. Assessment & Plan (08/05/2022 4:13 PM BOARD LAYER): Tylenol 1000 mg TID. Assessment & Plan (09/14/2020 7:04 PM BOARD LAYER): -Chronic pain at T5/T6 area on the back and right ribs 3/4/5 area. Assessment & Plan (09/13/2020 5:54 PM BOARD LAYER): -Chronic pain at T5/T6 area on the back and right ribs 3/4/5 area. Assessment & Plan (09/11/2020 5:52 PM BOARD LAYER): -Chronic pain at T5/T6 area on the back and right ribs 3/4/5 area. Assessment & Plan (09/09/2020 6:24 PM BOARD LAYER): -Chronic pain at T5/T6 area on the back and right ribs 3/4/5 area. Assessment & Plan (09/07/2020 10:22 AM BOARD LAYER): -Chronic pain at T5/T6 area on the back and right ribs 3/4/5 area. Assessment & Plan (09/06/2020 10:08 AM BOARD LAYER): -Chronic pain at T5/T6 area on the back and right ribs 3/4/5 area. Assessment & Plan (09/05/2020 11:04 AM BOARD LAYER): -Chronic pain at T5/T6 area on the back and right ribs 3/4/5 area. -Continue lidocaine patches at the above areas Assessment & Plan (09/04/2020 2:28 PM BOARD LAYER): -Chronic pain at T5/T6 area on the back and right ribs 3/4/5 area. -Continue lidocaine patches at the above areas Assessment & Plan (09/03/2020 12:11 PM BOARD LAYER): -Chronic pain at T5/T6 area on the back and right ribs 3/4/5 area. -Continue lidocaine patches at the above areas Assessment & Plan (09/02/2020 10:39 AM BOARD LAYER): -Chronic pain at T5/T6 area on the back and right ribs 3/4/5 area. -Continue lidocaine patches at the above areas Assessment & Plan (09/01/2020 2:24 PM BOARD LAYER): Chronic pain at T5/T6 area on the back and right ribs 3/4/5 area. - continue lidocaine patches at the above areas Assessment & Plan (08/31/2020 2:11 PM BOARD LAYER): Chronic pain at T5/T6 area on the back and right ribs 3/4/5 area. - continue lidocaine patches at the above areas Assessment & Plan (08/30/2020 12:50 PM BOARD LAYER): Chronic pain at T5/T6 area on the back and right ribs 3/4/5 area. - continue lidocaine patches at the above areas Assessment & Plan (08/28/2020 6:45 PM BOARD LAYER): Chronic pain at T5/T6 area on the back and right ribs 3/4/5 area. - continue lidocaine patches at the above areas Lumbosacral spondylosis without myelopathy 09/29 Sacroiliitis, not elsewhere classified 2 Lumbar radiculopathy 08/09/2012 Resolved Problems Problem Noted Date Diagnosed Date Resolved Date Insomnia 03/22/2024 03/23/2024 Assessment & Plan (03/22/2024 5:41 PM CDT): History of insomnia, continue ramelteon p.r.n., home lorazepam nightly p.r.n. Trial of doxylamine Leucocytosis 09/10/2020 09/15/2020 Assessment & Plan (09/11/2020 5:49 PM BOARD LAYER): - Due to UTI - CXR with no changes compare to prior - BCx NGTD - VQ test- no PE Assessment & Plan (09/10/2020 9:34 AM BOARD LAYER): - Increase WBC - CXR with no changes compare to prior - UA clean - BCx NGTD - VQ test- no PE - Consider LE venous dopplers Hypokalemia due to excessive gastrointestinal loss of potassium 08/28/2020 08/29/2020 Assessment & Plan (08/29/2020 3:48 PM BOARD LAYER): Potassium 2.9 on admission. This is mostly secondary to diarrhea from COVID-19. - replete as needed. Resolved. Shock 07/12/2020 07/12/2020 Acute respiratory failure with hypoxia 07/04/2020 09/09/2020 Overview (07/11/2020): Added automatically from request for surgery [id number] Assessment & Plan (09/09/2020 6:24 PM BOARD LAYER): -Continue supplemental O2, wean as tolerated. Assessment & Plan (09/08/2020 7:29 PM BOARD LAYER): -Continue supplemental O2, wean as tolerated. Assessment & Plan (09/07/2020 10:22 AM BOARD LAYER): -Continue supplemental O2, wean as tolerated. Assessment & Plan (09/06/2020 10:08 AM BOARD LAYER): -Continue supplemental O2, wean as tolerated. Assessment & Plan (09/05/2020 11:04 AM BOARD LAYER): -Continue supplemental O2, wean as tolerated. Assessment & Plan (09/04/2020 2:28 PM BOARD LAYER): -Continue supplemental O2, wean as tolerated. Assessment & Plan (09/03/2020 12:11 PM BOARD LAYER): -Continue supplemental O2, wean as tolerated. Assessment & Plan (09/02/2020 10:39 AM BOARD LAYER): -Continue supplemental O2, wean as tolerated. Assessment & Plan (09/01/2020 2:24 PM BOARD LAYER): -Continue supplemental O2, wean as tolerated. Assessment & Plan (08/31/2020 2:11 PM BOARD LAYER): 10/07 COVID PNA. See COVID section. Assessment & Plan (08/30/2020 12:50 PM BOARD LAYER): 10/07 COVID PNA. See COVID section. Assessment & Plan (08/28/2020 6:52 PM BOARD LAYER): 10/07 COVID PNA. See COVID section. Major depressive disorder, s tone episode, unspecified 10/16/2015 07/26/2020 Depression 05/15/2013 08/28/2020 Overview (07/12/2020): Last Assessment & Plan: Chronic. Stable - Continue home celexa Assessment & Plan (08/28/2020 6:38 PM BOARD LAYER): Stable. - Continue home Celexa. Encounters Date Type Department Care Team Description 10/03/2024 Telephone [facility] [address] [place] [address] [place] [address] Hermes Au MD 10/01/2024 3:40 PM BOARD LAYER Lab [facility] [address] [place] [id number] Urinary tract infection without hematuria, site unspecified 10/01/2024 2:30 PM BOARD LAYER Office Visit [facility] [address] [place] [address] [place] [address] Hermes Au MD Type 2 diabetes mellitus without complication, with long-term current use of insulin (HCC) (Primary Dx); Insomnia, unspecified type; Numbness and tingling; Seborrheic keratoses; Urinary tract infection without hematuria, site unspecified; Chronic right-sided low back pain with right-sided sciatica; Primary hypertension; Hyperlipidemia, unspecified hyperlipidemia type from Last 3 Months Immunizations Immunization Administration Dates Next Due Influenza, Quadrivalent, Hig h Dose, Preservative Free, Intrr 06/13/2023(Deferred: Patient Refused - PT provided with education regarding flu vaccine. pt refused.),05/09/2020 Influenza, Quadrivalent, Spl it, Preservative Free, Intramuscular 09/25/2015 Influenza, Trivalent, Adjuva nted, Intramuscular 06/13/2018,06/12/2018 Influenza, Trivalent, High D ose, Split, Preservative Free, Intramuscular 05/23/2019 Influenza, Trivalent, IM (MDV) 07/24/2012 Influenza, Unspecified 06/05/2020,2017 Surgical History Surgery Date Site/Laterality Comments CORONARY ARTERY BYPASS GRAFT Coronary Artery Surgery - (Added by TW Conv) HYSTERECTOMY 1973 Medical History Medical History Date Comments Type 2 diabetes mellitus (HCC) D iabetes type 2; Comments: CAC 02/03/2016 - Hypertension Hypertension Myocardial infarction (HCC) Hypercholesteremia COPD (chronic obstructive pu lmonary disease) (HCC) Insomnia 03/22/2024 Family History Medical History Relation Name Comments Heart failure Brother 1 Family history of heart failure - (Added by TW Conv) Heart failure Brother 2 Family history of heart failure - (Added by TW Conv) Cancer Father Family history of malignant neoplasm - (Added by TW Conv) Lung cancer Father Cancer, lung; COPD Mother COPD; Heart failure Mother Family history of heart failure - (Added by TW Conv)/Family history of heart failure - (Added by TW Conv) Heart failure Sister 1 Family history of heart failure - (Added by TW Conv) Diabetes Sister 2 Family history of diabetes mellitus - (Added by TW Conv) Heart failure Sister 3 Family history of heart failure - (Added by TW Conv) Heart failure Son 1 Family history of heart failure - (Added by TW Conv) Hypertension Son 2 Family history of hypertension - (Added by TW Conv) Heart failure Son 3 Family history of heart failure - (Added by TW Conv) Relation Name Status Comments Brother 1 Brother 2 Father Mother Sister 1 Sister 2 Sister 3 Son 1 Son 2 Son 3 Social History Tobacco Use Types Packs/Day Years Used Date Smoking Tobacco: Former Cigarettes Q uit: 06/2020 Passive Smoke Exposure: Past Smokeless Tobacco: Never Tobacco Cessation:Counseling Given: Not Answered OASIS D0700: Social Isolation Answer Da te Recorded Frequency of experiencing loneliness or isolatio n Rarely 05/04/2024 OASIS A1250: Transportation Answer Date Recorded Lack of Transportation (Medical) No 05/04/2024 Lack of Transportation (Non-Medical) No 05/04/2024 Patient Unable or Declines to Respond No 05/04/2024 OASIS B1300: Health Literacy Answer Honorio e Recorded Frequency of needing help to read materials from doctor or pharmacy Rarely 05/04/2024 Social Connection and Isolat ion Panel [NHANES] Answer Date Recorded In a typical week, how many times do you talk on the phone with family, friends, or neighbors? More than three times a week 09/04/2020 How often do you get togethe r with friends or relatives? More than three times a week 09/04/2020 How often do you attend chur ch or orthodoxy services? Patient declined 09/04/2020 Do you belong to any clubs o r organizations such as mandaen groups, unions, fraternal or athletic groups, or school groups? Patient declined 09/04/2020 How often do you attend meet ings of the clubs or organizations you belong to? Patient declined 09/04/2020 Marital Status Not on file 09/04/2020 AUDIT-C Answer Date Recorded Q1: How often do you have a drink containing alcohol? Never 06/10/2023 Q2: How many drinks containi ng alcohol do you have on a typical day when you are drinking? Patient does not drink Q3: How often do you have si x or more drinks on one occasion? Never 06/10/2023 Overall Financial Resource Strain (CARDIA) Answe r Date Recorded How hard is it for you to pa y for the very basics like food, housing, medical care, and heating? Not hard at all 09/04/2020 PHQ-2 Answer Date Recorded PHQ-2 Total Score (If total score is 3 or more points, staff should administer the PHQ-9) 0 03/31/2023 Hunger Vital Sign Answer Date Recorded Within the past 12 months, y ou worried that your food would run out before you got the money to buy more. Never true 09/04/20 20 Within the past 12 months, t he food you bought just didn't last and you didn't have money to get more. Never true 09/04/2020 PRAPARE - Transportation Answer Date Re corded In the past 12 months, has l ack of transportation kept you from medical appointments or from getting medications? No 08/07 In the past 12 months, has l ack of transportation kept you from meetings, work, or from getting things needed for daily living? No 09/04/2020 Housing Stability Vital Sign Answer Honorio e Recorded In the last 12 months, was t here a time when you were not able to pay the mortgage or rent on time? No 09/04/2020 In the last 12 months, how many places have you lived? 1 09/04/2020 In the last 12 months, was t here a time when you did not have a steady place to sleep or slept in a half-way (including now)? No 09/04/2020 Personal Safety Answer Date Recorded Have you ever been in or are you currently in a harmful physical or emotional relationship or is someone making you feel afraid or unsafe? Denies 03/22/2024 Comments No Sex and Gender Information Value Date Recorded Sex Assigned at Not on file Legal Sex Female 2:51 AM BOARD LAYER Gender Identity Not on file Sexual Orientation Not on file Obstetrics History Para Term AB IAB SAB Ectopic Multiple Livin g Live Births 3 2 2 Date Outcome GA Total Labor Labor/2nd/3rd Weight Sex Type Anes PTL Ashley A1 A5 Name Clin Term Term Last Filed Vital Signs Vital Sign Reading Time Taken Comments Blood Pressure 158/74 10/01/2024 2:48 PM BOARD LAYER Pulse 63 10/01/2024 2:48 PM BOARD LAYER Temperature 36.4 C (97.6 F) 05/14/2024 1:51 PM CDT Respiratory Rate 18 05/04/2024 12:00 AM CDT Oxygen Saturation 96% 05/21/2024 2:00 PM CDT Inhaled Oxygen Concentration - - Weight 81.2 kg (179 lb) 10/01/2024 2:48 PM BOARD LAYER Height 160 cm (5' 3 ) 10/01/2024 2:48 PM BOARD LAYER Body Mass Index 31.71 10/01/2024 2:48 PM BOARD LAYER Plan of Treatment Health Maintenance Due Date Last Done Comments Hepatitis C Screening 1945 Osteoporosis Screening-Bone Density Scan 1945 Dilated Eye Exam 1945 Foot Exam 1945 Hepatitis B Screening 1963 Pneumococcal vaccine 65+ (1 of 2 - PCV) 1964 Zoster Vaccine (1 of 2) 1995 Well Visit 65+ 2010 Depression Screening 03/30/2024 03/30/2023, 03/30/2023, 01/03/2019 Covid-19 Vaccine (5 - 2023-2 5 season) 2024 08/13/2022, 05/03/2022, 07/22/2021, Additional history exists Influenza Vaccine (#1) 2024 , 07/01/2021, 06/05/2020, Additional history exists Fall Risk Assessment 03/23/2025 03/23/2024 Hemoglobin A1C 03/31/2025 10/01/2024, 2 05/2024, 11/01/2023, Additional history exists Albumin Creatinine Ratio, Urine 04/02/2025 , 08/24/2021 Lipid Panel 05/31/2025 05/31/2024, 2 02/2023, 11/04/2022, Additional history exists eGFR 05/31/2025 05/31/2024, 2 05/2024, 03/22/2024, Additional history exists DTaP/Tdap/Td Vaccine (2 - Td or Tdap) 02/26/2033 02/26/2023 Colon Cancer Screening-CT Colonography Discontinued 02/12/2014 Colon Cancer Screening-Colonoscopy Discontinued 02/12/2014 Colon Cancer Screening-DNA Stool Discontinued 02/13/20 14 Colon Cancer Screening-FIT Discontinued 02/12/2014 Colon Cancer Screening-FOBT Discontinued 02/12/2014 Colon Cancer Screening-Sigmoidoscopy Discontinued 02/12/2014 Colorectal Cancer Screening Discontinued Breast Cancer Screening-Mammogram Discontinued 024, 03/22/2022 Procedures Procedure Name Priority Date/Time Associated Diagnosis Comments URINALYSIS AND REFLEX TO MICROSCOPIC AND CULTURE Routine 10/01/2024 4:16 PM BOARD LAYER Urinary tract infection without hematuria, site unspecified POCT HEMOGLOBIN A1C Routine 10/01/2024 4 :15 PM BOARD LAYER Type 2 diabetes mellitus without complication, with long-term current use of insulin (HCC) LIPID PANEL Routine 05/31/2024 1:03 PM CDT Coronary artery disease involving samish coronary artery of samish heart without angina pectoris EGFR Routine 05/31/2024 12:55 PM CDT Elevated serum creatinine ALBUMIN CREATININE RATIO, URINE Routine 04/02/2024 3:13 PM CDT Type 2 diabetes mellitus without complication, with long-term current use of insulin (HCC) DIAGNOSTIC MAMMOGRAM BILATERAL W BOB Schedule Routine, Read Routine (OP Routine) 11/03/2023 2:06 PM BOARD LAYER Encounter for screening mammogram for malignant neoplasm of breast Dense breast tissue on mammogram, unspecified type Inconclusive mammogram COLONOSCOPY REPORT 02/12/2014 from Last 3 Months or Most Recently Relevant to Health Maintenance Results * (ABNORMAL) Urinalysis reflex to microscopic and culture Urine (10/01/2024 4:16 PM BOARD LAYER) Color, ur Straw Yellow Clarity, ur Clear Clear [facility] Specific gravity, ur 1.013 1.003 - 1.030 [facility] pH, urine 6.5 [facility] Comment: Interpretive Data U rine pH is affected by diet, medications, systemic acid-base disturbances, and renal tubular function. pH may affect urinary stone formation. For example, urine pH below 6.0 may help reduce the tendency for calcium phosphate stones and pH greater than 6.0 may reduce the tendency for uric acid stone formation. Source: [facility] [employer] Current Interpretive Data was last revised on 2017 Protein, ur ql Trace Negative [facility] Glucose, ur ql 3+(A) Negative [facility] Ketones, ur Negative Negative [facility] Bilirubin, ur Negative Negative [facility] Blood, ur Negative Negative [facility] Urobilinogen, ur <2.0 <2.0 mg/dL [facility] Nitrite, ur Negative Negative [facility] Leukocyte esterase, ur Negative Negative [facility] UA reflex comment Reflex conditions for microscopic UA and culture not met. [facility] Urine 10/01/2024 4:16 PM BOARD LAYER 10/01/2024 4:32 PM BOARD LAYER Hermes Au MD LAB MICROBIOLOGY - GENE RAL ORDERABLES Final Result [facility] [place] [address] * POCT hemoglobin A1c (10/01/2024 4:15 PM BOARD LAYER) Hemoglobin A1C, POC 8.0 4.0 - 5.6 % Capillary blood 10/01/2024 4 :15 PM BOARD LAYER Hermes Au MD POINT OF CARE TEST ORDE RABLES Final Result * Lipid panel (05/31/2024 1:03 PM CDT) Cholesterol 143 30 - 199 mg/dL Comment: Interpretive Data Ages < or = 19 years Acceptable: <170 mg/dL Borderline high: 170-199 mg/dL High: >or= 200 mg/dL Ages > or = 20 years Desirable: <200 mg/dL Borderline high: 200-239 mg/dL High: >or= 240 mg/dL Literature References: 1. Expert Panel on Integrated Guidelines for Cardiovascular Health and Risk Reduction in Children and Adolescents. Pediatrics 2011;128:S213 2. NCEP Expert Panel. Circulation 2004;110:227 Current Interpretive Data was last revised on 2018. Testing performed by: [facility], [address] [place] [address]., [id number] Triglycerides 146 <=149 mg/dL [facility] Comment: Interpretive Data Ages < or = 9 years Acceptable: <75 mg/dL Borderline high: 75-99 mg/dL High: >or= 100 mg/dL Ages 10 to 20 years Acceptable: <90 mg/dL Borderline high: 90-129 mg/dL High: >or= 130 mg/dL Ages > or = 20 years Desirable: <150 mg/dL Borderline high: 150-199 mg/dL High: 200-499 mg/dL Very high: >or= 499 mg/dL Literature References: 1. Expert Panel on Integrated Guidelines for Cardiovascular Health and Risk Reduction in Children and Adolescents. Pediatrics 2011;128:S213 2. NCEP Expert Panel. Circulation 2004;110:227 Current Interpretive Data was last revised on 2018. Testing performed by: [address] [address] HDL 44 >=40 mg/dL [facility] Comment: Interpretive Data Ages < or = 19 years Acceptable: >45 mg/dL Borderline low: 40-45 mg/dL Low: <40 mg/dL Ages > or = 20 years Desirable: >or= 60 mg/dL Low: <40 mg/dL Literature References: 1. Expert Panel on Integrated Guidelines for Cardiovascular Health and Risk Reduction in Children and Adolescents. Pediatrics 2011;128:S213 2. NCEP Expert Panel. Circulation 2004;110:227 Current Interpretive Data was last revised on 2018. Testing performed by: [address] [address] LDL, calculated 74 <=129 mg/dL [facility] Comment: Interpretive Data Ages < or = 19 years Acceptable: <110 mg/dL Borderline high: 110-129 mg/dL High: >or= 130 mg/dL Ages > or = 20 years Optimal: <100 mg/dL Near optimal: 100-129 mg/dL Borderline high: 130-159 mg/dL High: >160 mg/dL Calculated using the Fredy LDL-C estimating equation. This equation was implemented on 2024. Prior to this date LDL-C was estimated using the Friedewald equation. Literature References: 1. Expert Panel on Integrated Guidelines for Cardiovascular Health and Risk Reduction in Children and Adolescents. Pediatrics 2011;128:S213 2. NCEP Expert Panel. Circulation 2004;110:227 3. Fredy Ballard al. KATHIA Cardiol. 2020 January 03;5(5):540-548. doi: 10.1001/jamacardio.2020.0013 Current Interpretive Data was last revised on 2024. Testing performed by: [address] [address] Non-HDL Cholesterol 99 mg/dL [facility] Comment: Interpretive Data Ages < or = 19 years Acceptable: <120 mg/dL Borderline high: 120-144 mg/dL High: >145 mg/dL Ages > or = 20 years When triglycerides are >200 mg/dL, Non-HDL cholesterol is a secondary target of therapy with treatment goals that are 30 mg/dL greater than the LDL cholesterol target. Literature References: 1. Expert Panel on Integrated Guidelines for Cardiovascular Health and Risk Reduction in Children and Adolescents. Pediatrics 2011;128:S213 2. NCEP Expert Panel. Circulation 2004;110:227 Current Interpretive Data was last revised on 2018. Testing performed by: [facility], [address] [place] [address]., [address] Chol/HDL ratio 3 [facility] Comment:Testing performed by : [facility], [address] [place] [address]., [id number] Blood 05/31/2024 1:03 PM CDT 05/31/2024 3:12 PM CDT us Ariel Ramos MD LAB BLOOD ORDERABLES Final Re sult [facility] [address] [facility] Department [place] [address] * (ABNORMAL) eGFR (05/31/2024 12:55 PM CDT) eGFR 42(L) >=60 mL/min/1. 73 m2 Comment: Interpretive Data Reference Interval Normal >/= 90 mL/min/1.73m2 Mildly decreased* 60 - 89 mL/min/1.73m2 Mildly to moderately decreased 45 - 59 mL/min/1.73m2 Moderately to severely decreased 30 - 44 mL/min/1.73m2 Severely decreased 15 - 29 mL/min/1.73m2 Kidney Failure < 15 mL/min/1.73m2 *Relative to young adult level Estimated glomerular filtration rate is determined by the 2020 CKD-EPI equation recommended by the National Kidney Foundation (A Unifying Approach to GFR Estimation: Recommendations of the NKF-ASK Task Force on Reassessing the Inclusion of Race in Diagnosing Kidney Disease, JASN 2020). The CKD-EPI equation should not be used for patients with unstable renal function and has not been validated in children and those over 70. Current interpretive data was last reviewed 2021. Testing performed by: [facility], [address] [place] [address]., [id number] Blood 05/31/2024 12:5 5 PM CDT 05/31/2024 3:14 PM CDT us Katelyn Solorzano COORDINATOR OF GENETIC SERVICES LAB BLOOD ORDERABLES Final Re sult Performing Organization Address [facility] Co de Phone Number [facility] [address] [facility] Department [place] [address] * Albumin Creatinine Ratio, Urine (04/02/2024 3:13 PM CDT) Creatinine ur 66.9 Not Estab. mg/dL [facility] - 01 Microalbumin, ur 7.3 Not Estab. ug/mL [facility] - 01 Microalbumin/cre at ratio 11 0 - 29 mg/g creat [facility] - 01 Comment: Normal: 0 - 29 Moderately increased: 30 - 300 Severely increased: >300 Urine 04/02/2024 3:13 PM CDT 04/02/2024 Narrative [facility] - 04/05/2024 8:19 AM CDT Performed at: [facility] [id number] Bench Jeweler: William Felipe PhD, Phone: [phone] us Katelyn Solorzano COORDINATOR OF GENETIC SERVICES LAB URINE ORDERABLES Final Re sult Performing Organization Address [facility] Co de Phone Number [facility] - 01 * Diagnostic Mammogram Bilateral W Bob (11/03/2023 2:06 PM BOARD LAYER) Anatomical Region Laterality Modality Breast Bilateral Mammography 11/03/2023 2:18 PM BOARD LAYER Narrative 11/03/2023 2:20 PM BOARD LAYER EXAM DESCRIPTION: DIAGNOSTIC MAMMOGRAM BILATERAL W BOB REASON FOR STUDY: 78-year-old woman comes in today for evaluation of diffuse bilateral breast pain. COMPARISON: 03/22/2022, 04/12/2018. TECHNIQUE: CC and MLO digital breast tomosynthesis of both breasts with C view was performed. FINDINGS: DENSITY: There are scattered areas of fibroglandular density. A few benign microcalcifications are again seen scattered throughout both breasts without suspicious interval change. There is no new suspicious finding in either breast on mammogram. IMPRESSION: There are no new suspicious findings in either breast. Specifically, no new findings are identified to account for patient's reported diffuse breast pain. Any further management should be based on clinical assessment. Annual bilateral screening mammography recommended in 12 months. BIRADS: 2 - Benign I discussed the findings and recommendations with the patient at the time of the examination. THIS IS AN ELECTRONICALLY VERIFIED FINAL REPORT 11/03/2023 2:20 PM - Electronically signed by Celestine Gonzalez M.D. RL: HENRI Report ID: [id number] Reading Location: [facility] Hermes Au MD IMG MAMMO PROCEDURES Fi nal Result * COLONOSCOPY REPORT (02/12/2014) Anatomical Region Laterality Modality Other Narrative 02/12/2014 Ordered by an unspecified provider. Historical Provider GI PROCEDURE ORDERABLES F inal Result from Last 3 Months or Most Recently Relevant to Health Maintenance Insurance MEDICARE [facility] Address: [facility] [address] [place] [address] [facility] [place] [address] MEDICARE [facility] Address: [address] [address] [place] [address] [facility] MEDICARE [place] [address] Advance Directives For more information, please contact: [phone] * Full Code (Latest Code Status on File) Date Activated Date Inactivated Comments 03/22/2024 12:25 AM 03/23/2024 5:28 PM * Full Code Date Activated Date Inactivated Comments 06/09/2023 5:36 PM 06/13/2023 7:49 PM * Full Code Date Activated Date Inactivated Comments 03/05/2021 3:33 AM 03/06/2021 7:39 PM * Full Code Date Activated Date Inactivated Comments 09/15/2020 7:25 PM 09/25/2020 6:49 PM * Full Code Date Activated Date Inactivated Comments 09/15/2020 7:25 PM 09/15/2020 7:25 PM Care Teams Shirt Maker Relationship Specialty Start Date End Date Hermes Au MD [id number] [address] PCP - General Endocrinology Diabetes & Metabolism 06/23/21 Ariel Ramos MD Referring Physician Cardiology 03/17/21 Giovana Begum MD [address] [place] [id number] Referring Physician Internal Medicine 03/17/21
--- OUTSIDE RECORDS SUMMARY | 2024-11-22 10:55 | XMS_ITS | Referral Summary ---
Author Organization [facility] [address] Address [address] [place] [address] Care Team Providers Care Pmo Consultant Name Role Phone Ariel Ramos MD Unavailable [phone] Giovana Begum MD Unavailable Hermes Au MD Primary Care Provider Encounters Date Type Department Care Team Description 10/03/2024 Telephone [facility] [address] [place] [address] [place] [id number] Hermes Au MD 10/01/2024 3:40 PM FORGING MACHINE HAND Lab [facility] [address] [place] [phone] Urinary tract infection without hematuria, site unspecified 10/01/2024 2:30 PM FORGING MACHINE HAND Office Visit [facility] [address] [place] [address] [place] [phone] Hermes Au MD Type 2 diabetes mellitus without complication, with long-term current use of insulin (HCC) (Primary Dx); Insomnia, unspecified type; Numbness and tingling; Seborrheic keratoses; Urinary tract infection without hematuria, site unspecified; Chronic right-sided low back pain with right-sided sciatica; Primary hypertension; Hyperlipidemia, unspecified hyperlipidemia type from Last 3 Months Allergies Active Allergy Reactions Criticality Noted Date [...] as needed for diarrhea 30 tablet 10/05/19 Active Additional Information Patient not taking.Reported on 10/01/2024 blood-glucose meter misc One touch verio meter diag code E 11.9 1 each 01/05/20 Active lancets 33 gauge misc Check bg 2 times per day Diag code E 11.9 200 each 3 01/05/20 Active lidocaine viscous (lidocaine) 2 % solution Apply 10 cc's topically once per day. 100 mL 3 02/18/20 23 Active clotrimazole-be tamethasone (LOTRISONE) cream Apply topically 2 (two) times a day 30 g 06/28/20 Active Additional Information Patient not taking.Reported on 10/01/2024 estradioL (ESTRACE) 0.01 % (0.1 mg/gram) vaginal creamIndication s:Atrophic Vaginitis associated with Menopause Apply nightly for 3 weeks, then 3 times per week. 127.5 g 3 07/25/20 Active OneTouch Verio test strips strip Use [...] 10/01/2024 Assessment & Plan (10/01/2024 4:14 PM FORGING MACHINE HAND): Possible side effect from intraocular injections given time course. I recommended that she contact her starch crab regarding this. Diarrhea 03/22/2024 Assessment & Plan [...] 06/28/2023 Assessment & Plan (11/01/2023 8:47 PM FORGING MACHINE HAND): Seeing urology. Doing well with methenamine. Assessment [...] 11/04/2022 Assessment & Plan (10/01/2024 4:15 PM FORGING MACHINE HAND): Offered reassurance. Nickolas FREY 08/05/2022 Assessment & Plan (08/05/2022 4:14 PM FORGING MACHINE HAND): She has been referred to the long [facility] clinic. Muscle cramping 04/01/2022 Assessment & Plan (04/01/2022 2:50 PM CDT): Increase Flexeril to 10 mg nightly. Leg swelling 11/26/2021 Assessment & Plan (11/26/2021 3:14 PM CDT): R/o DVT. Nocturnal hypoxemia 03/17/2021 Insomnia 03/17/2021 Assessment & Plan (10/01/2024 4:14 PM FORGING MACHINE HAND): Can increase Xanax to 0.75 mg nightly. Assessment & Plan (11/01/2023 8:48 PM FORGING MACHINE HAND): Encouraged good sleep hygiene and opening blinds [...] 10/30/2020 Assessment & Plan (10/01/2024 4:12 PM FORGING MACHINE HAND): At goal on current therapy. Assessment & Plan (11/01/2023 8:47 PM FORGING MACHINE HAND): At goal on current therapy. Assessment & Plan (06/28/2023 4:14 PM CDT): At goal on current therapy. Assessment & Plan (11/04/2022 7:22 PM FORGING MACHINE HAND): At goal on current therapy. Assessment & Plan (08/05/2022 4:12 PM FORGING MACHINE HAND): At goal on current therapy. Assessment & Plan (04/01/2022 2:49 PM CDT): At goal on current therapy. Assessment & Plan (11/26/2021 3:13 PM CDT): At goal on current therapy. Assessment & Plan (08/24/2021 1:40 PM FORGING MACHINE HAND): At goal on current therapy. Gastroesophageal reflux disease 10/30/2020 Myalgia 10/30/2020 UTI (urinary tract infection) 09/10/2020 Assessment & Plan (06/28/2023 4:16 PM CDT): Resolved. She is able to tolerate PO Augmentin and Bactrim (does not actually have sulfa allergy). Assessment & Plan (09/14/2020 7:04 PM FORGING MACHINE HAND): - UA (1/6) with enterococcus faecalis - Change CTX to Unasyn - 1/8- monurol Assessment & Plan (09/13/2020 5:55 PM FORGING MACHINE HAND): - UA (1/6) with enterococcus faecalis - Change CTX to Unasyn - 1/8- monurol Assessment & Plan (09/12/2020 8:24 PM FORGING MACHINE HAND): - UA (1/6) with enterococcus faecalis - Change CTX to Unasyn - 1/8- monurol Assessment & Plan (09/11/2020 5:48 PM FORGING MACHINE HAND): - UA (1/6) with enterococcus faecalis - Change CTX to Unasyn (until penicillin resistant stain is r/o) Severe malnutrition 09/04/2020 Assessment & Plan (09/14/2020 7:05 PM FORGING MACHINE HAND): -Per shoe stainer, continue nutritional supplements. Assessment & Plan (09/13/2020 5:55 PM FORGING MACHINE HAND): -Per shoe stainer, continue nutritional supplements. Assessment & Plan (09/09/2020 6:29 PM FORGING MACHINE HAND): -Per shoe stainer, continue nutritional supplements. Assessment & Plan (09/08/2020 7:28 PM FORGING MACHINE HAND): -Per shoe stainer, continue nutritional supplements. Assessment & Plan (09/07/2020 10:22 AM FORGING MACHINE HAND): -Per shoe stainer, continue nutritional supplements. Assessment & Plan (09/06/2020 10:09 AM FORGING MACHINE HAND): -Per shoe stainer, continue nutritional supplements. Assessment & Plan (09/05/2020 11:04 AM FORGING MACHINE HAND): -Per shoe stainer, continue nutritional supplements. Assessment & Plan (09/04/2020 2:28 PM FORGING MACHINE HAND): -Per shoe stainer, continue nutritional supplements. Acute hypoxemic respiratory failure due to COVID -19 08/28/2020 Assessment & Plan (09/15/2020 2:24 PM FORGING MACHINE HAND): - Symptoms started around 08/19/2020. Tested positive for COVID-19 on 08/28/2020. - Initially complicated by hypoxemic respiratory failure now resolved. - S/p course of dexamethasone and remdesivir. - Given > 20 days since symptom onset and recovery of symptoms, patient is now COVID-19 recovered. Assessment & Plan (09/14/2020 7:04 PM FORGING MACHINE HAND): -Symptoms started around 08/19/2020. She tested positive [...] RA Assessment & Plan (09/13/2020 5:53 PM FORGING MACHINE HAND): -Symptoms started around 08/19/2020. She tested positive [...] RA Assessment & Plan (09/12/2020 8:22 PM FORGING MACHINE HAND): -Symptoms started around 08/19/2020. She tested positive [...] RA Assessment & Plan (09/11/2020 5:50 PM FORGING MACHINE HAND): -Symptoms started around 08/19/2020. She tested positive [...] RA Assessment & Plan (09/10/2020 4:38 PM FORGING MACHINE HAND): -Symptoms started around 08/19/2020. She tested positive [...] () Assessment & Plan (09/09/2020 6:29 PM FORGING MACHINE HAND): -Symptoms started around 08/19/2020. She tested positive [...] PE Assessment & Plan (09/08/2020 7:29 PM FORGING MACHINE HAND): -Symptoms started around 08/19/2020. She tested positive [...] 09/17/19. Assessment & Plan (09/07/2020 10:22 AM FORGING MACHINE HAND): -Symptoms started around 08/19/2020. She tested positive [...] 09/17/19. Assessment & Plan (09/06/2020 10:09 AM FORGING MACHINE HAND): -Symptoms started around 08/19/2020. She tested positive [...] 09/17/19. Assessment & Plan (09/05/2020 11:04 AM FORGING MACHINE HAND): -Symptoms started around 08/19/2020. She tested positive [...] 09/17/19. Assessment & Plan (09/04/2020 2:28 PM FORGING MACHINE HAND): -Symptoms started around 08/19/2020. She tested positive [...] 09/17/19. Assessment & Plan (09/03/2020 12:12 PM FORGING MACHINE HAND): -Symptoms started around 08/19/2020. She tested positive [...] 09/17/19. Assessment & Plan (09/02/2020 10:40 AM FORGING MACHINE HAND): -Symptoms started around 08/19/2020. She tested positive [...] inhalers. Assessment & Plan (09/01/2020 2:25 PM FORGING MACHINE HAND): Symptoms started around 08/19/2020. She tested positive [...] inhalers. Assessment & Plan (08/31/2020 2:10 PM FORGING MACHINE HAND): Symptoms started around 08/19/2020. She tested positive [...] inhalers. Assessment & Plan (08/30/2020 12:49 PM FORGING MACHINE HAND): Symptoms started around 8-9 days prior to [...] inhalers. Assessment & Plan (08/29/2020 3:46 PM FORGING MACHINE HAND): Symptoms started around 8-9 days prior to [...] appropriate Assessment & Plan (09/15/2020 2:28 PM FORGING MACHINE HAND): - Cr improve w/ IVF Assessment & Plan (09/14/2020 7:04 PM FORGING MACHINE HAND): - Cr improve w/ IVF Assessment & Plan (09/13/2020 5:54 PM FORGING MACHINE HAND): - Cr improve w/ IVF Assessment & Plan (09/12/2020 8:23 PM FORGING MACHINE HAND): -Creatinine on admission 1.33. Baseline creatinine seems to be around 0.7. Now worsening again to 1.3->1.47->1.26 - IVF - CTM Assessment & Plan (09/11/2020 5:50 PM FORGING MACHINE HAND): -Creatinine on admission 1.33. Baseline creatinine seems to be around 0.7. Now worsening again to 1.3->1.47->1.26 - IVF - CTM Assessment & Plan (09/10/2020 9:33 AM FORGING MACHINE HAND): -Creatinine on admission 1.33. Baseline creatinine seems to be around 0.7. Now worsening again to 1.3->1.47 - IVF - CTM Assessment & Plan (09/09/2020 6:30 PM FORGING MACHINE HAND): -Creatinine on admission 1.33. Baseline creatinine seems to be around 0.7. Now worsening again to 1.3 - IVF - CTM Assessment & Plan (09/08/2020 7:29 PM FORGING MACHINE HAND): -Creatinine on admission 1.33. Baseline creatinine seems to be around 0.7. Improving with IVF. -Etiology likely prerenal from decreased appetite the setting of diuretic use at home and diarrhea vs COVID -19 related. Assessment & Plan (09/07/2020 10:22 AM FORGING MACHINE HAND): -Creatinine on admission 1.33. Baseline creatinine seems to be around 0.7. Improving with IVF. -Etiology likely prerenal from decreased appetite the setting of diuretic use at home and diarrhea vs COVID -19 related. Assessment & Plan (09/06/2020 10:09 AM FORGING MACHINE HAND): -Creatinine on admission 1.33. Baseline creatinine seems to be around 0.7. Improving with IVF. -Etiology likely prerenal from decreased appetite the setting of diuretic use at home and diarrhea vs COVID -19 related. Assessment & Plan (09/05/2020 11:04 AM FORGING MACHINE HAND): -Creatinine on admission 1.33. Baseline creatinine seems to be around 0.7. Improving with IVF. -Etiology likely prerenal from decreased appetite the setting of diuretic use at home and diarrhea vs COVID -19 related. -Hold home spironolactone and Bumex until appropriate. Assessment & Plan (09/04/2020 2:28 PM FORGING MACHINE HAND): -Creatinine on admission 1.33. Baseline creatinine seems to be around 0.7. Improving with IVF. -Etiology likely prerenal from decreased appetite the setting of diuretic use at home and diarrhea vs COVID -19 related. -Hold home spironolactone and Bumex until appropriate. Assessment & Plan (09/03/2020 12:11 PM FORGING MACHINE HAND): -Creatinine on admission 1.33. Baseline creatinine seems to be around 0.7. Improving with IVF. -Etiology likely prerenal from decreased appetite the setting of diuretic use at home and diarrhea vs COVID -19 related. -Hold home spironolactone and Bumex until appropriate. Assessment & Plan (09/02/2020 10:40 AM FORGING MACHINE HAND): -Creatinine on admission 1.33. Baseline creatinine seems to be around 0.7. Improving with IVF. -Etiology likely prerenal from decreased appetite the setting of diuretic use at home and diarrhea vs COVID -19 related. -Hold home spironolactone and Bumex until appropriate. Assessment & Plan (09/01/2020 2:25 PM FORGING MACHINE HAND): Creatinine on admission 1.33. Baseline creatinine seems to be around 0.7. Improving with IVF. - etiology likely prerenal from decreased appetite the setting of diuretic use at home and diarrhea vs COVID -19 related. - hold home spironolactone and Bumex until appropriate. Assessment & Plan (08/31/2020 2:11 PM FORGING MACHINE HAND): Creatinine on admission 1.33. Baseline creatinine seems [...] appropriate. Assessment & Plan (08/30/2020 12:50 PM FORGING MACHINE HAND): Creatinine on admission 1.33. Baseline creatinine seems [...] appropriate. Assessment & Plan (08/29/2020 3:48 PM FORGING MACHINE HAND): Creatinine on admission 1.33. Baseline creatinine seems [...] 07/12/2020 Assessment & Plan (10/01/2024 4:13 PM FORGING MACHINE HAND): A1c is stable. She reports drinking Dr. Wheat every day. I have recommended that she stop consuming soda. We will keep her diabetes regimen the same as she has been unable to tolerate other diabetes medications. Assessment & Plan (11/01/2023 8:48 PM FORGING MACHINE HAND): A1c above goal, which for her is [...] BCise. Assessment & Plan (11/04/2022 7:22 PM FORGING MACHINE HAND): A1c still above goal, but just started BCise. Will continue this and metformin. Will check about CGM coverage. Assessment & Plan (08/05/2022 4:13 PM FORGING MACHINE HAND): A1c not at goal. We are limited [...] effects. Assessment & Plan (08/24/2021 5:22 PM FORGING MACHINE HAND): A1c not at goal. Start Januvia 100 [...] diet Assessment & Plan (09/15/2020 2:25 PM FORGING MACHINE HAND): - Home regimen includes metformin 500 mg daily. Hba1c 2 months ago was 6.5. - Discontinue insulin and restart metformin in preparation for discharge. Assessment & Plan (09/14/2020 7:03 PM FORGING MACHINE HAND): -Home regimen includes metformin 500 mg daily. Hba1c 2 months ago was 6.5. -Hold metformin while inpatient and started NPH with dex. -Continue NPH 5u bid, continue SSI. Assessment & Plan (09/13/2020 5:55 PM FORGING MACHINE HAND): -Home regimen includes metformin 500 mg daily. Hba1c 2 months ago was 6.5. -Hold metformin while inpatient and started NPH with dex. -Continue NPH 5u bid, continue SSI. Assessment & Plan (09/12/2020 8:22 PM FORGING MACHINE HAND): -Home regimen includes metformin 500 mg daily. Hba1c 2 months ago was 6.5. -Hold metformin while inpatient and started NPH with dex. -Continue NPH 5u bid, continue SSI. Assessment & Plan (09/11/2020 5:50 PM FORGING MACHINE HAND): -Home regimen includes metformin 500 mg daily. Hba1c 2 months ago was 6.5. -Hold metformin while inpatient and started NPH with dex. -Continue NPH 5u bid, continue SSI. Assessment & Plan (09/10/2020 4:36 PM FORGING MACHINE HAND): -Home regimen includes metformin 500 mg daily. Hba1c 2 months ago was 6.5. -Hold metformin while inpatient and started NPH with dex. -Continue NPH 5u bid, continue SSI. Assessment & Plan (09/09/2020 6:24 PM FORGING MACHINE HAND): -Home regimen includes metformin 500 mg daily. Hba1c 2 months ago was 6.5. -Hold metformin while inpatient and started NPH with dex. -Continue NPH 5u bid, continue SSI. Assessment & Plan (09/08/2020 7:28 PM FORGING MACHINE HAND): -Home regimen includes metformin 500 mg daily. Hba1c 2 months ago was 6.5. -Hold metformin while inpatient and started NPH with dex. -Continue NPH 5u bid, continue SSI. Assessment & Plan (09/07/2020 10:22 AM FORGING MACHINE HAND): -Home regimen includes metformin 500 mg daily. Hba1c 2 months ago was 6.5. -Hold metformin while inpatient and started NPH with dex. -Continue NPH 5u bid, continue SSI. Assessment & Plan (09/06/2020 10:08 AM FORGING MACHINE HAND): -Home regimen includes metformin 500 mg daily. Hba1c 2 months ago was 6.5. -Hold metformin while inpatient and started NPH with dex. -Continue NPH 5u bid, continue SSI. Assessment & Plan (09/05/2020 11:04 AM FORGING MACHINE HAND): -Home regimen includes metformin 500 mg daily. Hba1c 2 months ago was 6.5. -Hold metformin while inpatient and started NPH with dex. -Continue NPH 5u bid, continue SSI. Assessment & Plan (09/04/2020 2:28 PM FORGING MACHINE HAND): -Home regimen includes metformin 500 mg daily. Hba1c 2 months ago was 6.5. -Hold metformin while inpatient and started NPH with dex. -Continue NPH 5u bid, continue SSI. Assessment & Plan (09/03/2020 12:09 PM FORGING MACHINE HAND): -Home regimen includes metformin 500 mg daily. Hba1c 2 months ago was 6.5. -Hold metformin while inpatient and started NPH with dex. -Continue NPH 5u bid, continue SSI. Assessment & Plan (09/02/2020 10:38 AM FORGING MACHINE HAND): -Home regimen includes metformin 500 mg daily. Hba1c 2 months ago was 6.5. -Hold metformin while inpatient and started NPH with dex. -Hold NPH due to poor appetite, continue SSI. Assessment & Plan (09/01/2020 2:23 PM FORGING MACHINE HAND): Home regimen includes metformin 500 mg daily. Hba1c 2 months ago was 6.5. - hold metformin while inpatient and started NPH with dex. - Decrease NPH to BID due to hypoglycemia, continue SSI. Assessment & Plan (08/31/2020 2:11 PM FORGING MACHINE HAND): Home regimen includes metformin 500 mg daily. Hba1c 2 months ago was 6.5. - hold metformin while inpatient and started NPH with dex. - On 10 units NPH TID with SSI. Assessment & Plan (08/30/2020 12:50 PM FORGING MACHINE HAND): Home regimen includes metformin 500 mg daily. Hba1c 2 months ago was 6.5. - hold metformin while inpatient and started NPH with dex. - On 12 units NPH with SSI. Assessment & Plan (08/29/2020 3:47 PM FORGING MACHINE HAND): Home regimen includes metformin 500 mg daily. [...] (07/20/2020): Added automatically from request for surgery [id number] Infiltrate of lung present on imaging of [...] 4:13 AM CDT): Status post CABG in 2015 Continue home metop, statin, and aspirin Assessment & Plan (09/15/2020 2:26 PM FORGING MACHINE HAND): -Appears to be stable. Status post CABG in 2015. -Continue metoprolol, Crestor, aspirin. Assessment & Plan (09/14/2020 7:04 PM FORGING MACHINE HAND): -Appears to be stable. Status post CABG in 2015. -Continue metoprolol and Crestor. Assessment & Plan (09/13/2020 5:54 PM FORGING MACHINE HAND): -Appears to be stable. Status post CABG in 2015. -Continue metoprolol and Crestor. Assessment & Plan (09/12/2020 8:22 PM FORGING MACHINE HAND): -Appears to be stable. Status post CABG in 2016. -Continue metoprolol and Crestor. Assessment & Plan (09/11/2020 5:50 PM FORGING MACHINE HAND): -Appears to be stable. Status post CABG in 2015. -Continue metoprolol and Crestor. Assessment & Plan (09/10/2020 4:37 PM FORGING MACHINE HAND): -Appears to be stable. Status post CABG in 2015. -Continue metoprolol and Crestor. Assessment & Plan (09/09/2020 6:24 PM FORGING MACHINE HAND): -Appears to be stable. Status post CABG in 2016. -Continue metoprolol and Crestor. Assessment & Plan (09/08/2020 7:29 PM FORGING MACHINE HAND): -Appears to be stable. Status post CABG in 2016. -Continue metoprolol and Crestor. Assessment & Plan (09/07/2020 10:22 AM FORGING MACHINE HAND): -Appears to be stable. Status post CABG in 2016. -Continue metoprolol and Crestor. Assessment & Plan (09/06/2020 10:08 AM FORGING MACHINE HAND): -Appears to be stable. Status post CABG in 2015. -Continue metoprolol and Crestor. Assessment & Plan (09/05/2020 11:04 AM FORGING MACHINE HAND): -Appears to be stable. Status post CABG in 2015. -Continue metoprolol and Crestor. Assessment & Plan (09/04/2020 2:28 PM FORGING MACHINE HAND): -Appears to be stable. Status post CABG in 2016. -Continue metoprolol and Crestor. Assessment & Plan (09/03/2020 12:09 PM FORGING MACHINE HAND): -Appears to be stable. Status post CABG in 2016. -Continue metoprolol and Crestor. Assessment & Plan (09/02/2020 10:39 AM FORGING MACHINE HAND): -Appears to be stable. Status post CABG in 2016. -Continue metoprolol and Crestor. Assessment & Plan (09/01/2020 2:23 PM FORGING MACHINE HAND): Appears to be stable. Status post CABG in 2016. - continue metoprolol and Crestor. Assessment & Plan (08/31/2020 2:10 PM FORGING MACHINE HAND): Appears to be stable. Status post CABG in 2016. - continue metoprolol and Crestor. Assessment & Plan (08/30/2020 12:49 PM FORGING MACHINE HAND): Appears to be stable. Status post CABG in 2016. - continue metoprolol and Crestor. Assessment & Plan (08/28/2020 6:36 PM FORGING MACHINE HAND): Appears to be stable. Status post CABG in 2016. - continue metoprolol and Crestor. COPD (chronic [...] PRN Assessment & Plan (09/15/2020 2:26 PM FORGING MACHINE HAND): No decompensated. -Continue albuterol and Atrovent inhalers prn. Assessment & Plan (09/14/2020 7:04 PM FORGING MACHINE HAND): -Appears stable. No wheezing noted at the time of my exam. -Continue albuterol and Atrovent inhalers prn. Assessment & Plan (09/13/2020 5:54 PM FORGING MACHINE HAND): -Appears stable. No wheezing noted at the time of my exam. -Continue albuterol and Atrovent inhalers prn. Assessment & Plan (09/12/2020 8:22 PM FORGING MACHINE HAND): -Appears stable. No wheezing noted at the time of my exam. -Continue albuterol and Atrovent inhalers prn. Assessment & Plan (09/11/2020 5:51 PM FORGING MACHINE HAND): -Appears stable. No wheezing noted at the time of my exam. -Continue albuterol and Atrovent inhalers prn. Assessment & Plan (09/10/2020 4:37 PM FORGING MACHINE HAND): -Appears stable. No wheezing noted at the time of my exam. -Continue albuterol and Atrovent inhalers prn. Assessment & Plan (09/09/2020 6:24 PM FORGING MACHINE HAND): -Appears stable. No wheezing noted at the time of my exam. -Continue albuterol and Atrovent inhalers prn. Assessment & Plan (09/08/2020 7:29 PM FORGING MACHINE HAND): -Appears stable. No wheezing noted at the time of my exam. -Continue albuterol and Atrovent inhalers prn. Assessment & Plan (09/07/2020 10:22 AM FORGING MACHINE HAND): -Appears stable. No wheezing noted at the time of my exam. -Continue albuterol and Atrovent inhalers prn. Assessment & Plan (09/06/2020 10:08 AM FORGING MACHINE HAND): -Appears stable. No wheezing noted at the time of my exam. -Continue albuterol and Atrovent inhalers prn. Assessment & Plan (09/05/2020 11:04 AM FORGING MACHINE HAND): -Appears stable. No wheezing noted at the time of my exam. -Continue albuterol and Atrovent inhalers prn. Assessment & Plan (09/04/2020 2:28 PM FORGING MACHINE HAND): -Appears stable. No wheezing noted at the time of my exam. -Continue albuterol and Atrovent inhalers prn. Assessment & Plan (09/03/2020 12:11 PM FORGING MACHINE HAND): -Appears stable. No wheezing noted at the time of my exam. -Continue albuterol and Atrovent inhalers prn. Assessment & Plan (09/02/2020 10:39 AM FORGING MACHINE HAND): -Appears stable. No wheezing noted at the time of my exam. -Continue albuterol and Atrovent inhalers. Assessment & Plan (09/01/2020 2:23 PM FORGING MACHINE HAND): Appears stable. No wheezing noted at the time of my exam. - continue albuterol and Atrovent inhalers. Assessment & Plan (08/31/2020 2:11 PM FORGING MACHINE HAND): Appears stable. No wheezing noted at the time of my exam. - continue albuterol and Atrovent inhalers. Assessment & Plan (08/30/2020 12:50 PM FORGING MACHINE HAND): Appears stable. No wheezing noted at the time of my exam. - continue albuterol and Atrovent inhalers. Assessment & Plan (08/28/2020 6:38 PM FORGING MACHINE HAND): Appears stable. No wheezing noted at the time of my exam. - continue albuterol and Atrovent inhalers. 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 Refer to PT. 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 Unspecified abnormalities of gait and mobility 0 10/16/2015 Assessment & Plan (11/01/2023 8:48 PM FORGING MACHINE HAND): Referred to PT. Assessment & Plan (11/26/2021 3:14 PM CDT): Would benefit from PT referral. Presence of coronary angioplasty implant and gra ft 10/16/2015 Pleural effusion, not elsewhere classified 10/16 Personal history of healed traumatic fracture Old myocardial infarction 10/16/2015 Muscle weakness (generalized) 10/16/2015 Diastolic heart failure 10/16/2015 Gastro-esophageal reflux disease without esophag itis 10/16/2015 Assessment & Plan (09/15/2020 2:28 PM FORGING MACHINE HAND): -Continue PPI Assessment & Plan (09/14/2020 7:04 PM FORGING MACHINE HAND): -Continue PPI Assessment & Plan (09/13/2020 5:54 PM FORGING MACHINE HAND): -Continue PPI Assessment & Plan (09/11/2020 5:53 PM FORGING MACHINE HAND): -Continue PPI Assessment & Plan (09/10/2020 4:37 PM FORGING MACHINE HAND): -Continue PPI Assessment & Plan (09/09/2020 6:24 PM FORGING MACHINE HAND): -Continue PPI Assessment & Plan (09/08/2020 7:29 PM FORGING MACHINE HAND): -Continue PPI Assessment & Plan (09/07/2020 10:22 AM FORGING MACHINE HAND): -Continue PPI Assessment & Plan (09/06/2020 10:08 AM FORGING MACHINE HAND): -Continue PPI Assessment & Plan (09/05/2020 11:04 AM FORGING MACHINE HAND): -Continue PPI Assessment & Plan (09/04/2020 2:28 PM FORGING MACHINE HAND): -Continue PPI Assessment & Plan (09/03/2020 12:11 PM FORGING MACHINE HAND): -Continue PPI Assessment & Plan (09/02/2020 10:39 AM FORGING MACHINE HAND): -Continue PPI Assessment & Plan (09/01/2020 2:24 PM FORGING MACHINE HAND): -Continue PPI Assessment & Plan (08/31/2020 2:11 PM FORGING MACHINE HAND): Continue PPI Assessment & Plan (08/30/2020 12:50 PM FORGING MACHINE HAND): Continue PPI Assessment & Plan (08/28/2020 6:39 PM FORGING MACHINE HAND): Continue PPI Chronic kidney disease, unspecified 10/16/2015 Anxiety associated with depression 10/16/2015 Assessment & Plan (09/15/2020 2:28 PM FORGING MACHINE HAND): -Continue Celexa (reduced dose 2/2 prolonged Qtc) and Xanax. Assessment & Plan (09/14/2020 7:04 PM FORGING MACHINE HAND): -Appears to be a little low, appeared the same way since she was discharged from rehab her daughter. -Continue Celexa (reduced dose 2/2 prolonged Qtc) and scheduled Xanax. On Qtc monitoring. Assessment & Plan (09/08/2020 7:29 PM FORGING MACHINE HAND): -Appears to be a little low, appeared the same way since she was discharged from rehab her daughter. -Continue Celexa (reduced dose 2/2 prolonged Qtc) and scheduled Xanax. On Qtc monitoring. Assessment & Plan (09/07/2020 10:22 AM FORGING MACHINE HAND): -Appears to be a little low, appeared the same way since she was discharged from rehab her daughter. -Continue Celexa (reduced dose 2/2 prolonged Qtc) and scheduled Xanax. On Qtc monitoring. Assessment & Plan (09/06/2020 10:08 AM FORGING MACHINE HAND): -Appears to be a little low, appeared the same way since she was discharged from rehab her daughter. -Continue Celexa (reduced dose 2/2 prolonged Qtc) and scheduled Xanax. On Qtc monitoring. Assessment & Plan (09/05/2020 11:04 AM FORGING MACHINE HAND): -Appears to be a little low, appeared the same way since she was discharged from rehab her daughter. -Continue Celexa (reduced dose 2/2 prolonged Qtc) and scheduled Xanax. On Qtc monitoring. Assessment & Plan (09/04/2020 2:28 PM FORGING MACHINE HAND): -Appears to be a little low, appeared the same way since she was discharged from rehab her daughter. -Continue Celexa (reduced dose 2/2 prolonged Qtc) and scheduled Xanax. On Qtc monitoring. Assessment & Plan (09/03/2020 12:11 PM FORGING MACHINE HAND): -Appears to be a little low, appeared the same way since she was discharged from rehab her daughter. -Continue Celexa (reduced dose 2/2 prolonged Qtc) and scheduled Xanax. On Qtc monitoring. Assessment & Plan (09/02/2020 10:40 AM FORGING MACHINE HAND): -Appears to be a little low, appeared the same way since she was discharged from rehab her daughter. -Continue Celexa (reduced dose 2/2 prolonged Qtc) and scheduled Xanax. On Qtc monitoring. Assessment & Plan (09/01/2020 2:24 PM FORGING MACHINE HAND): Appears to be a little low, appeared the same way since she was discharged from rehab her daughter. - continue Celexa (reduced dose 2/2 prolonged Qtc) and scheduled Xanax. On Qtc monitoring. Assessment & Plan (08/31/2020 2:11 PM FORGING MACHINE HAND): Appears to be a little low, appeared the same way since she was discharged from rehab her daughter. - continue Celexa (reduced dose 2/2 prolonged Qtc) and scheduled Xanax. On Qtc monitoring. Assessment & Plan (08/30/2020 12:50 PM FORGING MACHINE HAND): Appears to be a little low, appeared the same way since she was discharged from rehab her daughter. - continue Celexa (reduced dose 2/2 prolonged Qtc) and scheduled Xanax. On Qtc monitoring. Assessment & Plan (08/29/2020 3:48 PM FORGING MACHINE HAND): Appears to be a little low, appeared [...] needed Assessment & Plan (10/01/2024 4:12 PM FORGING MACHINE HAND): Daughter reports normal BP's at home. Continue current regimen. Assessment & Plan (03/22/2024 12:04 AM CDT): History hypertension: Continue home antihypertensive regimen of metoprolol, aspirin Assessment & Plan (11/01/2023 8:47 PM FORGING MACHINE HAND): At goal on current therapy. Assessment & Plan (06/28/2023 4:14 PM CDT): At goal on current therapy. Assessment & Plan (02/17/2023 3:59 PM CDT): BP in reasonable range. Assessment & Plan (11/04/2022 7:22 PM FORGING MACHINE HAND): At goal on current therapy. Assessment & Plan (08/05/2022 4:12 PM FORGING MACHINE HAND): BP mildly elevated; will not change medication dosages at this time (permissive HTN). Assessment & Plan (04/01/2022 2:49 PM CDT): At goal on current therapy. Assessment & Plan (11/26/2021 3:13 PM CDT): At goal on current therapy. Assessment & Plan (08/24/2021 1:40 PM FORGING MACHINE HAND): At goal on current therapy. Assessment & Plan (09/15/2020 2:27 PM FORGING MACHINE HAND): - Restart home medications. Assessment & Plan (09/14/2020 7:04 PM FORGING MACHINE HAND): -Home medications include amlodipine 5 mg, metoprolol extended release 12.5, spironolactone 25 daily. - Now only metop Assessment & Plan (09/13/2020 5:54 PM FORGING MACHINE HAND): -Home medications include amlodipine 5 mg, metoprolol extended release 12.5, spironolactone 25 daily. - Now only metop Assessment & Plan (09/12/2020 8:22 PM FORGING MACHINE HAND): -Home medications include amlodipine 5 mg, metoprolol extended release 12.5, spironolactone 25 daily. - Now only metop Assessment & Plan (09/11/2020 5:52 PM FORGING MACHINE HAND): -Home medications include amlodipine 5 mg, metoprolol extended release 12.5, spironolactone 25 daily. - Now only metop Assessment & Plan (09/10/2020 4:37 PM FORGING MACHINE HAND): -Home medications include amlodipine 5 mg, metoprolol extended release 12.5, spironolactone 25 daily. Assessment & Plan (09/09/2020 6:24 PM FORGING MACHINE HAND): -Home medications include amlodipine 5 mg, metoprolol extended release 12.5, spironolactone 25 daily. Assessment & Plan (09/08/2020 7:29 PM FORGING MACHINE HAND): -Home medications include amlodipine 5 mg, metoprolol extended release 12.5, spironolactone 25 daily. Assessment & Plan (09/07/2020 10:22 AM FORGING MACHINE HAND): -Home medications include amlodipine 5 mg, metoprolol extended release 12.5, spironolactone 25 daily. Assessment & Plan (09/06/2020 10:08 AM FORGING MACHINE HAND): -Home medications include amlodipine 5 mg, metoprolol extended release 12.5, spironolactone 25 daily. Assessment & Plan (09/05/2020 11:04 AM FORGING MACHINE HAND): -Home medications include amlodipine 5 mg, metoprolol extended release 12.5, spironolactone 25 daily. -Holding spironolactone due to poor intake and HENRRY. Assessment & Plan (09/04/2020 2:28 PM FORGING MACHINE HAND): -Home medications include amlodipine 5 mg, metoprolol extended release 12.5, spironolactone 25 daily. -Holding spironolactone due to poor intake and HENRRY. Assessment & Plan (09/03/2020 12:11 PM FORGING MACHINE HAND): -Home medications include amlodipine 5 mg, metoprolol extended release 12.5, spironolactone 25 daily. -Holding spironolactone due to poor intake and HENRRY. Assessment & Plan (09/02/2020 10:39 AM FORGING MACHINE HAND): -Home medications include amlodipine 5 mg, metoprolol extended release 12.5, spironolactone 25 daily. -Holding spironolactone due to poor intake and HENRRY. Assessment & Plan (09/01/2020 2:24 PM FORGING MACHINE HAND): Home medications include amlodipine 5 mg, metoprolol extended release 12.5, spironolactone 25 daily. - holding only spironolactone. Assessment & Plan (08/31/2020 2:11 PM FORGING MACHINE HAND): Home medications include amlodipine 5 mg, metoprolol extended release 12.5, spironolactone 25 daily. - holding only spironolactone. Assessment & Plan (08/30/2020 12:49 PM FORGING MACHINE HAND): Home medications include amlodipine 5 mg, metoprolol extended release 12.5, spironolactone 25 daily. - holding only spironolactone. Assessment & Plan (08/29/2020 3:47 PM FORGING MACHINE HAND): Home medications include amlodipine 5 mg, metoprolol extended release 12.5, spironolactone 25 daily. - holding only spironolactone. Chronic pain 05/15/2013 Assessment & Plan (11/04/2022 7:22 PM FORGING MACHINE HAND): Trial topical Voltaren. Assessment & Plan (08/05/2022 4:13 PM FORGING MACHINE HAND): Tylenol 1000 mg TID. Assessment & Plan (09/14/2020 7:04 PM FORGING MACHINE HAND): -Chronic pain at T5/T6 area on the back and right ribs 3/4/5 area. Assessment & Plan (09/13/2020 5:54 PM FORGING MACHINE HAND): -Chronic pain at T5/T6 area on the back and right ribs 3/4/5 area. Assessment & Plan (09/11/2020 5:52 PM FORGING MACHINE HAND): -Chronic pain at T5/T6 area on the back and right ribs 3/4/5 area. Assessment & Plan (09/09/2020 6:24 PM FORGING MACHINE HAND): -Chronic pain at T5/T6 area on the back and right ribs 3/4/5 area. Assessment & Plan (09/07/2020 10:22 AM FORGING MACHINE HAND): -Chronic pain at T5/T6 area on the back and right ribs 3/4/5 area. Assessment & Plan (09/06/2020 10:08 AM FORGING MACHINE HAND): -Chronic pain at T5/T6 area on the back and right ribs 3/4/5 area. Assessment & Plan (09/05/2020 11:04 AM FORGING MACHINE HAND): -Chronic pain at T5/T6 area on the back and right ribs 3/4/5 area. -Continue lidocaine patches at the above areas Assessment & Plan (09/04/2020 2:28 PM FORGING MACHINE HAND): -Chronic pain at T5/T6 area on the back and right ribs 3/4/5 area. -Continue lidocaine patches at the above areas Assessment & Plan (09/03/2020 12:11 PM FORGING MACHINE HAND): -Chronic pain at T5/T6 area on the back and right ribs 3/4/5 area. -Continue lidocaine patches at the above areas Assessment & Plan (09/02/2020 10:39 AM FORGING MACHINE HAND): -Chronic pain at T5/T6 area on the back and right ribs 3/4/5 area. -Continue lidocaine patches at the above areas Assessment & Plan (09/01/2020 2:24 PM FORGING MACHINE HAND): Chronic pain at T5/T6 area on the back and right ribs 3/4/5 area. - continue lidocaine patches at the above areas Assessment & Plan (08/31/2020 2:11 PM FORGING MACHINE HAND): Chronic pain at T5/T6 area on the back and right ribs 3/4/5 area. - continue lidocaine patches at the above areas Assessment & Plan (08/30/2020 12:50 PM FORGING MACHINE HAND): Chronic pain at T5/T6 area on the back and right ribs 3/4/5 area. - continue lidocaine patches at the above areas Assessment & Plan (08/28/2020 6:45 PM FORGING MACHINE HAND): Chronic pain at T5/T6 area on the [...] 09/15/2020 Assessment & Plan (09/11/2020 5:49 PM FORGING MACHINE HAND): - Due to UTI - CXR with no changes compare to prior - BCx NGTD - VQ test- no PE Assessment & Plan (09/10/2020 9:34 AM FORGING MACHINE HAND): - Increase WBC - CXR with no changes compare to prior - UA clean - BCx NGTD - VQ test- no PE - Consider LE venous dopplers Hypokalemia due to excessive gastrointestinal loss of potassium 08/28/2020 08/29/2020 Assessment & Plan (08/29/2020 3:48 PM FORGING MACHINE HAND): Potassium 2.9 on admission. This is mostly secondary to diarrhea from COVID-19. - replete as needed. Resolved. Shock 07/12/2020 07/12/2020 Acute respiratory failure with hypoxia 07/04/2020 09/09/2020 Overview (07/11/2020): Added automatically from request for surgery [id number] Assessment & Plan (09/09/2020 6:24 PM FORGING MACHINE HAND): -Continue supplemental O2, wean as tolerated. Assessment & Plan (09/08/2020 7:29 PM FORGING MACHINE HAND): -Continue supplemental O2, wean as tolerated. Assessment & Plan (09/07/2020 10:22 AM FORGING MACHINE HAND): -Continue supplemental O2, wean as tolerated. Assessment & Plan (09/06/2020 10:08 AM FORGING MACHINE HAND): -Continue supplemental O2, wean as tolerated. Assessment & Plan (09/05/2020 11:04 AM FORGING MACHINE HAND): -Continue supplemental O2, wean as tolerated. Assessment & Plan (09/04/2020 2:28 PM FORGING MACHINE HAND): -Continue supplemental O2, wean as tolerated. Assessment & Plan (09/03/2020 12:11 PM FORGING MACHINE HAND): -Continue supplemental O2, wean as tolerated. Assessment & Plan (09/02/2020 10:39 AM FORGING MACHINE HAND): -Continue supplemental O2, wean as tolerated. Assessment & Plan (09/01/2020 2:24 PM FORGING MACHINE HAND): -Continue supplemental O2, wean as tolerated. Assessment & Plan (08/31/2020 2:11 PM FORGING MACHINE HAND): 2/2 COVID PNA. See COVID section. Assessment & Plan (08/30/2020 12:50 PM FORGING MACHINE HAND): /2 COVID PNA. See COVID section. Assessment & Plan (08/28/2020 6:52 PM FORGING MACHINE HAND): 2/2 COVID PNA. See COVID section. Major depressive disorder, s tone episode, unspecified 10/16/2015 07/26/2020 Depression 05/15/2013 08/28/2020 Overview (07/12/2020): Last Assessment & Plan: Chronic. Stable - Continue home celexa Assessment & Plan (08/28/2020 6:38 PM FORGING MACHINE HAND): Stable. - Continue home Celexa. Immunizations Immunization Administration Dates Next Due Influenza, Quadrivalent, Hig h Dose, Preservative Free, Intrr 06/13/2023(Deferred: Patient Refused - PT provided with education regarding flu vaccine. pt refused.),05/09/2020 Influenza, Quadrivalent, Spl it, Preservative Free, Intramuscular 09/25/2015 Influenza, Trivalent, Adjuva nted, Intramuscular 06/13/2018,06/12/2018 Influenza, Trivalent, High D ose, Split, Preservative Free, Intramuscular 05/23/2019 Influenza, Trivalent, IM (MDV) 07/24/2012 Influenza, Unspecified 06/05/2020,2017 Social History Tobacco Use Types Packs/Day Years [...] 09/04/2020 How often do you attend chur [employer] or baptist services? Patient declined 09/04/2020 Do you belong to any clubs o r organizations such as christianity groups, unions, fraternal or athletic groups, or [...] you are drinking? Patient does not drink 3 Q3: How often do you have si [...] place to sleep or slept in a nursing home (including now)? No 09/04/2020 Personal Safety Answer Date Recorded Have you ever been in or are you currently in a harmful physical or emotional relationship or is someone making you feel afraid or unsafe? Denies 03/22/2024 Comments No Sex and Gender Information Value Date Recorded Sex Assigned at Not on file Legal Sex Female 2:51 AM FORGING MACHINE HAND Gender Identity Not on file Sexual Orientation Not on file Last Filed Vital Signs Vital Sign Reading Time Taken Comments Blood Pressure 158/74 10/01/2024 2:48 PM FORGING MACHINE HAND Pulse 63 10/01/2024 2:48 PM FORGING MACHINE HAND Temperature 36.4 C (97.6 F) 05/14/2024 1:51 PM CDT Respiratory Rate 18 05/04/2024 12:00 AM CDT Oxygen Saturation 96% 05/21/2024 2:00 PM CDT Inhaled Oxygen Concentration - - Weight 81.2 kg (179 lb) 10/01/2024 2:48 PM FORGING MACHINE HAND Height 160 cm (5' 3 ) 10/01/2024 2:48 PM FORGING MACHINE HAND Body Mass Index 31.71 10/01/2024 2:48 PM FORGING MACHINE HAND Plan of Treatment Not on file Procedures Procedure Name Priority Date/Time Associated Diagnosis Comments URINALYSIS AND REFLEX TO MICROSCOPIC AND CULTURE Routine 10/01/2024 4:16 PM FORGING MACHINE HAND Urinary tract infection without hematuria, site unspecified POCT HEMOGLOBIN A1C Routine 10/01/2024 4 :15 PM FORGING MACHINE HAND Type 2 diabetes mellitus without complication, with long-term current use of insulin (HCC) LIPID PANEL Routine 05/31/2024 1:03 PM CDT Coronary artery disease involving pauma coronary artery of pauma heart without angina pectoris EGFR Routine 05/31/2024 12:55 PM CDT Elevated serum creatinine ALBUMIN CREATININE RATIO, URINE Routine 04/02/2024 3:13 PM CDT Type 2 diabetes mellitus without complication, with long-term current use of insulin (HCC) DIAGNOSTIC MAMMOGRAM BILATERAL W BOB Schedule Routine, Read Routine (OP Routine) 11/03/2023 2:06 PM FORGING MACHINE HAND Encounter for screening mammogram for malignant neoplasm of breast Dense breast tissue on mammogram, unspecified type Inconclusive mammogram COLONOSCOPY REPORT 02/12/2014 from Last 3 Months or Most Recently Relevant to Health Maintenance Results * (ABNORMAL) Urinalysis reflex to microscopic and culture Urine (10/01/2024 4:16 PM FORGING MACHINE HAND) Color, ur Straw Yellow Clarity, ur Clear Clear [facility] Specific gravity, ur 1.013 1.003 - 1.030 [facility] pH, urine 6.5 [facility] Comment: Interpretive Data U rine pH is affected by diet, medications, systemic acid-base disturbances, and renal tubular function. pH may affect urinary stone formation. For example, urine pH below 6.0 may help reduce the tendency for calcium phosphate stones and pH greater than 6.0 may reduce the tendency for uric acid stone formation. Source: [facility] Current Interpretive Data was last revised on 2017 Protein, ur ql Trace Negative [facility] Glucose, ur ql 3+(A) Negative [facility] Ketones, ur Negative Negative [facility] Bilirubin, ur Negative Negative [facility] Blood, ur Negative Negative [facility] Urobilinogen, ur <2.0 <2.0 mg/dL [facility] Nitrite, ur Negative Negative [facility] Leukocyte esterase, ur Negative Negative [facility] UA reflex comment Reflex conditions for microscopic UA and culture not met. [facility] Urine 10/01/2024 4:16 PM FORGING MACHINE HAND 10/01/2024 4:32 PM FORGING MACHINE HAND Hermes Au MD LAB MICROBIOLOGY - [facility] ORDERABLES Final Result [facility] Department [place] [address] * POCT hemoglobin A1c (10/01/2024 4:15 PM FORGING MACHINE HAND) Hemoglobin A1C, POC 8.0 4.0 - 5.6 % Capillary blood 10/01/2024 4 :15 PM FORGING MACHINE HAND Hermes Au MD POINT OF CARE TEST ORDE RABCON Final Result * Lipid panel (05/31/2024 1:03 [...] last revised on 2018. Testing performed by: [address] [address] Triglycerides 146 <=149 mg/dL [facility] Comment: Interpretive [...] last revised on 2018. Testing performed by: [address] [address] HDL 44 >=40 mg/dL [facility]I Comment: Interpretive [...] last revised on 2018. Testing performed by: [address] [address] LDL, calculated 74 <=129 mg/dL [facility] Comment: [...] NCEP Expert Panel. Circulation 2004;110:227 3. Fredy M et al. KATHIA Cardiol. 2019January 03;5(5):540-548. doi: 10.1001/jamacardio.2020.0013 Current Interpretive Data was last revised on 2024. Testing performed by: [address] [address] Non-HDL Cholesterol 99 mg/dL [facility] Comment: Interpretive Data Ages < or = [...] last revised on 2018. Testing performed by: [address] [address] Chol/HDL ratio 3 [facility] Comment:Testing performed by : [address] [address] Blood 05/31/2024 1:03 PM CDT 05/31/2024 3:12 PM CDT us Ariel Ramos MD LAB BLOOD ORDERABLES Final Re sult [facility] [address] [facility] Department [place] [address] * (ABNORMAL) eGFR (05/31/2024 12:55 PM CDT) [facility] Signature eGFR 42(L) >=60 mL/min/1. 73 m2 Comment: [...] was last reviewed 2021. Testing performed by: [facility], [address] [place] [address]., [address] Blood 05/31/2024 12:5 5 PM CDT 05/31/2024 3:14 PM CDT us Katelyn Solorzano CHEMICAL APPLICATOR LAB BLOOD ORDERABLES Final Re sult [facility] [address] [facility] Department [place] [address] * Albumin Creatinine Ratio, Urine [...] - 04/05/2024 8:19 AM CDT Performed at: [address] [place], [place] [id number] [employer] Code Enforcement Officer: William Felipe PhD, Phone: [phone] us Katelyn Solorzano CHEMICAL APPLICATOR LAB URINE ORDERABLES Final Re sult [facility] Organization Address City/State/ZIP Co de Phone Number [facility] - 01 * Diagnostic Mammogram Bilateral W Bob (11/03/2023 2:06 PM FORGING MACHINE HAND) Anatomical Region Laterality Modality Breast Bilateral Mammography 11/03/2023 2:18 PM FORGING MACHINE HAND Narrative 11/03/2023 2:20 PM FORGING MACHINE HAND EXAM DESCRIPTION: DIAGNOSTIC MAMMOGRAM BILATERAL W BOB [...] Celestine Gonzalez M.D. RL: HENRI Report ID: [id number] Reading Location: [facility] Hermes Au MD IMG MAMMO PROCEDURES Fi nal Result * COLONOSCOPY REPORT (02/12/2014) Anatomical Region Laterality Modality Other Narrative 02/12/2014 Ordered by an unspecified provider. Historical Provider GI PROCEDURE ORDERABLES F inal Result from Last 3 Months or Most Recently Relevant to Health Maintenance Insurance MEDICARE [place] [facility] [place] [address] MEDICARE [facility] MEDICARE MEDICARE MEDICARE [employer] Advance Directives For more information, please contact: [phone] * Full Code (Latest Code Status on [...] 7:25 PM 09/15/2020 7:25 PM Care Teams Pmo Consultant Relationship Specialty Start Date End Date Hermes Au MD [id number] [address] PCP - General Endocrinology Diabetes & Metabolism 06/23/21 Ariel Ramos MD Referring Physician Cardiology 03/17/21 Giovana Begum MD [address] [place] [id number] Referring Physician Internal Medicine 03/17/21
--- OUTSIDE RECORDS SUMMARY | 2024-11-22 10:55 | XMS_ITS ---
Author Organization [facility] Address [address] [place], [place] [id number] Care Team Providers Care Health Workers Name Role Phone RAMOS CARABALLO Unavailable [phone] Hermes Au Unavailable Unavailable REASON FOR VISIT *General care Encounters Encounter Location Date Provider Diagnosis [facility] [place] [address] [place], [place] [id number] 09/06/2024 RAMOS CARABALLO Plan Of Treatment Next Appt Details Provider Name:RAMOS GOSS, 01/17/2025 12:50:00 PM, [address], [place], [place], [id number], Progress Notes * YAHAIRA DELEON MDOB:1945 (79 yo F)Acc No.[id number]:09/06/2024 Patient: YAHAIRA FELIPE Provider: Rose Marie Caraballo DPM :1945 A ge:79 Y S ex:Female Date:09/06/2024 Address:[address] [place], [place] [id number] Subjective: * Chief Complaints: * 1 . *General care. * Medical History: Objective: * Vitals: Assessment: Plan: * Treatment: * Billing Information: * Visit Code: * Procedure Codes: * Electronic signature of RAMOS CARABALLO DPM on 11/22/2024 at 10:55 AM CDT Sign off status: Pending * Provider: Rose Marie Caraballo DPM Date: 0 09/06/2024 Generated for Alejandra feliciano/Mery/Gabino on: 0 11/22/2024 10:55 AM CDT
--- OUTSIDE RECORDS SUMMARY | 2024-11-22 10:56 | XMS_ITS | Encounter Summary ---
Author Organization [facility] Address [address] [place] [address] Phone Care Team Providers Care Bone Drier Name Role Phone Wally Black MD Primary Care Provider [phone] Gee Ayala MD Primary Care Provider Ariel Ramos MD Unavailable Giovana Begum MD Unavailable [phone] Hermes Au MD Primary Care Provider Encounter Details Date Type Department Care Team (Late st Contact Info) Description 01/09/[address] [facility] [address] 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 Specimen: STOOL Site: 11/23/2015 11/23/2015 04/22/2021 5:00 AM CDT COVID: Suspected 07/12/2020 07/12/2020 07/12/2020 8:27 PM LAY OUT INSPECTOR Respiratory Infection (THERON), contact + droplet Comment:RVP negative. 07/12/2020 Jose Craig Automatically added due to negative COVID-19 result. 07/12/2020 07/12/2020 07/12/2020 9:[address] COVID: Suspected 07/18/2020 07/18/2020 07/18/2020 8:09 PM LAY OUT INSPECTOR Respiratory Infection (THERON), contact + droplet Comment:07/20/2020 IP Review - Patient classified as Low Risk for COVID-19 and has one negative COVID-19 test. Patient meets criteria for COVID-19 isolation discontinuation. Marissa Eaton RN Automatically added due to negative COVID-19 result. 07/18/2020 07/18/2020 07/20/2020 7:[address] COVID: Suspected 08/28/2020 08/28/2020 08/28/2020 1:11 PM LAY OUT INSPECTOR COVID19 08/28/2020 08/28/2020 10/09/2020 3:05 AM LAY OUT INSPECTOR COVID: Recovered Comment:Pt tested positive 08.28.20, required hospitalization for care and then rehab. >20 days have passed, Pt demonstrates clinical improvement and has been afebrile >24 hr w/o antipyretics. She satisfies criteria to be CoVID recovered. No additional COVID testing recommended before 01.17.21 Antonia Alvarado RN 09/22/20 09/19/2020 09/22/2020 01/17/2021 3:05 AM C DT COVID: Recovered Comment:Added based on recent COVID infection. 10/09/2020 01/26/2021 02/06/2021 3:05 AM C DT COVID: Suspected 03/30/2023 03/30/2023 03/30/2023 4:51 PM CDT COVID19 03/30/2023 03/30/2023 04/14/2023 3:05 AM CDT COVID: Recovered Comment:Added based on recent COVID infection. 04/14/2023 04/21/2023 07/13/2023 3:[address] C. difficile suspected 02/21/2024 02/21/202402/21 3:05 AM CDT C. difficile suspected 03/22/2024 03/22/202403/22 12:47 AM CDT C. difficile suspected 03/22/2024 03/22/202403/22 5:37 PM CDT documented as of this encounter Care Teams Bone Drier Relationship Specialty Start Date End Date Wally Black MD [address] [address] PCP - General 04/13/17 06/29/20 Gee Ayala MD [address] [address] PCP - General Endocrinology Diabetes & Metabolism 06/30/20 06/22/21 Hermes Au MD [address] [address] PCP - General Endocrinology Diabetes & Metabolism 06/23/21 Ariel Ramos MD [address] [address] Referring Physician Cardiology 03/17/21 Giovana Begum MD [address] [place] [id number] Referring Physician Internal Medicine 03/17/21 documented as of this encounter
--- OUTSIDE RECORDS SUMMARY | 2024-11-22 10:56 | XMS_ITS | Clinical Summary ---
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
--- OUTSIDE RECORDS SUMMARY | 2024-11-22 10:56 | XMS_ITS | Clinical Summary ---
Author Organization [facility] Address [address] [place] [address] Care Team Providers Care Outreach Analyst Name Role Phone Wally Black MD Primary Care Provider [phone] Ariel Ramos MD Unavailable [phone] Allergies Active Allergy Reactions Criticality Noted Date Comments Cefaclor Other (see comment) 07/25/2012 Codeine Anaphylaxis High 08/05/2017 Pt states foaming at the mouth and swelling Iodine Anaphylaxis High 08/05/2017 Pt states foaming at the mouth and swelling Erythromycin Anaphylaxis High 08/05/2017 Pt states foaming at the mouth and swelling Latex Anaphylaxis High 08/05/2017 Pt states foaming at the mouth and swelling Levofloxacin Nausea and Vomiting,Swelling,Mem ory Loss High 08/05/2017 Per daughter, pt becomes swollen confused, and bp changes Macrolides And Ketolides Anaphylaxis High 08/05/2017 Pt states foaming at the mouth and swelling Quinolones Anaphylaxis High 08/05/2017 Pt states foaming at the mouth and swelling Sulfa Antibiotics Anaphylaxis High 08/05/2017 Pt states foaming at the mouth and swelling Vancomycin Other (see comment) Low 08/05/2017 Acute kindney injury, pt daughter said that hospital did not check trough and she had toxicity Medications baclofen 10 MG tablet Take 10 mg by mouth 3 (three) times daily. 7 Active carvedilol 12.5 MG tablet Take 12.5 mg by mouth 2 (two) times a day. 7 Active SPIRIVA HANDIHALER [address] 1 capsule into inhaler and inhale daily. 7 Active zolpidem 10 MG tablet Take 10 mg by mouth nightly at bedtime. 7 Active citalopram 20 MG tablet Take 20 mg by mouth nightly at bedtime. Active omeprazole 40 MG capsule Take 40 mg by mouth 2 (two) times daily before meals. Active ferrous sulfate 325 (65 FE) MG tablet Take 325 mg by mouth 2 (two) times daily with meals. Active aspirin EC (ASPIRIN) 81 MG EC tablet Take 81 mg by mouth daily. Active ipratropium-alb uterol 0.5-2.5 (3) MG/3ML Solution Take 3 mLs by nebulization every 4 (four) hours as needed (SOB). Active magnesium oxide 400 MG tablet Take 400 mg by mouth daily. Active simvastatin 20 MG tablet Take 20 mg by mouth nightly at bedtime. Active docusate sodium 100 MG capsule Take 100 mg by mouth 2 (two) times daily. Active Active Problems Problem Noted Date Diagnosed Date COPD exacerbation ([facility]) 09/10/2017 Assessment & Plan (09/11/2017 2:32 AM ACCOUNT DEVELOPMENT SPECIALIST): Acute, uncontrolled. Increased sputum production and purulence over the last 2 days. CXR showing LLL infiltrate concerning for recurrent pneumonia. Favor COPD exacerbation over pneumonia given patient's clinical picture. Concern for malignant process given recurrent pneumonia/infiltrates over the last 3 months accompanying possible weight and night sweats. Down 5lbs since 08/05/17. Patient continues to smoke ~1/2ppd. - Doxycycline 100mg BID x 5 days - Prednisone 40mg daily x 5 days - Duonebs q6hrs - Continue home spiriva - Nasal saline prn - Procalcitonin - CT chest with contrast to further evaluate infiltrate, possible lesion Inflammatory arthritis 08/18/2017 Assessment & Plan (09/11/2017 2:35 AM ACCOUNT DEVELOPMENT SPECIALIST): Chronic. Bilateral knee effusions during last admission with elevated ESR and CRP; arthrocentesis c/w inflammatory arthritis. Discharged with meloxicam but has not been taking. - Toradol q6hrs prn - Tylenol prn Assessment & Plan (08/21/2017 9:57 AM ACCOUNT DEVELOPMENT SPECIALIST): Acute on chronic; VSS; Pt w/ elevated ESR and CRP; leukocytosis resolving down to 9.9; US showed possible effusion; No DVT; Initial synovial fluid analysis shows >60787 WBC, mainly segmented neutrophils, consistent w/ inflammatory arthritis, possibly septic arthritis; pt w/ multiple abx allergic reactions. Synovial gram stain neg. Xray on 08/20 showed bilateral effusions, OA, and post procedure changes on left knee. Bld Cx and synovial fluid Cx neg to date. Exam much improved from 08/20. -F/u synovial fluid culture -Torodol and baclofen scheduled for pain control -Transition to PO NSAID on 08/22 Nausea and vomiting 08/18/2017 Assessment & Plan (08/21/2017 7:48 AM ACCOUNT DEVELOPMENT SPECIALIST): Acute, stable One-day history nonbloody emesis 2-3 times. No further episodes of emesis, but occasional nausea. Leukocytosis resolving. Ddx: Viral gastroenteritis secondary to recent antibiotic use for pneumonia -Zofran PRN -Continue PO diet Hypomagnesemia 08/09/2017 Assessment & Plan (09/10/2017 11:10 PM ACCOUNT DEVELOPMENT SPECIALIST): Acute. POA. Mag 1.3 on admission. Had been on magnesium supplementation as an outpatient but reports she has not been taking them. S/p 2g IV in the ED. - Continue home magnesium supplementation - Recheck mag in the am Assessment & Plan (08/09/2017 10:25 AM ACCOUNT DEVELOPMENT SPECIALIST): Acute on chronic - Continue home medication - Mg 400mg - Repleted with 2g IV as inpatient. Pneumonia 08/05/2017 Assessment & Plan (08/09/2017 10:16 AM ACCOUNT DEVELOPMENT SPECIALIST): Acute on Chronic Left lower lobe infiltrate - Given Rocephin in ED - 3 days of Zosyn 4.5g q8 and Doxy 100mg IV q12 - - Started PO Doxy and augmentin 08/09/17 - for 4 more days (total of 7 day course) - Bacteria Cx x2 No Growth 2 days - Urine Cx- No growth 2 days - Chest CT findings show opacity which may be sequelae of bronchitis/pneumonis but underlying occult lesion not excluded. Recommend follow-up CT chest with contrast in 1-2 months to ensure resolution. Diabetes ([facility]) 08/05/2017 Assessment & Plan (09/10/2017 11:03 PM ACCOUNT DEVELOPMENT SPECIALIST): Chronic. A1c 8.0 on 08/05/17 - Continue metformin 1000mg BID Assessment & Plan (08/21/2017 7:44 AM ACCOUNT DEVELOPMENT SPECIALIST): Chronic, stable Hx diabetes type 2, AM glucose 169; -Continue home metformin -Consider HgbA1c Assessment & Plan (08/09/2017 10:19 AM ACCOUNT DEVELOPMENT SPECIALIST): Chronic - A1C--8.0 - Increase Metformin to 1000mg BID - Glucose elevated during admission, improved control on Metformin 1000mg BID. COPD (chronic obstructive pu lmonary disease) ([facility]) 08/05/2017 Assessment & Plan (08/21/2017 7:44 AM ACCOUNT DEVELOPMENT SPECIALIST): Chronic, stable SpO2 WNL on RA - DuoNeb q 6hrs PRN -PRN oxygen - Continue home medications albuterol and spiriva -incentive spirometer Assessment & Plan (08/06/2017 8:40 AM ACCOUNT DEVELOPMENT SPECIALIST): Unclear history Pt denies history, however, on many COPD medications - Continue home inhalers: advair, spiriva - Continue Duoneb PRN - Follow-up as outpatient for diagnosis Hypertension 08/05/2017 Assessment & Plan (09/10/2017 11:05 PM ACCOUNT DEVELOPMENT SPECIALIST): Chronic. Stable. Has been on amlodipine in the past but not on most recent medication list. - Continue home coreg - Continue to monitor, add amlodipine as needed Assessment & Plan (08/21/2017 7:45 AM ACCOUNT DEVELOPMENT SPECIALIST): Chronic, stable -Continue home medications coreg Assessment & Plan (08/05/2017 9:15 PM ACCOUNT DEVELOPMENT SPECIALIST): Chronic - Continue home Norvasc 5mg tab - Continue home Coreg 12.5mg CAD (coronary artery disease) 08/05/2017 Assessment & Plan (09/10/2017 11:05 PM ACCOUNT DEVELOPMENT SPECIALIST): Chronic. S/p 4V CABG - Continue home coreg, lisinopril - Continue home ASA - Continue statin Assessment & Plan (08/05/2017 9:17 PM ACCOUNT DEVELOPMENT SPECIALIST): Chronic S/p CABG - Neg troponin - Continue simvastatin Depression 08/05/2017 Assessment & Plan (09/10/2017 11:09 PM ACCOUNT DEVELOPMENT SPECIALIST): Chronic. Stable - Continue home celexa Assessment & Plan (08/18/2017 8:56 PM ACCOUNT DEVELOPMENT SPECIALIST): Chronic, stable History of depression denies SI/HI -Continue home Celexa Assessment & Plan (08/06/2017 8:40 AM ACCOUNT DEVELOPMENT SPECIALIST): Chronic - Continue home Celexa Hypokalemia 08/05/2017 Assessment & Plan (09/10/2017 11:08 PM ACCOUNT DEVELOPMENT SPECIALIST): Acute. POA. K 2.8 on admission. S/p 40mEq PO and IV in the ED - NS + 20KCL @ 125cc/hr - Daily BMP Assessment & Plan (08/21/2017 7:45 AM ACCOUNT DEVELOPMENT SPECIALIST): Acute; resolved K 3.5 08/21 AM -recheck bmp in am Assessment & Plan (08/09/2017 10:23 AM ACCOUNT DEVELOPMENT SPECIALIST): Acute, resolved - Required repletion in hospital - Follow as outpatient Family History Medical History Relation Comments CA Brother Lung Cancer Father CA Sister Relation Status Comments Brother Father Sister Social History Tobacco Use Types Packs/Day Years Used Date Smoking Tobacco: Every Day Cigarettes 0.5 50 Started: 1965; Last attempted to quit: 2015 Smokeless Tobacco: Never Tobacco Cessation:Counseling Given: Yes Comments:Used to smoke 1.5ppd Alcohol Use Standard Drinks/Week Comments No 0 (1 standard drink = 0.6 oz pur e alcohol) Comments No Sex and Gender Information Value Date Recorded Sex Assigned at Not on file Legal Sex Female 3:27 PM ACCOUNT DEVELOPMENT SPECIALIST Gender Identity Not on file Sexual Orientation Not on file Last Filed Vital Signs Vital Sign Reading Time Taken Comments Blood Pressure 181/63 09/12/2017 7:45 AM ACCOUNT DEVELOPMENT SPECIALIST Pulse 76 09/12/2017 7:45 AM ACCOUNT DEVELOPMENT SPECIALIST Temperature 36.4 C (97.6 F) 09/12/2017 7:45 AM ACCOUNT DEVELOPMENT SPECIALIST Respiratory Rate 18 09/12/2017 7:45 AM ACCOUNT DEVELOPMENT SPECIALIST Oxygen Saturation 98% 09/12/2017 9:20 AM ACCOUNT DEVELOPMENT SPECIALIST Inhaled Oxygen Concentration - - Weight 80.2 kg (176 lb 12.9 oz) 09/12/2017 4:53 AM ACCOUNT DEVELOPMENT SPECIALIST Height 160 cm (5' 3 ) 09/10/2017 8:53 PM ACCOUNT DEVELOPMENT SPECIALIST Body Mass Index 31.32 09/10/2017 8:53 PM ACCOUNT DEVELOPMENT SPECIALIST Plan of Treatment Health Maintenance Due Date Last Done Comments ASCVD LDL 1945 ASCVD Statin 1945 Kidney Health Evaluation 1945 Lipid Panel 1945 Pneumococcal Vaccine: 65+ Ye ars (1 of 2 - PCV) 1951 Diabetes: Retinopathy Eye Exam 1963 Hepatitis C 1963 DTaP, Tdap and Td Vaccines ( 1 - Tdap) 1964 Zoster Vaccines (1 of 2) 1995 Annual Medicare Wellness Visit 2010 Dexa Scan (General) 2010 Hemoglobin A1C 02/03/2018 08/05/2017 RSV Immunization or 60+ Years (1 - 1-dose 75+ series) 2020 COVID-19 Vaccine ( - 2023-2 5 season) 2024 Influenza Adult (#1) 2024 Meningococcal B Vaccine Aged Out No l onger eligible based on patient's age to complete this topic Meningococcal Vaccine Aged Out No joshua iam eligible based on patient's age to complete this topic RSV Immunizations Under 20 Months Aged Out No longer eligible based on patient's age to complete this topic Procedures Procedure Name Priority Date/Time Associated Diagnosis Comments HEMOGLOBIN, GLYCOSYLATED Routine 08/05/2017 3:43 PM ACCOUNT DEVELOPMENT SPECIALIST from Last 3 Months or Most Recently Relevant to Health Maintenance Results * (ABNORMAL) HEMOGLOBIN, GLYCOSYLATED (08/05/2017 3:43 PM ACCOUNT DEVELOPMENT SPECIALIST) HGB A1C 8.0(H) 4.2 - 6.3 % 08/05/2017 9:30 PM ACCOUNT DEVELOPMENT SPECIALIST [facility] Comment: ADA GUIDELINES 2010 5.7 TO 6.4% INCREASED RISK OF DIABETES > OR = 6.5% CONSISTENT WITH DIABETES ESTIMATED AVG GLUCOSE 183 mg/dL 08/05/2017 9:30 PM ACCOUNT DEVELOPMENT SPECIALIST [facility] 08/05/2017 3:43 PM ACCOUNT DEVELOPMENT SPECIALIST us Erinn Tracey MD LABORATORY Final Resu lt [facility] [address] [place] [address], from Last 3 Months or Most Recently Relevant to Health Maintenance Insurance MEDICARE MEDICAID Advance Directives * Full Code (Latest Code Status on File) Date Activated Date Inactivated Comments 09/11/2017 2:29 AM 09/12/2017 6:09 PM * Full Code Date Activated Date Inactivated Comments 08/05/2017 8:14 PM 08/09/2017 6:42 PM Care Teams Outreach Analyst Relationship Specialty Start Date End Date Wally Black MD [address] [facility] [address] [place] [address] PCP - General INTERNAL MEDICINE 08/05/17 Ariel Ramos MD [address] [address] [place] [address] Consulting Physician CARDIOLOGY 08/18/17
--- OUTSIDE RECORDS SUMMARY | 2024-11-22 10:56 | XMS_ITS ---
Author Organization [facility] Address [address] [place], [place] [id number] Care Team Providers Care Tobacco Wrapping Machine Tender Name Role Phone RAMOS CARABALLO Unavailable [phone] Hermes Au Unavailable Unavailable Allergies Allergen (clinical drug ingredient) Drug/Non Drug Allergy documented on EMR Reaction Allergy Type Onset Date Status cefaclor Ceclor (uncoded) Unknown Allergy 08/01/2019 ac tive ciprofloxacin Cipro Unknown Drug Allergy 08/01/2019 ac tive codeine Codeine Unknown Drug Allergy 08/01/2019 active REASON FOR VISIT *General care Vital Signs Height 63.00 in 09/06/2024 Weight 161 lbs 09/06/2024 BMI 28.52 kg/m2 09/06/2024 Height-cm 160.02 cm 09/06/2024 Weight-kg 73.03 kg 09/06/2024 Encounters Encounter Location Date Provider Diagnosis [facility] [address] [place], [place] [id number] 09/06/2024 RAMOS CARABALLO Tinea unguium B35.1 ; Pain in right toe(s) M79.674 ; Pain in left toe(s) M79.675 ; Atherosclerosis of [place] arteries of extremities with intermittent claudication, bilateral legs I70.213 and Type 2 diabetes mellitus with other circulatory complications E11.59 Assessments Encounter Date Diagnosis (ICD Code) Assessment Notes Treatment Notes Treatment Clinical Notes Section Notes 09/06/2024 Tinea unguium (ICD-10 - B35.1) NAIL DEBRIDEMENT: Nails 1-5 Bilateral were debrided extensively with nail nippers and emery board, reducing length and girth to pink healthy tissue with any subungual debris and necrotic tissue removed 09/06/2024 Pain in right toe(s) (ICD-10 - M79.674) 09/06/2024 Pain in left toe(s) (ICD-10 - M79.675) 09/06/2024 Atherosclerosis of [place] arteries of extremities with intermittent claudication, bilateral legs (ICD-10 - I70.213) 09/06/2024 Type 2 diabetes mellitus with other circulatory [...] 01/17/2025 12:50:00 PM, [address], [address], [id number], Progress Notes * YAHAIRA DELEON MDOB:1945 (79 yo F)Acc No.[id number]:09/06/2024 Patient: YAHAIRA FELIPE Provider: Rose Marie Caraballo DPM :1945 A ge:79 Y S ex:Female Date:09/06/2024 Address:[address] [place] [address] Subjective: * Chief Complaints: * * General care * HPI: H PI: General care P atient presents to the office for diabetic foot care. Patient states that their nails are thickened, elongated and painful. Patient states that it is aggravated by shoe gear. Onset is gradual. Patient denies taking prescription blood thinners but does take a daily aspirin. Date last seen by Dr. Au was 05/2024. Initials sea. * Medical History: * Surgical History: * Hospitalization/Major Diagno stic Procedure: * Social History: M igrated Social History: M igrated Social History: Smoking Status : Former smoker , History of tobacco use :. * Medications: * Allergies: C eclor: Allergy - Onset Date 08/01/2019Cipro: Allergy - Onset Date 08/01/2019Codeine: Allergy - Onset Date 08/01/2019 Objective: * Vitals: W t: 161 lbs, [...] - M79.675 4 . A therosclerosis of [place] arteries of extremities with intermittent claudication, bilateral [...] well as the Amputation Prevention Guide. * Procedure Codes: 1 1721 DEBRIDE NAIL, 6 OR MORE, Modifiers: Q8 * Follow Up: 1 0 - 12 weeks (Reason: At-Risk Foot care, sooner if problems develop.) * Billing Information: * Visit Code: * Procedure Codes: 62863 DEBRIDE NAIL, 6 OR MORE. Modifiers: Q8 * ING MACHINE OPERATOR Sign off status: Completed true * Provider: Rose Marie Caraballo DPM Date: 0 09/06/2024 Generated for Alejandra feliciano/Mery/Glenitting on: 0 11/22/2024 10:56 AM CDT History and Physical Notes * HPI (History of Present Illness) Category Sub-Category Detail Notes Category Not es HPI General care Patient presents to the office for diabetic foot care. Patient states that their nails are thickened, elongated and painful. Patient states that it is aggravated by shoe gear. Onset is gradual. Patient denies taking prescription blood thinners but does take a daily aspirin. Date last seen by Dr. Au was 05/2024. Initials sea Examination Category Sub-Category Detail Notes Category Not [...]
--- OUTSIDE RECORDS SUMMARY | 2024-11-22 10:56 | XMS_ITS | Clinical Summary ---
Author Organization [facility] [employer] Address [address] [place] [address] Care Team Providers Care Plastic Surgery Assistant Name Role Phone Mc Garnica MD Primary Care Provider [phone] Source Comments [facility] [employer],non-owned Affiliates and Associated Physician Practices is amultiple site organization consisting of ambulatory clinics and hospital sitesin [place], [place], [place] and [place]. This disclosure is being madepursuant to the Care Everywhere program and may not contain all information available regarding this patient. Last updated 18.[facility] [employer] Allergies Active Allergy Reactions Criticality Noted Date Comments Cefaclor Other 07/25/2012 Protein C Concentrate, Human 07/25/2012 Iodine Swelling 07/25/2012 Other Nausea and/or Vomiting 07/25/2012 EES-CODINE Sulfa Drugs Nausea and/or Vomiting 07/25/2012 Medications * Be aware that medications may not be up to date on this document. Alwaysverify current medications with the patient. Medication Sig Dispensed Refills Start Date End Date Status pregabalin (LYRICA) 100 MG capsule Take 100 mg by mouth 2 times daily. Active zolpidem (AMBIEN) 10 MG tablet Take 10 mg by mouth nightly as needed. Active citalopram (CELEXA) 20 MG tablet Take 20 mg by mouth once daily. Active pantoprazole (PROTONIX) 40 MG packet Take 40 mg by mouth once daily. Active glyburide-metformin (GLUCOVANCE) 2.5-500 MG tablet Take 1 Tab by mouth 2 times daily with morning and evening meal. Take with food. Active lisinopril (PRINIVIL; ZESTRIL) 20 MG tablet Take 20 mg by mouth once daily. Active simvastatin (ZOCOR) 20 MG tablet Take 20 mg by mouth at bedtime. Active lidocaine (LIDODERM) 5 % patch Apply 1 Patch to skin once daily. Active naproxen sodium (ALEVE) 220 MG tablet Take 220 mg by mouth 2 times daily. Active Active Problems Problem Noted Date Diagnosed Date Lumbosacral spondylosis without myelopathy 09/29 Sciatica 09/01/2012 Sacroiliitis, not elsewhere classified 2 Lumbar radiculopathy 08/09/2012 Family History Medical History Relation Name Comments Cancer Father Relation Name Status Comments Brother Father Mother Sister Social History Tobacco Use Types Packs/Day Years Used Date Smoking Tobacco: Every Day Cigarettes Smokeless Tobacco: Never Alcohol Use Standard Drinks/Week Comments No 0 (1 standard drink = 0.6 oz pur e alcohol) Sex and Gender Information Value Date Recorded Sex Assigned at Not on file Gender Identity Not on file Sexual Orientation Not on file Last Filed Vital Signs Vital Sign Reading Time Taken Comments Blood Pressure 196/102 03/19/2013 11:26 AM CDT Pulse 81 03/19/2013 11:26 AM CDT Temperature 37.4 C (99.3 F) 01/16/2013 9:15 AM CDT Respiratory Rate 20 03/19/2013 11:26 AM CDT Oxygen Saturation 99% 01/16/2013 9:15 AM CDT Inhaled Oxygen Concentration - - Weight 88.9 kg (196 lb) 03/19/2013 11:26 AM CDT Height 160 cm (5' 3 ) 03/19/2013 11:26 AM CDT Body Mass Index 34.72 03/19/2013 11:26 AM CDT Plan of Treatment Health Maintenance Due Date Last Done Comments BONE DENSITY TESTING 1945 DTAP/TDAP/TD VACCINES (1 - Tdap) 1964 PNEUMOCOCCAL VACCINE 50+ (1 of 2 - PCV) 1964 ZOSTER VACCINE (1 of 2) 1995 DIABETES-SERUM CREATININE 04/04/20132011, 04/03/2012, 04/02/2012, Additional history exists DIABETES RETINOPATHY SCREENING 12/05/2017 DIABETES-FOOT EXAM WITH MONOFILAMENT 12/05/2017 DIABETES-HGB A1C 12/05/2017 03/19/2013, 04/28/2011 Respiratory Syncytial Virus (RSV) Vaccine Pt: or over 60 yrs (1 - 1-dose 75+ series) 2020 COVID-19 VACCINE (2023- season) 2024 INFLUENZA VACCINE (#1) 2024 05/18/2011, 2007 DEPRESSION SCREENING 09/05/2024 DIABETES - URINE PROTEIN SCREENING 09/05/2024 HEPATITIS B VACCINE Aged Out No longe r eligible based on patient's age to complete this topic HIB VACCINE Aged Out No longer eligi ble based on patient's age to complete this topic HPV VACCINE Aged Out No longer eligi ble based on patient's age to complete this topic MENINGOCOCCAL (Group B) VACCINE SHARED DECISION-MAKING Aged Out No longer eligible based on patient's age to complete this topic MENINGOCOCCAL GROUPS A/C/Y/W VACCINE Aged Out No longer eligible based on patient's age to complete this topic Procedures Procedure Name Priority Date/Time Associated Diagnosis Comments HEMOGLOBIN A1C Routine 03/19/2013 12:45 PM CDT BASIC METABOLIC PANEL (CALCIUM TOTAL) Routine 04/04/2012 4:10 AM CDT from Last 3 Months or Most Recently Relevant to Health Maintenance Results * (ABNORMAL) HEMOGLOBIN A1C (03/19/2013 12:45 PM CDT) Hemoglobin A1c 7.8(H) 4.4 - 6.3 % [facility] Estimated Average Glucose 177 mg/dL [facility] 03/19/2013 12:4 5 PM CDT 03/19/2013 1:40 PM CDT Ysabel Coles MD LAB - CHEMISTRY [facility] [address] [phone] * (ABNORMAL) BASIC METABOLIC PANEL (CALCIUM TOTAL) (04/04/2012 4:10 AM CDT) BUN 18 7 - 26 mg/dL [facility] Creatinine 1.0 0.6 - 1.2 mg/dL [facility] eGFR by MDRD 55 ML/MIN [facility] Comment: Chronic kidney disease: <60 ml/min Kidney failure: <15 ml/min Based on BSA of 1.73m2. Sodium 138 136 - 145 mmol/L [facility] Potassium 4.3 3.5 - 4.5 mmol/L [facility] Chloride 104 98 - 107 mmol/L [facility] CO2 23 22 - 29 mmol/L [facility] Glucose 247(H) 70 - 115 mg/dL [facility] Calcium 10.0 8.4 - 10.2 mg/dL [facility] Anion Gap 15 8 - 18 [facility] BUN/Creatinine Ratio 18 7 - 23 [facility] Osmolality Calculation 281 270 - 300 mOsm/kg [facility] Venous blood specimen (specimen) 04/04/2012 4:10 AM CDT 04/04/2012 4:25 AM CDT Blake Davis MD LAB - CHEMISTRY [facility] [address] [phone] from Last 3 Months or Most Recently Relevant to Health Maintenance Advance Directives Documents on File Type Date Recorded Patient Rheumatology Nurse Expl anation Adv Directive/Living Will/POA 10/11/2012 10:09 AM Adv Directive/Living Will/POA 10/11/2012 10:09 AM Care Teams Plastic Surgery Assistant Relationship Specialty Start Date End Date Mc Garnica MD [address] [place] [address] PCP - General Internal Medicine 12/19/12
--- OUTSIDE RECORDS SUMMARY | 2024-11-22 10:56 | XMS_ITS | Encounter Summary ---
Author Organization [facility] Address [address] [place] [address] Care Team Providers Care Deck Builder Name Role Phone Wally Black MD Primary Care Provider [phone] Ariel Ramos MD Unavailable [phone] Encounter Details Date Type Department Care Team (Late st Contact Info) Description 09/29/2017 Hospital Follow-up Call [facility] [place] [address] Terrie Oshea RN Social History Tobacco Use Types Packs/Day Years Used Date Smoking Tobacco: Every Day Cigarettes 0.5 50 Started: 1965; Last attempted to quit: 2015 Smokeless Tobacco: Never Comments:Used to smoke 1.5pp d Alcohol Use Standard Drinks/Week Comments No 0 (1 standard drink = 0.6 oz pur e alcohol) Comments No Sex and Gender Information Value Date Recorded Sex Assigned at Not on file Legal Sex Female 3:27 PM SEO EXPERT Gender Identity Not on file Sexual Orientation Not on file documented as of this encounter Functional Status * RETIRED Are you deaf or do you have serious difficulty hearing Answer Date of Assessment Author Status No 09/12/2017 3:51 PM SEO EXPERT Activ e * RETIRED Are you blind or do you have serious difficulty seeing, even when wearing glasses? Answer Date of Assessment Author Status No 09/12/2017 3:51 PM SEO EXPERT Activ e * Do you have serious difficulty walking or climbing stairs? Answer Date of Assessment Author Status No 09/12/2017 3:51 PM SEO EXPERT Eric Rios R N Active * Do you have difficulty dressing or bathing? Answer Date of Assessment Author Status No 09/12/2017 3:51 PM Eric Snell R N Active * Because of a physical, mental, or emotional condition, do you have difficulty doing errands alone such as visiting a doctor's office or shopping? Answer Date of Assessment Author Status No 09/12/2017 3:51 PM Eric Snell R N Active documented as of this encounter Mental Status * Because of a physical, mental, or emotional condition, do you have serious difficulty concentrating, remembering, or making decisions? Answer Entry Date Author Status No 09/12/2017 3:51 PM Eric Snell R N Active documented in this encounter Plan of Treatment Not on file documented as of this encounter Visit Diagnoses Not on filedocumented in this encounter Care Teams Deck Builder Relationship Specialty Start Date End Date Wally Black MD [address] [facility] [address] [place] [address] PCP - General INTERNAL MEDICINE 08/05/17 Ariel Ramos MD [facility] [address] [facility] [address] [place] [address] Consulting Physician CARDIOLOGY 08/18/17 documented as of this encounter
--- OUTSIDE RECORDS SUMMARY | 2024-11-22 10:56 | XMS_ITS | Encounter Summary ---
Author Organization [facility] Address [address] [place] [address] Care Team Providers Care Scallop Raker Name Role Phone Wally Black MD Primary Care Provider [phone] Ariel Ramos MD Unavailable [phone] Encounter Details Date Type Department Care Team (Late st Contact Info) Description 08/16/2017 Hospital Follow-up Call [facility] [place] [address] Terrie Oshea RN Social History Tobacco Use Types Packs/Day Years Used Date Smoking Tobacco: Former Cigarettes 1.5 50 1 966 - 2016 Smokeless Tobacco: Never Alcohol Use Standard Drinks/Week Comments No 0 (1 standard drink = 0.6 oz pur e alcohol) Comments No Sex and Gender Information Value Date Recorded Sex Assigned at Not on file Legal Sex Female 3:27 PM PHOTOGRAPH FINISHER Gender Identity Not on file Sexual Orientation Not on file documented as of this encounter Functional Status * RETIRED Are you deaf or do you have serious difficulty hearing Answer Date of Assessment Author Status No 08/09/2017 1:26 PM PHOTOGRAPH FINISHER Activ e * RETIRED Are you blind or do you have serious difficulty seeing, even when wearing glasses? Answer Date of Assessment Author Status No 08/09/2017 1:26 PM PHOTOGRAPH FINISHER Activ e * Do you have serious difficulty walking or climbing stairs? Answer Date of Assessment Author Status No 08/09/2017 1:26 PM PHOTOGRAPH FINISHER Solange Martines RN Active * Do you have difficulty dressing or bathing? Answer Date of Assessment Author Status No 08/09/2017 1:26 PM PHOTOGRAPH FINISHER Bannister, Crystal G, RN Active * Because of a physical, mental, or emotional condition, do you have difficulty doing errands alone such as visiting a doctor's office or shopping? Answer Date of Assessment Author Status No 08/09/2017 1:26 PM Solange Zamorano RN Active documented as of this encounter Mental Status * Because of a physical, mental, or emotional condition, do you have serious difficulty concentrating, remembering, or making decisions? Answer Entry Date Author Status No 08/09/2017 1:26 PM Solange Zamorano RN Active documented in this encounter Plan of Treatment Not on file documented as of this encounter Visit Diagnoses Not on filedocumented in this encounter Care Teams Scallop Raker Relationship Specialty Start Date End Date Wally Black MD [address] [facility] [address] [place] [address] PCP - General INTERNAL MEDICINE 08/05/17 Ariel Ramso MD [address] [place] [address] Consulting Physician CARDIOLOGY 08/18/17 documented as of this encounter
--- OUTSIDE RECORDS SUMMARY | 2024-11-22 10:56 | XMS_ITS | Patient Health Record ---
Author Organization [facility] Address [address] [place], [place] [id number] Care Team Providers Care Print Production Manager Name Role Phone RAMOS NAIR Unavailable [phone] Hermes Au Unavailable Unavailable RAMOS QUINTEROS Unavailable [phone] Allergies Allergen (clinical drug ingredient) Drug/Non Drug Allergy documented on EMR Reaction Allergy Type Onset Date Status cefaclor Ceclor (uncoded) Unknown Allergy 08/01/2019 ac tive ciprofloxacin Cipro Unknown Drug Allergy 08/01/2019 ac tive codeine Codeine Unknown Drug Allergy 08/01/2019 active Reason For Referral No Information Vital Signs Height-cm 160.02 cm 11/15/2024 Weight-kg 73.03 kg 11/15/2024 Height 63.00 in 11/15/2024 Weight 161 lbs 11/15/2024 BMI 28.52 kg/m2 11/15/2024 Encounters Encounter Location Date Provider Diagnosis [facility] [address] [place], [place] [id number] 03/15/2024 RAMOS NAIR Onychomycosis B35.1 ; Pain in right toe(s) M79.674 ; Pain in left toe(s) M79.675 ; Atherosclerosis of [place] arteries of extremities with intermittent claudication, bilateral legs I70.213 ; Acquired keratoderma L85.1 and Type 2 diabetes mellitus without complication, without long-term current use of insulin E11.9 [facility] [address] [place], [place] [id number] 06/04/2024 RAMOS QUINTEROS Tinea unguium B35.1 ; Pain in right toe(s) M79.674 ; Pain in left toe(s) M79.675 ; Atherosclerosis of [place] arteries of extremities with intermittent claudication, bilateral legs I70.213 and Type 2 diabetes mellitus with other circulatory complications E11.59 [facility] [address] [place], [place] [id number] 11/15/2024 RAMOS KIRKPATRICKANA PAULA Tinea unguium B35.1 ; Pain in right toe(s) M79.674 ; Pain in left toe(s) M79.675 ; Atherosclerosis of [place] arteries of extremities with intermittent claudication, bilateral legs I70.213 and Type 2 diabetes mellitus with other circulatory complications E11.59 [facility] [address] [place] [id number] 12/30/2023 RAMOS KIRKPATRICKANA PAULA Onychomycosis B35.1 ; Pain in right toe(s) M79.674 ; Pain in left toe(s) M79.675 ; Atherosclerosis of [place] arteries of extremities with intermittent claudication, bilateral legs I70.213 ; Acquired keratoderma L85.1 and Type 2 diabetes mellitus without complication, without long-term current use of insulin E11.9 [facility] [address] [place], [place] [id number] 09/06/2024 RAMOS NAIR Tinea unguium B35.1 ; Pain in right toe(s) M79.674 ; Pain in left toe(s) M79.675 ; Atherosclerosis of [place] arteries of extremities with intermittent claudication, bilateral legs I70.213 and Type 2 diabetes mellitus with other circulatory complications E11.59 Assessments Encounter Date Diagnosis (ICD Code) Assessment Notes Treatment Notes Treatment Clinical Notes Section Notes 12/30/2023 Onychomycosis (ICD-10 - B35.1) NAIL DEBRIDEMENT: Nails 1-5 Bilateral were debrided extensively with nail nippers and emery board, reducing length and girth to pink healthy tissue with any subungual debris and necrotic tissue removed NAIL DEBRIDEMENT: Nails 1-5 Bilateral were debrided extensively with nail nippers and emery board, reducing length and girth to pink healthy tissue with any subungual debris and necrotic tissue removed 03/15/2024 Onychomycosis (ICD-10 - B35.1) NAIL DEBRIDEMENT: Nails 1-5 Bilateral were debrided extensively with nail nippers and emery board, reducing length and girth to pink healthy tissue with any subungual debris and necrotic tissue removed NAIL DEBRIDEMENT: Nails 1-5 Bilateral were debrided extensively with nail nippers and emery board, reducing length and girth to pink healthy tissue with any subungual debris and necrotic tissue removed 06/04/2024 Tinea unguium (ICD-10 - B35.1) NAIL DEBRIDEMENT: Nails 1-5 Bilateral were debrided extensively with nail nippers and emery board, reducing length and girth to pink healthy tissue with any subungual debris and necrotic tissue removed 09/06/2024 Tinea unguium (ICD-10 - B35.1) NAIL DEBRIDEMENT: Nails 1-5 Bilateral were debrided extensively with nail nippers and emery board, reducing length and girth to pink healthy tissue with any subungual debris and necrotic tissue removed 11/15/2024 Tinea unguium (ICD-10 - B35.1) NAIL DEBRIDEMENT: Nails 1-5 Bilateral were debrided extensively with nail nippers and emery board, reducing length and girth to pink healthy tissue with any subungual debris and necrotic tissue removed 09/06/2024 Pain in right toe(s) (ICD-10 - M79.674) 11/15/2024 Pain in right toe(s) (ICD-10 - M79.674) 06/04/2024 Pain in right toe(s) (ICD-10 - M79.674) 03/15/2024 Pain in right toe(s) (ICD-10 - M79.674) 12/30/2023 Pain in right toe(s) (ICD-10 - M79.674) 12/30/2023 Pain in left toe(s) (ICD-10 - M79.675) 03/15/2024 Pain in left toe(s) (ICD-10 - M79.675) 06/04/2024 Pain in left toe(s) (ICD-10 - M79.675) 11/15/2024 Pain in left toe(s) (ICD-10 - M79.675) 09/06/2024 Pain in left toe(s) (ICD-10 - M79.675) 11/15/2024 Atherosclerosis of [place] arteries of extremities with intermittent claudication, bilateral legs (ICD-10 - I70.213) 06/04/2024 Atherosclerosis of [place] arteries of extremities with intermittent claudication, bilateral legs (ICD-10 - I70.213) 09/06/2024 Atherosclerosis of [place] arteries of extremities with intermittent claudication, bilateral legs (ICD-10 - I70.213) 12/30/2023 Atherosclerosis of [place] arteries of extremities with intermittent claudication, bilateral legs (ICD-10 - I70.213) 03/15/2024 Atherosclerosis of [place] arteries of extremities with intermittent claudication, bilateral legs (ICD-10 - I70.213) 12/30/2023 Acquired keratoderma (ICD-10 - L85.1) 03/15/2024 Acquired keratoderma (ICD-10 - L85.1) 09/06/2024 Type 2 diabetes mellitus with other circulatory complications (ICD-10 - E11.59) Diabetic Foot Care: The patient was educated on diabetes and the lower extremity. The patient was instructed to check his feet daily to report any problems or signs of infection immediately. The patient was provided written information on Diabetic Foot Care as well as the Amputation Prevention Guide. 06/04/2024 Type 2 diabetes mellitus with other circulatory complications (ICD-10 - E11.59) Diabetic Foot Care: The patient was educated on diabetes and the lower extremity. The patient was instructed to check his feet daily to report any problems or signs of infection immediately. The patient was provided written information on Diabetic Foot Care as well as the Amputation Prevention Guide. 11/15/2024 Type 2 diabetes mellitus with other circulatory complications (ICD-10 - E11.59) Diabetic Foot Care: The patient was educated on diabetes and the lower extremity. The patient was instructed to check his feet daily to report any problems or signs of infection immediately. The patient was provided written information on Diabetic Foot Care as well as the Amputation Prevention Guide. 03/15/2024 Type 2 diabetes mellitus without complication, without long-term current use of insulin (ICD-10 - E11.9) DIABETIC FOOT CARE: Both feet were examined today. Diabetic preventive care provided as documented. Diabetic foot care education discussed today to including: daily foot inspections, appropriate protective shoe gear, and strict glycemic control. Patient to return to the office routinely for preventive diabetic foot care or sooner if patient notices any acute changes. DIABETIC FOOT CARE: Both feet were examined today. Diabetic preventive care provided as documented. Diabetic foot care education discussed today to including: daily foot inspections, appropriate protective shoe gear, and strict glycemic control. Patient to return to the office routinely for preventive diabetic foot care or sooner if patient notices any acute changes. 12/30/2023 Type 2 diabetes mellitus without complication, without long-term current use of insulin (ICD-10 - E11.9) DIABETIC FOOT CARE: Both feet were examined today. Diabetic preventive care provided as documented. Diabetic foot care education discussed today to including: daily foot inspections, appropriate protective shoe gear, and strict glycemic control. Patient to return to the office routinely for preventive diabetic foot care or sooner if patient notices any acute changes. DIABETIC FOOT CARE: Both feet were examined today. Diabetic preventive care provided as documented. Diabetic foot care education discussed today to including: daily foot inspections, appropriate protective shoe gear, and strict glycemic control. Patient to return to the office routinely for preventive diabetic foot care or sooner if patient notices any acute changes. 03/15/2024 Other Shoe Gear Recommendation: Advised patient on appropriate shoe gear for protection, healing and good foot health Shoe Gear Recommendation: Advised patient on appropriate shoe gear for protection, healing and good foot health 12/30/2023 Other Shoe Gear Recommendation: Advised patient on appropriate shoe gear for protection, healing and good foot health Shoe Gear Recommendation: Advised patient on appropriate shoe gear for protection, healing and good foot health Plan Of Treatment Next Appt Details Provider Name:RAMOS GOSS, 01/17/2025 12:50:00 PM, [address] [facility] [address], [place], [place], [id number], Insurance Providers Payer Name Payer Address Payer Phone Subscriber Number Group Number Insured Name Patient Relationship to Insured Coverage Start Date Coverage End Date Medicare Part B [place] [address] [place] [phone] [id number] YAHAIRA DELEON Self - patient is the insured
--- OUTSIDE RECORDS SUMMARY | 2024-11-22 10:56 | XMS_ITS | Encounter Summary ---
Author Organization [facility] Address [facility] [place] [address] Care Team Providers Care Flap Presser Name Role Phone Wally Black MD Primary Care Provider [phone] Ariel Ramos MD Unavailable [phone] Encounter Details Date Type Department Care Team (Late st Contact Info) Description 09/06/2017 Hospital Follow-up Call [facility] Med/Surg [address] [place] [address] Terrie Oshea RN Social History Tobacco Use Types Packs/Day Years Used Date Smoking Tobacco: Former Cigarettes 1.5 50 1 966 - 2016 Smokeless Tobacco: Never Alcohol Use Standard Drinks/Week Comments No 0 (1 standard drink = 0.6 oz pur e alcohol) Comments No Sex and Gender Information Value Date Recorded Sex Assigned at Not on file Legal Sex Female 3:27 PM SURFACE PLATE FINISHER Gender Identity Not on file Sexual Orientation Not on file documented as of this encounter Functional Status * RETIRED Are you deaf or do you have serious difficulty hearing Answer Date of Assessment Author Status No 08/09/2017 1:26 PM SURFACE PLATE FINISHER Activ e * RETIRED Are you blind or do you have serious difficulty seeing, even when wearing glasses? Answer Date of Assessment Author Status No 08/09/2017 1:26 PM SURFACE PLATE FINISHER Activ e * Do you have serious difficulty walking or climbing stairs? Answer Date of Assessment Author Status No 08/09/2017 1:26 PM SURFACE PLATE FINISHER Solange Martines RN Active * Do you have difficulty dressing or bathing? Answer Date of Assessment Author Status No 08/09/2017 1:26 PM Solange Zamorano RN Active * Because of a physical, mental, or emotional condition, do you have difficulty doing errands alone such as visiting a doctor's office or shopping? Answer Date of Assessment Author Status No 08/09/2017 1:26 PM SURFACE PLATE FINISHER Solange Martines RN Active documented as of this encounter Mental Status * Because of a physical, mental, or emotional condition, do you have serious difficulty concentrating, remembering, or making decisions? Answer Entry Date Author Status No 08/09/2017 1:26 PM SURFACE PLATE FINISHER Solange Martines RN Active documented in this encounter Progress Notes * Terrie Oshea RN - 09/06/2017 6:12 AM CST Pt states not a good time ACE PLATE FINISHER * Terrie Oshea RN - 09/06/2017 6:12 AM CST Again pt states not a good time ACE PLATE FINISHER documented in this encounter Plan of Treatment Not on file documented as of this encounter Visit Diagnoses Not on filedocumented in this encounter Care Teams Flap Presser Relationship Specialty Start Date End Date Wally Black MD [address] [facility] [address] [place] [address] PCP - General INTERNAL MEDICINE 08/05/17 Ariel Ramos MD [address] [place] [address] Consulting Physician CARDIOLOGY 08/18/17 documented as of this encounter
--- OUTSIDE RECORDS SUMMARY | 2024-11-22 10:56 | XMS_ITS | Encounter Summary ---
Author Organization [facility] Facility Care Team Providers Care Cotton Ball Machine Tender Name Role Phone Simon Ledbetter MD Primary Care Provide r Wally Black MD Primary Care Provider [phone] Gee Ayala MD Primary Care Provider [phone] Ariel Ramos MD Unavailable [phone] Giovana Begum MD Unavailable Hermes Au MD Primary Care Provider Encounter Details Date Type Department Care Team (Latest Contact Info) Description 08/03/2016 Orders Only [facility] CLINCON[facility] ProviderBlayne MD [address] [place] [id number] Social History Tobacco Use Types Packs/Day Years Used Date Smoking Tobacco: Never Assessed Comments Unknown Sex and Gender Information Value Date Recorded Sex Assigned at Not on file Legal Sex Female 2:51 AM HEATING REPAIR TECHNICIAN Gender Identity Not on file Sexual Orientation Not on file documented as of this encounter Plan of Treatment Not on file documented as of this encounter Procedures Procedure Name Priority Date/Time Associated Diagnosis Comments CARDIOLOGY REPORT 08/03/2016 12: 00 AM HEATING REPAIR TECHNICIAN documented in this encounter Results * CARDIOLOGY REPORT (08/03/2016 12:00 AM HEATING REPAIR TECHNICIAN) Anatomical Region Laterality Modality Other Narrative 08/03/2016 12:00 AM HEATING REPAIR TECHNICIAN Ordered by an unspecified provider. 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 Specimen: STOOL Site: 11/23/2015 11/23/2015 04/22/2021 5:00 AM CDT COVID: Suspected 07/12/2020 07/12/2020 07/12/2020 8:27 PM HEATING REPAIR TECHNICIAN Respiratory Infection (THERON), contact + droplet Comment:RVP negative. 07/12/2020 Jose Craig Automatically added due to negative COVID-19 result. 07/12/2020 07/12/2020 07/12/2020 9:[address] COVID: Suspected 07/18/2020 07/18/2020 07/18/2020 8:09 PM HEATING REPAIR TECHNICIAN Respiratory Infection (THERON), contact + droplet Comment:07/20/2020 IP Review - Patient classified as Low Risk for COVID-19 and has one negative COVID-19 test. Patient meets criteria for COVID-19 isolation discontinuation. Marissa Eaton RN Automatically added due to negative COVID-19 result. 07/18/2020 07/18/2020 07/20/2020 7:[address] COVID: Suspected 08/28/2020 08/28/2020 08/28/2020 1:11 PM HEATING REPAIR TECHNICIAN COVID19 08/28/2020 08/28/2020 10/09/2020 3:05 AM HEATING REPAIR TECHNICIAN COVID: Recovered Comment:Pt tested positive 08.28.20, required [...] documented as of this encounter Care Teams Cotton Ball Machine Tender Relationship Specialty Start Date End Date Simon Ledbetter MD [address] [facility] [address] [place] [address] PCP - General 02/03/16 04/12/17 Wally Black MD [address] [address] PCP - General 04/13/17 06/29/20 Gee Ayala MD [address] [address] PCP - General Endocrinology Diabetes & Metabolism 06/30/20 06/22/21 Hermes Au MD [address] [address] PCP - General Endocrinology Diabetes & Metabolism 06/23/21 Ariel Ramos MD [address] [address] Referring Physician Cardiology 03/17/21 Giovana Begum MD [address] [place] [address] Referring Physician Internal Medicine 03/17/21 documented as of this encounter
--- OUTSIDE RECORDS SUMMARY | 2024-11-22 10:56 | XMS_ITS | Encounter Summary ---
Author Organization [facility] Facility Care Team Providers Care Ground Instructor Basic Name Role Phone Simon Ledbetter MD Primary Care Provide r Simon Ledbetter MD Primary Care Provide r Wally Black MD Primary Care Provider [phone] Gee Ayala MD Primary Care Provider [phone] Ariel Ramos MD Unavailable [phone] Giovana Begum MD Unavailable [phone] Hermes Au MD Primary Care Provider Encounter Details Date Type Department Care Team (Latest Contact Info) Description 09/09/2015 Orders Only [facility] CLINCONV Provider, MD Blayne [address] [place] [address] Social History Tobacco Use Types Packs/Day Years Used Date Smoking Tobacco: Never Assessed Comments Unknown Sex and Gender Information Value Date Recorded Sex Assigned at Not on file Legal Sex Female 2:51 AM COMMERCIAL OCEAN CLAMMER Gender Identity Not on file Sexual Orientation Not on file documented as of this encounter Plan of Treatment Not on file documented as of this encounter Procedures Procedure Name Priority Date/Time Associated Diagnosis Comments PROCEDURE - RESULT 08/03/2016 12 :00 AM COMMERCIAL OCEAN CLAMMER documented in this encounter Results * PROCEDURE - RESULT (08/03/2016 12:00 AM COMMERCIAL OCEAN CLAMMER) Narrative 08/03/2016 12:00 AM COMMERCIAL OCEAN CLAMMER Ordered by an unspecified provider. 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 Specimen: STOOL Site: 11/23/2015 11/23/2015 04/22/2021 5:00 AM CDT COVID: Suspected 07/12/2020 07/12/2020 07/12/2020 8:27 PM COMMERCIAL OCEAN CLAMMER Respiratory Infection (THERON), contact + droplet Comment:RVP negative. 07/12/2020 Jose Craig Automatically added due to negative COVID-19 result. 07/12/2020 07/12/2020 07/12/2020 9:[address] COVID: Suspected 07/18/2020 07/18/2020 07/18/2020 8:09 PM COMMERCIAL OCEAN CLAMMER Respiratory Infection (THERON), contact + droplet Comment:07/20/2020 IP Review - Patient classified as Low Risk for COVID-19 and has one negative COVID-19 test. Patient meets criteria for COVID-19 isolation discontinuation. Marissa Eaton RN Automatically added due to negative COVID-19 result. 07/18/2020 07/18/2020 07/20/2020 7:[address] COVID: Suspected 08/28/2020 08/28/2020 08/28/2020 1:11 PM COMMERCIAL OCEAN CLAMMER COVID19 08/28/2020 08/28/2020 10/09/2020 3:05 AM COMMERCIAL OCEAN CLAMMER COVID: Recovered Comment:Pt tested positive 08.28.20, required hospitalization for care and then rehab. >20 days have passed, Pt demonstrates clinical improvement and has been afebrile >24 hr w/o antipyretics. She satisfies criteria to be CoVID recovered. No additional COVID testing recommended before 01.17.21 Antonia Alvarado RN 09/22/20 09/19/2020 09/22/2020 01/17/2021 3:05 AM C DT COVID: Recovered Comment:Added based on recent COVID infection. 10/09/2020 01/26/202102/06/2021 3:05 AM C DT COVID: Suspected 03/30/2023 [...] documented as of this encounter Care Teams Ground Instructor Basic Relationship Specialty Start Date End Date Simon Ledbetter MD [address] [place] [address] PCP - General 02/03/16 04/12/17 Simon Ledbetter MD [address] [place] [address] PCP - General 10/28/15 02/02/16 Wally Black MD [address] [address] PCP - General 04/13/17 06/29/20 Gee Ayala MD [address] [id number] PCP - General Endocrinology Diabetes & Metabolism 06/30/20 06/22/21 Hermes Au MD [address] [id number] PCP - General Endocrinology Diabetes & Metabolism 06/23/21 Ariel Ramos MD [address] [address] Referring Physician Cardiology 03/17/21 Giovana Begum MD [address] [place] [address] Referring Physician Internal Medicine 03/17/21 documented as of this encounter
[2024-11-22 11:02] LABS: Basophils Absolute Auto 0.1 K/mm3 (0.0-0.1); Basophils Percent Auto 0.5 % (0.2-1.2); Eosinophils Absolute Auto 0.2 K/mm3 (0-0.3); Eosinophils Percent Auto 1.2 % (0-4.4); Hematocrit 38.1 % (37.0-47.0); Hemoglobin 12.5 g/dL (12.0-15.0); Immature Granulocyte Absolute 0.04 K/mm3 (0.00-0.031); Immature Granulocyte Percent A 0.3 % (0-0.5); Lymphocytes Absolute Auto 1.67 K/mm3 (0.9-3.2); Lymphocytes Percent Auto 12.8 % (18.3-44.2); Mean Corpuscular HGB Conc 32.8 g/dl (32-36); Mean Corpuscular Hemoglobin 32.1 pg (26-34); Mean Corpuscular Volume 97.9 fl (80-100); Mean Platelet Volume 9.8 fl (7.4-10.4); Monocytes Absolute Auto 0.8 K/mm3 (0.1-0.6); Monocytes Percent Auto 6.4 % (2.6-8.5); Neutrophils Absolute Auto 10.3 K/mm3 (1.3-6.7); Neutrophils Percent Auto 78.8 % (45.5-73.1); Platelet Count Result 181 k/mm3 (150-375); Red Blood Count 3.89 M/mm3 (4.2-5.4); Red Cell Distribution Width 12.3 % (11.5-14.5)
[2024-11-22] MEDS: AMIODARONE 360 MG/D5W 200 ML 360 MG/200 ML BAG 33.33 MG IV CONT (11:06)
[2024-11-22 11:12] LABS: Prothrombin Time 13.1 Seconds (11.1-14.7)
[2024-11-22 11:13] LABS: Partial Thromboplastin Time 26.9 Seconds (22.3-36.8)
[2024-11-22 11:13] LABS: Lactic Acid Reflex 1.5 mmol/L (0.7-2.0)
[2024-11-22 11:18] LABS: Influenza A QL RT-PCR Negative (Negative); Influenza B QL RT-PCR Negative (Negative); RSV RNA, RT-PCR Negative (Negative); SARS-CoV-2 RNA PCR Negative (Negative)
[2024-11-22 11:24] LABS: NT Pro B Type Natriuretic Pept 469 pg/mL (19.9-100); Troponin I < 0.012 ng/mL (0.000-0.034)
[2024-11-22 11:40] LABS: Add Urine Microscopic? YES; Appearance Urine Clear (Clear); Bacteria Urine None Seen /hpf; Bilirubin Urine Negative (Negative); Blood Urine Negative (Negative); Color Urine Yellow (Yellow); Glucose Urine UA Negative (Negative); Ketones Urine Negative (Negative); Leukocyte Esterase Ur 1+ LEU/UL (Negative); Nitrate Urine Negative (Negative); Non Pathogenic Casts 0-2; Protein Urine Trace mg/dL (Negative); RBC Urine 0-2 /hpf (0-2); Squamous Epithelial Cell Urine None Seen /hpf (Few); Urobilinogen Urine 0.2 mg/dL (<2.0)
[2024-11-22 12:07] LABS: Alanine Aminotransferase 13 U/L (6-35); Albumin Level 3.9 g/dL (3.5-5.1); Alkaline Phosphatase 55 U/L (38-126); Anion Gap 7 mmol/L (4-12); Aspartate Amino Transferase 17 U/L (14-36); Bilirubin,Total 0.6 mg/dL (0.2-1.3); Blood Urea Nitrogen 16 mg/dL (7-17); Calcium 9.5 mg/dL (8.4-10.2); Carbon Dioxide 28 mmol/L (22-30); Chloride 105 mmol/L (98-107); Estimated CRCL calculation 30 ml/min; Estimated Glomerular Filt Rate 37; Glucose 145 mg/dL (65-110); Magnesium 1.5 mg/dL (1.6-2.3); Sodium 140 mmol/L (137-145)
--- NOTE | 2024-11-22 12:44 | P.CONCA_ITS ---
Assessment and Plan Assessment and plan (1) S/P CABG (coronary artery bypass graft): Code(s): Z95.1 - Presence of aortocoronary bypass graft Status: Acute Plan 79-year-old woman with CAD status post CABG (FIGUEREDO to LAD, SVG to OM 3/4, left radial to distal RCA), COPD, history of traumatic bilateral subarachnoid hemorrhage and rib fractures after a fall and 06/2020 complicated by prolonged mechanical ventilation requiring trach and G-tube placement further complicated by right IJ DVT and COVID pneumonia, possible history of TIA, hypertension, and diabetes presents with weakness and recurrent urinary tract infections CAD status post CABG -no angina and euvolemic on physical examination -continue aspirin 81 mg p.o. daily Hyperlipidemia -continue rosuvastatin 5 mg every evening Abnormal telemetry -the telemetry findings appear to be artifact and inconsistent with her symptomatology at the time findings -can discontinue amiodarone Patient can follow up with Dr. Ramos outpatient next week History of Present Illness History of Present Illness Consult date/time: 11/22/24 12:44 Requesting physician: Emilie Gutierrez PA-C Reason For Visit: weak Narrative: 79-year-old woman with CAD status post CABG (FIGUEREDO to LAD, SVG to OM 3/4, left radial to distal RCA), COPD, history of traumatic bilateral subarachnoid hemorrhage and rib fractures after a fall and 06/2020 complicated by prolonged mechanical ventilation requiring trach and G-tube placement further complicated by right IJ DVT and COVID pneumonia, possible history of TIA, hypertension, and diabetes presents with weakness and recurrent urinary tract infections. She was in the emergency room when there was significant artifact on telemetry some of which were interpreted as ventricular tachycardia for which amiodarone drip was started. She has not had any shortness of breath, chest discomfort, or lightheadedness. She lives at home with her and typically does not experience any cardiopulmonary limitations to ambulating around the house or at the grocery store. She denies any exertional or nonexertional syncopal events. She denies orthopnea and paroxysmal nocturnal dyspnea. Review of Systems 2 Cardiovascular: Cardiovascular: Reports as per HPI Respiratory: Respiratory: Reports as per HPI [facility] Past Medical History Medical History Depression with anxiety Peripheral vascular disease Type 2 diabetes mellitus Traumatic brain injury Chronic kidney disease MDD (major depressive disorder) Congestive heart failure Hypertension Subarachnoid hemorrhage Bilaterally after falling down stairs Tobacco abuse Hyperlipidemia Hypertension Coronary artery disease COPD (chronic obstructive pulmonary disease) Surgical History Surgical History H/O carpal tunnel repair History of appendectomy H/O colonoscopy with polypectomy History of cardiac cath H/O cataract extraction History of cholecystectomy H/O: hysterectomy History of four vessel coronary artery bypass graft 2015 S/P cervical spinal fusion History of tracheostomy Myringotomy tube(s) status Hx of CABG Family History Family History Mother Heart failure Family history of chronic obstructive pulmonary disease Sibling Diabetes mellitus Acute myocardial infarction Family history of diabetes mellitus in first degree relative Family history of coronary artery disease Family history of chronic obstructive pulmonary disease Heart failure Father Family history of lung cancer COPD (chronic obstructive pulmonary disease) Son Heart failure Hypertension Social History Social History Social History: Ms. Bill lives at home with her . She is mostly independent with her activities however she does have a private duty caregiver who comes out 5 days a week to assist as needed. She no longer drives. She designates her daughter, Rylee, as her surrogate decision maker. Her daughter Rylee states that she is a full code Smoking packs per day: 2 Smoking cigarettes per day: 40.0 Years smoked: 40 Smoking pack-years: 80.00 Smoking status: Former smoker Second hand tobacco smoke exposure: Yes Alcohol intake: never Substance use: never Substance use type: does not use Do You Feel Safe in your Home?: Yes Lack of Transportation: No Lack of Food: Never True Current Housing: I Have Housing Concerned About Future Housing: No Difficulty Paying Gas/Electric Bills: No Difficulty Paying for Meds: No Currently Unemployed: No Education: Grade School Difficulty w/ Childcare or Family Care: No Living arrangements: with family Additional living arrangements comments: Lives with her Occupation/Education: retired 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 [employer] Gender identity (if verbalized by the patient): Female Sexual Orientation (if Verbalized by the Patient): Straight or Heterosexual Spiritual care concerns: No Agree to blood products: Yes Meds Home Medications and Allergies Home Medications ?Medication ?Instructions ?Recorded ?Confirmed ?Type omeprazole 40 mg capsule,delayed 40 mg PO BID #60 caps 08/19/20 03/16/24 Rx release albuterol sulfate 90 mcg/actuation 2 inh inhalation Q6H PRN SHORTNESS 02/25/22 03/16/24 History aerosol inhaler OF BREATH aspirin 81 mg tablet,delayed 81 mg PO DAILY 02/25/22 03/16/24 History release bumetanide 0.5 mg tablet 0.5 mg PO DAILY 02/25/22 03/16/24 History metoprolol succinate 25 mg 1 tablet PO DAILY 02/25/22 03/16/24 History tablet,extended release 24 hr olmesartan 40 mg tablet 1 tablet PO HS 02/25/22 03/16/24 History citalopram 20 mg tablet 20 mg PO HS 02/26/22 03/16/24 History rosuvastatin 20 mg tablet (Crestor) 5 mg PO QMWF 02/26/23 03/16/24 History acetaminophen 500 mg capsule 500 mg PO Q8H PRN Pain (Scale 07/07/23 03/16/24 History Score 1-3) exenatide microspheres 2 mg/0.85 2 mg subcut WEEKLY 07/07/23 03/16/24 History mL subcutaneous auto-injector (Krzysztof King) lorazepam 0.5 mg tablet 0.5 mg PO HS 07/07/23 03/16/24 History estradiol 0.01% (0.1 mg/gram) 2 g vaginal DIRECTED 01/02/24 03/16/24 History vaginal cream clonidine HCl 0.1 mg tablet 0.1 mg PO DAILY Hypertension #30 03/18/24 Rx tabs metformin 500 mg tablet,extended 500 mg PO DAILY #1 tablet 03/18/24 Rx release 24 hr potassium chloride 20 mEq 20 meq PO DAILY #7 tabs 03/18/24 Rx tablet,extended release Allergies Allergy/AdvReac Type Severity Reaction Status Date / Time levofloxacin Allergy Severe Swelling Verified 03/15/24 21:04 cefaclor Allergy Unknown Anaphylaxis Verified 03/15/24 21:04 ciprofloxacin Allergy Unknown Anaphylaxis Verified 03/15/24 21:04 codeine Allergy Unknown Other Verified 03/15/24 21:04 erythromycin base Allergy Unknown Hives Verified 03/15/24 21:04 Iodinated Contrast Media Allergy Unknown Hives Verified 03/15/24 21:04 iodine Allergy Unknown Itching Verified 03/15/24 21:04 latex Allergy Unknown Anaphylaxis Verified 03/15/24 21:04 sulfanilamide Allergy Unknown Anaphylaxis Verified 03/15/24 21:04 hydrocodone (From Vicodin) Allergy Unknown Verified 03/15/24 21:04 lamotrigine (From Lamictal) Allergy Unknown Verified 03/15/24 21:04 prochlorperazine Allergy Unknown Verified 03/15/24 21:04 tramadol Allergy Unknown Verified 03/15/24 21:04 morphine AdvReac Unknown VOMITING Verified 03/15/24 21:04 Quinolones AdvReac Unknown Other Verified 03/15/24 21:04 vancomycin AdvReac Unknown side Verified 03/15/24 21:04 effect-rising creatnine amitriptyline (From Elavil) AdvReac Nausea Verified 03/15/24 21:04 doxepin AdvReac Weakness Verified 03/15/24 21:04 fentanyl AdvReac Nausea Verified 03/15/24 21:04 mirtazapine (From Remeron) AdvReac Weakness Verified 03/15/24 21:04 oxycodone AdvReac Nausea and Verified 03/15/24 21:04 Vomiting trazodone AdvReac Nausea and Verified 03/15/24 21:04 Vomiting Contrast Media Allergy Unknown SWELLS,RED, Uncoded 03/15/24 21:04 SOB protien c Allergy Unknown Uncoded 03/15/24 21:04 Vital Signs Vital Signs - 24 hr 11/22/24 09:22 11/22/24 09:24 11/22/24 10:36 Temperature 37.6 C H Pulse Rate 77 75 74 Respiratory Rate 20 28 H 22 H Blood Pressure 160/67 H 160/67 H 148/66 H Pulse Oximetry 96 96 98 Oxygen Delivery Room Air 11/22/24 10:46 11/22/24 10:53 11/22/24 11:01 Temperature Pulse Rate 82 77 69 Respiratory Rate 24 H 24 H Blood Pressure 159/66 H 159/66 H 141/49 H Pulse Oximetry 96 94 Oxygen Delivery 11/22/24 11:04 11/22/24 11:06 11/22/24 11:08 Temperature 37.1 C Pulse Rate 91 68 67 Respiratory Rate 24 H Blood Pressure 141/49 H 149/55 H 149/55 H Pulse Oximetry 98 Oxygen Delivery Exam 2 Const: Other: Appears lethargic and ill HENMT: Mouth: Yes moist mucous membranes Eyes: EOM: EOMs intact bilaterally Neck: Neck: no JVD Resp: Effort & Inspection: normal respiratory effort Other: Rhonchi bilaterally Cardio: Rate: regular rate Rhythm: regular rhythm Results Labs and Meds 11/22/24 10:50 11/22/24 10:50 Lab results: Cardiac Enzymes 11/22/24 Range/Units 10:50 AST 17 (14-36) U/L Troponin I < 0.012 (0.000-0.034) ng/mL Coagulation 11/22/24 Range/Units 10:50 PT 13.1 (11.1-14.7) Seconds APTT 26.9 (22.3-36.8) Seconds CBC 11/22/24 Range/Units 10:50 WBC 13.0 H (4.5-10.0) K/mm3 RBC 3.89 L (4.2-5.4) M/mm3 Hgb 12.5 (12.0-15.0) g/dL Hct 38.1 (37.0-47.0) % Plt Count 181 (150-375) k/mm3 Lymph # (Auto) 1.67 (0.9-3.2) K/mm3 [place] # (Auto) 0.8 H (0.1-0.6) K/mm3 Eos # (Auto) 0.2 (0-0.3) K/mm3 Baso # (Auto) 0.1 (0.0-0.1) K/mm3 Comprehensive Metabolic Panel 11/22/24 Range/Units 10:50 Sodium 140 (137-145) mmol/L Potassium 4.0 (3.4-5.0) mmol/L Chloride 105 (98-107) mmol/L Carbon Dioxide 28 (22-30) mmol/L BUN 16 (7-17) mg/dL Creatinine 1.38 H (0.7-1.0) mg/dL Glucose 145 H (65-110) mg/dL Calcium 9.5 (8.4-10.2) mg/dL AST 17 (14-36) U/L ALT 13 (6-35) U/L Alkaline Phosphatase 55 (38-126) U/L Total Protein 7.0 (6.3-8.2) g/dL Albumin 3.9 (3.5-5.1) g/dL Intake and Output 11/21/24 11/22/24 11/22/24 23:59 07:59 15:59 Intake Total 100 Output Total 100 Balance 0 Intake: IV 100 Amiodarone 150 mg/D5w 100 ml 100 150 mg In 100 ml @ 15 MG/MIN 600 mls/hr IV CONT .Q10M STA Rx #:[id number] Output: Urine 100 Patient Weight 11/22/24 23:59 Weight 83.5 kg
[2024-11-22] MEDS: MAGNESIUM SULF 2 GM/WATER 50ML 2 GM/50 ML BAG IVPB (13:07)
[2024-11-22] MEDS: SODIUM CHLORIDE 0.9% IV 1,000 ML 999 ML IV CONT (13:11)
--- NOTE | 2024-11-22 14:51 | PCCCNOTE ---
Called to the pt's room to speak to about therapy and placement for recent decline in function and ability to get around the home. Spoke to the pt and her daughter. The daughter whom states she is the POA and is a nurse stated the pt needs to be admitted under OBS , she knows there is something wrong with the pt. Stated she was initally going to outpt rehab however then states she refused to go to her appointments. Spoke about placement and daughter was not happy with this plan stated the pt needs to be admitted with the diagnosis of weakness. Advised this CM if the pt is cleared could initated placement into facility. The pt stated she does not want to go into a penitentiary but will do assisted living but her has to go with her. Daughter stated her goal is for the pt to have in house or outpt physical therapy ordered. Updated the ED provider on the conversation.[email or web address]
--- NOTE | 2024-11-22 16:43 | P.HP_ITS ---
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 The patient presents here with generalized weakness from home via EMS. The patient and her daughter provided the following report. Per daughter, the patient seemed off yesterday but did not have any other concerning symptoms. Patient then had 2 falls late yesterday evening and overnight. She reports her legs became significantly weak and she slid down to the floor. She denies head strike or loss of consciousness with either fall. No resulting pain or trauma per patient. However, daughter became increasingly concerned after she was on the phone with her mother when EMS arrived. She was able to hear that the patient answered some questions incorrectly such as the current year she answered it was in the . Patient is currently A&O x4. The daughter reports that for the last couple of years, the patient's UTIs are typically heralded with either a fall or confusion/agitation. She is concerned that despite a virtually normal urinalysis in the emergency department, that she still has the beginnings of an infection. She reports she has had insignificant UAs before, however the urine culture would show infection. She does not feel comfortable sending her mother home with this level of weakness. They are currently considering rehab, however the patient is concerned she will not be able to go back home after rehab and therefore has reservations. The patient currently denies focal weakness, focal numbness, dysarthria, abdominal pain, chest pain, dizziness, palpitations, confusion, diarrhea, dysuria, urinary frequency. She does report she has mild urinary urgency. Initial VS at presentation: 99.7? F, HR 77, R 20, 160/67, and 96% on RA. ED workup showed: WBC 13.0, no anemia, normal coags, no significant electrolyte derangements, creatinine 1.38 and GFR 37 (previously 1.0 and GFR 54 03/2024), magnesium 1.5, initial troponin negative, BNP 469, and UA showed 1+ leuks and 6- 10 WBC with no epithelial cells or bacteria. Viral PCR negative. CXR showed clear lungs and s/p CABG. Head CT showed no acute intracranial findings. Review of Systems Review of Systems: All systems reviewed & are unremarkable except as noted in HPI and below PMFSH Past Medical History Medical History Iron deficiency anemia Atrial fibrillation Pulmonary hypertension Ischemic cardiomyopathy COPD (chronic obstructive pulmonary disease) Subarachnoid hemorrhage Bilaterally after falling down stairs Osteoarthritis Depression with anxiety MDD (major depressive disorder) Congestive heart failure Peripheral vascular disease Hyperlipidemia Type 2 diabetes mellitus Traumatic brain injury Chronic kidney disease Hypertension Tobacco abuse Coronary artery disease Surgical History Surgical History S/P CABG (coronary artery bypass graft) H/O carpal tunnel repair History of appendectomy H/O colonoscopy with polypectomy History of cardiac cath H/O cataract extraction History of cholecystectomy H/O: hysterectomy History of four vessel coronary artery bypass graft 2015 S/P cervical spinal fusion History of tracheostomy Myringotomy tube(s) status Family History Family History Mother Heart failure Family history of chronic obstructive pulmonary disease Sibling Diabetes mellitus Acute myocardial infarction Family history of diabetes mellitus in first degree relative Family history of coronary artery disease Family history of chronic obstructive pulmonary disease Heart failure Father Family history of lung cancer COPD (chronic obstructive pulmonary disease) Son Heart failure Hypertension Social History Social History Social History: Ms. Bill lives at home with her . She is mostly independent with her activities however she does have a private duty caregiver who comes out 5 days a week to assist as needed. She no longer drives. She designates her daughter, Rylee, as her surrogate decision maker. Her daughter Rylee states that she is a full code Smoking packs per day: 2 Smoking cigarettes per day: 40.0 Years smoked: 40 Smoking pack-years: 80.00 Smoking status: Former smoker Second hand tobacco smoke exposure: Yes Alcohol intake: never Substance use: never Substance use type: does not use Do You Feel Safe in your Home?: Yes Lack of Transportation: No Lack of Food: Never True Current Housing: I Have Housing Concerned About Future Housing: No Difficulty Paying Gas/Electric Bills: No Difficulty Paying for Meds: No Currently Unemployed: No Education: Grade School Difficulty w/ Childcare or Family Care: No Living arrangements: with family Additional living arrangements comments: Lives with her Occupation/Education: retired 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 Gender identity (if verbalized by the patient): Female Sexual Orientation (if Verbalized by the Patient): Straight or Heterosexual Spiritual care concerns: No Agree to blood products: Yes Meds Home Medications and Allergies Home Medications ?Medication ?Instructions ?Recorded ?Confirmed ?Type omeprazole 40 mg capsule,delayed 40 mg PO BID #60 caps 08/19/20 03/16/24 Rx release albuterol sulfate 90 mcg/actuation 2 inh inhalation Q6H PRN SHORTNESS 02/25/22 03/16/24 History aerosol inhaler OF BREATH aspirin 81 mg tablet,delayed 81 mg PO DAILY 02/25/22 03/16/24 History release bumetanide 0.5 mg tablet 0.5 mg PO DAILY 02/25/22 03/16/24 History metoprolol succinate 25 mg 1 tablet PO DAILY 02/25/22 03/16/24 History tablet,extended release 24 hr olmesartan 40 mg tablet 1 tablet PO HS 02/25/22 03/16/24 History citalopram 20 mg tablet 20 mg PO HS 02/26/22 03/16/24 History rosuvastatin 20 mg tablet (Crestor) 5 mg PO QMWF 02/26/23 03/16/24 History acetaminophen 500 mg capsule 500 mg PO Q8H PRN Pain (Scale 07/07/23 03/16/24 History Score 1-3) exenatide microspheres 2 mg/0.85 2 mg subcut WEEKLY 07/07/23 03/16/24 History mL subcutaneous auto-injector (Krzysztof King) lorazepam 0.5 mg tablet 0.5 mg PO HS 07/07/23 03/16/24 History estradiol 0.01% (0.1 mg/gram) 2 g vaginal DIRECTED 01/02/24 03/16/24 History vaginal cream clonidine HCl 0.1 mg tablet 0.1 mg PO DAILY Hypertension #30 03/18/24 Rx tabs metformin 500 mg tablet,extended 500 mg PO DAILY #1 tablet 03/18/24 Rx release 24 hr potassium chloride 20 mEq 20 meq PO DAILY #7 tabs 03/18/24 Rx tablet,extended release Allergies Allergy/AdvReac Type Severity Reaction Status Date / Time levofloxacin Allergy Severe Swelling Verified 03/15/24 21:04 cefaclor Allergy Unknown Anaphylaxis Verified 03/15/24 21:04 ciprofloxacin Allergy Unknown Anaphylaxis Verified 03/15/24 21:04 codeine Allergy Unknown Other Verified 03/15/24 21:04 erythromycin base Allergy Unknown Hives Verified 03/15/24 21:04 Iodinated Contrast Media Allergy Unknown Hives Verified 03/15/24 21:04 iodine Allergy Unknown Itching Verified 03/15/24 21:04 latex Allergy Unknown Anaphylaxis Verified 03/15/24 21:04 sulfanilamide Allergy Unknown Anaphylaxis Verified 03/15/24 21:04 hydrocodone (From Vicodin) Allergy Unknown Verified 03/15/24 21:04 lamotrigine (From Lamictal) Allergy Unknown Verified 03/15/24 21:04 prochlorperazine Allergy Unknown Verified 03/15/24 21:04 tramadol Allergy Unknown Verified 03/15/24 21:04 morphine AdvReac Unknown VOMITING Verified 03/15/24 21:04 Quinolones AdvReac Unknown Other Verified 03/15/24 21:04 vancomycin AdvReac Unknown side Verified 03/15/24 21:04 effect-rising creatnine amitriptyline (From Elavil) AdvReac Nausea Verified 03/15/24 21:04 doxepin AdvReac Weakness Verified 03/15/24 21:04 fentanyl AdvReac Nausea Verified 03/15/24 21:04 mirtazapine (From Remeron) AdvReac Weakness Verified 03/15/24 21:04 oxycodone AdvReac Nausea and Verified 03/15/24 21:04 Vomiting trazodone AdvReac Nausea and Verified 03/15/24 21:04 Vomiting Contrast Media Allergy Unknown SWELLS,RED, Uncoded 03/15/24 21:04 SOB protien c Allergy Unknown Uncoded 03/15/24 21:04 Vital Signs Vital Signs - 24 hr 11/22/24 09:22 11/22/24 09:24 11/22/24 10:36 Temperature 99.7 F H Pulse Rate 77 75 74 Respiratory Rate 20 28 H 22 H Blood Pressure 160/67 H 160/67 H 148/66 H Pulse Oximetry 96 96 98 Oxygen Delivery Room Air 11/22/24 10:46 11/22/24 10:53 11/22/24 11:01 Temperature Pulse Rate 82 77 69 Respiratory Rate 24 H 24 H Blood Pressure 159/66 H 159/66 H 141/49 H Pulse Oximetry 96 94 Oxygen Delivery 11/22/24 11:04 11/22/24 11:06 11/22/24 11:08 Temperature 98.8 F Pulse Rate 91 68 67 Respiratory Rate 24 H Blood Pressure 141/49 H 149/55 H 149/55 H Pulse Oximetry 98 Oxygen Delivery 11/22/24 13:03 Temperature Pulse Rate 64 Respiratory Rate Blood Pressure 150/62 H Pulse Oximetry Oxygen Delivery H&P: Results Labs Labs: Short CBC 11/22/24 Range/Units 10:50 WBC 13.0 H (4.5-10.0) K/mm3 Hgb 12.5 (12.0-15.0) g/dL Hct 38.1 (37.0-47.0) % Plt Count 181 (150-375) k/mm3 BMP 11/22/24 10:50 Sodium 140 Potassium 4.0 Chloride 105 Carbon Dioxide 28 BUN 16 Creatinine 1.38 H Glucose 145 H Calcium 9.5 Cardiac Enzymes 11/22/24 Range/Units 10:50 Troponin I < 0.012 (0.000-0.034) ng/mL Liver Function 11/22/24 Range/Units 10:50 Total Bilirubin 0.6 (0.2-1.3) mg/dL AST 17 (14-36) U/L ALT 13 (6-35) U/L Alkaline Phosphatase 55 (38-126) U/L Albumin 3.9 (3.5-5.1) g/dL Urine 11/22/24 Range/Units 11:13 Urine Color Yellow (Yellow) Urine Appearance Clear (Clear) Urine pH 6.0 (5.0-9.0) Ur Specific [place] 1.010 (1.001-1.035) Urine Protein Trace (Negative) mg/dL Urine Glucose (UA) Negative (Negative) mg/dL Assessment and Plan Assessment and plan (1) Generalized weakness: Code(s): R53.1 - Weakness Status: Acute Assessment and Plan: - WBC 13, Hgb 12.5, no significant electrolyte derangements - EKG, initial: - concern for episode of Vtach. Cardiology consulted, Jasvir MARK provided the following recs. Telemetry findings appeared to be artifact and inconsistent with her symptomatology, no further need for amiodarone. Follow-up with Rachel MARK outpatient next week - UA w/1+ leuks and 6-10 WBC with no epithelial cells or bacteria. Daughter voice concerns to multiple providers that the patient was beginning to develop a UTI despite a virtually normal UA. She reports she has previously had similar findings and the urine culture was positive. She typically presents as she has today with either confusion/agitation or a fall heralding an infection. She is requesting initiation of antibiotics, started on Macrobid. Has extensive allergy list. Urine culture pending, follow. - viral PCR negative - PT/OT evaluation and treatment for general deconditioning and for recommendations. Family currently unsure if rehab is the route they would like to go, however they are exploring her options. care coordination consulted at this time. - telemetry monitoring, monitoring for dysrhythmias (2) Hypomagnesemia: Code(s): E83.42 - Hypomagnesemia Status: Acute Assessment and Plan: - Mag 1.5, initial repletion with 2G IVPB. Repeat in a.m.. (3) Chronic kidney disease: Qualifiers: Chronic kidney disease stage: unspecified stage Qualified Code(s): N18.9 - Chronic kidney disease, unspecified Code(s): N18.9 - Chronic kidney disease, unspecified Status: Chronic Assessment and Plan: - creatinine 1.38 and GFR 37, previously 1.0 and GFR 54 on 03/17/2024 - IV fluids: 1L bolus -> 75 mL/hr - trend renal function - trend electrolytes, correct as needed (4) Type 2 diabetes mellitus: Code(s): E11.9 - Type 2 diabetes mellitus without complications Status: Chronic Assessment and Plan: - hypoglycemia protocol - POC blood glucose ACHS - correct regimen ordered - high dose TIDWM, based off BMI - A1C 8.7% in 2023, update (5) Hypertension: Qualifiers: Hypertension type: unspecified Qualified Code(s): I10 - Essential (primary) hypertension Code(s): I10 - Essential (primary) hypertension Status: Chronic Assessment and Plan: - chronic, currently 150/62 - continue home medications - monitor Plan Diet: Diabetic GI Prophylaxis: Not currently indicated DVT Prophylaxis: SCDs Lines: Peripheral Code Status: Full code Quality VTE Prophylaxis VTE prophylaxis: mechanical ordered Hospitalist [facility] Advance Care Plan I have confirmed that the patient's Advanced Care Plan is present, code status is documented, or surrogate decision maker is listed in patient medical record.: Yes Medication Reconciliation I have utilized all available resources to obtain, update and review the patients current medications (includes all prescriptions, OTC, herbals, cannabis, and nutritional supplements).: Yes
--- NOTE | 2024-11-22 19:55 | ADMGEN ---
This patient, Alondra Bill, was admitted to 2 Medical Room 245-. Patient/family oriented to hospital policies and general routines including ID bracelet, bed and alarms, visiting hours, pain management, procedures, bathroom and other care routines, personal items, smoking policy, room service/diet, and visiting hours. Information on how to activate the Rapid Response Team has been discussed. Patient/Family are encouraged to report perceived risks to care and to ask questions if they do not understand what they are told or what they should do.
[2024-11-22] MEDS: SODIUM CHLORIDE 0.9% IV 1,000 ML 75 ML IV CONT (20:04)
[2024-11-22 21:46] LABS: Glucose Point of Care 145 mg/dl (65-105)
[2024-11-22] MEDS: PIPERACILLIN/TAZ 2.25G/NS 50ML 2.25 GM/50 ML BAG IVPB (23:01)
[2024-11-22] MEDS: CITALOPRAM HYDROBROMIDE 20 MG TABLET PO (23:04)
[2024-11-22] MEDS: BACLOFEN 10 MG TABLET PO (23:04)
[2024-11-22] MEDS: OLMESARTAN MEDOXOMIL 20 MG TABLET 40 MG PO (23:19)
[2024-11-23] VITALS (7 sets, daily range): BP systolic 150–170; BP diastolic 54–70; PULSE 71–89; RESP 16–20; TEMP 36.7–37.1; O2SAT 90–94
[2024-11-23 05:14] LABS: Basophils Absolute Auto 0.1 K/mm3 (0.0-0.1); Basophils Percent Auto 0.6 % (0.2-1.2); Eosinophils Absolute Auto 0.3 K/mm3 (0-0.3); Eosinophils Percent Auto 3.2 % (0-4.4); Hematocrit 37.7 % (37.0-47.0); Hemoglobin 12.1 g/dL (12.0-15.0); Immature Granulocyte Absolute 0.04 K/mm3 (0.00-0.031); Immature Granulocyte Percent A 0.4 % (0-0.5); Lymphocytes Absolute Auto 2.38 K/mm3 (0.9-3.2); Lymphocytes Percent Auto 24.3 % (18.3-44.2); Mean Corpuscular HGB Conc 32.1 g/dl (32-36); Mean Corpuscular Hemoglobin 31.3 pg (26-34); Mean Corpuscular Volume 97.7 fl (80-100); Mean Platelet Volume 10.2 fl (7.4-10.4); Monocytes Absolute Auto 0.6 K/mm3 (0.1-0.6); Monocytes Percent Auto 6.5 % (2.6-8.5); Neutrophils Absolute Auto 6.4 K/mm3 (1.3-6.7); Platelet Count Result 189 k/mm3 (150-375); Red Blood Count 3.86 M/mm3 (4.2-5.4); Red Cell Distribution Width 12.2 % (11.5-14.5); White Blood Count 9.8 K/mm3 (4.5-10.0)
[2024-11-23 05:25] LABS: Anion Gap 8 mmol/L (4-12); Blood Urea Nitrogen 12 mg/dL (7-17); Calcium 8.9 mg/dL (8.4-10.2); Carbon Dioxide 24 mmol/L (22-30); Chloride 108 mmol/L (98-107); Estimated CRCL calculation 36 ml/min; Estimated Glomerular Filt Rate 46; Glucose 116 mg/dL (65-110); Magnesium 1.9 mg/dL (1.6-2.3); Potassium 3.3 mmol/L (3.4-5.0); Sodium 140 mmol/L (137-145)
[2024-11-23] MEDS: PIPERACILLIN/TAZ 2.25G/NS 50ML 2.25 GM/50 ML BAG IVPB ×3 (05:40→17:41)
--- NOTE | 2024-11-23 07:47 | PM.IMPN ---
Progress Note: A&P Assessment and Plan (1) Fall: Code(s): W19.XXXA - Unspecified fall, initial encounter Status: Acute Assessment and Plan: Patient had 2 falls prior to admission. She reported that her legs became significantly weak and she slid down to the floor. She denies head strike or loss of consciousness with either fall. No resulting pain or trauma per patient. - Head CT: No acute intracranial findings - Chest XR: Clear lungs - PT/OT (2) Generalized weakness: Code(s): R53.1 - Weakness Status: Acute Assessment and Plan: - WBC 13, Hgb 12.5 on admission, no significant electrolyte derangements WBC 9.8, Hgb 12.1 on am labs - Viral panel negative - UA w/1+ leuks and 6-10 WBC with no epithelial cells or bacteria. Urine culture pending. Started on macrobid. - EKG, initial: sinus rhythm - concern for episode of Vtach. Cardiology consulted, Jasvir MARK provided the following recs. Telemetry findings appeared to be artifact and inconsistent with her symptomatology, no further need for amiodarone. Follow-up with Rachel MARK outpatient next week - PT/OT evaluation and treatment for general deconditioning and for recommendations. Family currently unsure if rehab is the route they would like to go, however they are exploring her options. care coordination consulted at this time. - telemetry monitoring, monitoring for dysrhythmias (3) Hypomagnesemia: Code(s): E83.42 - Hypomagnesemia Status: Acute Assessment and Plan: - Mag 1.5 on admission, initial repletion with 2G IVPB. - Mag 1.9 on am labs, continue to monitor (4) Chronic kidney disease: Qualifiers: Chronic kidney disease stage: unspecified stage Qualified Code(s): N18.9 - Chronic kidney disease, unspecified Code(s): N18.9 - Chronic kidney disease, unspecified Status: Chronic Assessment and Plan: - creatinine 1.38 and GFR 37 on admission, appears at baseline - BUN/Cr 12/1.13 on am labs - IV fluids discontinued, patient has good oral intake - trend renal function - trend electrolytes, correct as needed - avoid nephrotoxic medications - renally dose medications - monitor I/O (5) Type 2 diabetes mellitus: Code(s): E11.9 - Type 2 diabetes mellitus without complications Status: Chronic Assessment and Plan: - hypoglycemia protocol - POC blood glucose ACHS - home medications: metformin 500 mg daily - correct regimen ordered - high dose TIDWM, based off BMI - A1C 6.8 (6) Hypertension: Qualifiers: Hypertension type: unspecified Qualified Code(s): I10 - Essential (primary) hypertension Code(s): I10 - Essential (primary) hypertension Status: Chronic Assessment and Plan: - chronic - continue home medications bumex 0.5 mg daily prn metoprolol 25 mg daily olmesartan 40 mg daily - blood pressures have been stable, continue to monitor (7) Abnormal finding on urinalysis: Code(s): R82.90 - Unspecified abnormal findings in urine Status: Acute Assessment and Plan: - UA w/1+ leuks and 6-10 WBC with no epithelial cells or bacteria. Daughter voice concerns to multiple providers that the patient was beginning to develop a UTI despite a virtually normal UA. She reports she has previously had similar findings and the urine culture was positive. Patient typically presents as she has today with either confusion/agitation or a fall. She is requesting initiation of antibiotics, started on Macrobid however developed vomiting. Started on zosyn pending culture results. Urine culture pending, follow. 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 Patient is pleasant comfortably bed. She endorses increased fatigue and weakness stating that she did not sleep well overnight. She notes slight shortness of breath seeing as she has not received her inhaler since admission. Inhaler has been ordered, patient informed that she has to ask to receive her inhaler as this is a p.r.n. medication. Patient has no other complaints denying chest pain, shortness a breath, palpitations, nausea/vomiting, abdominal pain, and dysuria/burning sensation/inability to fully void/hematuria. Review of Systems Review of Systems: All systems reviewed & are unremarkable except as noted in HPI and below Exam Narrative: AF HR 74 RR 18 Spo2 94 BP 150/54 General: female in no acute respiratory distress who is nontoxic appearing, lying semi recumbent in bed. HEENT: Normocephalic. Atraumatic. Extraocular movement intact. Sclera clear and anicteric. No facial asymmetry. Chest: Lungs are clear to auscultation bilaterally. No wheezes or crackles. CV: Heart was regular rate and rhythm. S1-S2. No murmurs, gallops, or rubs. Abd: Abdomen was soft. Nontender. Nondistended. Positive bowel sounds. Ext: No clubbing, cyanosis, or edema. DP pulses bilaterally. Neuro: Patient is alert and oriented x4. Speech is clear. Psych: Normal mood and affect. Patient is pleasant and cooperative. Skin: Warm and dry. No rashes noted. Objective Data Vital Signs Vital Signs: Vital Signs - 24 hr 11/22/24 09:22 11/22/24 09:24 11/22/24 10:36 Temperature 99.7 F H Pulse Rate 77 75 74 Respiratory Rate 20 28 H 22 H Blood Pressure 160/67 H 160/67 H 148/66 H Pulse Oximetry 96 96 98 Oxygen Delivery Room Air 11/22/24 10:46 11/22/24 10:53 11/22/24 11:01 Temperature Pulse Rate 82 77 69 Respiratory Rate 24 H 24 H Blood Pressure 159/66 H 159/66 H 141/49 H Pulse Oximetry 96 94 Oxygen Delivery 11/22/24 11:04 11/22/24 11:06 11/22/24 11:08 Temperature 98.8 F Pulse Rate 91 68 67 Respiratory Rate 24 H Blood Pressure 141/49 H 149/55 H 149/55 H Pulse Oximetry 98 Oxygen Delivery 11/22/24 11:09 11/22/24 11:15 11/22/24 11:17 Temperature Pulse Rate 68 70 68 Respiratory Rate 19 24 H 18 Blood Pressure 136/62 Pulse Oximetry 98 98 98 Oxygen Delivery 11/22/24 12:22 11/22/24 12:31 11/22/24 12:32 Temperature Pulse Rate 64 65 64 Respiratory Rate 26 H 15 22 H Blood Pressure 139/63 Pulse Oximetry 95 97 96 Oxygen Delivery 11/22/24 12:58 11/22/24 13:01 11/22/24 13:02 Temperature Pulse Rate 63 63 63 Respiratory Rate 22 H 14 20 Blood Pressure 150/62 H Pulse Oximetry 95 97 97 Oxygen Delivery 11/22/24 13:03 11/22/24 13:15 11/22/24 13:16 Temperature Pulse Rate 64 62 63 Respiratory Rate 23 H 26 H Blood Pressure 150/62 H 148/53 H Pulse Oximetry Oxygen Delivery 11/22/24 13:30 11/22/24 13:31 11/22/24 13:45 Temperature Pulse Rate 63 63 64 Respiratory Rate 17 18 19 Blood Pressure 136/58 L Pulse Oximetry 95 100 96 Oxygen Delivery 11/22/24 14:00 11/22/24 14:01 11/22/24 14:16 Temperature Pulse Rate 69 65 67 Respiratory Rate 24 H 20 28 H Blood Pressure 154/54 H 148/61 H Pulse Oximetry 96 97 97 Oxygen Delivery 11/22/24 14:17 11/22/24 14:30 11/22/24 14:31 Temperature Pulse Rate 64 65 64 Respiratory Rate 26 H 24 H 24 H Blood Pressure 150/62 H Pulse Oximetry 97 96 95 Oxygen Delivery 11/22/24 14:45 11/22/24 14:47 11/22/24 15:00 Temperature Pulse Rate 64 65 61 Respiratory Rate 13 25 H 17 Blood Pressure 164/54 H Pulse Oximetry 98 97 Oxygen Delivery 11/22/24 15:01 11/22/24 15:17 11/22/24 15:30 Temperature Pulse Rate 62 61 62 Respiratory Rate 20 21 H 18 Blood Pressure 165/60 H Pulse Oximetry 96 95 96 Oxygen Delivery 11/22/24 15:31 11/22/24 15:47 11/22/24 16:00 Temperature Pulse Rate 62 63 63 Respiratory Rate 25 H 26 H 23 H Blood Pressure 148/54 H Pulse Oximetry 96 98 Oxygen Delivery 11/22/24 16:15 11/22/24 16:30 11/22/24 16:45 Temperature Pulse Rate 62 67 76 Respiratory Rate 26 H 15 22 H Blood Pressure Pulse Oximetry 97 98 Oxygen Delivery 11/22/24 17:14 11/22/24 17:15 11/22/24 17:30 Temperature Pulse Rate 67 67 66 Respiratory Rate 27 H 28 H 26 H Blood Pressure Pulse Oximetry 98 100 98 Oxygen Delivery 11/22/24 18:43 11/22/24 20:05 11/23/24 05:12 Temperature 97.6 F 98.7 F Pulse Rate 63 67 72 Respiratory Rate 20 18 16 Blood Pressure 160/85 H 171/63 H 152/60 H Pulse Oximetry 98 98 91 Oxygen Delivery Intake/Output Intake/Output: Intake & Output 11/20/24 11/21/24 11/22/24 11/23/24 23:59 23:59 23:59 23:59 Intake Total 1265 350 Output Total 100 Balance 1165 350 Meds/Results Medications: Active Medications Generic Name Dose Route Start Last Admin Trade Name Freq PRN Reason Stop Dose Admin Acetaminophen 650 mg 11/22/24 16:32 Acetaminophen 325 Mg Tablet PO Q4H PRN Mild Pain (1-3) or Fever Albuterol 2 puff 11/22/24 16:16 Albuterol Sulfate (*Sp) Aerosol 1 Puff INHALATION Q6HRT PRN Shortness Of Breath Albuterol 2 puff 11/22/24 22:41 Albuterol Sulfate (*Sp) Aerosol 1 Puff INHALATION Q6H PRN SHORTNESS OF BREATH Alprazolam 0.5 mg 11/23/24 21:00 Alprazolam (*Crx) 0.5 Mg Tablet PO HS JUSTA Ascorbic Acid 1,000 mg 11/23/24 09:00 Ascorbic Acid 500 Mg Tablet PO DAILY JUSTA Aspirin 81 mg 11/23/24 09:00 Aspirin 81 Mg Enteric Tablet PO DAILY JUSTA Baclofen 10 mg 11/22/24 22:45 11/22/24 23:04 Baclofen 10 Mg Tablet PO 10 mg Q12HR JUSTA Administration Bumetanide 0.5 mg 11/22/24 22:41 Bumetanide 0.5 Mg Tablet PO DAILY PRN edema Citalopram Hydrobromide 20 mg 11/22/24 23:00 11/22/24 23:04 Citalopram Hydrobromide 20 Mg Tablet PO 20 mg HS JUSTA Administration Cyanocobalamin 250 mcg 11/23/24 09:00 Cyanocobalamin 250 Mcg Tablet PO QAM JUSTA Dextrose 12.5 gm 11/22/24 16:32 Dextrose 50% 25 Gm/50 Ml Syringe IV PUSH PRN PRN Hypoglycemia Protocol Diphenhydramine HCl 25 mg 11/22/24 22:38 Diphenhydramine Hcl Inj 50 Mg/Ml Vial IV PUSH Q5M PRN Allergic Reaction Fluticasone Propionate 2 spray 11/23/24 09:00 Fluticasone Propionate 0.05% Na Spr 16 Gm Btl (*Bkc) NASAL Q12HR JUSTA Glucagon 1 mg 11/22/24 16:32 Glucagon For Inj 1 Mg Vial IM PRN PRN Hypoglycemia Protocol Glucose 15 gm 11/22/24 16:32 Glucose Oral Gel 15 Gm Of Glucse In 37.5 Gm Tube PO PRN PRN Hypoglycemia Protocol Dextrose 1,000 mls @ 100 mls/hr 11/22/24 16:32 Dextrose 5% 1,000 Ml IVPB PRN PRN Hypoglycemia Protocol Sodium Chloride 1,000 mls @ 75 mls/hr 11/22/24 19:52 11/22/24 20:04 Normal Saline Iv IV CONT 11/23/24 09:11 75 mls/hr .[id number] STA Administration Piperacillin Sod/Tazobactam Sod 2.25 gm in 50 mls @ 100 mls/hr 11/22/24 22:40 11/23/24 06:13 Zosyn 2.25 Gm/Ns 50 Ml IVPB Infused Q6HR JUSTA Infusion Insulin Aspart 4 - 8 units 11/23/24 08:00 Insulin Aspart (*Bkc) 100 Units/Ml SUB-Q TIDWM [facility] Protocol Loteprednol Etabonate 1 drop 11/23/24 09:00 Loteprednol Etabonate 0.2% Oph 5 Ml Susp RIGHT EYE QID [facility] Metformin HCl 500 mg 11/23/24 09:00 Metformin Hcl Xr 500 Mg Tab.Sr.24h PO DAILY [facility] Metoprolol Succinate 25 mg 11/23/24 09:00 Metoprolol Succinate Ext Rel 25 Mg Tabcr PO DAILY [facility] Miscellaneous Information 0 each 11/22/24 23:05 Methenamine Hippurate 1 Gram Tablet- Nonformulary. Please Obtain A Home Supply Or Hold Whi XX 12/22/24 23:04 CLARIFY [facility] Non-Formulary Medication 1 gm 11/22/24 22:45 Methenamine Hippurate PO 12/22/24 22:44 Q12H [facility] Olmesartan 40 mg 11/22/24 23:00 11/22/24 23:19 Olmesartan Medoxomil 20 Mg Tablet PO 40 mg HS JUSTA Administration Ondansetron HCl 4 mg 11/22/24 16:32 Ondansetron Inj 4 Mg/2 Ml Vial IV PUSH Q4H PRN Nausea Pantoprazole Sodium 40 mg 11/23/24 09:00 Pantoprazole 40 Mg Tablet PO BID [facility] Rosuvastatin Calcium 10 mg 11/23/24 09:00 Rosuvastatin 10 Mg Tablet PO [id number]@0900 [facility] Radiology Results: ITS Impressions Chest X-Ray 11/22/24 10:19 Impression: Clear lungs. Status post CABG. Head CT 11/22/24 11:44 IMPRESSION: No acute intracranial findings. Labs Labs: Laboratory Results - last 24 hr 11/22/24 11/22/24 11/22/24 10:35 10:50 10:52 WBC 13.0 H RBC 3.89 L Hgb 12.5 Hct 38.1 MCV 97.9 MCH 32.1 MCHC 32.8 RDW 12.3 Plt Count 181 MPV 9.8 Immature Gran % (Auto) 0.3 Neut % (Auto) 78.8 H Lymph % (Auto) 12.8 L [place] % (Auto) 6.4 Eos % (Auto) 1.2 Baso % (Auto) 0.5 Lymph # (Auto) 1.67 [place] # (Auto) 0.8 H Eos # (Auto) 0.2 Baso # (Auto) 0.1 Abs Immat Gran (auto) 0.04 H Absolute Neuts (auto) 10.3 H Absolute Nucleated RBC 0.000 Nucleated RBC % 0.0 PT 13.1 INR 1.0 APTT 26.9 Sodium 140 Potassium 4.0 Chloride 105 Carbon Dioxide 28 Anion Gap 7 BUN 16 Creatinine 1.38 H Estim Creat Clear Calc 30 Estimated GFR 37 L Glucose 145 H POC Capillary Glucose Lactic Acid 1.5 Calcium 9.5 Magnesium 1.5 L Total Bilirubin 0.6 AST 17 ALT 13 Alkaline Phosphatase 55 Troponin I < 0.012 NT-Pro-B Natriuret Pep 469 H Total Protein 7.0 Albumin 3.9 Urine Color Urine Appearance Urine pH Ur Specific [place] Urine Protein Urine Glucose (UA) Urine Ketones Ur Blood (Man) Urine Nitrate Urine Bilirubin Urine Urobilinogen Leukocyte Esterase Rfl Urine RBC Urine WBC Ur Squamous Epith Cells Urine Bacteria Urine Casts Influenza A (RT-PCR) Negative Influenza B (RT-PCR) Negative RSV (RT-PCR) Negative SARS-CoV-2 RNA (RT-PCR) Negative 11/22/24 11/22/24 11/23/24 11:13 20:20 04:23 WBC 9.8 RBC 3.86 L Hgb 12.1 Hct 37.7 MCV 97.7 MCH 31.3 MCHC 32.1 RDW 12.2 Plt Count 189 MPV 10.2 Immature Gran % (Auto) 0.4 Neut % (Auto) 65.0 Lymph % (Auto) 24.3 [place] % (Auto) 6.5 Eos % (Auto) 3.2 Baso % (Auto) 0.6 Lymph # (Auto) 2.38 [place] # (Auto) 0.6 Eos # (Auto) 0.3 Baso # (Auto) 0.1 Abs Immat Gran (auto) 0.04 H Absolute Neuts (auto) 6.4 Absolute Nucleated RBC 0.000 Nucleated RBC % 0.0 PT INR APTT Sodium 140 Potassium 3.3 L Chloride 108 H Carbon Dioxide 24 Anion Gap 8 BUN 12 Creatinine 1.13 H Estim Creat Clear Calc 36 Estimated GFR 46 L Glucose 116 H POC Capillary Glucose 145 H Lactic Acid Calcium 8.9 Magnesium 1.9 Total Bilirubin AST ALT Alkaline Phosphatase Troponin I NT-Pro-B Natriuret Pep Total Protein Albumin Urine Color Yellow Urine Appearance Clear Urine pH 6.0 Ur Specific [place] 1.010 Urine Protein Trace Urine Glucose (UA) Negative Urine Ketones Negative Ur Blood (Man) Negative Urine Nitrate Negative Urine Bilirubin Negative Urine Urobilinogen 0.2 Leukocyte Esterase Rfl 1+ H Urine RBC 0-2 Urine WBC 6-10 H Ur Squamous Epith Cells None seen Urine Bacteria None seen Urine Casts 0-2 Influenza A (RT-PCR) Influenza B (RT-PCR) RSV (RT-PCR) SARS-CoV-2 RNA (RT-PCR) Quality VTE Prophylaxis VTE prophylaxis: mechanical ordered
[2024-11-23 08:23] LABS: Glucose Point of Care 117 mg/dl (65-105)
[2024-11-23 09:26] LABS: Hemoglobin A1C 6.8 % (<5.7)
[2024-11-23] MEDS: POTASSIUM CHLORIDE 20 MEQ ER TABLET 40 MEQ PO (10:14)
[2024-11-23] MEDS: ASCORBIC ACID 500 MG TABLET 1000 MG PO (10:14)
[2024-11-23] MEDS: METOPROLOL SUCCINATE EXT REL 25 MG TABCR PO (10:15)
[2024-11-23] MEDS: ASPIRIN 81 MG ENTERIC TABLET PO (10:15)
[2024-11-23] MEDS: PANTOPRAZOLE 40 MG TABLET PO ×2 (10:15→17:41)
[2024-11-23] MEDS: CYANOCOBALAMIN 250 MCG TABLET PO (10:15)
[2024-11-23] MEDS: BACLOFEN 10 MG TABLET PO ×2 (10:15→21:03)
[2024-11-23] MEDS: ROSUVASTATIN 10 MG TABLET PO (10:19)
[2024-11-23] MEDS: METHENAMINE HIPPURATE 1 GM PO ×2 (10:19→21:03)
[2024-11-23] MEDS: [UNRECOGNIZED DRUG - OTHER] PO ×2 (10:19→21:03)
[2024-11-23] MEDS: ALBUTEROL SULFATE (*SP) AEROSOL 1 PUFF 2 PUFF INHALATION (10:38)
[2024-11-23 11:51] LABS: Glucose Point of Care 183 mg/dl (65-105)
[2024-11-23 17:12] LABS: Glucose Point of Care 141 mg/dl (65-105)
[2024-11-23 20:57] LABS: Glucose Point of Care 152 mg/dl (65-105)
[2024-11-23] MEDS: ALPRAZolam (*CRX) 0.5 MG TABLET PO (21:02)
[2024-11-23] MEDS: OLMESARTAN MEDOXOMIL 20 MG TABLET 40 MG PO (21:03)
[2024-11-23] MEDS: CITALOPRAM HYDROBROMIDE 20 MG TABLET PO (21:03)
[2024-11-23] MEDS: FLUTICASONE PROPIONATE 0.05% NA SPR 16 GM BTL (*BKC) 2 SPRAY NASAL (21:04)
[2024-11-24] MEDS: PIPERACILLIN/TAZ 2.25G/NS 50ML 2.25 GM/50 ML BAG IVPB ×2 (05:07→12:39)
[2024-11-24 05:29] VITALS: BP 156/86; PULSE 86; RESP 18; TEMP 37.4; O2SAT 90
[2024-11-24 08:05] LABS: Glucose Point of Care 173 mg/dl (65-105)
--- NOTE | 2024-11-24 08:21 | PM.IMPN ---
Progress Note: A&P Assessment and Plan (1) Fall: Code(s): W19.XXXA - Unspecified fall, initial encounter Status: Acute Assessment and Plan: Patient had 2 falls prior to admission. She reported that her legs became significantly weak and she slid down to the floor. She denies head strike or loss of consciousness with either fall. No resulting pain or trauma per patient. - Head CT: No acute intracranial findings - Chest XR: Clear lungs - PT/OT (2) Generalized weakness: Code(s): R53.1 - Weakness Status: Acute Assessment and Plan: - WBC 13, Hgb 12.5 on admission, no significant electrolyte derangements WBC 9.8, Hgb 12.1 on am labs - Viral panel negative - UA w/1+ leuks and 6-10 WBC with no epithelial cells or bacteria. Urine culture pending. Started on macrobid. - EKG, initial: sinus rhythm - concern for episode of Vtach. Cardiology consulted, Jasvir MARK provided the following recs. Telemetry findings appeared to be artifact and inconsistent with her symptomatology, no further need for amiodarone. Follow-up with Rachel MARK outpatient next week - PT/OT evaluation and treatment for general deconditioning and for recommendations. Family currently unsure if rehab is the route they would like to go, however they are exploring her options. care coordination consulted at this time. - telemetry monitoring, monitoring for dysrhythmias (3) Hypomagnesemia: Code(s): E83.42 - Hypomagnesemia Status: Acute Assessment and Plan: - Mag 1.5 on admission, initial repletion with 2G IVPB. - Mag 1.9 on am labs, continue to monitor (4) Chronic kidney disease: Qualifiers: Chronic kidney disease stage: unspecified stage Qualified Code(s): N18.9 - Chronic kidney disease, unspecified Code(s): N18.9 - Chronic kidney disease, unspecified Status: Chronic Assessment and Plan: - creatinine 1.38 and GFR 37 on admission, appears at baseline - BUN/Cr 12/1.13 on am labs - IV fluids discontinued, patient has good oral intake - trend renal function - trend electrolytes, correct as needed - avoid nephrotoxic medications - renally dose medications - monitor I/O (5) Type 2 diabetes mellitus: Code(s): E11.9 - Type 2 diabetes mellitus without complications Status: Chronic Assessment and Plan: - hypoglycemia protocol - POC blood glucose ACHS - home medications: metformin 500 mg daily - correct regimen ordered - high dose TIDWM, based off BMI - A1C 6.8 (6) Hypertension: Qualifiers: Hypertension type: unspecified Qualified Code(s): I10 - Essential (primary) hypertension Code(s): I10 - Essential (primary) hypertension Status: Chronic Assessment and Plan: - chronic - continue home medications bumex 0.5 mg daily prn metoprolol 25 mg daily olmesartan 40 mg daily - blood pressures have been stable, continue to monitor (7) Abnormal finding on urinalysis: Code(s): R82.90 - Unspecified abnormal findings in urine Status: Acute Assessment and Plan: - UA w/1+ leuks and 6-10 WBC with no epithelial cells or bacteria. Daughter voice concerns to multiple providers that the patient was beginning to develop a UTI despite a virtually normal UA. She reports she has previously had similar findings and the urine culture was positive. Patient typically presents as she has today with either confusion/agitation or a fall. She is requesting initiation of antibiotics, started on Macrobid however developed vomiting. Started on zosyn pending culture results. Urine culture negative. Antibiotics discontinued. 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 Review of Systems Review of Systems: All systems reviewed & are unremarkable except as noted in HPI and below Exam Narrative: AF HR General: female in no acute respiratory distress who is nontoxic appearing, lying semi recumbent in bed. HEENT: Normocephalic. Atraumatic. Extraocular movement intact. Sclera clear and anicteric. No facial asymmetry. Chest: Lungs are clear to auscultation bilaterally. No wheezes or crackles. CV: Heart was regular rate and rhythm. S1-S2. No murmurs, gallops, or rubs. Abd: Abdomen was soft. Nontender. Nondistended. Positive bowel sounds. Ext: No clubbing, cyanosis, or edema. DP pulses bilaterally. Neuro: Patient is alert and oriented x4. Speech is clear. Psych: Normal mood and affect. Patient is pleasant and cooperative. Skin: Warm and dry. No rashes noted. Objective Data Vital Signs Vital Signs: Vital Signs - 24 hr 11/23/24 10:15 11/23/24 10:15 11/23/24 10:28 Temperature Pulse Rate 74 80 Respiratory Rate 17 Blood Pressure Pulse Oximetry 92 92 Oxygen Delivery Room Air 11/23/24 10:39 11/23/24 13:24 11/23/24 20:00 Temperature 98.0 F Pulse Rate 71 74 89 Respiratory Rate 20 18 18 Blood Pressure 150/54 H Pulse Oximetry 94 90 Oxygen Delivery Room Air 11/23/24 20:38 11/24/24 05:29 Temperature 98.8 F 99.3 F Pulse Rate 89 86 Respiratory Rate 18 18 Blood Pressure 170/70 H 156/86 H Pulse Oximetry 90 90 Oxygen Delivery Intake/Output Intake/Output: Intake & Output 11/21/24 11/22/24 11/23/24 11/24/24 23:59 23:59 23:59 23:59 Intake Total 1265 810 200 Output Total 100 1100 400 Balance 1165 -290 -200 Meds/Results Medications: Active Medications Generic Name Dose Route Start Last Admin Trade Name Freq PRN Reason Stop Dose Admin Acetaminophen 650 mg 11/22/24 16:32 Acetaminophen 325 Mg Tablet PO Q4H PRN Mild Pain (1-3) or Fever Albuterol 2 puff 11/22/24 16:16 11/23/24 10:38 Albuterol Sulfate (*Sp) Aerosol 1 Puff INHALATION 2 puff Q6HRT PRN Administration Shortness Of Breath Albuterol 2 puff 11/22/24 22:41 Albuterol Sulfate (*Sp) Aerosol 1 Puff INHALATION Q6H PRN SHORTNESS OF BREATH Alprazolam 0.5 mg 11/23/24 21:00 11/23/24 21:02 Alprazolam (*Crx) 0.5 Mg Tablet PO 0.5 mg HS JUSTA Administration Ascorbic Acid 1,000 mg 11/23/24 09:00 11/23/24 10:14 Ascorbic Acid 500 Mg Tablet PO 1,000 mg DAILY JUSTA Administration Aspirin 81 mg 11/23/24 09:00 11/23/24 10:15 Aspirin 81 Mg Enteric Tablet PO 81 mg DAILY JUSTA Administration Baclofen 10 mg 11/22/24 22:45 11/23/24 21:03 Baclofen 10 Mg Tablet PO 10 mg Q12HR JUSTA Administration Bumetanide 0.5 mg 11/22/24 22:41 Bumetanide 0.5 Mg Tablet PO DAILY PRN edema Citalopram Hydrobromide 20 mg 11/22/24 23:00 11/23/24 21:03 Citalopram Hydrobromide 20 Mg Tablet PO 20 mg HS JUSTA Administration Cyanocobalamin 250 mcg 11/23/24 09:00 11/23/24 10:15 Cyanocobalamin 250 Mcg Tablet PO 250 mcg QAM JUSTA Administration Dextrose 12.5 gm 11/22/24 16:32 Dextrose 50% 25 Gm/50 Ml Syringe IV PUSH PRN PRN Hypoglycemia Protocol Diphenhydramine HCl 25 mg 11/22/24 22:38 Diphenhydramine Hcl Inj 50 Mg/Ml Vial IV PUSH Q5M PRN Allergic Reaction Fluticasone Propionate 2 spray 11/23/24 09:00 11/23/24 21:04 Fluticasone Propionate 0.05% Na Spr 16 Gm Btl (*Bkc) NASAL 2 spray Q12HR JUSTA Administration Glucagon 1 mg 11/22/24 16:32 Glucagon For Inj 1 Mg Vial IM PRN PRN Hypoglycemia Protocol Glucose 15 gm 11/22/24 16:32 Glucose Oral Gel 15 Gm Of Glucse In 37.5 Gm Tube PO PRN PRN Hypoglycemia Protocol Dextrose 1,000 mls @ 100 mls/hr 11/22/24 16:32 Dextrose 5% 1,000 Ml IVPB PRN PRN Hypoglycemia Protocol Piperacillin Sod/Tazobactam Sod 2.25 gm in 50 mls @ 100 mls/hr 11/22/24 22:40 11/24/24 05:07 Zosyn 2.25 Gm/Ns 50 Ml IVPB 100 mls/hr Q6HR JUSTA Administration Insulin Aspart 4 - 8 units 11/23/24 08:00 11/23/24 17:37 Insulin Aspart (*Bkc) 100 Units/Ml SUB-Q Not Given TIDWM [facility] Protocol Loteprednol Etabonate 1 drop 11/23/24 09:00 11/23/24 10:27 Loteprednol Etabonate 0.2% Oph 5 Ml Susp RIGHT EYE Not Given QID JUSTA Metformin HCl 500 mg 11/23/24 09:00 Metformin Hcl Xr 500 Mg Tab.Sr.24h PO DAILY [facility] Metoprolol Succinate 25 mg 11/23/24 09:00 11/23/24 10:15 Metoprolol Succinate Ext Rel 25 Mg Tabcr PO 25 mg DAILY JUSTA Administration Nonformulary Drug 1 gm 11/23/24 21:00 11/23/24 21:03 Methenamine PO 12/23/24 20:59 1 gm Hippurate 1 Gram Q12H JUSTA Administration Tablet Olmesartan 40 mg 11/22/24 23:00 11/23/24 21:03 Olmesartan Medoxomil 20 Mg Tablet PO 40 mg HS JUSTA Administration Ondansetron HCl 4 mg 11/22/24 16:32 Ondansetron Inj 4 Mg/2 Ml Vial IV PUSH Q4H PRN Nausea Pantoprazole Sodium 40 mg 11/23/24 09:00 11/23/24 17:41 Pantoprazole 40 Mg Tablet PO 40 mg BID JUSTA Administration Rosuvastatin Calcium 10 mg 11/23/24 09:00 11/23/24 10:19 Rosuvastatin 10 Mg Tablet PO 10 mg MoWeFr@0900 JUSTA Administration Radiology Results: ITS Impressions Chest X-Ray 11/22/24 10:19 Impression: Clear lungs. Status post CABG. Head CT 11/22/24 11:44 IMPRESSION: No acute intracranial findings. Labs Labs: Laboratory Results - last 24 hr 11/23/24 11/23/24 11/23/24 04:19 08:20 11:46 POC Capillary Glucose 117 H 183 H Hemoglobin A1c 6.8 H 11/23/24 11/23/24 11/24/24 17:07 20:43 08:02 POC Capillary Glucose 141 H 152 H 173 H Hemoglobin A1c Quality VTE Prophylaxis VTE prophylaxis: mechanical ordered
[2024-11-24 09:11] LABS: Hematocrit 36.8 % (37.0-47.0); Mean Corpuscular HGB Conc 32.6 g/dl (32-36); Mean Corpuscular Hemoglobin 31.9 pg (26-34); Mean Corpuscular Volume 97.9 fl (80-100); Mean Platelet Volume 9.8 fl (7.4-10.4); Platelet Count Result 182 k/mm3 (150-375); Red Blood Count 3.76 M/mm3 (4.2-5.4); Red Cell Distribution Width 12.1 % (11.5-14.5); White Blood Count 12.5 K/mm3 (4.5-10.0)
[2024-11-24 10:07] LABS: Anion Gap 8 mmol/L (4-12); Blood Urea Nitrogen 11 mg/dL (7-17); Calcium 8.9 mg/dL (8.4-10.2); Carbon Dioxide 25 mmol/L (22-30); Chloride 105 mmol/L (98-107); Estimated CRCL calculation 39 ml/min; Estimated Glomerular Filt Rate 51; Glucose 149 mg/dL (65-110); Potassium 3.6 mmol/L (3.4-5.0); Sodium 138 mmol/L (137-145)
[2024-11-24 10:38] VITALS: PULSE 86
[2024-11-24] MEDS: ASCORBIC ACID 500 MG TABLET 1000 MG PO (10:38)
[2024-11-24] MEDS: ASPIRIN 81 MG ENTERIC TABLET PO (10:38)
[2024-11-24] MEDS: BACLOFEN 10 MG TABLET PO (10:38)
[2024-11-24] MEDS: METOPROLOL SUCCINATE EXT REL 25 MG TABCR PO (10:38)
[2024-11-24] MEDS: CYANOCOBALAMIN 250 MCG TABLET PO (10:38)
[2024-11-24] MEDS: FLUTICASONE PROPIONATE 0.05% NA SPR 16 GM BTL (*BKC) 2 SPRAY NASAL (10:39)
[2024-11-24] MEDS: METHENAMINE HIPPURATE 1 GM PO (10:39)
[2024-11-24] MEDS: [UNRECOGNIZED DRUG - OTHER] PO (10:39)
[2024-11-24] MEDS: ALBUTEROL SULFATE (*SP) AEROSOL 1 PUFF 2 PUFF INHALATION (11:22)
[2024-11-24 12:14] LABS: Glucose Point of Care 156 mg/dl (65-105)
[2024-11-24 13:28] VITALS: BP 135/55; PULSE 70; RESP 18; TEMP 36.6; O2SAT 95
--- NOTE | 2024-11-24 14:39 | P.DS_ITS ---
DS: Admitting Diagnosis Discharge Date 11/24/2024 Admitting Diagnosis fall generalized weakness hypomagnesemia ckd dm htn abnormal urinalysis finding DS: Discharge Diagnosis Discharge Diagnosis (1) Fall: Code(s): W19.XXXA - Unspecified fall, initial encounter Status: Acute (2) Generalized weakness: Code(s): R53.1 - Weakness Status: Acute (3) Hypomagnesemia: Code(s): E83.42 - Hypomagnesemia Status: Acute (4) Chronic kidney disease: Qualifiers: Chronic kidney disease stage: unspecified stage Qualified Code(s): N18.9 - Chronic kidney disease, unspecified Code(s): N18.9 - Chronic kidney disease, unspecified Status: Chronic (5) Type 2 diabetes mellitus: Code(s): E11.9 - Type 2 diabetes mellitus without complications Status: Chronic (6) Hypertension: Qualifiers: Hypertension type: unspecified Qualified Code(s): I10 - Essential (primary) hypertension Code(s): I10 - Essential (primary) hypertension Status: Chronic (7) Abnormal finding on urinalysis: Code(s): R82.90 - Unspecified abnormal findings in urine Status: Acute DS: Summary Hospital Course Reason for hospitalization: fall generalized weakness hypomagnesemia ckd dm htn abnormal urinalysis finding Hospital Course: 79 y/o female with past medical history of diabetes, 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 Patient had 2 falls prior to admission. She reported that her legs became significantly weak and she slid down to the floor. She denies head strike or loss of consciousness with either fall. No resulting pain or trauma per patient. Head CT and chest XR unremarkable. While in the ED there was concern for paroxysmal vtach. Cardiology consulted. Per Cardiology the telemetry findings appear to be artifact and inconsistent with her symptomatology. Patient follow-up with her storage consultant Dr. Ramos outpatient. Patient had slight leukocytosis on admission. Viral panel negative. UA slightly concerning for infection. Per chart review daughter voiced concerns that the patient was beginning to develop a UTI despite a virtually normal UA. Started on antibiotics, which were discontinued at discharge as culture was negative. Patient evaluated by Physical therapy and is able to ambulate 300 ft using wheeled walker. Therapy recommending home health has been set up care coordination. At time of discharge patient has no complaints denying chest pain, shortness a breath, palpitations, nausea/vomiting, abdominal pain and any urinary symptoms. She notes that she feels she is at her baseline and is ready for discharge. Prior to discharge discussed patient care with her daughter. All questions were answered at time. Patient discharged home with home health in a stable condition. She has a follow-up with her primary care provider in 1 week. Status at Discharge Functional status at discharge: uses cane/walker Time Spent with Patient Time attestation: Total time spent providing and/or coordinating discharge services: Time spent: Greater than 30 minutes Exam Narrative: AF HR 70 RR 18 SpO2 95 BP 135/55 General: female in no acute respiratory distress who is nontoxic appearing, lying semi recumbent in bed. HEENT: Normocephalic. Atraumatic. Extraocular movement intact. Sclera clear and anicteric. No facial asymmetry. Chest: Lungs are clear to auscultation bilaterally. CV: Heart was regular rate and rhythm. Abd: Abdomen was soft. Nontender. Nondistended. Positive bowel sounds. Ext: No clubbing, cyanosis, or edema. DP pulses bilaterally. Neuro: Patient is alert and oriented x4. Speech is clear. DS: Data Data Completed and Pending Completed studies during hospitalization: Head CT Chest x-ray Labs on day of discharge: Labs from last 24 hours 11/24/24 11/24/24 11/24/24 12:00 09:00 08:02 WBC 12.5 H RBC 3.76 L Hgb 12.0 Hct 36.8 L MCV 97.9 MCH 31.9 MCHC 32.6 RDW 12.1 Plt Count 182 MPV 9.8 Sodium 138 Potassium 3.6 Chloride 105 Carbon Dioxide 25 Anion Gap 8 BUN 11 Creatinine 1.05 H Estim Creat Clear Calc 39 Estimated GFR 51 L Glucose 149 H POC Capillary Glucose 156 H 173 H Calcium 8.9 11/23/24 11/23/24 20:43 17:07 WBC RBC Hgb Hct MCV MCH MCHC RDW Plt Count MPV Sodium Potassium Chloride Carbon Dioxide Anion Gap BUN Creatinine Estim Creat Clear Calc Estimated GFR Glucose POC Capillary Glucose 152 H 141 H Calcium Discharge Plan Discharge Attending physician on discharge: Darnell Bailey Discharging Clinician: Valerie Jain Anticipated Discharge Date/Time: 11/24/24 14:39 Patient Disposition: Home Health Service Activity: as tolerated Diet: as tolerated and diabetic Discharge Instructions: Per Care Coordination: A referral was sent to [facility], they will contact you to start services. There phone number is [phone]. If you do not hear from [facility] in a timely manner, please follow up with your primary care provider to arrange home health. RN please fax discharge paperwork to [phone] Discharge disposition: Patient admitted to the hospital following a fall Imaging unremarkable for acute injury Patient evaluated by physical therapy who recommends home health Home health has been set up prior to discharge Concern for urinary tract infection on admission Urine culture was negative Eat well balanced meals and stay hydrated Keep active to remain strong Avoid use of diapers or pads Good roque Care every 2 hours Trend urine output Monitor blood pressures Take caution while standing, rising, or moving Change positions slowly taking a break between each position change If you standing feel dizzy sit back down and take a break Encouraged to continue with yearly vaccinations Return to the emergency department if he developed sudden shortness of breath, chest pain, nausea, vomiting, upset stomach or intractable diarrhea Return to the emergency department if you develop fever greater than 101.5 Follow-up with the primary care physician within 1-2 weeks Thank you for [facility] for your healthcare needs Patient Instructions: Heart Failure (GEN) Patient Language: Danish Stand Alone Forms: General Discharge Information Follow-up/Referrals: UNKNOWN,DOCTOR [Primary Care Provider] - 1 Week Discharge Medications: Continued estradiol 0.01 % (0.1 mg/gram) cream 2 g VAGINAL DIRECTED omeprazole 40 mg Capsule,Delayed Release(Dr/Ec) 40 mg PO BID Qty: 60 0RF Bydureon BCise 2 mg/0.85 mL auto-injector 2 mg SUBCUT WEEKLY Rx Instructions: Tuesday acetaminophen 500 mg Capsule 500 mg PO Q8H PRN (Reason: Pain (Scale Score 1-3)) metformin 500 mg tablet extended release 24 hr 500 mg PO DAILY Qty: 1 0RF alprazolam 0.5 mg tablet 0.5 mg PO HS loteprednol etabonate 0.2 % drops,suspension 1 drp RIGHT EYE .unknown fluticasone propionate 50 mcg/actuation spray,suspension 2 spray INTRANASAL Q12H mecobalamin (vitamin B12) [B12 Active] 1,000 mcg tablet,chewable 100 mcg PO DAILY cyanocobalamin (vitamin B-12) 100 mcg tablet 100 mcg PO DAILY baclofen 10 mg tablet 10 mg PO Q12H methenamine hippurate 1 gram tablet 1 g PO Q12H ascorbic acid (vitamin C) 1,000 mg tablet 1,000 mg PO DAILY aspirin 81 mg Tablet,Delayed Release (Dr/Ec) 81 mg PO DAILY metoprolol succinate 25 mg tablet extended release 24 hr 1 tablet PO DAILY albuterol sulfate 90 mcg/actuation HFA aerosol inhaler 2 inh INHALATION Q6H PRN (Reason: SHORTNESS OF BREATH) olmesartan 40 mg tablet 1 tablet PO HS bumetanide 0.5 mg tablet 0.5 mg PO DAILY PRN (Reason: edema) citalopram 20 mg tablet 20 mg PO HS rosuvastatin [Crestor] 20 mg tablet 10 mg PO QMWF Date of admission: 11/23/24 09:59 Primary Care Provider: UNKNOWN,DOCTOR Admitting Provider: Darnell Bailey Attending physician on admission: Valerie Jain Condition: Stable Hospitalist MIPS Heart Failure (Exclusion) Patient has history of Heart Transplant or Left Ventricular Assistive Device?: No IF YES, STOP HERE Heart Failure (Qualifier) Patient has current or prior documentation of LVEF less than or equal to 40%, or mod/servere depressed LVSF?: No IF NO, STOP HERE
== END 2024-11-24 16:10 | disposition home health service (06) | DRG 948 ==
LOC: ANHED 14:13 → ANH2MED 17:55
PROVIDERS: Emergency Medicine; Student in an Organized Health Care Education/Training Program; Admitting Provider Internal Medicine; Emergency Provider Physician Assistant; Visit Provider Student in an Organized Health Care Education/Training Program
DX: R53.1 Weakness (principal); I13.0 Hypertensive heart and chronic kidney disease with heart failure and stage 1 through stage 4 chronic kidney disease, or unspecified chronic kidney disease; E11.22 Type 2 diabetes mellitus with diabetic chronic kidney disease; N18.9 Chronic kidney disease, unspecified; I50.9 Heart failure, unspecified; D50.9 Iron deficiency anemia, unspecified; E83.42 Hypomagnesemia; E11.51 Type 2 diabetes mellitus with diabetic peripheral angiopathy without gangrene; E78.5 Hyperlipidemia, unspecified; I25.10 Atherosclerotic heart disease of native coronary artery without angina pectoris; I25.5 Ischemic cardiomyopathy; J44.9 Chronic obstructive pulmonary disease, unspecified; R39.15 Urgency of urination; R82.90 Unspecified abnormal findings in urine; W19.XXXA Unspecified fall, initial encounter; Z79.84 Long term (current) use of oral hypoglycemic drugs; Z20.822 Contact with and (suspected) exposure to COVID-19; Z79.82 Long term (current) use of aspirin; Z87.820 Personal history of traumatic brain injury; Z95.1 Presence of aortocoronary bypass graft; Z90.49 Acquired absence of other specified parts of digestive tract; Z87.891 Personal history of nicotine dependence
CPT/HCPCS: 36415; 70450; 71046; 80048; 80053; 81001; 82948; 83036; 83605; 83735; 83880; 84484; 85025; 85027; 85610; 85730; 87086; 87637; 93005; 94640; 96361; 96365; 96367; 96375; 97161; 97165; 99285; A9270; G0378; J0282; J2543; J3475; J7030